=== PATIENT | female | born 1945 | race African-American/Black ===

== ENCOUNTER → 2017-08-12 | Day surgery (SDC) | payer OTHER | END | disposition home or self-care (01) | LOC: JRADIR 08:49 | PROVIDERS: ATTEND Internal Medicine Hematology & Oncology | PROC: 0JPT0XZ Removal of Tunneled Vascular Access Device from Trunk Subcutaneous Tissue and Fascia, Open Approach (ICD-10-PCS; principal; 2017-08-12) | DX: Z45.2 Encounter for adjustment and management of vascular access device (principal); C50.919 Malignant neoplasm of unspecified site of unspecified female breast | CPT/HCPCS: 36590; 77001-TC ==

== ENCOUNTER 2019-09-06 08:06 | Inpatient (IN) | payer OTHER ==
--- NOTE | 2019-09-06 08:14 | PDOC ---
History of Present Illness - General Chief Complaint: Shortness of Breath Stated Complaint: SOB Time Seen by Provider: 09/06/19 08:14 History Source: Patient Exam Limitations: No Limitations - History of Present Illness Initial Comments: 09/06/19 08:34 Fabi Castro is a 73yF w PMHx HTN, IDDM, CKD, COPD, non small cell lung CA (s/p chemo, resolved 5yrs ago) presenting w SOB. 3d ago, noted constant SOB worse w exertion, midsternal chest tightness w inspiration, non productive wet cough, BLE edema. noted mildly distended AB. Did not take morning meds. Only ate a sausage, gave self insulin. 2016 echo showed grade 1 diastolic dysfunction , normal EF. 11/19/[address] showed 2 pulmonary nodules in LLL, unchanged since prior exam. Denies fever, headache, n/v, AB pain, urinary/bowel movement changes. Past History - Past Medical History Allergies/Adverse Reactions: Allergies Allergy/AdvReac Type Severity Reaction Status Date / Time aspirin Allergy Mild ANEMIA Verified 09/06/19 08:15 Home Medications: Ambulatory Orders Insulin (Levemir) [Levemir Flexpen -] 40 units SQ DAILY 12/13/13 Insulin Aspart [Novolog] 10 unit SQ AC 12/13/13 Albuterol 0.083% Nebulizer Rosemarie [Ventolin 0.083% Nebulizer Soln -] 1 neb NEB Q6H #30 vial 01/09/16 Amlodipine Besylate 10 mg PO DAILY 09/06/19 Budesonide/Formeterol Fumarate [SYMBICORT 160/4.5mcg -] 2 puff PO DAILY Insulin (LOG) Aspart [NovoLOG -] 6 unit SQ HS 09/06/19 Metoprolol Succinate 25 mg PO DAILY 09/06/19 Anemia: Yes Asthma: No Cancer: Yes (LUNG CA, finished chemo /radiation 2012) Cardiac Disorders: No CVA: No COPD: No CHF: No Dementia: No Diabetes: Yes (Insulin Dependent) GI Disorders: Yes (h/o colonc polyps) Disorders: No HTN: Yes Hypercholesterolemia: No Liver Disease: No Seizures: No Thyroid Disease: No - Surgical History Abdominal Surgery: No Appendectomy: No Cardiac Surgery: No Cholecystectomy: No Lung Surgery: Yes (lung biopsy ) Neurologic Surgery: No Orthopedic Surgery: No - Psycho Social/Smoking Cessation Hx Smoking Status: Yes Smoking History: Never smoked Have you smoked in the past 12 months: No Number of Cigarettes Smoked Daily: 20 If you are a former smoker, when did you quit?: 2011 'Breaking Loose' booklet given: 08/16/12 Hx Alcohol Use: No Drug/Substance Use Hx: No Substance Use Type: None Hx Substance Use Treatment: No Review of Systems - Review of Systems Able to Perform ROS?: Yes Is the patient limited Armenian proficient: No Constitutional: No: Chills, Fever HEENTM: No: Eye Pain, Nose Pain, Throat Pain, Mouth Pain Respiratory: Yes: Cough, Shortness of Breath. No: Wheezing Cardiac (ROS): Yes: Edema (BLE), Chest Tightness. No: Irregular Heart Rate, Palpitations, Syncope ABD/GI: Yes: Abdominal Distended (mild). No: Constipated, Diarrhea, Nausea, Vomiting, Indigestion : No: Burning, Dysuria, Discharge, Frequency, Flank Pain, Hematuria Musculoskeletal: No: Back Pain, Joint Pain, Muscle Pain, Muscle Weakness Integumentary: No: Bruising, Dryness, Erythema Neurological: No: Headache, Numbness, Seizure, Tingling, Tremors Psychiatric: No: Anxiety, Depression, Stressors Endocrine: No: Excessive Sweating, Flushing, Intolerance to Cold, Intolerance to Heat Hematologic/Lymphatic: No: Anemia, Blood Clots *Physical Exam - Vital Signs Last Vital Signs Temp Pulse Resp BP Pulse Ox 98.1 F 99 H 28 H 205/66 H 91 L 09/06/19 08:10 09/06/19 08:10 09/06/19 08:10 09/06/19 08:10 09/06/19 08:10 - Physical Exam General Appearance: Yes: Nourished, Appropriately Dressed. No: Apparent Distress HEENT: positive: EOMI, JENNIE, Normal Voice, Hearing Grossly Normal. negative: Scleral Icterus (R), Scleral Icterus (L), Nasal Congestion, Rhinorrhea Respiratory/Chest: positive: Crackles (wisam), Wheezing (mild wisam). negative: Chest Tender, Normal Breath Sounds (coarse breath sounds), Respiratory Distress , Rhonchi, Stridor Cardiovascular: positive: Regular Rhythm, Regular Rate, S1, S2. negative: Murmur Gastrointestinal/Abdominal: positive: Normal Bowel Sounds, Soft, Distended (mild ). negative: Tender, Organomegaly, Guarding, Rebound, Mass Extremity: positive: Normal Capillary Refill Integumentary: positive: Normal Color, Swelling (+2 to knees BLE) Neurologic: positive: american sign language interpreter II-XII NML intact, Fully Oriented, Alert, Normal Response, Responsive. negative: Numbness, Sensory Deficit, Confused ED Treatment Course - LABORATORY CBC & Chemistry Diagram: 09/06/19 08:49 09/06/19 08:49 Medical Decision Making - Medical Decision Making 09/06/19 08:40 duonebs, solumedrol for wheezing CBC CMP trop BNP lactate flu UA blood/urine cx CXR shows cardiomegaly, RLL blunted angle, wisam interstitial haziness EKG shows new T wave inversions V5-6 compared to 2016, HR 96, QTc [address] showed cardiomegaly, mild wisam pleural effusions suggesting CHF exacerbation. Stable atelectasis/consolidation of medial part of RLL, stable LLL nodule, enlarged thyroid unchanged since 11/18/2017. bedside echo showed LVH, normal EF, anterior lung B-lines WBC 14.4, Hgb 7.8 microcytic anemia, ABG 7.34 metabolic acidosis, Cr 2.9, glucose 53, BNP 3400, trop neg, ALP 243 (baseline), UA 3+ protein --- Fabi Castro is a 73yF w PMHx HTN, IDDM, CKD, COPD, non small cell lung CA (s/p chemo, resolved 5yrs ago) presenting w SOB, cough, BLE edema. CHF exacerbation (BLE edema + wisam pleural effusions, cardiomegaly) vs COPD exacerbation (wheezing) - given duonebs and solumedrol w breathing improvement acute on chronic kidney injury (Cr 2.9, baseline 1.8) hypoglycemia BG 53 - d/t inadequate diet, given 2 orange juice, crackers acute hypoxic failure on 2L NC microcytic anemia Hgb 7.8 leukocytosis WBC 14 - maybe d/t stress. Afebrile Flu neg. Unlikely ACS (neg trop) or PNA (no CXR consolidation) or UTI. Holding fluids d/t CHF. Admitted to tele Dr Christianson for CHF exacerbation, COPD exacerbation, acute on chronic kidney injury, microcytic anemia. Discharge - Discharge Information Problems reviewed: Yes Clinical Impression/Diagnosis: COPD exacerbation, Microcytic anemia CHF exacerbation Qualifiers: Heart failure type: unspecified Qualified Code(s): I50.9 - Heart failure, unspecified Zqmbz-am-khhzxew kidney injury Qualifiers: Acute renal failure type: unspecified Chronic kidney disease stage: unspecified stage Qualified Code(s): N17.9 - Acute kidney failure, unspecified Condition: Good - Follow up/Referral - Patient Discharge Instructions - Post Discharge Activity
[2019-09-06] MEDS ORDERED: ALBUTEROL SO4 2.5/IPRATROPIUM 0.5 INH SOL 3 ML VIAL.NEB. NEB ONE ×2 (08:56→09:02)
[2019-09-06] MEDS ORDERED: methylPREDNISolone NA SUCC 125 MG/2 ML VIAL IVPUSH ONE (08:56)
[2019-09-06] MEDS ORDERED: methylPREDNISolone NA SUCC 125 MG/2 ML VIAL ONE (09:02)
[2019-09-06 09:14] LABS: VENOUS PC02 40.6 mmHg (38-52)
[2019-09-06 09:16] LABS: BASO % 0.5 % (0-2.0); EOS % 0.5 % (0-4.5); HEMATOCRIT 24.9 % (32.4-45.2); HEMOGLOBIN 7.8 GM/dL (10.7-15.3); LYMPH % 22.7 % (8-40); MCH 24.1 pg (25.7-33.7); MCHC 31.3 g/dl (32.0-36.0); MEAN CELL VOLUME 76.9 fl (80-96); MEAN PLT VOLUME 9.1 fl (7.5-11.1); MONO % 6.2 % (3.8-10.2); NEUT % 70.1 % (42.8-82.8); PLATELET COUNT 226 K/MM3 (134-434); RBC 3.24 M/mm3 (3.60-5.2); RDW 16.1 % (11.6-15.6); WHITE BLOOD COUNT 14.4 K/mm3 (4.0-10.0)
[2019-09-06 09:24] LABS: VENOUS PO2 < 49 mmHg (28-48)
[2019-09-06 09:50] LABS: BILIRUBIN,TOTAL 0.2 mg/dL (0.2-1); BLOOD UREA NITROGEN 56.8 mg/dL (7-18); CREATININE 2.9 mg/dL (0.55-1.3); POTASSIUM 5.3 mmol/L (3.5-5.1); TOT PROT 7.6 g/dl (6.4-8.2)
[2019-09-06 09:55] LABS: N-TERMINAL BNP 3410.9 pg/ml (5-125)
--- NOTE | 2019-09-06 10:18 | PDOC ---
Attending Attestation - Resident Resident Name: Oracio Díaz - ED Attending Attestation I have performed the following: I have examined & evaluated the patient, The case was reviewed & discussed with the resident, I agree w/resident's findings & plan - HPI HPI: 09/06/19 10:10 73-year-old female with history of hypertension, ? COPD (treated with nebs in past, former smoker, not followed by pulm, history of lung CA status post chemo and radiation completion presents now with progressive shortness of breath and wheezing over the last 2 to 3 days. Patient reports wheezing followed by dyspnea on exertion and cough occasionally productive of yellow sputum, today felt more short of breath with wheezing just walking around the house so presents for evaluation. No fevers or chills or night sweats, no chest pain. - Physicial Exam PE: 09/06/19 10:27 Tachypnea, tachycardia, blood pressure within normal limits, O2 sat 91% on room air, improved to 100% on supplemental oxygen Seated comfortably in stretcher, tachypneic but speaking full sentences No JVD Heart is regular with occasional premature beats, lungs with coarse breath sounds at both bases, inspiratory and expiratory wheezing bilaterally, right slightly worse than left abdomen benign 1+ pitting edema bilaterally - Critical Care Time Total Critical Care Time: 30 Critical Care Statement: The care of this patient involved high complexity decision making to prevent further life threatening deterioration of the patient 's condition and/or to evaluate & treat vital organ system(s) failure or risk of failure. - Medical Decision Making 09/06/19 10:30 73-year-old female with history of hypertension, lung CA, questionable COPD presents with acute hypoxic respiratory distress, seen immediately upon arrival and placed on supplemental oxygen with improvement, coarse breath sounds bilaterally concerning for COPD exacerbation versus infectious process/ pneumonia versus CHF exacerbation. labs ekg, cxr --> ct chest given neoplasm history (has not yet had screening CT this year) nebs, steroids pocus echo admit 09/06/19 12:14 ct with b/l R>L pleural effusions, otherwise no new findings in reference to infection or worsening neoplasm. Heart Score/ECG Review #1 ECG reviewed & interpreted by me at: 08:18 General ECG Interpretation: Sinus Rhythm, Normal Rate (96), Normal Intervals ( qtc 421), No acute ischemic changes (TWI I/AVL, V5V6) Compared to previous ECG there are: Changes noted (c/w 01/2016, TWI I/AVL old but V5V6 new)
[2019-09-06 10:33] LABS: ARTERIAL BLD GAS O2 SATURATION 95.2 % (95-98); ARTERIAL BLOOD GAS BASE EXCESS -6.2 meq/l (-2-2); ARTERIAL BLOOD GAS PCO2 35.5 mmHg (35-45); ARTERIAL BLOOD GAS PO2 83.1 mmHg (80-100); ARTERIAL BLOOD GAS pH 7.34 (7.35-7.45); CARBOXYHEMOGLOBIN 1.1 % (0-2)
[2019-09-06 11:49] LABS: EPI CELLS 3.4 /HPF (0-5/HPF); HYALINE CASTS 4 /lpf (0-8); URINE APPEARANCE CLOUDY; URINE BACTERIA 8241.2 /hpf (NEGATIVE); URINE BILIRUBIN NEGATIVE (NEGATIVE); URINE COLOR YELLOW; URINE GLUCOSE (UA) NEGATIVE (NEGATIVE); URINE KETONE NEGATIVE (NEGATIVE); URINE LEUK ESTERASE NEGATIVE (NEGATIVE); URINE NITRITE NEGATIVE (NEGATIVE); URINE PROTEIN 3+ (NEGATIVE); URINE RBC 1 /hpf (0-4); URINE UROBILINOGEN 0.2 mg/dL (0.2-1.0)
[2019-09-06 14:05] LABS: URINE WBC 16.8 /hpf (0-5)
[2019-09-06] MEDS ORDERED: ALBUTEROL SO4 2.5/IPRATROPIUM 0.5 INH SOL 3 ML VIAL.NEB. NEB PRN (15:13)
--- NOTE | 2019-09-06 15:13 | HP ---
Admitting History and Physical - Primary Care Physician PCP: Ladonna Christianson - Admission Chief Complaint: SOB History of Present Illness: ER HISTORY - History of Present Illness Initial Comments: 09/06/19 08:34 Fabi Castro is a 73yF w PMHx HTN, IDDM, CKD, COPD, non small cell lung CA (s/p chemo, resolved 5yrs ago) presenting w SOB. 3d ago, noted constant SOB worse w exertion, midsternal chest tightness w inspiration, non productive wet cough, BLE edema. noted mildly distended AB. Did not take morning meds. Only ate a sausage, gave self insulin. 2016 echo showed grade 1 diastolic dysfunction , normal EF. 11/19/[address] showed 2 pulmonary nodules in LLL, unchanged since prior exam. Denies fever, headache, n/v, AB pain, urinary/bowel movement changes. Pt examined by me in the ER She c/o worsening SOB for 3 days -- taking Symbicort did not help her Denies sick contacts denies fever or chills No Orthopnea or PND She c/o exertional dyspnea Had pressure like sensation in chest -- more tight feeling per pt received nebs and solumedrol here-- mild improvement per pt History Source: Patient, Family Member Limitations to Obtaining History: No Limitations - Past Medical History Cardiovascular: Yes: HTN, Hyperlipdemia Pulmonary: Yes: Cancer (Lung), COPD Endocrine: Yes: Diabetes Mellitus - Past Surgical History Past Surgical History: Yes: Hysterectomy - Smoking History Smoking history: Never smoked Have you smoked in the past 12 months: No Aproximately how many cigarettes per day: 20 If you are a former smoker, when did you quit?: 2011 - Alcohol/Substance Use Hx Alcohol Use: No Home Medications - Allergies Allergies/Adverse Reactions: Allergies Allergy/AdvReac Type Severity Reaction Status Date / Time aspirin Allergy Mild ANEMIA Verified 09/06/19 08:15 - Home Medications Home Medications: Ambulatory Orders Insulin (Levemir) [Levemir Flexpen -] 40 units SQ DAILY 12/13/13 Insulin Aspart [Novolog] 10 unit SQ AC 12/13/13 Albuterol 0.083% Nebulizer Rosemarie [Ventolin 0.083% Nebulizer Soln -] 1 neb NEB Q6H #30 vial 01/09/16 Amlodipine Besylate 10 mg PO DAILY 09/06/19 Budesonide/Formeterol Fumarate [SYMBICORT 160/4.5mcg -] 2 puff PO DAILY Insulin (LOG) Aspart [NovoLOG -] 6 unit SQ HS 09/06/19 Metoprolol Succinate 25 mg PO DAILY 09/06/19 Review of Systems - Review of Systems Constitutional: denies: Chills, Fever Cardiovascular: reports: Edema. denies: Chest Pain, Palpitations Respiratory: reports: Cough, SOB, SOB on Exertion, Wheezing. denies: Orthopnea Physical Examination Vital Signs: Vital Signs Temperature 98.1 F 09/06/19 14:59 Pulse Rate 90 09/06/19 14:57 Respiratory Rate 18 09/06/19 14:57 Blood Pressure 188/54 H 09/06/19 14:57 O2 Sat by Pulse Oximetry (%) 98 09/06/19 14:57 Constitutional: Yes: No Distress, Calm Cardiovascular: Yes: Regular Rate and Rhythm Respiratory: Yes: Rales (bases), Rhonchi Gastrointestinal: Yes: Normal Bowel Sounds, Soft, Abdomen, Obese. No: Tenderness Edema: Yes Edema: LLE: Trace, RLE: Trace Neurological: Yes: Alert, Oriented Psychiatric: Yes: Alert, Oriented Labs: CBC, BMP 09/06/19 08:49 09/06/19 08:49 Imaging - Results Chest X-ray: Image Reviewed (mild congestion) Cat Scan: Report Reviewed EKG: Image Reviewed (NSR) Problem List - Problems (1) Ebirm-lu-pqtzpbk kidney injury Code(s): N17.9 - ACUTE KIDNEY FAILURE, UNSPECIFIED; N18.9 - CHRONIC KIDNEY DISEASE, UNSPECIFIED Qualifiers: Acute renal failure type: unspecified Chronic kidney disease stage: unspecified stage Qualified Code(s): N17.9 - Acute kidney failure, unspecified ; N18.9 - Chronic kidney disease, unspecified (2) CHF exacerbation Code(s): I50.9 - HEART FAILURE, UNSPECIFIED Qualifiers: Heart failure type: unspecified Qualified Code(s): I50.9 - Heart failure, unspecified (3) COPD exacerbation Code(s): J44.1 - CHRONIC OBSTRUCTIVE PULMONARY DISEASE W (ACUTE) EXACERBATION (4) Microcytic anemia Code(s): D50.9 - IRON DEFICIENCY ANEMIA, UNSPECIFIED (5) COPD (chronic obstructive pulmonary disease) Code(s): J44.9 - CHRONIC OBSTRUCTIVE PULMONARY DISEASE, UNSPECIFIED (6) Diabetes Code(s): E11.9 - TYPE 2 DIABETES MELLITUS WITHOUT COMPLICATIONS (7) Lung cancer Code(s): C34.90 - MALIGNANT NEOPLASM OF UNSP PART OF UNSP BRONCHUS OR LUNG Assessment/Plan PLAN COPD EXACERBATION -- pulmonary eval -- IV solumedrol -- nebs -- iv ceftriaxone -- monitor sugars CHF decompensation -- iv lasix -- monitor renal function -- check Echo -- cardiology eval DM -- increase insulin if elevated -- insulin sliding scale Acute on chronic kidney disease -- pt follows with renal -- monitor renal funtion on lasix -- hold off ACEI or ARB
[2019-09-06 15:56] VITALS: BMI 30.1
[2019-09-06] MEDS ORDERED: DEXTROSE 5%-WATER - 50 ML IVPB ONE (16:00)
[2019-09-06] MEDS ORDERED: cefTRIAXone SODIUM 1 GM VIAL ONE (16:00)
[2019-09-06] MEDS: CEFTRIAXONE 1 GM in DEXTROSE 5%-WATER - 50 ML IVPB SCH (16:01)
[2019-09-06] MEDS: FUROSEMIDE 40 MG/4 ML INJECTABLE VIAL IVPUSH SCH (16:01)
[2019-09-06] MEDS: INSULIN SLIDING SCALE (NOVOLOG) 1 VIAL SQ SCH (17:27)
[2019-09-06] MEDS: methylPREDNISolone NA SUCC 40 MG/1 ML VIAL IVPUSH SCH (21:55)
[2019-09-07] MEDS ORDERED: ACETAMINOPHEN 325 MG TABLET (FP) PO STA (01:10)
[2019-09-07] MEDS: methylPREDNISolone NA SUCC 40 MG/1 ML VIAL IVPUSH SCH ×4 (03:40→17:58)
[2019-09-07] MEDS: INSULIN SLIDING SCALE (NOVOLOG) 1 VIAL SQ SCH ×3 (06:09→17:56)
[2019-09-07 06:34] LABS: BASO % 0.5 % (0-2.0); HEMATOCRIT 24.5 % (32.4-45.2); HEMOGLOBIN 7.7 GM/dL (10.7-15.3); LYMPH % 11.7 % (8-40); MCH 24.1 pg (25.7-33.7); MCHC 31.4 g/dl (32.0-36.0); MEAN CELL VOLUME 76.9 fl (80-96); MEAN PLT VOLUME 10.1 fl (7.5-11.1); MONO % 2.8 % (3.8-10.2); PLATELET COUNT 217 K/MM3 (134-434); RBC 3.19 M/mm3 (3.60-5.2); WHITE BLOOD COUNT 9.6 K/mm3 (4.0-10.0)
[2019-09-07 07:00] LABS: ALBUMIN 2.8 g/dl (3.4-5.0); BILIRUBIN,TOTAL 0.2 mg/dL (0.2-1); BLOOD UREA NITROGEN 67.7 mg/dL (7-18); CALCIUM 8.5 mg/dL (8.5-10.1); CREATININE 2.8 mg/dL (0.55-1.3); TOT PROT 7.1 g/dl (6.4-8.2)
[2019-09-07] MEDS ORDERED: INSULIN (LEVEMIR) 100 UNITS/ML UNITS SQ SCH (07:00)
[2019-09-07 07:07] LABS: POTASSIUM 6.2 mmol/L (3.5-5.1)
[2019-09-07] MEDS ORDERED: SODIUM POLYSTYRENE SULFONATE 15 GM/60 ML BOTTLE PO ONE (07:19)
[2019-09-07] MEDS ORDERED: DEXTROSE 5%-WATER - 50 ML IVPB ONE (08:10)
[2019-09-07] MEDS ORDERED: cefTRIAXone SODIUM 1 GM VIAL ONE (08:10)
[2019-09-07] MEDS ORDERED: metoPROLOL SUCCINATE 25 MG TAB.SR.24H (FP) PO SCH (10:00)
--- NOTE | 2019-09-07 10:40 | EKG ---
Test Reason : Blood Pressure : / mmHG Vent. Rate : 096 BPM Atrial Rate : 096 BPM P-R Int : 132 ms QRS Dur : 082 ms QT Int : 334 ms P-R-T Axes : 042 067 112 degrees QTc Int : 421 ms SINUS RHYTHM WITH PREMATURE SUPRAVENTRICULAR COMPLEXES POSSIBLE LEFT ATRIAL ENLARGEMENT NONSPECIFIC T WAVE ABNORMALITY ABNORMAL ECG WHEN COMPARED WITH ECG OF 04-JAN-2016 23:37, PREMATURE SUPRAVENTRICULAR COMPLEXES ARE NOW PRESENT NONSPECIFIC T WAVE ABNORMALITY, WORSE IN LATERAL LEADS Confirmed by REMY ALVES, VICTOR M ([id number]) on 09/07/2019 10:40:21 AM Referred By: Confirmed By:VICTOR M ALBERTO MD
[2019-09-07] MEDS: FUROSEMIDE 40 MG/4 ML INJECTABLE VIAL IVPUSH SCH (10:56)
[2019-09-07] MEDS: amLODIPine BESYLATE 10 MG TABLET (FP) PO SCH (10:56)
[2019-09-07] MEDS: PANTOPRAZOLE 40 MG TABLET (FP) PO SCH (10:56)
[2019-09-07] MEDS: CEFTRIAXONE 1 GM in DEXTROSE 5%-WATER - 50 ML IVPB SCH (10:57)
--- NOTE | 2019-09-07 12:07 | PN ---
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 (short form) - Note 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: feeling better no coughing Vital Signs - 24 hr 09/06/19 09/06/19 09/06/19 12:35 13:49 14:57 Temperature 97.9 F Pulse Rate Pulse Rate [ 89 89 90 Apical] Respiratory 18 20 18 Rate Blood Pressure Blood Pressure 172/78 H 177/48 H 188/54 H [Left Arm] O2 Sat by Pulse 97 97 98 Oximetry (%) 09/06/19 09/06/19 09/06/19 14:59 15:44 21:00 Temperature 98.1 F 98.2 F 98 F Pulse Rate 92 H 90 Pulse Rate [ Apical] Respiratory 20 18 Rate Blood Pressure 157/63 162/78 Blood Pressure [Left Arm] O2 Sat by Pulse 98 98 Oximetry (%) 09/07/19 09/07/19 01:43 06:00 Temperature 97.8 F 98 F Pulse Rate 82 85 Pulse Rate [ Apical] Respiratory 18 18 Rate Blood Pressure 162/66 136/56 L Blood Pressure [Left Arm] O2 Sat by Pulse Oximetry (%) Current Medications Generic Name Dose Route Start Last Admin Trade Name Freq PRN Reason Stop Dose Admin Albuterol/Ipratropium 1 amp 09/06/19 15:13 Duoneb - NEB Q4H PRN SHORTNESS OF BREATH Amlodipine Besylate 10 mg 09/07/19 10:00 09/07/19 10:56 Norvasc - PO 10 mg DAILY DANISH Administration Furosemide 40 mg 09/06/19 15:30 09/07/19 10:56 Lasix Injection - IVPUSH 40 mg DAILY DANISH Administration Ceftriaxone Sodium 1 gm/ 50 mls @ 100 mls/hr 09/06/19 15:30 09/07/19 10:57 Dextrose IVPB 100 mls/hr DAILY@0800 DANISH Administration Insulin Aspart 1 vial 09/06/19 16:30 09/07/19 06:09 Novolog Vial Sliding Scale - SQ 4 units TIDAC DANISH Administration Protocol Insulin Detemir 40 units 09/07/19 07:00 09/07/19 06:09 Levemir Vial SQ 40 units AM DANISH Administration Methylprednisolone Sodium Succinate 60 mg 09/06/19 21:00 09/07/19 10:56 Solu-Medrol - IVPUSH 60 mg Q6H-IV DANISH Administration Metoprolol Succinate 25 mg 09/07/19 10:00 12/04/19 10:56 Toprol Xl - PO 25 mg DAILY DANISH Administration Pantoprazole Sodium 40 mg 09/07/19 10:00 09/07/19 10:56 Protonix - PO 40 mg DAILY DANISH Administration Laboratory Results - last 24 hr 09/06/19 09/06/19 09/07/19 11:33 16:10 05:23 WBC 9.6 RBC 3.19 L Hgb 7.7 L Hct 24.5 L MCV 76.9 L MCH 24.1 L MCHC 31.4 L RDW 16.0 H Plt Count 217 MPV 10.1 D Absolute Neuts (auto) 8.2 H Neutrophils % 85.0 H D Lymphocytes % 11.7 D Monocytes % 2.8 L Eosinophils % 0.0 D Basophils % 0.5 Nucleated RBC % 0 Sodium Potassium Chloride Carbon Dioxide Anion Gap BUN Creatinine Est GFR (CKD-EPI)AfAm Est GFR (CKD-EPI)NonAf POC Glucometer 242 Random Glucose Calcium Total Bilirubin AST ALT Alkaline Phosphatase Total Protein Albumin Urine WBC (Auto) 16.8 09/07/19 09/07/19 05:23 06:01 WBC RBC Hgb Hct MCV MCH MCHC RDW Plt Count MPV Absolute Neuts (auto) Neutrophils % Lymphocytes % Monocytes % Eosinophils % Basophils % Nucleated RBC % Sodium 143 Potassium 6.2 H* Chloride 114 H Carbon Dioxide 18 L Anion Gap 11 BUN 67.7 H Creatinine 2.8 H Est GFR (CKD-EPI)AfAm 18.64 Est GFR (CKD-EPI)NonAf 16.08 POC Glucometer 231 Random Glucose 233 H Calcium 8.5 Total Bilirubin 0.2 AST 19 ALT 28 Alkaline Phosphatase 188 H Total Protein 7.1 Albumin 2.8 L Urine WBC (Auto) S1 S2 RRR Lungs decreased breath sounds Abd- soft,NT No edema PLAN increase insulin as sugras elevated Continue solumedrol Pulm eval Renal eval on lasix daily monitor renal function Heparin sc for DVT prophylaxis Problem List - Problems (1) Fljdi-yl-etxdppp kidney injury Code(s): N17.9 - ACUTE KIDNEY FAILURE, UNSPECIFIED; N18.9 - CHRONIC KIDNEY DISEASE, UNSPECIFIED Qualifiers: Acute renal failure type: unspecified Chronic kidney disease stage: unspecified stage Qualified Code(s): N17.9 - Acute kidney failure, unspecified ; N18.9 - Chronic kidney disease, unspecified (2) CHF exacerbation Code(s): I50.9 - HEART FAILURE, UNSPECIFIED Qualifiers: Heart failure type: unspecified Qualified Code(s): I50.9 - Heart failure, unspecified (3) COPD exacerbation Code(s): J44.1 - CHRONIC OBSTRUCTIVE PULMONARY DISEASE W (ACUTE) EXACERBATION (4) Microcytic anemia Code(s): D50.9 - IRON DEFICIENCY ANEMIA, UNSPECIFIED (5) COPD (chronic obstructive pulmonary disease) Code(s): J44.9 - CHRONIC OBSTRUCTIVE PULMONARY DISEASE, UNSPECIFIED (6) Diabetes Code(s): E11.9 - TYPE 2 DIABETES MELLITUS WITHOUT COMPLICATIONS (7) Lung cancer Code(s): C34.90 - MALIGNANT NEOPLASM OF UNSP PART OF UNSP BRONCHUS OR LUNG
--- NOTE | 2019-09-07 13:10 | CONSULT ---
Consult - text type - Consultation Consultation Note: Renal consult for CKD and hyperkalemia This is a 73 year old woman with history of lung cancer, hypertension, diabetes mellitus, chronic kidney disease who presented with shortness of breath from home and admitted for CHF and noted to have hyperkalemia with K of 6.2. Cr was 2.3 form May 2019. She was seen in our office for her intinal consult 2 weeks ago. Seen at the bedside. Feels better overall, sob is improving. Making a good amount of urine. Denies any chest pain, palpitations, N/V/D. Tolerating her oral intake. Denies any flank pain, dysuria, recent NSAID use or recent contrast exposure. Denies any skin rash. PMhx: as above Allergies: NKDA Family Hx: NC Social hx: no T/A/D ROS: as per HPI, all other pertinent ros negative Home Medications Medication Instructions Recorded Insulin (Levemir) [Levemir Flexpen 40 units SQ DAILY 12/13/13 -] Insulin Aspart [Novolog] 10 unit SQ AC 12/13/13 Albuterol 0.083% Nebulizer Rosemarie 1 neb NEB Q6H #30 vial 01/09/16 [Ventolin 0.083% Nebulizer Soln -] Amlodipine Besylate 10 mg PO DAILY 09/06/19 Budesonide/Formeterol Fumarate 2 puff PO DAILY 09/06/19 [SYMBICORT 160/4.5mcg -] Insulin (LOG) Aspart [NovoLOG -] 6 unit SQ HS 09/06/19 Metoprolol Succinate 25 mg PO DAILY 09/06/19 Vital Signs Temperature 98 F 09/07/19 06:00 Pulse Rate 85 09/07/19 06:00 Respiratory Rate 18 09/07/19 06:00 Blood Pressure 136/56 L 09/07/19 06:00 O2 Sat by Pulse Oximetry (%) 98 09/06/19 21:00 Intake & Output 09/04/19 09/05/19 09/06/19 09/07/19 23:59 23:59 23:59 23:59 Intake Total 710 150 Output Total 200 Balance 510 150 Weight 77.111 kg NAD awake and alert neck supple, no JVD RRR CTA, no rales or wheeze soft NT/ND no bladder distension no LE edema, swelling or cyanosis CBC, BMP 09/07/19 05:23 09/07/19 05:23 Laboratory Tests 09/06/19 09/07/19 08:49 05:23 BUN 56.8 H 67.7 H Creatinine 2.9 H 2.8 H Laboratory Tests 09/06/19 09/07/19 09/07/19 11:33 05:23 05:23 MCV 76.9 L Calcium 8.5 Albumin 2.8 L Urine Protein 3+ H Urine Blood 1+ H Urine Bacteria (Auto) 8241.2 Current Medications Albuterol/Ipratropium (Duoneb -) 1 amp NEB Q4H PRN PRN Reason: SHORTNESS OF BREATH Amlodipine Besylate (Norvasc -) 10 mg PO DAILY [facility] Last Admin: 09/07/19 10:56 Dose: 10 mg Furosemide (Lasix Injection -) 40 mg IVPUSH DAILY [facility] Last Admin: 09/07/19 10:56 Dose: 40 mg Heparin Sodium (Porcine) (Heparin -) 5,000 unit SQ BID [facility] Ceftriaxone Sodium 1 gm/ (Dextrose) 50 mls @ 100 mls/hr IVPB DAILY@0800 [facility] Last Admin: 09/07/19 10:57 Dose: 100 mls/hr Insulin Aspart (Novolog Vial Sliding Scale -) 1 vial SQ TIDAC [facility]; Protocol Last Admin: 09/07/19 13:03 Dose: 6 units Insulin Detemir (Levemir Vial) 44 units SQ AM [facility] Methylprednisolone Sodium Succinate (Solu-Medrol -) 60 mg IVPUSH Q6H-IV [facility] Last Admin: 09/07/19 10:56 Dose: 60 mg Metoprolol Succinate (Toprol Xl -) 25 mg PO DAILY [facility] Last Admin: 09/07/19 10:56 Dose: 25 mg Pantoprazole Sodium (Protonix -) 40 mg PO DAILY [facility] Last Admin: 09/07/19 10:56 Dose: 40 mg 73 year old woman with history of lung cancer, hypertension, diabetes mellitus, chronic kidney disease who presented with shortness of breath from home and admitted for CHF and noted to have hyperkalemia with K of 6.2. Cr was 2.3 form May 2019. 1. Hyperkalemia in setting of CKD and likley high potassium diet 2. CKD stage 4 (Cr higher then recent values likely due to CHF) 3. Suspected Acute CHF with acute decompensation 4. Pyuria 5. Microcytic anemia 6. Metabolic acidosis Check EKG today, will give IV Calcium glucoante 1g IV as EKG from yesterday showed non-specific T wave changes s/p Kayexlate 30g PO x 1, repeat K this evening Change diet to low potassium diet, pt educated on importance of avoidance of high potassium foods no AMBERLY/ARB at this time given hyperkalemia and decreased eGFR start oral sodium bicarbonate Continue Lasix 40mg IV daily and monitor clinical status Underlying CKD likely due to diabetic nephropathy Check Real US to access kidney size and structure Cardiology consulted F/u urine cultures, on Ceftriaxone check stool occult blood, iron studies if iron stores are adequate can give ANTONETTE Thank you Will follow Elvis Mayorga DO
[2019-09-07] MEDS ORDERED: CALCIUM GLUCONATE 10% - 1,000 MG/10 ML VIAL IVPB ONE (13:15)
--- NOTE | 2019-09-07 13:50 | ECHO ---
Name: MEI AGUIRRE Exam:Adult Echocardiogram Study Date: 09/07/2019 09:44 AM Age: 73 yrs Reason For Study: CHF Height: 63 in Weight: 190 lb BSA: 1.9 m2 MMode/2D Measurements & Calculations IVSd: 1.1 cm Ao root diam: 2.7 cm LVIDd: 3.2 cm LA dimension: 3.4 cm LVIDs: 2.3 cm ACS: 1.8 cm LVPWd: 1.3 cm EDV(Teich): 42.4 ml LVOT diam: 2.0 cm ESV(Teich): 17.3 ml RV S José Miguel: 16.4 cm/sec Doppler Measurements & Calculations MV E max josé miguel: 141.9 cm/sec Ao V2 max: 153.2 cm/sec MV A max josé miguel: 148.1 cm/sec Ao max P.4 mmHg MV E/A: 0.96 Ao V2 mean: 113.7 cm/sec MV dec time: 0.14 sec Ao mean P.6 mmHg Ao V2 VTI: 35.2 cm COLLIN(I,D): 2.2 cm2 COLLIN(V,D): 2.1 cm2 LV V1 max P.4 mmHg MR max josé miguel: 513.6 cm/sec LV V1 mean P.5 mmHg MR max P.6 mmHg LV V1 max: 104.9 cm/sec LV V1 mean: 74.6 cm/sec LV V1 VTI: 25.5 cm SV(LVOT): 76.5 ml TR max josé miguel: 251.4 cm/sec TR max P.3 mmHg PA V2 max: 93.9 cm/sec Med Peak E' José Miguel: 10.1 cm/sec PA max P.5 mmHg Med E/e': 14.0 Lat Peak E' José Miguel: 13.9 cm/sec Lat E/e': 10.2 Procedure A two-dimensional transthoracic echocardiogram with color flow and Doppler was performed. Left Ventricle The left ventricular size, thickness and function are normal. The left ventricular ejection fraction is normal. Left Ventricular Filling pattern is normal for age. The left ventricular wall motion is little l. Right Ventricle The right ventricle is normal in size and function. Atria Normal left and right atrial size and function. Mitral Valve There is trivial mitral valve thickening. There is no mitral valve stenosis. There is trace to mild m itral regurgitation. Tricuspid Valve There is mild tricuspid valve thickening. There is no tricuspid stenosis. There is mild tricuspid regurgitation. Right ventricular systolic pressure is elevated at >60mmHg. Aortic Valve The aortic valve is not well visualized. No hemodynamically significant valvular aortic stenosis. No aortic regurgitation is present. Pulmonic Valve The pulmonic valve is not well visualized. Great Vessels The aortic root is normal size. Pericardium/Pleura There is no pericardial effusion. Interpretation Summary The left ventricular size, thickness and function are normal The left ventricular ejection fraction is normal. Left Ventricular Filling pattern is normal for age. The left ventricular wall motion is normal. There is trace to mild mitral regurgitation. There is mild tricuspid regurgitation. Right ventricular systolic pressure is elevated at >60mmHg. MD Dk Dyson 09/07/2019 01:49 PM
--- NOTE | 2019-09-07 14:02 | CONSULT ---
Consultation: REQUESTING PROVIDER: CONSULT SERVICE: Pulmonology Resident HISTORY OF PRESENT ILLNESS: 73yo F with h/o COPD (unknown GOLD stage), Adenocaricnoma of RLL (s/p resection, chemo, and RT treatments; in remission for 5yrs) who presents to this facility with shortness of breath, CAMP, and nonradiating sternal chest tightness with inspiration noted to worsen over the past week. Pt also endorses nonproductive cough that has been of similar frequency throughout this worsening. Pt has noted increased leg edema bilaterally, however denies weighting herself regularly or knowing a previous stable weight. Pt denies any constitutional symptoms, fever/chills, palpitations, orthopnea, abdominal pain, dysuria, polyuria. Her last meal contained sausage with added salt. PMHx: As above HTN HLD Type 2 DM CKD PSHx: Prior hysterectomy SoHx: Tobacco: Denies Alcohol: Denies Illicit substances: Denies REVIEW OF SYSTEMS: As per HPI PHYSICAL EXAMINATION Vital Signs - 24 hr 09/06/19 09/06/19 09/06/19 14:57 14:59 15:44 Temperature 98.1 F 98.2 F Pulse Rate 92 H Pulse Rate [ 90 Apical] Respiratory 18 20 Rate Blood Pressure 157/63 Blood Pressure 188/54 H [Left Arm] O2 Sat by Pulse 98 98 Oximetry (%) 09/06/19 09/07/19 09/07/19 21:00 01:43 06:00 Temperature 98 F 97.8 F 98 F Pulse Rate 90 82 85 Pulse Rate [ Apical] Respiratory 18 18 18 Rate Blood Pressure 162/78 162/66 136/56 L Blood Pressure [Left Arm] O2 Sat by Pulse 98 Oximetry (%) GENERAL: Awake, alert, and fully oriented, in no acute distress. HEENT: NC/A, EOMI, SMOOTH, MMM NECK: Slight JVD appreciated LUNGS: Rales bilaterally with diminished breath sounds at the bases. No wheezes No accessory muscle use. HEART: RRR, normal S1 and S2 without murmur ABDOMEN: Soft, nontender, not distended, normoactive bowel sounds, no guarding EXTREMITIES: 2+ pulses, warm, well-perfused. No calf tenderness. 1+ bilateral leg edema PSYCHIATRIC: Cooperative. Good eye contact. Appropriate mood and affect. SKIN: Warm, dry, no rashes or lesions noted. Laboratory Results - last 24 hr 09/06/19 09/06/19 09/07/19 11:33 16:10 05:23 WBC 9.6 RBC 3.19 L Hgb 7.7 L Hct 24.5 L MCV 76.9 L MCH 24.1 L MCHC 31.4 L RDW 16.0 H Plt Count 217 MPV 10.1 D Absolute Neuts (auto) 8.2 H Neutrophils % 85.0 H D Lymphocytes % 11.7 D Monocytes % 2.8 L Eosinophils % 0.0 D Basophils % 0.5 Nucleated RBC % 0 Sodium Potassium Chloride Carbon Dioxide Anion Gap BUN Creatinine Est GFR (CKD-EPI)AfAm Est GFR (CKD-EPI)NonAf POC Glucometer 242 Random Glucose Calcium Total Bilirubin AST ALT Alkaline Phosphatase Total Protein Albumin Urine WBC (Auto) 16.8 09/07/19 09/07/19 09/07/19 05:23 06:01 13:01 WBC RBC Hgb Hct MCV MCH MCHC RDW Plt Count MPV Absolute Neuts (auto) Neutrophils % Lymphocytes % Monocytes % Eosinophils % Basophils % Nucleated RBC % Sodium 143 Potassium 6.2 H* Chloride 114 H Carbon Dioxide 18 L Anion Gap 11 BUN 67.7 H Creatinine 2.8 H Est GFR (CKD-EPI)AfAm 18.64 Est GFR (CKD-EPI)NonAf 16.08 POC Glucometer 231 294 Random Glucose 233 H Calcium 8.5 Total Bilirubin 0.2 AST 19 ALT 28 Alkaline Phosphatase 188 H Total Protein 7.1 Albumin 2.8 L Urine WBC (Auto) Active Medications Generic Name Dose Route Start Last Admin Trade Name Freq PRN Reason Stop Dose Admin Albuterol/Ipratropium 1 amp 09/06/19 15:13 Duoneb - NEB Q4H PRN SHORTNESS OF BREATH Amlodipine Besylate 10 mg 09/07/19 10:00 09/07/19 10:56 Norvasc - PO 10 mg DAILY DANISH Administration Furosemide 40 mg 09/06/19 15:30 09/07/19 10:56 Lasix Injection - IVPUSH 40 mg DAILY DANISH Administration Heparin Sodium (Porcine) 5,000 unit 09/07/19 22:00 Heparin - SQ BID DANISH Ceftriaxone Sodium 1 gm/ 50 mls @ 100 mls/hr 09/06/19 15:30 09/07/19 10:57 Dextrose IVPB 100 mls/hr DAILY@0800 DANISH Administration Insulin Aspart 1 vial 09/06/19 16:30 09/07/19 13:03 Novolog Vial Sliding Scale - SQ 6 units TIDAC DANISH Administration Protocol Insulin Detemir 44 units 09/07/19 12:34 Levemir Vial SQ AM DANISH Methylprednisolone Sodium Succinate 60 mg 09/06/19 21:00 09/07/19 10:56 Solu-Medrol - IVPUSH 60 mg Q6H-IV DANISH Administration Metoprolol Succinate 25 mg 09/07/19 10:00 09/07/19 10:56 Toprol Xl - PO 25 mg DAILY DANISH Administration Pantoprazole Sodium 40 mg 09/07/19 10:00 09/07/19 10:56 Protonix - PO 40 mg DAILY DANISH Administration Sodium Bicarbonate 650 mg 09/07/19 13:15 Sodium Bicarbonate - PO DAILY DANISH ASSESSMENT/PLAN: Acute on chronic diastolic heart failure Pulmonary Hypertension History of COPD Hyperkalemia CKD Microcytic anemia of chronic disease HTN Type 2 DM with uncontrolled glucose --Would continue diuresis per cardiology and primary team with follow-up imaging of effusions --If effusions persist can go for diagnostic thoracentesis --daily weights and accurate I&Os --Would decrease Medrol to 40mg qdaily and taper off quickly --Can continue bronchodilators PRN --Benefit from outpatient PFT and follow-up --Sleep study on outpatient basis --PAH workup once acute issue is resolved --Rest per primary team Case discussed with Dr. Jason Foster, DO - IM PGY-3 Thank you for this consultative opportunity. Visit type - Emergency Visit Emergency Visit: Yes ED Registration Date: 09/06/19 Care time: The patient presented to the Emergency Department on the above date and was hospitalized for further evaluation of their emergent condition. - New Patient This patient is new to me today: Yes Date on this admission: 09/07/19 - Critical Care Critical Care patient: No ATTENDING PHYSICIAN STATEMENT I saw and evaluated the patient. I reviewed the resident's note and discussed the case with the resident. I agree with the resident's findings and plan as documented. SUBJECTIVE: OBJECTIVE: ASSESSMENT AND PLAN:
--- NOTE | 2019-09-07 14:23 | CON.CARD ---
Consult Consult Specialty:: Cardiology Referred by:: Hospitalist Medicine Reason for Consultation:: Dyspnea - History of Present Illness Chief Complaint: Dyspnea History of Present Illness: Fabi Castro is a 73yF w PMHx HTN, IDDM, CKD, COPD, non small cell lung CA (s/p chemo, resolved 5yrs ago) presenting w SOB in context of elevated BP. 3d ago, noted constant SOB worse w exertion, midsternal chest tightness w inspiration, non productive wet cough, BLE edema and mildly distended AB. Did not take morning meds, only ate a sausage, gave self insulin, admits to adding salt to diet, denies NSAID use. She also denies near or true syncope, palpitations, orthopnea, PND or LE edema. Chest ct shows mild congestion and bilateral pleural effusions, sxs improving with diuresis and BP control. - History Source History Provided By: Patient Limitations to Obtaining History: No Limitations - Past Medical History Cardio/Vascular: Yes: HTN, Hyperlipdemia Pulmonary: Yes: Cancer (Lung), COPD Endocrine: Yes: Diabetes Mellitus - Past Surgical History Past Surgical History: Yes: Hysterectomy - Alcohol/Substance Use Hx Alcohol Use: No - Smoking History Smoking history: Never smoked Have you smoked in the past 12 months: No Aproximately how many cigarettes per day: 20 If you are a former smoker, when did you quit?: 2011 Home Medications - Allergies Allergies/Adverse Reactions: Allergies Allergy/AdvReac Type Severity Reaction Status Date / Time aspirin Allergy Mild ANEMIA Verified 09/06/19 08:15 - Home Medications Home Medications: Ambulatory Orders Insulin (Levemir) [Levemir Flexpen -] 40 units SQ DAILY 12/13/13 Insulin Aspart [Novolog] 10 unit SQ AC 12/13/13 Albuterol 0.083% Nebulizer Rosemarie [Ventolin 0.083% Nebulizer Soln -] 1 neb NEB Q6H #30 vial 01/09/16 Amlodipine Besylate 10 mg PO DAILY 09/06/19 Budesonide/Formeterol Fumarate [SYMBICORT 160/4.5mcg -] 2 puff PO DAILY Insulin (LOG) Aspart [NovoLOG -] 6 unit SQ HS 09/06/19 Metoprolol Succinate 25 mg PO DAILY 09/06/19 Review of Systems - Review of Systems Cardiovascular: reports: Shortness of Breath Respiratory: reports: SOB, SOB on Exertion Vital Signs: Vital Signs Temperature 98 F 09/07/19 06:00 Pulse Rate 85 09/07/19 06:00 Respiratory Rate 18 09/07/19 06:00 Blood Pressure 136/56 L 09/07/19 06:00 O2 Sat by Pulse Oximetry (%) 98 09/06/19 21:00 Constitutional: Yes: No Distress, Calm Neck: Yes: Supple Respiratory: Yes: Regular, Diminished Gastrointestinal: Yes: Normal Bowel Sounds, Soft Cardiovascular: Yes: Regular Rate and Rhythm JVD: No Carotid Bruit: No Heart Sounds: Yes: S1, S2 Murmur: Yes: Systolic Murmur, Grade 1 Edema: Yes Edema: LLE: 1+, RLE: 1+ - Other Data Labs, Other Data: CBC, BMP 09/07/19 05:23 09/07/19 05:23 Imaging - Results Chest X-ray: Report Reviewed (NAD) Cat Scan: Report Reviewed (Chest CT: Mild congestion and bilateral pleural effusions) Problem List - Problems (1) Hypertensive heart disease Code(s): I11.9 - HYPERTENSIVE HEART DISEASE WITHOUT HEART FAILURE Qualifiers: Heart failure presence: with heart failure Heart failure type: diastolic Heart failure chronicity: acute on chronic Qualified Code(s): I11.0 - Hypertensive heart disease with heart failure; I50.33 - Acute on chronic diastolic (congestive) heart failure (2) Tpagv-be-ycbljds kidney injury Code(s): N17.9 - ACUTE KIDNEY FAILURE, UNSPECIFIED; N18.9 - CHRONIC KIDNEY DISEASE, UNSPECIFIED Qualifiers: Acute renal failure type: unspecified Chronic kidney disease stage: unspecified stage Qualified Code(s): N17.9 - Acute kidney failure, unspecified ; N18.9 - Chronic kidney disease, unspecified (3) CHF exacerbation Code(s): I50.9 - HEART FAILURE, UNSPECIFIED Qualifiers: Heart failure type: diastolic Qualified Code(s): I50.33 - Acute on chronic diastolic (congestive) heart failure (4) COPD (chronic obstructive pulmonary disease) Code(s): J44.9 - CHRONIC OBSTRUCTIVE PULMONARY DISEASE, UNSPECIFIED (5) Diabetes Code(s): E11.9 - TYPE 2 DIABETES MELLITUS WITHOUT COMPLICATIONS Qualifiers: Diabetes mellitus type: type 2 Diabetes mellitus complication status: with kidney complications Chronic kidney disease stage: stage 3 (moderate) Assessment/Plan 09/07/2019 Echo: Normal LV and RV size and fxn, tr-mild MR, mild TR 09/06/[address]: Mild congestion with bilateral effusions 1. Acute on chronic diastolic heart failure 2. CKD with hyperkalemia 3. Microcytic anemia due to CKD 4. COPD not in exacerbation 5. Type 2 DM 6. HTN heart disease 7. UTI P:1. IV diuresis with monitor diuretic response, renal fxn and electrolytes 2. Increase Toprol XL 50 qd, Norvasc 10 qd, AMBERLY-I/ARB pending stabilization of hyperkalemia and CKD 3. BD, O2 as needed, empiric abx, d/c empiric steroids 4. Thank you for consultative opportunity
--- NOTE | 2019-09-07 14:33 | PN ---
Teaching Attending Note Name of Resident: Edy Foster ATTENDING PHYSICIAN STATEMENT I saw and evaluated the patient. I reviewed the resident's note and discussed the case with the resident. I agree with the resident's findings and plan as documented. PULMONARY IMP DYSPNEA CHF DIASTOLIC COPD H/O LUNG CA (ADENO) S/P CHEMO/RT PULMONARY HTN ACUTE ON CHRONIC KIDNEY DISEASE DM SUSPECTED PRAKASH PLAN LASIX O2 INHALED BRONCHODILATORS REDUCE STEROIDS F/U CHEST X-RAYS DAILY WTS GLYCEMIC CONTROL PFTS OUTPATIENT OUTPATIENT SLEEP STUDIES MONITOR LYTES,RENAL FUNCTION DR PARIKH Problem List - Problems (1) Bhnau-dt-chziaed kidney injury Code(s): N17.9 - ACUTE KIDNEY FAILURE, UNSPECIFIED; N18.9 - CHRONIC KIDNEY DISEASE, UNSPECIFIED Qualifiers: Acute renal failure type: unspecified Chronic kidney disease stage: unspecified stage Qualified Code(s): N17.9 - Acute kidney failure, unspecified ; N18.9 - Chronic kidney disease, unspecified (2) CHF exacerbation Code(s): I50.9 - HEART FAILURE, UNSPECIFIED Qualifiers: Heart failure type: diastolic Qualified Code(s): I50.33 - Acute on chronic diastolic (congestive) heart failure (3) COPD exacerbation Code(s): J44.1 - CHRONIC OBSTRUCTIVE PULMONARY DISEASE W (ACUTE) EXACERBATION (4) Hypertensive heart disease Code(s): I11.9 - HYPERTENSIVE HEART DISEASE WITHOUT HEART FAILURE Qualifiers: Heart failure presence: with heart failure Heart failure type: diastolic Heart failure chronicity: acute on chronic Qualified Code(s): I11.0 - Hypertensive heart disease with heart failure; I50.33 - Acute on chronic diastolic (congestive) heart failure (5) Microcytic anemia Code(s): D50.9 - IRON DEFICIENCY ANEMIA, UNSPECIFIED (6) COPD (chronic obstructive pulmonary disease) Code(s): J44.9 - CHRONIC OBSTRUCTIVE PULMONARY DISEASE, UNSPECIFIED (7) Diabetes Code(s): E11.9 - TYPE 2 DIABETES MELLITUS WITHOUT COMPLICATIONS Qualifiers: Diabetes mellitus type: type 2 Diabetes mellitus complication status: with kidney complications Chronic kidney disease stage: stage 3 (moderate) (8) Lung cancer Code(s): C34.90 - MALIGNANT NEOPLASM OF UNSP PART OF UNSP BRONCHUS OR LUNG (9) Pulmonary HTN Code(s): I27.20 - PULMONARY HYPERTENSION, UNSPECIFIED
[2019-09-07] MEDS ORDERED: metoPROLOL SUCCINATE 25 MG TAB.SR.24H (FP) PO ONE (14:43)
--- NOTE | 2019-09-07 15:37 | EKG ---
Test Reason : Blood Pressure : / mmHG Vent. Rate : 091 BPM Atrial Rate : 091 BPM P-R Int : 134 ms QRS Dur : 088 ms QT Int : 360 ms P-R-T Axes : 064 066 132 degrees QTc Int : 442 ms NORMAL SINUS RHYTHM ABNORMAL ECG WHEN COMPARED WITH ECG OF 06-SEP-2019 08:18, PREMATURE SUPRAVENTRICULAR COMPLEXES ARE NO LONGER PRESENT Confirmed by REMY ALVES, VICTOR M ([id number]) on 09/07/2019 3:37:03 PM Referred By: Bryon KIMBROUGH Confirmed By:VICTOR M ALBERTO MD
[2019-09-07] MEDS: SODIUM BICARBONATE 650 MG TABLET PO SCH (15:47)
[2019-09-07 19:54] LABS: POTASSIUM 5.4 mmol/L (3.5-5.1)
[2019-09-07] MEDS: HEPARIN NA (PORCINE) 5,000 UNITS/ML 1ML VIAL SQ SCH (21:26)
[2019-09-07] MEDS: guaiFENesin/D-METHORPHAN HB 10 ML UNIT-DOSE CUPS PO PRN (23:14)
[2019-09-08] MEDS: methylPREDNISolone NA SUCC 40 MG/1 ML VIAL IVPUSH SCH ×3 (02:07→19:04)
[2019-09-08] MEDS: INSULIN SLIDING SCALE (NOVOLOG) 1 VIAL SQ SCH ×3 (06:47→19:03)
[2019-09-08] MEDS: INSULIN (LEVEMIR) 100 UNITS/ML UNITS SQ SCH (06:48)
[2019-09-08 07:43] LABS: ALBUMIN 2.8 g/dl (3.4-5.0); BILIRUBIN,TOTAL 0.2 mg/dL (0.2-1); BLOOD UREA NITROGEN 69.2 mg/dL (7-18); CALCIUM 8.8 mg/dL (8.5-10.1); CREATININE 2.7 mg/dL (0.55-1.3); MAGNESIUM 2.1 mg/dL (1.8-2.4); POTASSIUM 5.1 mmol/L (3.5-5.1); TOT PROT 7.3 g/dl (6.4-8.2)
[2019-09-08] MEDS ORDERED: cefTRIAXone SODIUM 1 GM VIAL ONE (07:53)
[2019-09-08] MEDS ORDERED: DEXTROSE 5%-WATER - 50 ML IVPB ONE (07:53)
[2019-09-08] MEDS: CEFTRIAXONE 1 GM in DEXTROSE 5%-WATER - 50 ML IVPB SCH (08:30)
[2019-09-08] MEDS: PANTOPRAZOLE 40 MG TABLET (FP) PO SCH (09:48)
[2019-09-08] MEDS: HEPARIN NA (PORCINE) 5,000 UNITS/ML 1ML VIAL SQ SCH ×2 (09:48→21:44)
[2019-09-08] MEDS: guaiFENesin/D-METHORPHAN HB 10 ML UNIT-DOSE CUPS PO PRN ×2 (09:48→20:09)
[2019-09-08] MEDS: SODIUM BICARBONATE 650 MG TABLET PO SCH (09:48)
[2019-09-08] MEDS: amLODIPine BESYLATE 10 MG TABLET (FP) PO SCH (09:48)
[2019-09-08] MEDS: FUROSEMIDE 40 MG/4 ML INJECTABLE VIAL IVPUSH SCH (09:48)
--- NOTE | 2019-09-08 12:28 | PN ---
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 (short form) - Note 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: feeling better no sob on ambulation Vital Signs - 24 hr 09/07/19 09/07/19 09/07/19 14:22 17:00 21:00 Temperature 98.2 F 97.4 F L 98.5 F Pulse Rate 99 H 88 66 Respiratory 18 20 18 Rate Blood Pressure 196/89 H 193/88 H 163/75 O2 Sat by Pulse 95 Oximetry (%) 09/08/19 09/08/19 09/08/19 01:55 06:00 09:19 Temperature 97.8 F 97.8 F 97.6 F Pulse Rate 86 88 90 Respiratory 18 18 18 Rate Blood Pressure 153/55 L 158/88 192/76 H O2 Sat by Pulse Oximetry (%) Current Medications Generic Name Dose Route Start Last Admin Trade Name Freq PRN Reason Stop Dose Admin Albuterol/Ipratropium 1 amp 09/06/19 15:13 Duoneb - NEB Q4H PRN SHORTNESS OF BREATH Amlodipine Besylate 10 mg 09/07/19 10:00 09/08/19 09:48 Norvasc - PO 10 mg DAILY DANISH Administration Furosemide 40 mg 09/06/19 15:30 09/08/19 09:48 Lasix Injection - IVPUSH 40 mg DAILY DANISH Administration Guaifenesin 10 ml 09/07/19 23:07 09/08/19 09:48 Robitussin Dm - PO 10 ml Q8H PRN Administration COUGH Heparin Sodium (Porcine) 5,000 unit 09/07/19 22:00 09/08/19 09:48 Heparin - SQ 5,000 unit BID DANISH Administration Ceftriaxone Sodium 1 gm/ 50 mls @ 100 mls/hr 09/06/19 15:30 09/08/19 08:30 Dextrose IVPB 100 mls/hr DAILY@0800 DANISH Administration Insulin Aspart 1 vial 09/06/19 16:30 09/08/19 06:47 Novolog Vial Sliding Scale - SQ 2 units TIDAC DANISH Administration Protocol Insulin Detemir 44 units 09/07/19 12:34 09/08/19 06:48 Levemir Vial SQ 44 units AM DANISH Administration Methylprednisolone Sodium Succinate 40 mg 09/07/19 18:00 09/08/19 09:48 Solu-Medrol - IVPUSH 40 mg Q8H-IV DANISH Administration Metoprolol Succinate 50 mg 09/07/19 14:43 09/08/19 09:48 Toprol Xl - PO 50 mg DAILY DANISH Administration Pantoprazole Sodium 40 mg 09/07/19 10:00 09/08/19 09:48 Protonix - PO 40 mg DAILY DANISH Administration Sodium Bicarbonate 650 mg 09/07/19 13:15 09/08/19 09:48 Sodium Bicarbonate - PO 650 mg DAILY DANISH Administration Laboratory Results - last 24 hr 09/07/19 09/07/19 09/07/19 13:01 17:54 18:30 Sodium Potassium 5.4 H Chloride Carbon Dioxide Anion Gap BUN Creatinine Est GFR (CKD-EPI)AfAm Est GFR (CKD-EPI)NonAf POC Glucometer 294 281 Random Glucose Calcium Magnesium Iron 68 TIBC 238 L Iron Saturation 28 Unsaturated IBC 170 L Ferritin 329.9 Total Bilirubin AST ALT Alkaline Phosphatase Total Protein Albumin Ur Random Creatinine U Random Total Protein Ur Random Urea Nitrogn Urine Creatinine Protein/Creatinin Ratio 09/08/19 09/08/19 09/08/19 06:25 06:45 10:00 Sodium 144 Potassium 5.1 Chloride 113 H Carbon Dioxide 23 Anion Gap 9 BUN 69.2 H Creatinine 2.7 H Est GFR (CKD-EPI)AfAm 19.48 Est GFR (CKD-EPI)NonAf 16.81 POC Glucometer 175 Random Glucose 195 H Calcium 8.8 Magnesium 2.1 Iron TIBC Iron Saturation Unsaturated IBC Ferritin Total Bilirubin 0.2 AST 43 H ALT 36 Alkaline Phosphatase 185 H Total Protein 7.3 Albumin 2.8 L Ur Random Creatinine U Random Total Protein 635.5 H Ur Random Urea Nitrogn Urine Creatinine 75.0 Protein/Creatinin Ratio 8.5 09/08/19 09/08/19 10:00 10:00 Sodium Potassium Chloride Carbon Dioxide Anion Gap BUN Creatinine Est GFR (CKD-EPI)AfAm Est GFR (CKD-EPI)NonAf POC Glucometer Random Glucose Calcium Magnesium Iron TIBC Iron Saturation Unsaturated IBC Ferritin Total Bilirubin AST ALT Alkaline Phosphatase Total Protein Albumin Ur Random Creatinine 74.9 U Random Total Protein Ur Random Urea Nitrogn 787 Urine Creatinine Protein/Creatinin Ratio S1 S2 RRR Lungs decreased breath sounds Abd- soft,NT No edema PLAN Continue solumedrol renal function better recheck CBC on lasix daily clinically improving Heparin sc for DVT prophylaxis iv antibiotics-- has UTI Problem List - Problems (1) Tsrzb-hw-ntstrin kidney injury Code(s): N17.9 - ACUTE KIDNEY FAILURE, UNSPECIFIED; N18.9 - CHRONIC KIDNEY DISEASE, UNSPECIFIED Qualifiers: Acute renal failure type: unspecified Chronic kidney disease stage: unspecified stage Qualified Code(s): N17.9 - Acute kidney failure, unspecified ; N18.9 - Chronic kidney disease, unspecified (2) CHF exacerbation Code(s): I50.9 - HEART FAILURE, UNSPECIFIED Qualifiers: Heart failure type: diastolic Qualified Code(s): I50.33 - Acute on chronic diastolic (congestive) heart failure (3) COPD exacerbation Code(s): J44.1 - CHRONIC OBSTRUCTIVE PULMONARY DISEASE W (ACUTE) EXACERBATION (4) Microcytic anemia Code(s): D50.9 - IRON DEFICIENCY ANEMIA, UNSPECIFIED (5) COPD (chronic obstructive pulmonary disease) Code(s): J44.9 - CHRONIC OBSTRUCTIVE PULMONARY DISEASE, UNSPECIFIED (6) Diabetes Code(s): E11.9 - TYPE 2 DIABETES MELLITUS WITHOUT COMPLICATIONS Qualifiers: Diabetes mellitus type: type 2 Diabetes mellitus complication status: with kidney complications Chronic kidney disease stage: stage 3 (moderate) (7) Lung cancer Code(s): C34.90 - MALIGNANT NEOPLASM OF UNSP PART OF UNSP BRONCHUS OR LUNG
--- NOTE | 2019-09-08 12:33 | PN ---
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, Physician History of Present Illness: SOB worse w exertion, midsternal chest tightness, cough, BLE edema, and mildly distended AB improving with diuresis, BP still elevated. - Current Medication List Current Medications: Active Medications Albuterol/Ipratropium (Duoneb -) 1 amp NEB Q4H PRN PRN Reason: SHORTNESS OF BREATH Amlodipine Besylate (Norvasc -) 10 mg PO DAILY [facility] Last Admin: 09/08/19 09:48 Dose: 10 mg Furosemide (Lasix Injection -) 40 mg IVPUSH DAILY [facility] Last Admin: 09/08/19 09:48 Dose: 40 mg Guaifenesin (Robitussin Dm -) 10 ml PO Q8H PRN PRN Reason: COUGH Last Admin: 09/08/19 09:48 Dose: 10 ml Heparin Sodium (Porcine) (Heparin -) 5,000 unit SQ BID [facility] Last Admin: 09/08/19 09:48 Dose: 5,000 unit Ceftriaxone Sodium 1 gm/ (Dextrose) 50 mls @ 100 mls/hr IVPB DAILY@0800 [facility] Last Admin: 09/08/19 08:30 Dose: 100 mls/hr Insulin Aspart (Novolog Vial Sliding Scale -) 1 vial SQ TIDAC [facility]; Protocol Last Admin: 09/08/19 06:47 Dose: 2 units Insulin Detemir (Levemir Vial) 44 units SQ AM [facility] Last Admin: 09/08/19 06:48 Dose: 44 units Methylprednisolone Sodium Succinate (Solu-Medrol -) 40 mg IVPUSH Q8H-IV [facility] Last Admin: 09/08/19 09:48 Dose: 40 mg Metoprolol Succinate (Toprol Xl -) 50 mg PO DAILY [facility] Last Admin: 09/08/19 09:48 Dose: 50 mg Pantoprazole Sodium (Protonix -) 40 mg PO DAILY [facility] Last Admin: 09/08/19 09:48 Dose: 40 mg Sodium Bicarbonate (Sodium Bicarbonate -) 650 mg PO DAILY [facility] Last Admin: 09/08/19 09:48 Dose: 650 mg - Objective Vital Signs: Vital Signs Temperature 97.6 F 09/08/19 09:19 Pulse Rate 90 09/08/19 09:19 Respiratory Rate 18 09/08/19 09:19 Blood Pressure 192/76 H 09/08/19 09:19 O2 Sat by Pulse Oximetry (%) 95 09/07/19 21:00 Constitutional: Yes: No Distress, Calm Neck: Yes: Supple Cardiovascular: Yes: Regular Rate and Rhythm Respiratory: Yes: Regular, Diminished Gastrointestinal: Yes: Normal Bowel Sounds, Soft Edema: No Labs: CBC, BMP 09/07/19 05:23 09/08/19 06:25 Problem List - Problems (1) Hypertensive heart disease Code(s): I11.9 - HYPERTENSIVE HEART DISEASE WITHOUT HEART FAILURE Qualifiers: Heart failure presence: with heart failure Heart failure type: diastolic Heart failure chronicity: acute on chronic Qualified Code(s): I11.0 - Hypertensive heart disease with heart failure; I50.33 - Acute on chronic diastolic (congestive) heart failure (2) [id number] kidney injury Code(s): N17.9 - ACUTE KIDNEY FAILURE, UNSPECIFIED; N18.9 - CHRONIC KIDNEY DISEASE, UNSPECIFIED Qualifiers: Acute renal failure type: unspecified Chronic kidney disease stage: unspecified stage Qualified Code(s): N17.9 - Acute kidney failure, unspecified ; N18.9 - Chronic kidney disease, unspecified (3) CHF exacerbation Code(s): I50.9 - HEART FAILURE, UNSPECIFIED Qualifiers: Heart failure type: diastolic Qualified Code(s): I50.33 - Acute on chronic diastolic (congestive) heart failure (4) COPD (chronic obstructive pulmonary disease) Code(s): J44.9 - CHRONIC OBSTRUCTIVE PULMONARY DISEASE, UNSPECIFIED (5) Diabetes Code(s): E11.9 - TYPE 2 DIABETES MELLITUS WITHOUT COMPLICATIONS Qualifiers: Diabetes mellitus type: type 2 Diabetes mellitus complication status: with kidney complications Chronic kidney disease stage: stage 3 (moderate) Assessment/Plan 09/07/2019 Echo: Normal LV and RV size and fxn, tr-mild MR, mild TR 09/06/[address]: Mild congestion with bilateral effusions 1. Acute on chronic diastolic heart failure resolving 2. CKD with hyperkalemia 3. Microcytic anemia due to CKD 4. COPD not in exacerbation 5. Type 2 DM 6. HTN heart disease, BP not at goal 7. UTI P:1. IV diuresis with monitor diuretic response, renal fxn and electrolytes 2. Change Toprol XL 50 qd to carvedilol 6.25 bid with uptitration as tolerated, Norvasc 10 qd, AMBERLY-I/ARB held pending stabilization of hyperkalemia and CKD 3. BD, O2 as needed, steroid taper with GI protection, empiric abx for UTI
--- NOTE | 2019-09-08 12:49 | PN ---
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 (short form) - Note 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: PULMONARY States breathing is improving. No cough or wheezing. Vital Signs Period Temp Pulse Resp BP Sys/[place] Pulse Ox Last 24 Hr 97.4 F-98.5 F 66-99 18-20 153-196/55-89 95 Gen: NAD at rest Heart: RRR Lung: decreased breath sounds at the bases Abd: soft, nontender Ext: no edema CBC, BMP 09/07/19 05:23 09/08/19 06:25 Active Medications Albuterol/Ipratropium (Duoneb -) 1 amp NEB Q4H PRN PRN Reason: SHORTNESS OF BREATH Amlodipine Besylate (Norvasc -) 10 mg PO DAILY [facility] Last Admin: 09/08/19 09:48 Dose: 10 mg Carvedilol (Coreg -) 6.25 mg PO BID [facility] Furosemide (Lasix Injection -) 40 mg IVPUSH DAILY [facility] Last Admin: 09/08/19 09:48 Dose: 40 mg Guaifenesin (Robitussin Dm -) 10 ml PO Q8H PRN PRN Reason: COUGH Last Admin: 09/08/19 09:48 Dose: 10 ml Heparin Sodium (Porcine) (Heparin -) 5,000 unit SQ BID [facility] Last Admin: 09/08/19 09:48 Dose: 5,000 unit Ceftriaxone Sodium 1 gm/ (Dextrose) 50 mls @ 100 mls/hr IVPB DAILY@0800 [facility] Last Admin: 09/08/19 08:30 Dose: 100 mls/hr Insulin Aspart (Novolog Vial Sliding Scale -) 1 vial SQ TIDAC [facility]; Protocol Last Admin: 09/08/19 06:47 Dose: 2 units Insulin Detemir (Levemir Vial) 44 units SQ AM [facility] Last Admin: 09/08/19 06:48 Dose: 44 units Methylprednisolone Sodium Succinate (Solu-Medrol -) 40 mg IVPUSH Q8H-IV [facility] Last Admin: 09/08/19 09:48 Dose: 40 mg Pantoprazole Sodium (Protonix -) 40 mg PO DAILY [facility] Last Admin: 09/08/19 09:48 Dose: 40 mg Sodium Bicarbonate (Sodium Bicarbonate -) 650 mg PO DAILY [facility] Last Admin: 09/08/19 09:48 Dose: 650 mg A/P Acute on Chronic Diastolic Heart Failure COPD HTN CKD UTI DM Anemia - continue lasix - monitor urine output, creatinine - daily weights - can change steroids to PO prednisone - inhaled bronchodilators - O2 as needed - complete antibiotics - DVT prophylaxis
--- NOTE | 2019-09-08 14:25 | PN ---
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 (short form) - Note 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: Renal follow up for CKD and hyperkalemia Seen and examined at the bedside awake and alert no acute complaints sob is improved making urine no N/V/D Vital Signs Temperature 97.6 F 09/08/19 09:19 Pulse Rate 90 09/08/19 09:19 Respiratory Rate 18 09/08/19 09:19 Blood Pressure 192/76 H 09/08/19 09:19 O2 Sat by Pulse Oximetry (%) 95 09/07/19 21:00 Intake & Output 09/05/19 09/06/19 09/07/19 09/08/19 23:59 23:59 23:59 23:59 Intake Total 710 660 270 Output Total 200 Balance 510 660 270 Weight 77.111 kg NAD RRR CTA, no rales or wheeze soft NT/ND no bladder distension no LE edema, clubbing or cyanosis CBC, BMP 09/07/19 05:23 09/08/19 06:25 Current Medications Albuterol/Ipratropium (Duoneb -) 1 amp NEB Q4H PRN PRN Reason: SHORTNESS OF BREATH Amlodipine Besylate (Norvasc -) 10 mg PO DAILY [facility] Last Admin: 09/08/19 09:48 Dose: 10 mg Carvedilol (Coreg -) 6.25 mg PO BID [facility] Furosemide (Lasix Injection -) 40 mg IVPUSH DAILY [facility] Last Admin: 09/08/19 09:48 Dose: 40 mg Guaifenesin (Robitussin Dm -) 10 ml PO Q8H PRN PRN Reason: COUGH Last Admin: 09/08/19 09:48 Dose: 10 ml Heparin Sodium (Porcine) (Heparin -) 5,000 unit SQ BID [facility] Last Admin: 09/08/19 09:48 Dose: 5,000 unit Ceftriaxone Sodium 1 gm/ (Dextrose) 50 mls @ 100 mls/hr IVPB DAILY@0800 [facility] Last Admin: 09/08/19 08:30 Dose: 100 mls/hr Insulin Aspart (Novolog Vial Sliding Scale -) 1 vial SQ TIDAC [facility]; Protocol Last Admin: 09/08/19 13:57 Dose: 6 units Insulin Detemir (Levemir Vial) 44 units SQ AM [facility] Last Admin: 09/08/19 06:48 Dose: 44 units Methylprednisolone Sodium Succinate (Solu-Medrol -) 40 mg IVPUSH Q8H-IV [facility] Last Admin: 09/08/19 09:48 Dose: 40 mg Pantoprazole Sodium (Protonix -) 40 mg PO DAILY [facility] Last Admin: 09/08/19 09:48 Dose: 40 mg Sodium Bicarbonate (Sodium Bicarbonate -) 650 mg PO DAILY [facility] Last Admin: 09/08/19 09:48 Dose: 650 mg 73 year old woman with history of lung cancer, hypertension, diabetes mellitus, chronic kidney disease who presented with shortness of breath from home and admitted for CHF and noted to have hyperkalemia with K of 6.2. Cr was 2.3 form May 2019. 1. Hyperkalemia in setting of CKD and likley high potassium diet 2. CKD stage 4 (Cr higher then recent values likely due to CHF) 3. Suspected Acute CHF with acute decompensation 4. Pyuria 5. Microcytic anemia 6. Metabolic acidosis Potassium is improved s/p kayexalate and change to potassium restricted diet Will request nutrition consult for patient education regarding low K diet to be continued at home no AMBERLY/ARB at this time given hyperkalemia and decreased eGFR Continue oral sodium bicarbonate Continue Lasix 40mg IV daily and monitor clinical status Underlying CKD likely due to diabetic nephropathy Renal US is pending F/u urine cultures, on Ceftriaxone Iron saturation is 28%, will give aranesp SC for treatment of CKD related anemia Thank you Will follow Elvis Mayorga DO
[2019-09-08] MEDS ORDERED: EPOETIN ALFA 20,000 UNIT/1 ML VIAL SQ ONE (15:00)
[2019-09-08] MEDS: CARVEDILOL 6.25 MG TABLET (FP) PO SCH ×2 (16:58→21:44)
[2019-09-09] MEDS: methylPREDNISolone NA SUCC 40 MG/1 ML VIAL IVPUSH SCH ×3 (01:13→21:54)
[2019-09-09] MEDS: INSULIN SLIDING SCALE (NOVOLOG) 1 VIAL SQ SCH ×3 (06:19→17:50)
[2019-09-09] MEDS: INSULIN (LEVEMIR) 100 UNITS/ML UNITS SQ SCH (06:19)
[2019-09-09] MEDS: guaiFENesin/D-METHORPHAN HB 10 ML UNIT-DOSE CUPS PO PRN ×2 (06:23→22:08)
[2019-09-09 06:53] LABS: HEMATOCRIT 25.5 % (32.4-45.2); HEMOGLOBIN 7.9 GM/dL (10.7-15.3); MCH 23.4 pg (25.7-33.7); MEAN CELL VOLUME 75.6 fl (80-96); MEAN PLT VOLUME 9.6 fl (7.5-11.1); PLATELET COUNT 229 K/MM3 (134-434); RBC 3.38 M/mm3 (3.60-5.2); RDW 15.5 % (11.6-15.6); WHITE BLOOD COUNT 15.3 K/mm3 (4.0-10.0)
[2019-09-09 07:17] LABS: ALBUMIN 2.8 g/dl (3.4-5.0); BILIRUBIN,TOTAL 0.2 mg/dL (0.2-1); BLOOD UREA NITROGEN 76.4 mg/dL (7-18); CALCIUM 7.9 mg/dL (8.5-10.1); CREATININE 2.6 mg/dL (0.55-1.3); POTASSIUM 4.4 mmol/L (3.5-5.1); TOT PROT 7.1 g/dl (6.4-8.2)
[2019-09-09] MEDS: CEFTRIAXONE 1 GM in DEXTROSE 5%-WATER - 50 ML IVPB SCH (09:09)
[2019-09-09] MEDS ORDERED: cefTRIAXone SODIUM 1 GM VIAL ONE (10:02)
[2019-09-09] MEDS ORDERED: DEXTROSE 5%-WATER - 50 ML IVPB ONE (10:02)
[2019-09-09] MEDS: FUROSEMIDE 40 MG/4 ML INJECTABLE VIAL IVPUSH SCH (10:08)
[2019-09-09] MEDS: HEPARIN NA (PORCINE) 5,000 UNITS/ML 1ML VIAL SQ SCH ×2 (10:08→21:54)
[2019-09-09] MEDS: CARVEDILOL 6.25 MG TABLET (FP) PO SCH (10:08)
[2019-09-09] MEDS: SODIUM BICARBONATE 650 MG TABLET PO SCH (10:08)
[2019-09-09] MEDS: amLODIPine BESYLATE 10 MG TABLET (FP) PO SCH (10:09)
[2019-09-09] MEDS: PANTOPRAZOLE 40 MG TABLET (FP) PO SCH (10:09)
--- NOTE | 2019-09-09 10:28 | PN ---
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, Physician History of Present Illness: SOB worse w exertion, midsternal chest tightness, cough, BLE edema, and mildly distended AB resolving with diuresis, BP still elevated, BB changed. - Current Medication List Current Medications: Active Medications Acetaminophen (Tylenol -) 650 mg PO Q6H PRN PRN Reason: PAIN LEVEL 1-5 Albuterol/Ipratropium (Duoneb -) 1 amp NEB Q4H PRN PRN Reason: SHORTNESS OF BREATH Amlodipine Besylate (Norvasc -) 10 mg PO DAILY [facility] Last Admin: 09/09/19 10:09 Dose: 10 mg Carvedilol (Coreg -) 6.25 mg PO BID [facility] Last Admin: 09/09/19 10:08 Dose: 6.25 mg Furosemide (Lasix Injection -) 40 mg IVPUSH DAILY [facility] Last Admin: 09/09/19 10:08 Dose: 40 mg Guaifenesin (Robitussin Dm -) 10 ml PO Q8H PRN PRN Reason: COUGH Last Admin: 09/09/19 06:23 Dose: 10 ml Heparin Sodium (Porcine) (Heparin -) 5,000 unit SQ BID [facility] Last Admin: 09/09/19 10:08 Dose: 5,000 unit Ceftriaxone Sodium 1 gm/ (Dextrose) 50 mls @ 100 mls/hr IVPB DAILY@0800 [facility] Last Admin: 09/09/19 09:09 Dose: 100 mls/hr Insulin Aspart (Novolog Vial Sliding Scale -) 1 vial SQ TIDAC [facility]; Protocol Last Admin: 09/09/19 06:19 Dose: 2 units Insulin Detemir (Levemir Vial) 44 units SQ AM [facility] Last Admin: 09/09/19 06:19 Dose: 44 units Methylprednisolone Sodium Succinate (Solu-Medrol -) 40 mg IVPUSH Q8H-IV [facility] Last Admin: 09/09/19 10:09 Dose: 40 mg Pantoprazole Sodium (Protonix -) 40 mg PO DAILY [facility] Last Admin: 09/09/19 10:09 Dose: 40 mg Sodium Bicarbonate (Sodium Bicarbonate -) 650 mg PO DAILY [facility] Last Admin: 09/09/19 10:08 Dose: 650 mg - Objective Vital Signs: Vital Signs Temperature 97.9 F 09/09/19 06:00 Pulse Rate 79 09/09/19 06:00 Respiratory Rate 18 09/09/19 06:00 Blood Pressure 157/77 09/09/19 06:00 O2 Sat by Pulse Oximetry (%) 100 09/08/19 21:00 Constitutional: Yes: No Distress, Calm Neck: Yes: Supple Cardiovascular: Yes: Regular Rate and Rhythm Respiratory: Yes: Regular, Diminished Gastrointestinal: Yes: Normal Bowel Sounds, Soft Edema: No Labs: CBC, BMP 09/09/19 06:30 09/09/19 06:30 - ....Imaging EKG: Report Reviewed (Tele: NSR) Problem List - Problems (1) Hypertensive heart disease Code(s): I11.9 - HYPERTENSIVE HEART DISEASE WITHOUT HEART FAILURE Qualifiers: Heart failure presence: with heart failure Heart failure type: diastolic Heart failure chronicity: acute on chronic Qualified Code(s): I11.0 - Hypertensive heart disease with heart failure; I50.33 - Acute on chronic diastolic (congestive) heart failure (2) Syoum-tj-lngzpuq kidney injury Code(s): N17.9 - ACUTE KIDNEY FAILURE, UNSPECIFIED; N18.9 - CHRONIC KIDNEY DISEASE, UNSPECIFIED Qualifiers: Acute renal failure type: unspecified Chronic kidney disease stage: unspecified stage Qualified Code(s): N17.9 - Acute kidney failure, unspecified ; N18.9 - Chronic kidney disease, unspecified (3) CHF exacerbation Code(s): I50.9 - HEART FAILURE, UNSPECIFIED Qualifiers: Heart failure type: diastolic Qualified Code(s): I50.33 - Acute on chronic diastolic (congestive) heart failure (4) COPD (chronic obstructive pulmonary disease) Code(s): J44.9 - CHRONIC OBSTRUCTIVE PULMONARY DISEASE, UNSPECIFIED (5) Diabetes Code(s): E11.9 - TYPE 2 DIABETES MELLITUS WITHOUT COMPLICATIONS Qualifiers: Diabetes mellitus type: type 2 Diabetes mellitus complication status: with kidney complications Chronic kidney disease stage: stage 3 (moderate) Assessment/Plan 09/07/2019 Echo: Normal LV and RV size and fxn, tr-mild MR, mild TR 09/06/[address]: Mild congestion with bilateral effusions 1. Acute on chronic diastolic heart failure resolving 2. CKD 4 with hyperkalemia likely due to diabetic nephropathy 3. Microcytic anemia due to CKD 4. COPD not in exacerbation 5. Type 2 DM 6. HTN heart disease, BP not at goal 7. UTI P:1. IV diuresis with monitor diuretic response, renal fxn and electrolytes and correction of hyperkalemia 2. Increase carvedilol 12.5 bid with uptitration as tolerated, Norvasc 10 qd, AMBERLY-I/ARB held pending stabilization of hyperkalemia and CKD 3. BD, O2 as needed, oral steroid taper with GI protection, empiric abx for UTI 4. Iron saturation is 28%, will give aranesp SC for treatment of CKD related anemia
[2019-09-09] MEDS ORDERED: CARVEDILOL 6.25 MG TABLET (FP) PO ONE (10:35)
--- NOTE | 2019-09-09 11:25 | PN ---
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 (short form) - Note 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: Pt seen/ examined chart is reviewed awake/ comfortable feels better Vital Signs Temp 97.9 F 09/09/19 06:00 Pulse 79 09/09/19 06:00 Resp 18 09/09/19 06:00 BP 157/77 09/09/19 06:00 Pulse Ox 100 09/08/19 21:00 Intake & Output 09/08/19 09/08/19 09/09/19 11:59 23:59 11:59 Intake Total 270 790 250 Balance 270 790 250 Intake: IV 30 10 10 lac 30 10 10 Oral 240 780 240 Other: Voiding Method Toilet # Unmeasured Voids Void 2 1 1 Bowel Movement No No Active Medications Acetaminophen (Tylenol -) 650 mg PO Q6H PRN PRN Reason: PAIN LEVEL 1-5 Albuterol/Ipratropium (Duoneb -) 1 amp NEB Q4H PRN PRN Reason: SHORTNESS OF BREATH Amlodipine Besylate (Norvasc -) 10 mg PO DAILY [facility] Last Admin: 09/09/19 10:09 Dose: 10 mg Carvedilol (Coreg -) 12.5 mg PO BID [facility] Furosemide (Lasix Injection -) 40 mg IVPUSH DAILY [facility] Last Admin: 09/09/19 10:08 Dose: 40 mg Guaifenesin (Robitussin Dm -) 10 ml PO Q8H PRN PRN Reason: COUGH Last Admin: 09/09/19 06:23 Dose: 10 ml Heparin Sodium (Porcine) (Heparin -) 5,000 unit SQ BID [facility] Last Admin: 09/09/19 10:08 Dose: 5,000 unit Ceftriaxone Sodium 1 gm/ (Dextrose) 50 mls @ 100 mls/hr IVPB DAILY@0800 [facility] Last Admin: 09/09/19 09:09 Dose: 100 mls/hr Insulin Aspart (Novolog Vial Sliding Scale -) 1 vial SQ TIDAC [facility]; Protocol Last Admin: 09/09/19 06:19 Dose: 2 units Insulin Detemir (Levemir Vial) 44 units SQ AM [facility] Last Admin: 09/09/19 06:19 Dose: 44 units Methylprednisolone Sodium Succinate (Solu-Medrol -) 40 mg IVPUSH Q8H-IV [facility] Last Admin: 09/09/19 10:09 Dose: 40 mg Pantoprazole Sodium (Protonix -) 40 mg PO DAILY [facility] Last Admin: 09/09/19 10:09 Dose: 40 mg Sodium Bicarbonate (Sodium Bicarbonate -) 650 mg PO DAILY [facility] Last Admin: 09/09/19 10:08 Dose: 650 mg CBC, BMP 09/09/19 06:30 09/09/19 06:30 Microbiology 09/06/19 08:50 Blood Culture - Preliminary Blood - Peripheral Venous NO GROWTH OBTAINED AFTER 72 HOURS, INCUBATION TO CONTINUE FOR 2 DAYS. 09/06/19 08:50 Blood Culture - Preliminary Blood - Peripheral Venous NO GROWTH OBTAINED AFTER 72 HOURS, INCUBATION TO CONTINUE FOR 2 DAYS. 09/08/19 10:00 Urine Culture - Final Urine - Urine Clean Catch NO GROWTH OBTAINED 09/08/19 10:00 Legionella Antigen - Final Urine For Antigen Detection Streptococcus pneumoniae Antigen (M - Final 09/06/19 11:33 Urine Culture - Final Urine - Urine Clean Catch Klebsiella Pneumoniae Physical Exam Awake/ comfortable S1 S2 RRR Lungs decreased breath sounds-- no wheezes Abd- soft,NT No edema PLAN Continue solumedrol-- taper renal function better recheck CBC on lasix daily clinically improving Heparin sc for DVT prophylaxis iv antibiotics-- for uti Monitor BP Problem List - Problems (1) Cyqsh-ir-uubgpry kidney injury Code(s): N17.9 - ACUTE KIDNEY FAILURE, UNSPECIFIED; N18.9 - CHRONIC KIDNEY DISEASE, UNSPECIFIED Qualifiers: Acute renal failure type: unspecified Chronic kidney disease stage: unspecified stage Qualified Code(s): N17.9 - Acute kidney failure, unspecified ; N18.9 - Chronic kidney disease, unspecified (2) CHF exacerbation Code(s): I50.9 - HEART FAILURE, UNSPECIFIED Qualifiers: Heart failure type: diastolic Qualified Code(s): I50.33 - Acute on chronic diastolic (congestive) heart failure (3) COPD exacerbation Code(s): J44.1 - CHRONIC OBSTRUCTIVE PULMONARY DISEASE W (ACUTE) EXACERBATION (4) Microcytic anemia Code(s): D50.9 - IRON DEFICIENCY ANEMIA, UNSPECIFIED (5) COPD (chronic obstructive pulmonary disease) Code(s): J44.9 - CHRONIC OBSTRUCTIVE PULMONARY DISEASE, UNSPECIFIED (6) Diabetes Code(s): E11.9 - TYPE 2 DIABETES MELLITUS WITHOUT COMPLICATIONS Qualifiers: Diabetes mellitus type: type 2 Diabetes mellitus complication status: with kidney complications Chronic kidney disease stage: stage 3 (moderate) (7) Lung cancer Code(s): C34.90 - MALIGNANT NEOPLASM OF UNSP PART OF UNSP BRONCHUS OR LUNG
--- NOTE | 2019-09-09 12:40 | PN ---
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 (short form) - Note 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: States breathing is improving. No cough or wheezing. Intake & Output 09/06/19 09/07/19 09/08/19 09/09/19 23:59 23:59 23:59 23:59 Intake Total 577 331 2871 490 Output Total 200 Balance 809 734 1308 490 Weight 170 lb Last Vital Signs Temp Pulse Resp BP Pulse Ox 97.8 F 80 18 144/71 100 09/09/19 10:00 09/09/19 10:00 09/09/19 10:00 09/09/19 10:00 09/09/19 10:00 Active Medications Acetaminophen (Tylenol -) 650 mg PO Q6H PRN PRN Reason: PAIN LEVEL 1-5 Albuterol/Ipratropium (Duoneb -) 1 amp NEB Q4H PRN PRN Reason: SHORTNESS OF BREATH Amlodipine Besylate (Norvasc -) 10 mg PO DAILY [facility] Last Admin: 09/09/19 10:09 Dose: 10 mg Carvedilol (Coreg -) 12.5 mg PO BID [facility] Furosemide (Lasix Injection -) 40 mg IVPUSH DAILY [facility] Last Admin: 09/09/19 10:08 Dose: 40 mg Guaifenesin (Robitussin Dm -) 10 ml PO Q8H PRN PRN Reason: COUGH Last Admin: 09/09/19 06:23 Dose: 10 ml Heparin Sodium (Porcine) (Heparin -) 5,000 unit SQ BID [facility] Last Admin: 09/09/19 10:08 Dose: 5,000 unit Ceftriaxone Sodium 1 gm/ (Dextrose) 50 mls @ 100 mls/hr IVPB DAILY@0800 [facility] Last Admin: 09/09/19 09:09 Dose: 100 mls/hr Insulin Aspart (Novolog Vial Sliding Scale -) 1 vial SQ TIDAC [facility]; Protocol Last Admin: 09/09/19 06:19 Dose: 2 units Insulin Detemir (Levemir Vial) 44 units SQ AM [facility] Last Admin: 09/09/19 06:19 Dose: 44 units Methylprednisolone Sodium Succinate (Solu-Medrol -) 40 mg IVPUSH BID [facility] Pantoprazole Sodium (Protonix -) 40 mg PO DAILY [facility] Last Admin: 09/09/19 10:09 Dose: 40 mg Sodium Bicarbonate (Sodium Bicarbonate -) 650 mg PO DAILY [facility] Last Admin: 09/09/19 10:08 Dose: 650 mg Gen: NAD at rest Heart: RRR Lung: decreased breath sounds at the bases Abd: soft, nontender Ext: no edema Laboratory Results - last 24 hr 09/08/19 09/09/19 09/09/19 17:00 05:39 06:30 WBC 15.3 H RBC 3.38 L Hgb 7.9 L Hct 25.5 L MCV 75.6 L MCH 23.4 L MCHC 31.0 L RDW 15.5 Plt Count 229 MPV 9.6 Sodium Potassium Chloride Carbon Dioxide Anion Gap BUN Creatinine Est GFR (CKD-EPI)AfAm Est GFR (CKD-EPI)NonAf POC Glucometer 242 194 Random Glucose Calcium Phosphorus Magnesium Total Bilirubin AST ALT Alkaline Phosphatase Total Protein Albumin 09/09/19 09/09/19 06:30 12:10 WBC RBC Hgb Hct MCV MCH MCHC RDW Plt Count MPV Sodium 143 Potassium 4.4 Chloride 111 H Carbon Dioxide 24 Anion Gap 7 L BUN 76.4 H Creatinine 2.6 H Est GFR (CKD-EPI)AfAm 20.39 Est GFR (CKD-EPI)NonAf 17.59 POC Glucometer 242 Random Glucose 184 H Calcium 7.9 L Phosphorus 5.0 H Magnesium 2.0 Total Bilirubin 0.2 AST 37 ALT 35 Alkaline Phosphatase 180 H Total Protein 7.1 Albumin 2.8 L A/P Acute on Chronic Diastolic Heart Failure COPD HTN CKD UTI DM Anemia - continue lasix - monitor urine output, creatinine - daily weights - can change steroids to PO prednisone - inhaled bronchodilators - O2 as needed - complete antibiotics - DVT prophylaxis - DC planning Dr Rogers
--- NOTE | 2019-09-09 14:03 | PN ---
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 (short form) - Note 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: Renal follow up for CKD and hyperkalemia Seen and examined at the bedside awake and alert no acute complaints no sob, cp, fever, chills, N/V/D Vital Signs Temperature 97.8 F 09/09/19 10:00 Pulse Rate 80 09/09/19 10:00 Respiratory Rate 18 09/09/19 10:00 Blood Pressure 144/71 09/09/19 10:00 O2 Sat by Pulse Oximetry (%) 100 09/09/19 10:00 Intake & Output 09/06/19 09/07/19 09/08/19 09/09/19 23:59 23:59 23:59 23:59 Intake Total 740 684 8746 490 Output Total 200 Balance 342 961 2781 490 Weight 77.111 kg NAD RRR CTA, no rales or wheeze soft NT/ND no bladder distension no LE edema, clubbing or cyanosis CBC, BMP 09/09/19 06:30 09/09/19 06:30 Current Medications Acetaminophen (Tylenol -) 650 mg PO Q6H PRN PRN Reason: PAIN LEVEL 1-5 Albuterol/Ipratropium (Duoneb -) 1 amp NEB Q4H PRN PRN Reason: SHORTNESS OF BREATH Amlodipine Besylate (Norvasc -) 10 mg PO DAILY [facility] Last Admin: 09/09/19 10:09 Dose: 10 mg Carvedilol (Coreg -) 12.5 mg PO BID [facility] Furosemide (Lasix Injection -) 40 mg IVPUSH DAILY [facility] Last Admin: 09/09/19 10:08 Dose: 40 mg Guaifenesin (Robitussin Dm -) 10 ml PO Q8H PRN PRN Reason: COUGH Last Admin: 09/09/19 06:23 Dose: 10 ml Heparin Sodium (Porcine) (Heparin -) 5,000 unit SQ BID [facility] Last Admin: 09/09/19 10:08 Dose: 5,000 unit Ceftriaxone Sodium 1 gm/ (Dextrose) 50 mls @ 100 mls/hr IVPB DAILY@0800 [facility] Last Admin: 09/09/19 09:09 Dose: 100 mls/hr Insulin Aspart (Novolog Vial Sliding Scale -) 1 vial SQ TIDAC [facility]; Protocol Last Admin: 09/09/19 12:38 Dose: 4 units Insulin Detemir (Levemir Vial) 44 units SQ AM [facility] Last Admin: 09/09/19 06:19 Dose: 44 units Methylprednisolone Sodium Succinate (Solu-Medrol -) 40 mg IVPUSH BID [facility] Pantoprazole Sodium (Protonix -) 40 mg PO DAILY [facility] Last Admin: 09/09/19 10:09 Dose: 40 mg Sodium Bicarbonate (Sodium Bicarbonate -) 650 mg PO DAILY [facility] Last Admin: 09/09/19 10:08 Dose: 650 mg 73 year old woman with history of lung cancer, hypertension, diabetes mellitus, chronic kidney disease who presented with shortness of breath from home and admitted for CHF and noted to have hyperkalemia with K of 6.2. Cr was 2.3 form May 2019. 1. Hyperkalemia in setting of CKD and likley high potassium diet 2. CKD stage 4 (Cr higher then recent values likely due to CHF) 3. Suspected Acute CHF with acute decompensation 4. Pyuria 5. Microcytic anemia 6. Metabolic acidosis Renal function stable and serum potassium is improved no AMBERLY/ARB at this time given hyperkalemia and decreased eGFR Continue oral sodium bicarbonate can consider changing to oral diuretics Underlying CKD likely due to diabetic nephropathy, JOVITA is pending Iron saturation is 28%, s/p aranesp SC for treatment of CKD related anemia discharge planning as per primary team Elvis Mayorga DO
[2019-09-09] MEDS: CARVEDILOL 12.5 MG TABLET (FP) PO SCH (21:54)
[2019-09-09] MEDS: ACETAMINOPHEN 325 MG TABLET (FP) PO PRN (22:08)
[2019-09-10] MEDS: INSULIN SLIDING SCALE (NOVOLOG) 1 VIAL SQ SCH ×3 (06:20→17:15)
[2019-09-10] MEDS: INSULIN (LEVEMIR) 100 UNITS/ML UNITS SQ SCH (06:21)
[2019-09-10] MEDS ORDERED: DEXTROSE 5%-WATER - 50 ML IVPB ONE (09:28)
[2019-09-10] MEDS ORDERED: cefTRIAXone SODIUM 1 GM VIAL ONE (09:28)
[2019-09-10] MEDS: amLODIPine BESYLATE 10 MG TABLET (FP) PO SCH (09:53)
[2019-09-10] MEDS: CARVEDILOL 12.5 MG TABLET (FP) PO SCH (09:53)
[2019-09-10] MEDS: SODIUM BICARBONATE 650 MG TABLET PO SCH (09:53)
[2019-09-10] MEDS: HEPARIN NA (PORCINE) 5,000 UNITS/ML 1ML VIAL SQ SCH ×2 (09:53→22:45)
[2019-09-10] MEDS: FUROSEMIDE 40 MG/4 ML INJECTABLE VIAL IVPUSH SCH (09:53)
[2019-09-10] MEDS: PANTOPRAZOLE 40 MG TABLET (FP) PO SCH (09:53)
[2019-09-10] MEDS: methylPREDNISolone NA SUCC 40 MG/1 ML VIAL IVPUSH SCH (09:53)
[2019-09-10] MEDS: CEFTRIAXONE 1 GM in DEXTROSE 5%-WATER - 50 ML IVPB SCH (09:53)
--- NOTE | 2019-09-10 12:03 | PN ---
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 (short form) - Note 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: pt seen/examined chart reviewed. better BP running high- uncontrolled Vital Signs Temp 97.9 F 09/10/19 10:00 Pulse 79 09/10/19 10:00 Resp 18 09/10/19 10:00 BP 164/83 09/10/19 10:00 Pulse Ox 100 09/10/19 09:00 Intake & Output 09/09/19 09/10/19 09/10/19 23:59 11:59 23:59 Intake Total 70 240 Balance 70 240 Intake: IV 20 lac 20 IVPB 50 Oral 240 Other: Voiding Method Toilet Toilet # Unmeasured Voids Void 1 2 Active Medications Acetaminophen (Tylenol -) 650 mg PO Q6H PRN PRN Reason: PAIN LEVEL 1-5 Last Admin: 09/09/19 22:08 Dose: 650 mg Albuterol/Ipratropium (Duoneb -) 1 amp NEB Q4H PRN PRN Reason: SHORTNESS OF BREATH Amlodipine Besylate (Norvasc -) 10 mg PO DAILY [facility] Last Admin: 09/10/19 09:53 Dose: 10 mg Carvedilol (Coreg -) 25 mg PO BID [facility] Furosemide (Lasix Injection -) 40 mg IVPUSH DAILY [facility] Last Admin: 09/10/19 09:53 Dose: 40 mg Guaifenesin (Robitussin Dm -) 10 ml PO Q8H PRN PRN Reason: COUGH Last Admin: 09/09/19 22:08 Dose: 10 ml Heparin Sodium (Porcine) (Heparin -) 5,000 unit SQ BID [facility] Last Admin: 09/10/19 09:53 Dose: 5,000 unit Ceftriaxone Sodium 1 gm/ (Dextrose) 50 mls @ 100 mls/hr IVPB DAILY@0800 [facility] Last Admin: 09/10/19 09:53 Dose: 100 mls/hr Insulin Aspart (Novolog Vial Sliding Scale -) 1 vial SQ TIDAC [facility]; Protocol Last Admin: 09/10/19 06:20 Dose: 4 units Insulin Detemir (Levemir Vial) 44 units SQ AM [facility] Last Admin: 09/10/19 06:21 Dose: 44 units Methylprednisolone Sodium Succinate (Solu-Medrol -) 40 mg IVPUSH BID [facility] Last Admin: 09/10/19 09:53 Dose: 40 mg Pantoprazole Sodium (Protonix -) 40 mg PO DAILY [facility] Last Admin: 09/10/19 09:53 Dose: 40 mg Sodium Bicarbonate (Sodium Bicarbonate -) 650 mg PO DAILY [facility] Last Admin: 09/10/19 09:53 Dose: 650 mg CBC, BMP 09/09/19 06:30 09/09/19 06:30 Microbiology 09/06/19 08:50 Blood Culture - Preliminary Blood - Peripheral Venous NO GROWTH OBTAINED AFTER 96 HOURS, INCUBATION TO CONTINUE FOR 1 DAYS. 09/06/19 08:50 Blood Culture - Preliminary Blood - Peripheral Venous NO GROWTH OBTAINED AFTER 96 HOURS, INCUBATION TO CONTINUE FOR 1 DAYS. 09/08/19 10:00 Urine Culture - Final Urine - Urine Clean Catch NO GROWTH OBTAINED Physical Exam Awake/ comfortable S1 S2 RRR Lungs decreased breath sounds-- no wheezes Abd- soft,NT No edema PLAN Continue solumedrol-- taper renal function better recheck CBC on lasix daily clinically improving Heparin sc for DVT prophylaxis iv antibiotics-- for uti Monitor BP- increase coreg will follow Problem List - Problems (1) [id number] kidney injury Code(s): N17.9 - ACUTE KIDNEY FAILURE, UNSPECIFIED; N18.9 - CHRONIC KIDNEY DISEASE, UNSPECIFIED Qualifiers: Acute renal failure type: unspecified Chronic kidney disease stage: unspecified stage Qualified Code(s): N17.9 - Acute kidney failure, unspecified ; N18.9 - Chronic kidney disease, unspecified (2) CHF exacerbation Code(s): I50.9 - HEART FAILURE, UNSPECIFIED Qualifiers: Heart failure type: diastolic Qualified Code(s): I50.33 - Acute on chronic diastolic (congestive) heart failure (3) COPD exacerbation Code(s): J44.1 - CHRONIC OBSTRUCTIVE PULMONARY DISEASE W (ACUTE) EXACERBATION (4) Microcytic anemia Code(s): D50.9 - IRON DEFICIENCY ANEMIA, UNSPECIFIED (5) COPD (chronic obstructive pulmonary disease) Code(s): J44.9 - CHRONIC OBSTRUCTIVE PULMONARY DISEASE, UNSPECIFIED (6) Diabetes Code(s): E11.9 - TYPE 2 DIABETES MELLITUS WITHOUT COMPLICATIONS Qualifiers: Diabetes mellitus type: type 2 Diabetes mellitus complication status: with kidney complications Chronic kidney disease stage: stage 3 (moderate) (7) Lung cancer Code(s): C34.90 - MALIGNANT NEOPLASM OF UNSP PART OF UNSP BRONCHUS OR LUNG
--- NOTE | 2019-09-10 13:23 | PN ---
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 (short form) - Note 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: RENAL coverage for Dr Harris comfortable Last Vital Signs Temp Pulse Resp BP Pulse Ox 97.9 F 79 18 164/83 100 09/10/19 10:00 09/10/19 10:00 09/10/19 10:00 09/10/19 10:00 09/10/19 09:00 lungs clear cvs s1s2 rr abd soft, bled from injection in abd ext +edema neuro a+ox3 CBC, BMP 09/09/19 06:30 09/09/19 06:30 Current Medications Generic Name Dose Route Start Last Admin Trade Name Freq PRN Reason Stop Dose Admin Acetaminophen 650 mg 09/08/19 22:41 09/09/19 22:08 Tylenol - PO 650 mg Q6H PRN Administration PAIN LEVEL 1-5 Albuterol/Ipratropium 1 amp 09/06/19 15:13 Duoneb - NEB Q4H PRN SHORTNESS OF BREATH Amlodipine Besylate 10 mg 09/07/19 10:00 09/10/19 09:53 Norvasc - PO 10 mg DAILY [facility] Administration Carvedilol 25 mg 09/10/19 12:02 Coreg - PO BID [facility] Furosemide 40 mg 09/06/19 15:30 09/10/19 09:53 Lasix Injection - IVPUSH 40 mg DAILY [facility] Administration Guaifenesin 10 ml 09/07/19 23:07 09/09/19 22:08 Robitussin Dm - PO 10 ml Q8H PRN Administration COUGH Heparin Sodium (Porcine) 5,000 unit 09/07/19 22:00 09/10/19 09:53 Heparin - SQ 5,000 unit BID [facility] Administration Ceftriaxone Sodium 1 gm/ 50 mls @ 100 mls/hr 09/06/19 15:30 09/10/19 09:53 Dextrose IVPB 100 mls/hr DAILY@0800 [facility] Administration Insulin Aspart 1 vial 09/06/19 16:30 09/10/19 12:02 Novolog Vial Sliding Scale - SQ 2 units TIDAC [facility] Administration Protocol Insulin Detemir 44 units 09/07/19 12:34 09/10/19 06:21 Levemir Vial SQ 44 units AM [facility] Administration Methylprednisolone Sodium Succinate 40 mg 09/09/19 22:00 09/10/19 09:53 Solu-Medrol - IVPUSH 40 mg BID [facility] Administration Pantoprazole Sodium 40 mg 09/07/19 10:00 09/10/19 09:53 Protonix - PO 40 mg DAILY [facility] Administration Sodium Bicarbonate 650 mg 09/07/19 13:15 09/10/19 09:53 Sodium Bicarbonate - PO 650 mg DAILY [facility] Administration 73 year old woman with history of lung cancer, hypertension, diabetes mellitus, chronic kidney disease who presented with shortness of breath from home and admitted for CHF and noted to have hyperkalemia with K of 6.2. Cr was 2.3 form May 2019. 1. Hyperkalemia in setting of CKD and likley high potassium diet 2. CKD stage 4 (Cr higher then recent values likely due to CHF) 3. Suspected Acute CHF with acute decompensation 4. Pyuria 5. Microcytic anemia 6. Metabolic acidosis Has proteinuria. Can consider giving lokelma and reinier inhibitor needs fluid restriction since she has edema and hypertension continue sodium bicarb salt restriction If BP better and edema is reduced can redose aranesp would dc steroids- this alone may help with BP MV
--- NOTE | 2019-09-10 14:31 | PN ---
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 (short form) - Note 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: States breathing is improving. No cough or wheezing. Intake & Output 09/07/19 09/08/19 09/09/19 09/10/19 23:59 23:59 23:59 23:59 Intake Total 660 1060 560 240 Balance 660 1060 560 240 Last Vital Signs Temp Pulse Resp BP Pulse Ox 97.9 F 79 18 164/83 100 09/10/19 10:00 09/10/19 10:00 09/10/19 10:00 09/10/19 10:00 09/10/19 09:00 Active Medications Acetaminophen (Tylenol -) 650 mg PO Q6H PRN PRN Reason: PAIN LEVEL 1-5 Last Admin: 09/09/19 22:08 Dose: 650 mg Albuterol/Ipratropium (Duoneb -) 1 amp NEB Q4H PRN PRN Reason: SHORTNESS OF BREATH Amlodipine Besylate (Norvasc -) 10 mg PO DAILY [facility] Last Admin: 09/10/19 09:53 Dose: 10 mg Carvedilol (Coreg -) 25 mg PO BID [facility] Furosemide (Lasix Injection -) 40 mg IVPUSH DAILY [facility] Last Admin: 09/10/19 09:53 Dose: 40 mg Guaifenesin (Robitussin Dm -) 10 ml PO Q8H PRN PRN Reason: COUGH Last Admin: 09/09/19 22:08 Dose: 10 ml Heparin Sodium (Porcine) (Heparin -) 5,000 unit SQ BID [facility] Last Admin: 09/10/19 09:53 Dose: 5,000 unit Ceftriaxone Sodium 1 gm/ (Dextrose) 50 mls @ 100 mls/hr IVPB DAILY@0800 [facility] Last Admin: 09/10/19 09:53 Dose: 100 mls/hr Insulin Aspart (Novolog Vial Sliding Scale -) 1 vial SQ TIDAC [facility]; Protocol Last Admin: 09/10/19 12:02 Dose: 2 units Insulin Detemir (Levemir Vial) 44 units SQ AM [facility] Last Admin: 09/10/19 06:21 Dose: 44 units Methylprednisolone Sodium Succinate (Solu-Medrol -) 40 mg IVPUSH DAILY [facility] Pantoprazole Sodium (Protonix -) 40 mg PO DAILY [facility] Last Admin: 09/10/19 09:53 Dose: 40 mg Sodium Bicarbonate (Sodium Bicarbonate -) 650 mg PO DAILY [facility] Last Admin: 09/10/19 09:53 Dose: 650 mg Gen: NAD at rest Heart: RRR Lung: decreased breath sounds at the bases Abd: soft, nontender Ext: no edema Laboratory Results - last 24 hr 09/07/19 09/09/19 09/10/19 10:00 17:31 06:04 POC Glucometer 240 203 Urine Eosinophils None seen 09/10/19 11:47 POC Glucometer 188 Urine Eosinophils A/P Acute on Chronic Diastolic Heart Failure COPD HTN CKD UTI DM Anemia - continue lasix - monitor urine output, creatinine - daily weights - Prednisone - inhaled bronchodilators - O2 as needed - complete antibiotics - DVT prophylaxis - DC planning Dr Rogers
--- NOTE | 2019-09-10 14:55 | PN ---
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, Physician Chief Complaint: Events noted Feels better History of Present Illness: Patient was seen and examined. Awake and alert. Chart was reviewed Denies chest pain or palpitations Less SOB - Current Medication List Current Medications: Active Medications Acetaminophen (Tylenol -) 650 mg PO Q6H PRN PRN Reason: PAIN LEVEL 1-5 Last Admin: 09/09/19 22:08 Dose: 650 mg Albuterol/Ipratropium (Duoneb -) 1 amp NEB Q4H PRN PRN Reason: SHORTNESS OF BREATH Amlodipine Besylate (Norvasc -) 10 mg PO DAILY [facility] Last Admin: 09/10/19 09:53 Dose: 10 mg Carvedilol (Coreg -) 25 mg PO BID [facility] Furosemide (Lasix Injection -) 40 mg IVPUSH DAILY [facility] Last Admin: 09/10/19 09:53 Dose: 40 mg Guaifenesin (Robitussin Dm -) 10 ml PO Q8H PRN PRN Reason: COUGH Last Admin: 09/09/19 22:08 Dose: 10 ml Heparin Sodium (Porcine) (Heparin -) 5,000 unit SQ BID [facility] Last Admin: 09/10/19 09:53 Dose: 5,000 unit Ceftriaxone Sodium 1 gm/ (Dextrose) 50 mls @ 100 mls/hr IVPB DAILY@0800 [facility] Last Admin: 09/10/19 09:53 Dose: 100 mls/hr Insulin Aspart (Novolog Vial Sliding Scale -) 1 vial SQ TIDAC [facility]; Protocol Last Admin: 09/10/19 12:02 Dose: 2 units Insulin Detemir (Levemir Vial) 44 units SQ AM [facility] Last Admin: 09/10/19 06:21 Dose: 44 units Methylprednisolone Sodium Succinate (Solu-Medrol -) 40 mg IVPUSH DAILY [facility] Pantoprazole Sodium (Protonix -) 40 mg PO DAILY [facility] Last Admin: 09/10/19 09:53 Dose: 40 mg Sodium Bicarbonate (Sodium Bicarbonate -) 650 mg PO DAILY [facility] Last Admin: 09/10/19 09:53 Dose: 650 mg - Objective Vital Signs: Vital Signs Temperature 97.9 F 09/10/19 10:00 Pulse Rate 79 09/10/19 10:00 Respiratory Rate 18 09/10/19 10:00 Blood Pressure 164/83 09/10/19 10:00 O2 Sat by Pulse Oximetry (%) 100 09/10/19 09:00 Eyes: Yes: PERRL HENT: Yes: Atraumatic Neck: Yes: Supple Cardiovascular: Yes: Regular Rate and Rhythm, S1, S2 Respiratory: Yes: Diminished Gastrointestinal: Yes: Normal Bowel Sounds, Soft. No: Tenderness Edema: No Additional Findings/Remarks: - Review of Systems Constitutional: denies: Chills, Fever Cardiovascular: denies: Chest Pain, denies: Palpitations, Shortness of Breath Respiratory: denies: Cough, Hemoptysis, Orthopnea, PND, SOB, SOB on Exertion Gastrointestinal: denies Abdominal Pain, denies: Diarrhea. denies: Melena, Nausea, Rectal Bleeding, Vomiting Genitourinary: denies: Dysuria, Hematuria Musculoskeletal: denies: Back Pain, Joint Pain Neurological: denies: Dizziness, Headache, Seizure, Syncope Labs: CBC, BMP 09/09/19 06:30 09/09/19 06:30 Problem List - Problems (1) Hyperkalemia Code(s): E87.5 - HYPERKALEMIA (2) [id number] kidney injury Code(s): N17.9 - ACUTE KIDNEY FAILURE, UNSPECIFIED; N18.9 - CHRONIC KIDNEY DISEASE, UNSPECIFIED Qualifiers: Acute renal failure type: unspecified Chronic kidney disease stage: unspecified stage Qualified Code(s): N17.9 - Acute kidney failure, unspecified ; N18.9 - Chronic kidney disease, unspecified (3) CHF exacerbation Code(s): I50.9 - HEART FAILURE, UNSPECIFIED Qualifiers: Heart failure type: diastolic Qualified Code(s): I50.33 - Acute on chronic diastolic (congestive) heart failure (4) Hypertensive heart disease Code(s): I11.9 - HYPERTENSIVE HEART DISEASE WITHOUT HEART FAILURE Qualifiers: Heart failure presence: with heart failure Heart failure type: diastolic Heart failure chronicity: acute on chronic Qualified Code(s): I11.0 - Hypertensive heart disease with heart failure; I50.33 - Acute on chronic diastolic (congestive) heart failure (5) Microcytic anemia Code(s): D50.9 - IRON DEFICIENCY ANEMIA, UNSPECIFIED (6) Pulmonary HTN Code(s): I27.20 - PULMONARY HYPERTENSION, UNSPECIFIED (7) COPD (chronic obstructive pulmonary disease) Code(s): J44.9 - CHRONIC OBSTRUCTIVE PULMONARY DISEASE, UNSPECIFIED (8) Diabetes Code(s): E11.9 - TYPE 2 DIABETES MELLITUS WITHOUT COMPLICATIONS Qualifiers: Diabetes mellitus type: type 2 Diabetes mellitus complication status: with kidney complications Chronic kidney disease stage: stage 3 (moderate) Assessment/Plan 1. Acute on chronic diastolic heart failure 2. CKD with hyperkalemia likely due to diabetic nephropathy 3. Microcytic anemia due to CKD 4. COPD 5. T2DM 6. HTN 7. UTI PLAN: 1. IV diuresis with monitoring renal function and electrolytes 2. Continue Carvedilol 12.5 mg BID with uptitration as tolerated. Continue Norvasc 10 mg QD. AMBERLY-I/ARB held pending stabilization of hyperkalemia and CKD. Otherwise may consider Hydralazine 25 mg BID 3. Bronchodilator, O2 as needed, steroid taper with GI protection, empiric antibiotic for UTI Further plans are to follow Wyatt Jhaveri MD
[2019-09-10] MEDS: hydrALAZINE HCL 25 MG TABLET (FP) PO SCH (18:40)
[2019-09-10] MEDS: ACETAMINOPHEN 325 MG TABLET (FP) PO PRN (22:44)
[2019-09-10] MEDS: guaiFENesin/D-METHORPHAN HB 10 ML UNIT-DOSE CUPS PO PRN (22:44)
[2019-09-10] MEDS: CARVEDILOL 25 MG TABLET (FP) PO SCH (22:45)
[2019-09-11] MEDS: INSULIN (LEVEMIR) 100 UNITS/ML UNITS SQ SCH (06:20)
[2019-09-11] MEDS: INSULIN SLIDING SCALE (NOVOLOG) 1 VIAL SQ SCH ×3 (06:20→17:02)
[2019-09-11] MEDS ORDERED: cefTRIAXone SODIUM 1 GM VIAL ONE (08:06)
[2019-09-11] MEDS ORDERED: DEXTROSE 5%-WATER - 50 ML IVPB ONE (08:06)
--- NOTE | 2019-09-11 08:41 | PN ---
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, Physician Chief Complaint: Events noted Not in distress History of Present Illness: Patient was seen and examined. Awake and alert. Chart was reviewed Denies chest pain or palpitations Less SOB Still hypertensive - Current Medication List Current Medications: Active Medications Acetaminophen (Tylenol -) 650 mg PO Q6H PRN PRN Reason: PAIN LEVEL 1-5 Last Admin: 09/10/19 22:44 Dose: 650 mg Albuterol/Ipratropium (Duoneb -) 1 amp NEB Q4H PRN PRN Reason: SHORTNESS OF BREATH Amlodipine Besylate (Norvasc -) 10 mg PO DAILY [facility] Last Admin: 09/10/19 09:53 Dose: 10 mg Carvedilol (Coreg -) 25 mg PO BID [facility] Last Admin: 09/10/19 22:45 Dose: 25 mg Furosemide (Lasix Injection -) 40 mg IVPUSH DAILY [facility] Last Admin: 09/10/19 09:53 Dose: 40 mg Guaifenesin (Robitussin Dm -) 10 ml PO Q8H PRN PRN Reason: COUGH Last Admin: 09/10/19 22:44 Dose: 10 ml Heparin Sodium (Porcine) (Heparin -) 5,000 unit SQ BID [facility] Last Admin: 09/10/19 22:45 Dose: 5,000 unit Hydralazine HCl (Apresoline -) 25 mg PO BID [facility] Last Admin: 09/10/19 18:40 Dose: 25 mg Ceftriaxone Sodium 1 gm/ (Dextrose) 50 mls @ 100 mls/hr IVPB DAILY@0800 [facility] Last Admin: 09/10/19 09:53 Dose: 100 mls/hr Insulin Aspart (Novolog Vial Sliding Scale -) 1 vial SQ TIDAC [facility]; Protocol Last Admin: 09/11/19 06:20 Dose: Not Given Insulin Detemir (Levemir Vial) 44 units SQ AM [facility] Last Admin: 09/11/19 06:20 Dose: Not Given Methylprednisolone Sodium Succinate (Solu-Medrol -) 40 mg IVPUSH DAILY [facility] Pantoprazole Sodium (Protonix -) 40 mg PO DAILY [facility] Last Admin: 09/10/19 09:53 Dose: 40 mg Sodium Bicarbonate (Sodium Bicarbonate -) 650 mg PO DAILY [facility] Last Admin: 09/10/19 09:53 Dose: 650 mg - Objective Vital Signs: Vital Signs Temperature 97.8 F 09/11/19 08:15 Pulse Rate 75 09/11/19 08:15 Respiratory Rate 18 09/11/19 08:15 Blood Pressure 173/70 H 09/11/19 08:15 O2 Sat by Pulse Oximetry (%) 99 09/10/19 22:00 Eyes: Yes: PERRL HENT: Yes: Atraumatic Neck: Yes: Supple Cardiovascular: Yes: Regular Rate and Rhythm, S1, S2 Respiratory: Yes: CTA Bilaterally Gastrointestinal: Yes: Normal Bowel Sounds, Soft. No: Tenderness Edema: No Additional Findings/Remarks: - Review of Systems Constitutional: denies: Chills, Fever Cardiovascular: denies: Chest Pain, denies: Palpitations, Shortness of Breath Respiratory: denies: Cough, Hemoptysis, Orthopnea, PND, SOB, SOB on Exertion Gastrointestinal: denies Abdominal Pain, denies: Diarrhea. denies: Melena, Nausea, Rectal Bleeding, Vomiting Genitourinary: denies: Dysuria, Hematuria Musculoskeletal: denies: Back Pain, Joint Pain Neurological: denies: Dizziness, Headache, Seizure, Syncope Problem List - Problems (1) Hyperkalemia Code(s): E87.5 - HYPERKALEMIA (2) [id number] kidney injury Code(s): N17.9 - ACUTE KIDNEY FAILURE, UNSPECIFIED; N18.9 - CHRONIC KIDNEY DISEASE, UNSPECIFIED Qualifiers: Acute renal failure type: unspecified Chronic kidney disease stage: unspecified stage Qualified Code(s): N17.9 - Acute kidney failure, unspecified ; N18.9 - Chronic kidney disease, unspecified (3) CHF exacerbation Code(s): I50.9 - HEART FAILURE, UNSPECIFIED Qualifiers: Heart failure type: diastolic Qualified Code(s): I50.33 - Acute on chronic diastolic (congestive) heart failure (4) Hypertensive heart disease Code(s): I11.9 - HYPERTENSIVE HEART DISEASE WITHOUT HEART FAILURE Qualifiers: Heart failure presence: with heart failure Heart failure type: diastolic Heart failure chronicity: acute on chronic Qualified Code(s): I11.0 - Hypertensive heart disease with heart failure; I50.33 - Acute on chronic diastolic (congestive) heart failure (5) Microcytic anemia Code(s): D50.9 - IRON DEFICIENCY ANEMIA, UNSPECIFIED (6) Pulmonary HTN Code(s): I27.20 - PULMONARY HYPERTENSION, UNSPECIFIED (7) COPD (chronic obstructive pulmonary disease) Code(s): J44.9 - CHRONIC OBSTRUCTIVE PULMONARY DISEASE, UNSPECIFIED (8) Diabetes Code(s): E11.9 - TYPE 2 DIABETES MELLITUS WITHOUT COMPLICATIONS Qualifiers: Diabetes mellitus type: type 2 Diabetes mellitus complication status: with kidney complications Chronic kidney disease stage: stage 3 (moderate) Assessment/Plan 1. Acute on chronic diastolic heart failure 2. CKD with hyperkalemia likely due to diabetic nephropathy 3. Microcytic anemia due to CKD 4. COPD 5. T2DM 6. HTN - not at goal 7. UTI PLAN: 1. IV diuresis with monitoring renal function and electrolytes 2. Continue Carvedilol 12.5 mg BID with uptitration as tolerated. Continue Norvasc 10 mg QD. Instead of ACEI/ARB started Hydralazine which can be increased to 25 mg TID 3. Bronchodilator, O2 as needed, steroid taper with GI protection, empiric antibiotic for UTI Further plans are to follow Wyatt Jhaveri MD
[2019-09-11] MEDS: PANTOPRAZOLE 40 MG TABLET (FP) PO SCH (09:20)
[2019-09-11] MEDS: methylPREDNISolone NA SUCC 40 MG/1 ML VIAL IVPUSH SCH (09:20)
[2019-09-11] MEDS: SODIUM BICARBONATE 650 MG TABLET PO SCH (09:20)
[2019-09-11] MEDS: HEPARIN NA (PORCINE) 5,000 UNITS/ML 1ML VIAL SQ SCH ×2 (09:20→21:47)
[2019-09-11] MEDS: hydrALAZINE HCL 25 MG TABLET (FP) PO SCH ×2 (09:21→21:47)
[2019-09-11] MEDS: CARVEDILOL 25 MG TABLET (FP) PO SCH ×2 (09:21→21:47)
[2019-09-11] MEDS: FUROSEMIDE 40 MG/4 ML INJECTABLE VIAL IVPUSH SCH (09:21)
[2019-09-11] MEDS: amLODIPine BESYLATE 10 MG TABLET (FP) PO SCH (09:21)
[2019-09-11] MEDS: CEFTRIAXONE 1 GM in DEXTROSE 5%-WATER - 50 ML IVPB SCH (09:21)
--- NOTE | 2019-09-11 12:57 | PN ---
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 (short form) - Note 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: Comfortable no complains feels well BP still high started also on hydralazine yesterday Vital Signs Temp 97.8 F 09/11/19 08:15 Pulse 75 09/11/19 08:15 Resp 18 09/11/19 10:00 BP 173/70 H 09/11/19 08:15 Pulse Ox 99 09/11/19 09:00 Intake & Output 09/10/19 09/11/19 09/11/19 23:59 11:59 23:59 Intake Total 600 240 Balance 600 240 Intake: IV 10 lac 10 IVPB 50 Oral 540 240 Other: Voiding Method Toilet Toilet # Unmeasured Voids Void 1 2 Bowel Movement Yes Yes Active Medications Acetaminophen (Tylenol -) 650 mg PO Q6H PRN PRN Reason: PAIN LEVEL 1-5 Last Admin: 09/10/19 22:44 Dose: 650 mg Albuterol/Ipratropium (Duoneb -) 1 amp NEB Q4H PRN PRN Reason: SHORTNESS OF BREATH Amlodipine Besylate (Norvasc -) 10 mg PO DAILY [facility] Last Admin: 09/11/19 09:21 Dose: 10 mg Carvedilol (Coreg -) 25 mg PO BID [facility] Last Admin: 09/11/19 09:21 Dose: 25 mg Furosemide (Lasix Injection -) 40 mg IVPUSH DAILY [facility] Last Admin: 09/11/19 09:21 Dose: 40 mg Guaifenesin (Robitussin Dm -) 10 ml PO Q8H PRN PRN Reason: COUGH Last Admin: 09/10/19 22:44 Dose: 10 ml Heparin Sodium (Porcine) (Heparin -) 5,000 unit SQ BID [facility] Last Admin: 09/11/19 09:20 Dose: 5,000 unit Hydralazine HCl (Apresoline -) 25 mg PO BID [facility] Last Admin: 09/11/19 09:21 Dose: 25 mg Ceftriaxone Sodium 1 gm/ (Dextrose) 50 mls @ 100 mls/hr IVPB DAILY@0800 [facility] Last Admin: 09/11/19 09:21 Dose: 100 mls/hr Insulin Aspart (Novolog Vial Sliding Scale -) 1 vial SQ TIDAC [facility]; Protocol Last Admin: 09/11/19 12:11 Dose: Not Given Insulin Detemir (Levemir Vial) 44 units SQ AM [facility] Last Admin: 09/11/19 06:20 Dose: Not Given Methylprednisolone Sodium Succinate (Solu-Medrol -) 40 mg IVPUSH DAILY [facility] Last Admin: 09/11/19 09:20 Dose: 40 mg Pantoprazole Sodium (Protonix -) 40 mg PO DAILY [facility] Last Admin: 09/11/19 09:20 Dose: 40 mg Sodium Bicarbonate (Sodium Bicarbonate -) 650 mg PO DAILY [facility] Last Admin: 09/11/19 09:20 Dose: 650 mg CBC, BMP 09/09/19 06:30 09/09/19 06:30 Microbiology 09/06/19 08:50 Blood Culture - Final Blood - Peripheral Venous NO GROWTH AFTER 5 DAYS INCUBATION 09/06/19 08:50 Blood Culture - Final Blood - Peripheral Venous NO GROWTH AFTER 5 DAYS INCUBATION Physical Exam Awake/ comfortable S1 S2 RRR Lungs decreased breath sounds-- no wheezes Abd- soft,NT No edema Alert/ awake PLAN Continue solumedrol-- taper iv antibiotics-- for uti-- d/c after today dose Monitor BP- will follow Problem List - Problems (1) Yxobr-kr-hygvxrw kidney injury Code(s): N17.9 - ACUTE KIDNEY FAILURE, UNSPECIFIED; N18.9 - CHRONIC KIDNEY DISEASE, UNSPECIFIED Qualifiers: Acute renal failure type: unspecified Chronic kidney disease stage: unspecified stage Qualified Code(s): N17.9 - Acute kidney failure, unspecified ; N18.9 - Chronic kidney disease, unspecified (2) CHF exacerbation Code(s): I50.9 - HEART FAILURE, UNSPECIFIED Qualifiers: Heart failure type: diastolic Qualified Code(s): I50.33 - Acute on chronic diastolic (congestive) heart failure (3) COPD exacerbation Code(s): J44.1 - CHRONIC OBSTRUCTIVE PULMONARY DISEASE W (ACUTE) EXACERBATION (4) Microcytic anemia Code(s): D50.9 - IRON DEFICIENCY ANEMIA, UNSPECIFIED (5) COPD (chronic obstructive pulmonary disease) Code(s): J44.9 - CHRONIC OBSTRUCTIVE PULMONARY DISEASE, UNSPECIFIED (6) Diabetes Code(s): E11.9 - TYPE 2 DIABETES MELLITUS WITHOUT COMPLICATIONS Qualifiers: Diabetes mellitus type: type 2 Diabetes mellitus complication status: with kidney complications Chronic kidney disease stage: stage 3 (moderate) (7) Lung cancer Code(s): C34.90 - MALIGNANT NEOPLASM OF UNSP PART OF UNSP BRONCHUS OR LUNG
--- NOTE | 2019-09-11 14:06 | PN ---
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 (short form) - Note 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: Feels overall better. States breathing is improving. No cough or wheezing. Intake & Output 09/08/19 09/09/19 09/10/19 09/11/19 23:59 23:59 23:59 23:59 Intake Total 1060 560 840 240 Balance 1060 560 840 240 Last Vital Signs Temp Pulse Resp BP Pulse Ox 97.8 F 75 18 173/70 H 99 09/11/19 08:15 09/11/19 08:15 09/11/19 10:00 09/11/19 08:15 09/11/19 09:00 Active Medications Acetaminophen (Tylenol -) 650 mg PO Q6H PRN PRN Reason: PAIN LEVEL 1-5 Last Admin: 09/10/19 22:44 Dose: 650 mg Albuterol/Ipratropium (Duoneb -) 1 amp NEB Q4H PRN PRN Reason: SHORTNESS OF BREATH Amlodipine Besylate (Norvasc -) 10 mg PO DAILY [facility] Last Admin: 09/11/19 09:21 Dose: 10 mg Carvedilol (Coreg -) 25 mg PO BID [facility] Last Admin: 09/11/19 09:21 Dose: 25 mg Furosemide (Lasix Injection -) 40 mg IVPUSH DAILY [facility] Last Admin: 09/11/19 09:21 Dose: 40 mg Guaifenesin (Robitussin Dm -) 10 ml PO Q8H PRN PRN Reason: COUGH Last Admin: 09/10/19 22:44 Dose: 10 ml Heparin Sodium (Porcine) (Heparin -) 5,000 unit SQ BID [facility] Last Admin: 09/11/19 09:20 Dose: 5,000 unit Hydralazine HCl (Apresoline -) 25 mg PO BID [facility] Last Admin: 09/11/19 09:21 Dose: 25 mg Insulin Aspart (Novolog Vial Sliding Scale -) 1 vial SQ TIDAC [facility]; Protocol Last Admin: 09/11/19 12:11 Dose: Not Given Insulin Detemir (Levemir Vial) 44 units SQ AM [facility] Last Admin: 09/11/19 06:20 Dose: Not Given Methylprednisolone Sodium Succinate (Solu-Medrol -) 40 mg IVPUSH DAILY [facility] Last Admin: 09/11/19 09:20 Dose: 40 mg Pantoprazole Sodium (Protonix -) 40 mg PO DAILY [facility] Last Admin: 09/11/19 09:20 Dose: 40 mg Sodium Bicarbonate (Sodium Bicarbonate -) 650 mg PO DAILY [facility] Last Admin: 09/11/19 09:20 Dose: 650 mg Gen: NAD at rest Heart: RRR Lung: decreased breath sounds at the bases Abd: soft, nontender Ext: no edema Laboratory Results - last 24 hr 09/09/19 09/10/19 09/11/19 06:30 17:09 06:03 POC Glucometer 224 76 JOVITA Screen Negative 09/11/19 12:02 POC Glucometer 142 JOVITA Screen A/P Acute on Chronic Diastolic Heart Failure COPD HTN CKD UTI DM Anemia - continue lasix - daily weights - Noted daily Medrol: can change to Prednisone - inhaled bronchodilators - O2 as needed - complete antibiotics - DVT prophylaxis - DC planning Dr Rogers
[2019-09-11] MEDS: guaiFENesin/D-METHORPHAN HB 10 ML UNIT-DOSE CUPS PO PRN (21:47)
[2019-09-11] MEDS: ACETAMINOPHEN 325 MG TABLET (FP) PO PRN (21:47)
[2019-09-12] MEDS: INSULIN (LEVEMIR) 100 UNITS/ML UNITS SQ SCH (06:23)
[2019-09-12] MEDS: hydrALAZINE HCL 25 MG TABLET (FP) PO SCH (06:23)
[2019-09-12] MEDS: INSULIN SLIDING SCALE (NOVOLOG) 1 VIAL SQ SCH ×3 (06:23→17:46)
[2019-09-12] MEDS ORDERED: INSULIN (NOVOLOG) ASPART 100 UNITS/ML 10ML VIAL ONE (07:00)
[2019-09-12] MEDS: PANTOPRAZOLE 40 MG TABLET (FP) PO SCH (09:24)
[2019-09-12] MEDS: HEPARIN NA (PORCINE) 5,000 UNITS/ML 1ML VIAL SQ SCH (09:24)
[2019-09-12] MEDS: amLODIPine BESYLATE 10 MG TABLET (FP) PO SCH (09:24)
[2019-09-12] MEDS: FUROSEMIDE 40 MG/4 ML INJECTABLE VIAL IVPUSH SCH (09:24)
[2019-09-12] MEDS: SODIUM BICARBONATE 650 MG TABLET PO SCH (09:24)
[2019-09-12] MEDS: CARVEDILOL 25 MG TABLET (FP) PO SCH ×2 (09:24→21:17)
[2019-09-12] MEDS: methylPREDNISolone NA SUCC 40 MG/1 ML VIAL IVPUSH SCH (09:24)
--- NOTE | 2019-09-12 09:33 | PN ---
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, Physician History of Present Illness: CAMP, midsternal chest tightness, cough, BLE edema, and mildly distended AB resolved with diuresis, BP still elevated, meds uptitrated. - Current Medication List Current Medications: Active Medications Acetaminophen (Tylenol -) 650 mg PO Q6H PRN PRN Reason: PAIN LEVEL 1-5 Last Admin: 09/11/19 21:47 Dose: 650 mg Amlodipine Besylate (Norvasc -) 10 mg PO DAILY [facility] Last Admin: 09/11/19 09:21 Dose: 10 mg Carvedilol (Coreg -) 25 mg PO BID [facility] Last Admin: 09/11/19 21:47 Dose: 25 mg Furosemide (Lasix Injection -) 40 mg IVPUSH DAILY [facility] Last Admin: 09/11/19 09:21 Dose: 40 mg Guaifenesin (Robitussin Dm -) 10 ml PO Q8H PRN PRN Reason: COUGH Last Admin: 09/11/19 21:47 Dose: 10 ml Heparin Sodium (Porcine) (Heparin -) 5,000 unit SQ BID [facility] Last Admin: 09/11/19 21:47 Dose: 5,000 unit Hydralazine HCl (Apresoline -) 25 mg PO TID [facility] Last Admin: 09/12/19 06:23 Dose: 25 mg Insulin Aspart (Novolog Vial Sliding Scale -) 1 vial SQ TIDAC [facility]; Protocol Last Admin: 09/12/19 06:23 Dose: 6 units Insulin Detemir (Levemir Vial) 44 units SQ AM [facility] Last Admin: 09/12/19 06:23 Dose: 44 units Methylprednisolone Sodium Succinate (Solu-Medrol -) 40 mg IVPUSH DAILY [facility] Last Admin: 09/11/19 09:20 Dose: 40 mg Pantoprazole Sodium (Protonix -) 40 mg PO DAILY [facility] Last Admin: 09/11/19 09:20 Dose: 40 mg Sodium Bicarbonate (Sodium Bicarbonate -) 650 mg PO DAILY [facility] Last Admin: 09/11/19 09:20 Dose: 650 mg - Objective Vital Signs: Vital Signs Temperature 98.7 F 09/12/19 06:00 Pulse Rate 76 09/12/19 06:00 Respiratory Rate 20 09/12/19 06:00 Blood Pressure 168/56 L 09/12/19 06:00 O2 Sat by Pulse Oximetry (%) 99 09/11/19 21:00 Constitutional: Yes: No Distress, Calm, Thin Neck: Yes: Supple Cardiovascular: Yes: Regular Rate and Rhythm Respiratory: Yes: Regular, Diminished Gastrointestinal: Yes: Normal Bowel Sounds, Soft Edema: No Labs: CBC, BMP 09/09/19 06:30 09/09/19 06:30 Problem List - Problems (1) Hypertensive heart disease Code(s): I11.9 - HYPERTENSIVE HEART DISEASE WITHOUT HEART FAILURE Qualifiers: Heart failure presence: with heart failure Heart failure type: diastolic Heart failure chronicity: acute on chronic Qualified Code(s): I11.0 - Hypertensive heart disease with heart failure; I50.33 - Acute on chronic diastolic (congestive) heart failure (2) [id number] kidney injury Code(s): N17.9 - ACUTE KIDNEY FAILURE, UNSPECIFIED; N18.9 - CHRONIC KIDNEY DISEASE, UNSPECIFIED Qualifiers: Acute renal failure type: unspecified Chronic kidney disease stage: unspecified stage Qualified Code(s): N17.9 - Acute kidney failure, unspecified ; N18.9 - Chronic kidney disease, unspecified (3) CHF exacerbation Code(s): I50.9 - HEART FAILURE, UNSPECIFIED Qualifiers: Heart failure type: diastolic Qualified Code(s): I50.33 - Acute on chronic diastolic (congestive) heart failure (4) COPD (chronic obstructive pulmonary disease) Code(s): J44.9 - CHRONIC OBSTRUCTIVE PULMONARY DISEASE, UNSPECIFIED (5) Diabetes Code(s): E11.9 - TYPE 2 DIABETES MELLITUS WITHOUT COMPLICATIONS Qualifiers: Diabetes mellitus type: type 2 Diabetes mellitus complication status: with kidney complications Chronic kidney disease stage: stage 3 (moderate) Assessment/Plan 09/07/2019 Echo: Normal LV and RV size and fxn, tr-mild MR, mild TR 09/06/[address]: Mild congestion with bilateral effusions 1. Acute on chronic diastolic heart failure resolving 2. CKD 4 with hyperkalemia likely due to diabetic nephropathy 3. Microcytic anemia due to CKD 4. COPD 5. T2DM 6. HTN - not at goal 7. UTI PLAN: 1. Change to oral diuresis with monitoring renal function and electrolytes 2. Continue Carvedilol 25 mg BID, Norvasc 10 mg QD, increased Hydralazine 50 mg TID 3. Bronchodilator, O2 as needed, oral steroid taper with GI protection, empiric antibiotic for UTI
--- NOTE | 2019-09-12 09:47 | PN ---
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, Physician History of Present Illness: pulmonary alert,comfortable,-resp distress. - Current Medication List Current Medications: Active Medications Acetaminophen (Tylenol -) 650 mg PO Q6H PRN PRN Reason: PAIN LEVEL 1-5 Last Admin: 09/11/19 21:47 Dose: 650 mg Amlodipine Besylate (Norvasc -) 10 mg PO DAILY [facility] Last Admin: 09/12/19 09:24 Dose: 10 mg Carvedilol (Coreg -) 25 mg PO BID [facility] Last Admin: 09/12/19 09:24 Dose: 25 mg Furosemide (Lasix Injection -) 40 mg IVPUSH DAILY [facility] Last Admin: 09/12/19 09:24 Dose: 40 mg Guaifenesin (Robitussin Dm -) 10 ml PO Q8H PRN PRN Reason: COUGH Last Admin: 09/11/19 21:47 Dose: 10 ml Heparin Sodium (Porcine) (Heparin -) 5,000 unit SQ BID [facility] Last Admin: 09/12/19 09:24 Dose: 5,000 unit Hydralazine HCl (Apresoline -) 25 mg PO TID [facility] Last Admin: 09/12/19 06:23 Dose: 25 mg Insulin Aspart (Novolog Vial Sliding Scale -) 1 vial SQ TIDAC [facility]; Protocol Last Admin: 09/12/19 06:23 Dose: 6 units Insulin Detemir (Levemir Vial) 44 units SQ AM [facility] Last Admin: 09/12/19 06:23 Dose: 44 units Methylprednisolone Sodium Succinate (Solu-Medrol -) 40 mg IVPUSH DAILY [facility] Last Admin: 09/12/19 09:24 Dose: 40 mg Pantoprazole Sodium (Protonix -) 40 mg PO DAILY [facility] Last Admin: 09/12/19 09:24 Dose: 40 mg Sodium Bicarbonate (Sodium Bicarbonate -) 650 mg PO DAILY [facility] Last Admin: 09/12/19 09:24 Dose: 650 mg - Objective Vital Signs: Vital Signs Temperature 98.7 F 09/12/19 06:00 Pulse Rate 76 09/12/19 06:00 Respiratory Rate 20 09/12/19 06:00 Blood Pressure 168/56 L 09/12/19 06:00 O2 Sat by Pulse Oximetry (%) 99 09/11/19 21:00 Constitutional: Yes: Well Nourished, Calm Eyes: Yes: WNL HENT: Yes: WNL Neck: Yes: WNL Cardiovascular: Yes: Regular Rate and Rhythm, S1, S2 Respiratory: Yes: Diminished Gastrointestinal: Yes: Normal Bowel Sounds, Soft Extremities: Yes: WNL Edema: No Labs: CBC, BMP Problem List - Problems (1) Qgtpy-hb-gblvrso kidney injury Code(s): N17.9 - ACUTE KIDNEY FAILURE, UNSPECIFIED; N18.9 - CHRONIC KIDNEY DISEASE, UNSPECIFIED Qualifiers: Acute renal failure type: unspecified Chronic kidney disease stage: unspecified stage Qualified Code(s): N17.9 - Acute kidney failure, unspecified ; N18.9 - Chronic kidney disease, unspecified (2) CHF exacerbation Code(s): I50.9 - HEART FAILURE, UNSPECIFIED Qualifiers: Heart failure type: diastolic Qualified Code(s): I50.33 - Acute on chronic diastolic (congestive) heart failure (3) COPD exacerbation Code(s): J44.1 - CHRONIC OBSTRUCTIVE PULMONARY DISEASE W (ACUTE) EXACERBATION (4) Hypertensive heart disease Code(s): I11.9 - HYPERTENSIVE HEART DISEASE WITHOUT HEART FAILURE Qualifiers: Heart failure presence: with heart failure Heart failure type: diastolic Heart failure chronicity: acute on chronic Qualified Code(s): I11.0 - Hypertensive heart disease with heart failure; I50.33 - Acute on chronic diastolic (congestive) heart failure (5) Microcytic anemia Code(s): D50.9 - IRON DEFICIENCY ANEMIA, UNSPECIFIED (6) COPD (chronic obstructive pulmonary disease) Code(s): J44.9 - CHRONIC OBSTRUCTIVE PULMONARY DISEASE, UNSPECIFIED (7) Diabetes Code(s): E11.9 - TYPE 2 DIABETES MELLITUS WITHOUT COMPLICATIONS Qualifiers: Diabetes mellitus type: type 2 Diabetes mellitus complication status: with kidney complications Chronic kidney disease stage: stage 3 (moderate) (8) Lung cancer Code(s): C34.90 - MALIGNANT NEOPLASM OF UNSP PART OF UNSP BRONCHUS OR LUNG (9) Pulmonary HTN Code(s): I27.20 - PULMONARY HYPERTENSION, UNSPECIFIED Assessment/Plan A/P Acute on Chronic Diastolic Heart Failure COPD HTN CKD UTI DM Anemia - lasix - daily weights - inhaled bronchodilators - O2 as needed - DVT prophylaxis - DC Steroids - DC planning DR PARIKH
--- NOTE | 2019-09-12 13:24 | PN ---
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 (short form) - Note 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: Pt seen/ examined all f/u noted awake/ comfortable BP still elevated -- Meds being up titrated denies cp/ sob. Vital Signs Temp 98 F 09/12/19 10:00 Pulse 74 09/12/19 10:00 Resp 22 H 09/12/19 10:00 BP 191/72 H 09/12/19 10:00 Pulse Ox 97 09/12/19 09:00 Intake & Output 09/11/19 09/12/19 09/12/19 23:59 11:59 23:59 Intake Total 1040 240 Balance 1040 240 Intake: IV 10 lac 10 IVPB 50 Oral 980 240 Other: Voiding Method Toilet Toilet # Unmeasured Voids Void 1 1 Bowel Movement No Yes Active Medications Acetaminophen (Tylenol -) 650 mg PO Q6H PRN PRN Reason: PAIN LEVEL 1-5 Last Admin: 09/11/19 21:47 Dose: 650 mg Amlodipine Besylate (Norvasc -) 10 mg PO DAILY [facility] Last Admin: 09/12/19 09:24 Dose: 10 mg Apixaban (Eliquis -) 2.5 mg PO BID [facility] Carvedilol (Coreg -) 25 mg PO BID [facility] Last Admin: 09/12/19 09:24 Dose: 25 mg Guaifenesin (Robitussin Dm -) 10 ml PO Q8H PRN PRN Reason: COUGH Last Admin: 09/11/19 21:47 Dose: 10 ml Hydralazine HCl (Apresoline -) 50 mg PO TID [facility] Insulin Aspart (Novolog Vial Sliding Scale -) 1 vial SQ TIDAC [facility]; Protocol Last Admin: 09/12/19 13:05 Dose: Not Given Insulin Detemir (Levemir Vial) 44 units SQ AM [facility] Last Admin: 09/12/19 06:23 Dose: 44 units Pantoprazole Sodium (Protonix -) 40 mg PO DAILY [facility] Last Admin: 09/12/19 09:24 Dose: 40 mg Sodium Bicarbonate (Sodium Bicarbonate -) 650 mg PO DAILY [facility] Last Admin: 09/12/19 09:24 Dose: 650 mg Torsemide (Demadex -) 20 mg PO DAILY [facility] CBC, BMP 09/09/19 06:30 09/09/19 06:30 Physical Exam Awake/ comfortable S1 S2 RRR Lungs decreased breath sounds-- no wheezes Abd- soft,NT No edema Alert/ awake PLAN BP remains significantly elevated -- Meds being adjusted off steroids d/c abx Monitor BP- will follow Problem List - Problems (1) Wysyx-fc-wkwthkj kidney injury Code(s): N17.9 - ACUTE KIDNEY FAILURE, UNSPECIFIED; N18.9 - CHRONIC KIDNEY DISEASE, UNSPECIFIED Qualifiers: Acute renal failure type: unspecified Chronic kidney disease stage: unspecified stage Qualified Code(s): N17.9 - Acute kidney failure, unspecified ; N18.9 - Chronic kidney disease, unspecified (2) CHF exacerbation Code(s): I50.9 - HEART FAILURE, UNSPECIFIED Qualifiers: Heart failure type: diastolic Qualified Code(s): I50.33 - Acute on chronic diastolic (congestive) heart failure (3) COPD exacerbation Code(s): J44.1 - CHRONIC OBSTRUCTIVE PULMONARY DISEASE W (ACUTE) EXACERBATION (4) Microcytic anemia Code(s): D50.9 - IRON DEFICIENCY ANEMIA, UNSPECIFIED (5) COPD (chronic obstructive pulmonary disease) Code(s): J44.9 - CHRONIC OBSTRUCTIVE PULMONARY DISEASE, UNSPECIFIED (6) Diabetes Code(s): E11.9 - TYPE 2 DIABETES MELLITUS WITHOUT COMPLICATIONS Qualifiers: Diabetes mellitus type: type 2 Diabetes mellitus complication status: with kidney complications Chronic kidney disease stage: stage 3 (moderate) (7) Lung cancer Code(s): C34.90 - MALIGNANT NEOPLASM OF UNSP PART OF UNSP BRONCHUS OR LUNG
[2019-09-12] MEDS: hydrALAZINE HCL 50 MG TABLET (FP) PO SCH ×2 (14:19→21:17)
[2019-09-12] MEDS: APIXABAN 2.5 MG TABLET PO SCH (21:17)
[2019-09-13] MEDS: hydrALAZINE HCL 50 MG TABLET (FP) PO SCH ×3 (06:41→13:39)
[2019-09-13] MEDS: INSULIN SLIDING SCALE (NOVOLOG) 1 VIAL SQ SCH ×3 (06:41→16:32)
[2019-09-13] MEDS: INSULIN (LEVEMIR) 100 UNITS/ML UNITS SQ SCH (06:41)
[2019-09-13] MEDS: APIXABAN 2.5 MG TABLET PO SCH (09:17)
[2019-09-13] MEDS: amLODIPine BESYLATE 10 MG TABLET (FP) PO SCH (09:17)
[2019-09-13] MEDS: CARVEDILOL 25 MG TABLET (FP) PO SCH (09:17)
[2019-09-13] MEDS: PANTOPRAZOLE 40 MG TABLET (FP) PO SCH (09:17)
[2019-09-13] MEDS: SODIUM BICARBONATE 650 MG TABLET PO SCH (09:17)
[2019-09-13] MEDS ORDERED: TORSEMIDE 20 MG TABLET (FP) PO SCH (10:00)
[2019-09-13] MEDS ORDERED: FUROSEMIDE 40 MG TABLET (FP) PO SCH (10:00)
--- NOTE | 2019-09-13 10:39 | PN ---
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, Physician History of Present Illness: pulmonary alert,comfortable,-resp distress - Current Medication List Current Medications: Active Medications Acetaminophen (Tylenol -) 650 mg PO Q6H PRN PRN Reason: PAIN LEVEL 1-5 Last Admin: 09/11/19 21:47 Dose: 650 mg Amlodipine Besylate (Norvasc -) 10 mg PO DAILY [facility] Last Admin: 09/13/19 09:17 Dose: 10 mg Apixaban (Eliquis -) 2.5 mg PO BID [facility] Last Admin: 09/13/19 09:17 Dose: 2.5 mg Carvedilol (Coreg -) 25 mg PO BID [facility] Last Admin: 09/13/19 09:17 Dose: 25 mg Guaifenesin (Robitussin Dm -) 10 ml PO Q8H PRN PRN Reason: COUGH Last Admin: 09/11/19 21:47 Dose: 10 ml Hydralazine HCl (Apresoline -) 50 mg PO TID [facility] Last Admin: 09/13/19 06:41 Dose: 50 mg Insulin Aspart (Novolog Vial Sliding Scale -) 1 vial SQ TIDAC [facility]; Protocol Last Admin: 09/13/19 06:41 Dose: 2 units Insulin Detemir (Levemir Vial) 44 units SQ AM [facility] Last Admin: 09/13/19 06:41 Dose: 44 units Pantoprazole Sodium (Protonix -) 40 mg PO DAILY [facility] Last Admin: 09/13/19 09:17 Dose: 40 mg Sodium Bicarbonate (Sodium Bicarbonate -) 650 mg PO DAILY [facility] Last Admin: 09/13/19 09:17 Dose: 650 mg Torsemide (Demadex -) 20 mg PO DAILY [facility] Last Admin: 09/13/19 09:17 Dose: 20 mg - Objective Vital Signs: Vital Signs Temperature 98.2 F 09/13/19 10:00 Pulse Rate 71 09/13/19 10:00 Respiratory Rate 18 09/13/19 10:00 Blood Pressure 161/63 09/13/19 10:00 O2 Sat by Pulse Oximetry (%) 98 09/12/19 21:00 Constitutional: Yes: Well Nourished, Calm Eyes: Yes: WNL HENT: Yes: WNL Neck: Yes: WNL Cardiovascular: Yes: Regular Rate and Rhythm Respiratory: Yes: CTA Bilaterally Gastrointestinal: Yes: Normal Bowel Sounds, Soft Extremities: Yes: WNL Edema: No Labs: CBC, BMP 09/09/19 06:30 09/09/19 06:30 Problem List - Problems (1) Egsif-oz-smtxbgb kidney injury Code(s): N17.9 - ACUTE KIDNEY FAILURE, UNSPECIFIED; N18.9 - CHRONIC KIDNEY DISEASE, UNSPECIFIED Qualifiers: Acute renal failure type: unspecified Chronic kidney disease stage: unspecified stage Qualified Code(s): N17.9 - Acute kidney failure, unspecified ; N18.9 - Chronic kidney disease, unspecified (2) CHF exacerbation Code(s): I50.9 - HEART FAILURE, UNSPECIFIED Qualifiers: Heart failure type: diastolic Qualified Code(s): I50.33 - Acute on chronic diastolic (congestive) heart failure (3) COPD exacerbation Code(s): J44.1 - CHRONIC OBSTRUCTIVE PULMONARY DISEASE W (ACUTE) EXACERBATION (4) Hypertensive heart disease Code(s): I11.9 - HYPERTENSIVE HEART DISEASE WITHOUT HEART FAILURE Qualifiers: Heart failure presence: with heart failure Heart failure type: diastolic Heart failure chronicity: acute on chronic Qualified Code(s): I11.0 - Hypertensive heart disease with heart failure; I50.33 - Acute on chronic diastolic (congestive) heart failure (5) Microcytic anemia Code(s): D50.9 - IRON DEFICIENCY ANEMIA, UNSPECIFIED (6) COPD (chronic obstructive pulmonary disease) Code(s): J44.9 - CHRONIC OBSTRUCTIVE PULMONARY DISEASE, UNSPECIFIED (7) Diabetes Code(s): E11.9 - TYPE 2 DIABETES MELLITUS WITHOUT COMPLICATIONS Qualifiers: Diabetes mellitus type: type 2 Diabetes mellitus complication status: with kidney complications Chronic kidney disease stage: stage 3 (moderate) (8) Lung cancer Code(s): C34.90 - MALIGNANT NEOPLASM OF UNSP PART OF UNSP BRONCHUS OR LUNG (9) Pulmonary HTN Code(s): I27.20 - PULMONARY HYPERTENSION, UNSPECIFIED Assessment/Plan A/P Acute on Chronic Diastolic Heart Failure improved COPD HTN CKD UTI DM Anemia - diuretics - daily weights - inhaled bronchodilators - O2 as needed - DVT prophylaxis - DC planning - outpatient pfts DR PARIKH
[2019-09-13 11:02] LABS: HEMATOCRIT 27.7 % (32.4-45.2); HEMOGLOBIN 8.6 GM/dL (10.7-15.3); MCH 23.6 pg (25.7-33.7); MCHC 30.9 g/dl (32.0-36.0); MEAN CELL VOLUME 76.4 fl (80-96); MEAN PLT VOLUME 9.9 fl (7.5-11.1); PLATELET COUNT 234 K/MM3 (134-434); RBC 3.62 M/mm3 (3.60-5.2); RDW 15.6 % (11.6-15.6); WHITE BLOOD COUNT 16.3 K/mm3 (4.0-10.0)
[2019-09-13] MEDS ORDERED: INSULIN (NOVOLOG) ASPART 100 UNITS/ML 10ML VIAL ONE (11:10)
[2019-09-13 11:22] VITALS: PULSE 67
[2019-09-13] MEDS ORDERED: hydrALAZINE HCL 25 MG TABLET (FP) PO SCH (11:26)
--- NOTE | 2019-09-13 11:26 | DS ---
Physical Examination Vital Signs: Vital Signs Temperature 98.2 F 09/13/19 10:00 Pulse Rate 67 09/13/19 11:21 Respiratory Rate 18 09/13/19 11:21 Blood Pressure 172/66 H 09/13/19 11:21 O2 Sat by Pulse Oximetry (%) 95 09/13/19 09:00 Constitutional: Yes: No Distress, Calm Cardiovascular: Yes: Regular Rate and Rhythm Respiratory: Yes: Diminished Gastrointestinal: Yes: Normal Bowel Sounds, Soft. No: Tenderness Edema: No Labs: CBC, BMP 09/13/19 10:35 Discharge Summary Problems reviewed: Yes Reason For Visit: ACUTE CHF,MICROCYTIC ANEMIA,COPD,ACUTE RENAL FAILU Current Active Problems Bnitx-ir-cfzhrws kidney injury (Acute) CHF exacerbation (Acute) COPD exacerbation (Acute) Hyperkalemia (Acute) Hypertensive heart disease (Acute) Microcytic anemia (Acute) Pulmonary HTN (Acute) Hospital Course: Admitted for CHF decompensation , copd exacerbation , acute renal failure Seen by Pulmonary , Renal and cardiology Iv lasix started along with solumedrol Renal function at baseline Steroids dc Pt better symptomatically stable on PO Torsemide stable for dc home She had holter monitor -- for paroxysmal Afib -- on eliquis , rate controlled with coreg BP better after increasing Hydralazine Condition: Good - Instructions Referrals: Wyatt Jhaveri MD [Staff Physician] - Ladonna Christianson MD [Primary Care Provider] - Disposition: HOME - Home Medications Comprehensive Discharge Medication List: Ambulatory Orders Insulin (Levemir) [Levemir Flexpen -] 40 units SQ DAILY 12/13/13 Insulin Aspart [Novolog] 10 unit SQ AC 12/13/13 Albuterol 0.083% Nebulizer Rosemarie [Ventolin 0.083% Nebulizer Soln -] 1 neb NEB Q6H #30 vial 01/09/16 Amlodipine Besylate 10 mg PO DAILY 09/06/19 Budesonide/Formeterol Fumarate [SYMBICORT 160/4.5mcg -] 2 puff PO DAILY Insulin (LOG) Aspart [NovoLOG -] 6 unit SQ HS 09/06/19 Metoprolol Succinate 25 mg PO DAILY 09/06/19
[2019-09-13] MEDS ORDERED: hydrALAZINE HCL 25 MG TABLET (FP) PO ONE (11:27)
[2019-09-13 11:49] LABS: CALCIUM 8.3 mg/dL (8.5-10.1); CREATININE 2.6 mg/dL (0.55-1.3); POTASSIUM 4.3 mmol/L (3.5-5.1)
--- NOTE | 2019-09-13 11:51 | PN ---
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, Physician Chief Complaint: Events noted Not in distress History of Present Illness: Patient was seen and examined. Awake and alert. Chart was reviewed Denies chest pain, SOB or palpitations - Current Medication List Current Medications: Active Medications Acetaminophen (Tylenol -) 650 mg PO Q6H PRN PRN Reason: PAIN LEVEL 1-5 Last Admin: 09/11/19 21:47 Dose: 650 mg Amlodipine Besylate (Norvasc -) 10 mg PO DAILY [facility] Last Admin: 09/13/19 09:17 Dose: 10 mg Apixaban (Eliquis -) 2.5 mg PO BID [facility] Last Admin: 09/13/19 09:17 Dose: 2.5 mg Carvedilol (Coreg -) 25 mg PO BID [facility] Last Admin: 09/13/19 09:17 Dose: 25 mg Guaifenesin (Robitussin Dm -) 10 ml PO Q8H PRN PRN Reason: COUGH Last Admin: 09/11/19 21:47 Dose: 10 ml Hydralazine HCl (Apresoline -) 75 mg PO TID [facility] Hydralazine HCl (Apresoline -) 25 mg PO ONCE ONE Stop: 09/13/19 11:28 Insulin Aspart (Novolog Vial Sliding Scale -) 1 vial SQ TIDAC [facility]; Protocol Last Admin: 09/13/19 11:13 Dose: 2 units Insulin Detemir (Levemir Vial) 44 units SQ AM [facility] Last Admin: 09/13/19 06:41 Dose: 44 units Pantoprazole Sodium (Protonix -) 40 mg PO DAILY [facility] Last Admin: 09/13/19 09:17 Dose: 40 mg Sodium Bicarbonate (Sodium Bicarbonate -) 650 mg PO DAILY [facility] Last Admin: 09/13/19 09:17 Dose: 650 mg Torsemide (Demadex -) 20 mg PO DAILY [facility] Last Admin: 09/13/19 09:17 Dose: 20 mg - Objective Vital Signs: Vital Signs Temperature 98.2 F 09/13/19 10:00 Pulse Rate 67 09/13/19 11:21 Respiratory Rate 18 09/13/19 11:21 Blood Pressure 172/66 H 09/13/19 11:21 O2 Sat by Pulse Oximetry (%) 95 09/13/19 09:00 Eyes: Yes: PERRL HENT: Yes: Atraumatic Neck: Yes: Supple Cardiovascular: Yes: Regular Rate and Rhythm, S1, S2 Respiratory: Yes: CTA Bilaterally Gastrointestinal: Yes: Normal Bowel Sounds, Soft. No: Tenderness Edema: No Additional Findings/Remarks: - Review of Systems Constitutional: denies: Chills, Fever Cardiovascular: denies: Chest Pain, denies: Palpitations, Shortness of Breath Respiratory: denies: Cough, Hemoptysis, Orthopnea, PND, SOB, SOB on Exertion Gastrointestinal: denies Abdominal Pain, denies: Diarrhea. denies: Melena, Nausea, Rectal Bleeding, Vomiting Genitourinary: denies: Dysuria, Hematuria Musculoskeletal: denies: Back Pain, Joint Pain Neurological: denies: Dizziness, Headache, Seizure, Syncope Labs: CBC, BMP 09/13/19 10:35 Problem List - Problems (1) Hyperkalemia Code(s): E87.5 - HYPERKALEMIA (2) [id number] kidney injury Code(s): N17.9 - ACUTE KIDNEY FAILURE, UNSPECIFIED; N18.9 - CHRONIC KIDNEY DISEASE, UNSPECIFIED Qualifiers: Acute renal failure type: unspecified Chronic kidney disease stage: unspecified stage Qualified Code(s): N17.9 - Acute kidney failure, unspecified ; N18.9 - Chronic kidney disease, unspecified (3) CHF exacerbation Code(s): I50.9 - HEART FAILURE, UNSPECIFIED Qualifiers: Heart failure type: diastolic Qualified Code(s): I50.33 - Acute on chronic diastolic (congestive) heart failure (4) Hypertensive heart disease Code(s): I11.9 - HYPERTENSIVE HEART DISEASE WITHOUT HEART FAILURE Qualifiers: Heart failure presence: with heart failure Heart failure type: diastolic Heart failure chronicity: acute on chronic Qualified Code(s): I11.0 - Hypertensive heart disease with heart failure; I50.33 - Acute on chronic diastolic (congestive) heart failure (5) Microcytic anemia Code(s): D50.9 - IRON DEFICIENCY ANEMIA, UNSPECIFIED (6) Pulmonary HTN Code(s): I27.20 - PULMONARY HYPERTENSION, UNSPECIFIED (7) COPD (chronic obstructive pulmonary disease) Code(s): J44.9 - CHRONIC OBSTRUCTIVE PULMONARY DISEASE, UNSPECIFIED (8) Diabetes Code(s): E11.9 - TYPE 2 DIABETES MELLITUS WITHOUT COMPLICATIONS Qualifiers: Diabetes mellitus type: type 2 Diabetes mellitus complication status: with kidney complications Chronic kidney disease stage: stage 3 (moderate) Assessment/Plan 1. Acute on chronic diastolic heart failure 2. CKD with hyperkalemia likely due to diabetic nephropathy 3. Microcytic anemia due to CKD 4. COPD 5. T2DM 6. HTN - not at goal 7. UTI PLAN: 1. PO diuresis with monitoring renal function and electrolytes (currently on Torsemide) 2. Continue Carvedilol 25 mg BID as tolerated. Continue Norvasc 10 mg QD. Increase Hydralazine to 100 mg TID 3. Bronchodilator as needed, O2 as needed, off steroids and antibiotic finished Further plans are to follow Wyatt Jhaveri MD
[2019-09-13 14:25] VITALS: BP 140/64; TEMP 97.9
--- NOTE | 2019-09-13 15:13 | HOL ---
Hook-up date: 2019-09-12 11:10:00 Duration: 24:00:00 Test Indications: R/O PAF WITH RVR Medications: 423040 QRS complexes 1 Ventricular ectopics which represent <1 % of total QRS comp. 3930 Supraventricular ectopics which represent 3 % of total QRS comp. * Paced QRS complexs which represent % of total QRS comp. * % of Time Classified as Noise VENTRICULAR ECTOPY 1 Isolated 0 Bigeminal Cycles 0 Couplets 0 Runs 0 Beats in Runs * Beats LONGEST at * BPM at :: -- * Beats FASTEST at * BPM at :: -- SUPRAVENTRICULAR ECTOPY 2511 Isolated 138 Couplets 159 Runs 1143 Beats in Runs 47 Beats LONGEST at 126 BPM at 15:12:03 2019-09-12 3 Beats FASTEST at 141 BPM at 21:25:50 2019-09-12 HEART RATES 60 MIN at 11:19:08 2019-09-12 72 AVG 77 MAX at 02:31:09 2019-09-13 LONGEST RR 1.496 secs at 13:21:29 2019-09-12 Sinus rhythm with HR range of 60-141 Average HR 72bpm Frequent PAC's (3990) with atrial runs longest of which was 47beats No significant pauses noted.with longest R-R interval1.49seconds Confirmed by MD Drea, Lazarus ([id number]) on 09/13/2019 3:12:22 PM Referred By: Bryon MILAN Overread By: Lazarus Shepard MD
--- NOTE | 2019-09-13 15:38 | PN ---
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 (short form) - Note 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: Renal follow up for CKD and hyperkalemia Seen and examined at the bedside awake and alert no acute complaints no sob, cp, fever, chills, N/V/D Vital Signs Temperature 97.9 F 09/13/19 14:00 Pulse Rate 67 09/13/19 14:00 Respiratory Rate 18 09/13/19 14:00 Blood Pressure 140/64 09/13/19 14:00 O2 Sat by Pulse Oximetry (%) 95 09/13/19 09:00 Intake & Output 09/10/19 09/11/19 09/12/19 09/13/19 23:59 23:59 23:59 23:59 Intake Total 840 7387 928 0238 Balance 840 5414 578 1136 NAD RRR CTA, no rales or wheeze soft NT/ND no bladder distension no LE edema, clubbing or cyanosis CBC, BMP 09/13/19 10:35 09/13/19 10:35 Current Medications Acetaminophen (Tylenol -) 650 mg PO Q6H PRN PRN Reason: PAIN LEVEL 1-5 Last Admin: 09/11/19 21:47 Dose: 650 mg Amlodipine Besylate (Norvasc -) 10 mg PO DAILY [facility] Last Admin: 09/13/19 09:17 Dose: 10 mg Apixaban (Eliquis -) 2.5 mg PO BID [facility] Last Admin: 09/13/19 09:17 Dose: 2.5 mg Carvedilol (Coreg -) 25 mg PO BID [facility] Last Admin: 09/13/19 09:17 Dose: 25 mg Guaifenesin (Robitussin Dm -) 10 ml PO Q8H PRN PRN Reason: COUGH Last Admin: 09/11/19 21:47 Dose: 10 ml Hydralazine HCl (Apresoline -) 100 mg PO TID [facility] Last Admin: 09/13/19 13:39 Dose: 100 mg Insulin Aspart (Novolog Vial Sliding Scale -) 1 vial SQ TIDAC [facility]; Protocol Last Admin: 09/13/19 11:13 Dose: 2 units Insulin Detemir (Levemir Vial) 44 units SQ AM [facility] Last Admin: 09/13/19 06:41 Dose: 44 units Pantoprazole Sodium (Protonix -) 40 mg PO DAILY [facility] Last Admin: 09/13/19 09:17 Dose: 40 mg Sodium Bicarbonate (Sodium Bicarbonate -) 650 mg PO DAILY [facility] Last Admin: 09/13/19 09:17 Dose: 650 mg Torsemide (Demadex -) 20 mg PO DAILY [facility] Last Admin: 09/13/19 09:17 Dose: 20 mg 73 year old woman with history of lung cancer, hypertension, diabetes mellitus, chronic kidney disease who presented with shortness of breath from home and admitted for CHF and noted to have hyperkalemia with K of 6.2. Cr was 2.3 form May 2019. 1. Hyperkalemia in setting of CKD and likley high potassium diet 2. CKD stage 4 (Cr higher then recent values likely due to CHF) 3. Suspected Acute CHF with acute decompensation 4. Pyuria 5. Microcytic anemia 6. Metabolic acidosis Renal function stable and serum potassium is improved Continue oral sodium bicarbonate maintain on Torsemide 20mg Daily Underlying CKD likely due to diabetic nephropathy, JOVITA is negative Iron saturation is 28%, s/p aranesp SC for treatment of CKD related anemia discharge planning as per primary team to follow up in our office for CKD monitoring Elvis Mayorga DO
== END 2019-09-13 18:02 | disposition home or self-care (01) | DRG 291 ==
LOC: JER 08:06 → JERBED 10:58 → J4W 15:25
PROVIDERS: ADMIT Internal Medicine; ATTEND Internal Medicine
DX: I13.0 Hypertensive heart and chronic kidney disease with heart failure and stage 1 through stage 4 chronic kidney disease, or unspecified chronic kidney disease (principal); I50.33 Acute on chronic diastolic (congestive) heart failure; N17.9 Acute kidney failure, unspecified; J44.1 Chronic obstructive pulmonary disease with (acute) exacerbation; E87.2 Acidosis; N39.0 Urinary tract infection, site not specified; I47.1 Supraventricular tachycardia; J98.11 Atelectasis; N18.4 Chronic kidney disease, stage 4 (severe); E78.5 Hyperlipidemia, unspecified; E66.9 Obesity, unspecified; Z68.30 Body mass index [BMI] 30.0-30.9, adult; D50.9 Iron deficiency anemia, unspecified; E87.5 Hyperkalemia; E11.65 Type 2 diabetes mellitus with hyperglycemia; B96.1 Klebsiella pneumoniae [K. pneumoniae] as the cause of diseases classified elsewhere; I27.20 Pulmonary hypertension, unspecified; G47.33 Obstructive sleep apnea (adult) (pediatric); E11.22 Type 2 diabetes mellitus with diabetic chronic kidney disease; D63.8 Anemia in other chronic diseases classified elsewhere; Z85.118 Personal history of other malignant neoplasm of bronchus and lung
CPT/HCPCS: 36415; 36600; 71045-TC-FY; 71250-TC; 76775-TC; 76856-TC; 80048; 80053; 81003; 82375; 82550; 82565; 82570; 82728; 82803; 82962; 83050; 83540; 83550; 83605; 83735; 83880; 84100; 84132; 84156; 84484; 84540; 85025; 85027; 86038; 87040; 87086; 87186; 87205; 87804; 87899; 93005; 93010; 93225; 93226; 93306-TC; 99285-25; J0885; J1644

== ENCOUNTER 2019-11-28 14:12 | Inpatient (IN) | payer OTHER ==
[2019-11-28 14:59] LABS: BASO % 1.1 % (0-2.0); HEMATOCRIT 28.2 % (32.4-45.2); HEMOGLOBIN 8.7 GM/dL (10.7-15.3); LYMPH % 15.9 % (8-40); MCH 23.7 pg (25.7-33.7); MCHC 30.9 g/dl (32.0-36.0); MEAN CELL VOLUME 76.6 fl (80-96); MONO % 5.1 % (3.8-10.2); NEUT % 77.9 % (42.8-82.8); PLATELET COUNT 317 K/MM3 (134-434); RBC 3.68 M/mm3 (3.60-5.2); RDW 16.9 % (11.6-15.6); VENOUS PC02 60.8 mmHg (38-52); VENOUS PH 7.24 (7.31-7.41); WHITE BLOOD COUNT 8.5 K/mm3 (4.0-10.0)
[2019-11-28 15:00] LABS: VENOUS PO2 < 49 mmHg (28-48)
--- NOTE | 2019-11-28 15:12 | PDOC ---
Attending Attestation - Resident Resident Name: Kassy Ferro - ED Attending Attestation I have performed the following: I have examined & evaluated the patient, The case was reviewed & discussed with the resident, I agree w/resident's findings & plan, Exceptions are as noted - HPI HPI: 11/28/19 15:11 74y F hx of IDDM, htn, lung ca, anemia, presents with hypglycemia - per , he went home from work and found the patient unresponsive. He called EMS and the EMS found the patient to be hypoglycemic to the 50s the patient was given oral glucose with improvement of her glucose in the 150s and improvement of her mental status. The states that the patient has been more short of breath recently as well as with dry cough. Notes that this is similar to how she was prior to her recent admission where she was received diagnosed with COPD. The patient denies any recent fevers, chills, chest pain, abdominal pain , nausea, vomiting, increased leg swelling, hemoptysis, diarrhea, dysuria. Patient does not recall exactly how much insulin she usually gives herself states that it is possible she may have given herself more than she should but she is unsure. Patient also states that she checks her blood sugar daily but is unable to tell me what her blood sugar runs. exam: GENERAL: The patient is awake, alert, and fully oriented, . HEAD: Normocephalic, atraumatic. EYES: extraocular movements intact, sclera anicteric, conjunctiva clear. ENT: Normal voice, Moist mucous membranes. NECK: Normal range of motion, supple LUNGS: Scattered wheezing bilaterally, mild respiratory distress HEART: Regular rate and rhythm, normal S1 and S2 without murmur, rub or gallop. ABDOMEN: Soft, nontender, No guarding, no rebound. No CVA tenderness EXTREMITIES: Normal range of motion, trace edema. NEUROLOGICAL: No facial assymetry, Normal speech, moving all fours extremities spontaneously and symmetrically PSYCH: Normal mood, normal affect. SKIN: Warm, Dry, normal turgor, Patient noted to be persistently hypoglycemic may be secondary to dosing itself with too much insulin However patient also noted to be increasing short of breath and orthopneic per -consider possible worsening of her COPD versus a pneumonia. The patient's chest x-ray does reveal a consolidation on the left lower lobe obscuring the right heart border. The patient's blood work reveals anemia this appears at the patient's baseline hemoglobin level. Her creatinine is also elevated however this also appears at baseline The patient's VBG is consistent with respiratory acidosis we will give the patient some duo nebs as well as Solu-Medrol. pts initial BP was elevatd but it was inaccurate, imediate repeat after arrival to room, it was normal. - Physicial Exam PE: 11/28/19 19:36 see above - Critical Care Time Total Critical Care Time: 45 Critical Care Statement: The care of this patient involved high complexity decision making to prevent further life threatening deterioration of the patient 's condition and/or to evaluate & treat vital organ system(s) failure or risk of failure. - Medical Decision Making 11/28/19 18:33 Patient has had several episodes of altered mental status, she was noted to be hypoglycemic on 1 and she was given dextrose. However she had several other episodes where she seemed more confused than usual, and her blood sugar was normal. During these episodes it seems like the patient was put in a Trendelenburg position, and she was also short of breath, was noted hypoxic to the 80s. It may be possible that the patient's altered mental status is secondary to hypoxemia when I sit her upright the patient does endorse feeling better. The patient's pulmonary status is noted for scattered wheezing, she is exhibiting pursed lip breathing. May be secondary to COPD. We will give the patient another DuoNeb. 11/28/19 19:33 case signed out o evening team to fu with results and disposition the patient Heart Score/ECG Review - ECG Impressions Comment:: 11/28/19 17:40 Twelve-lead EKG was performed and reviewed by me. There is normal sinus rhythm with a normal rate. Rate of 69 The axis is normal. The intervals are normal. There is normal R wave progression There are no ST or T wave abnormalities. Impression: Normal twelve-lead EKG
[2019-11-28] MEDS ORDERED: DEXTROSE 50%-WATER - 25 GM/50 ML VIAL IVPUSH ONE (15:28)
[2019-11-28] MEDS ORDERED: DEXTROSE 50%-WATER - 25 GM/50 ML VIAL ONE (15:29)
--- NOTE | 2019-11-28 15:30 | PDOC ---
History of Present Illness - General Chief Complaint: Blood Sugar Problem Stated Complaint: BLOOD SUGAR PROBLEM Time Seen by Provider: 11/28/19 14:56 Past History - Past Medical History Allergies/Adverse Reactions: Allergies Allergy/AdvReac Type Severity Reaction Status Date / Time aspirin Allergy Mild ANEMIA Verified 09/06/19 08:15 Home Medications: Ambulatory Orders Insulin (Levemir) [Levemir Flexpen -] 40 units SQ DAILY 12/13/13 Insulin Aspart [Novolog] 10 unit SQ AC 12/13/13 Albuterol 0.083% Nebulizer Rosemarie [Ventolin 0.083% Nebulizer Soln -] 1 neb NEB Q6H #30 vial 01/09/16 Amlodipine Besylate 10 mg PO DAILY 09/06/19 Budesonide/Formeterol Fumarate [SYMBICORT 160/4.5mcg -] 2 puff PO DAILY Insulin (LOG) Aspart [NovoLOG -] 6 unit SQ HS 09/06/19 Apixaban [Eliquis -] 2.5 mg PO BID #60 tablet 09/13/19 Carvedilol [Coreg -] 25 mg PO BID #60 tablet 09/13/19 Sodium Bicarbonate - 650 mg PO DAILY #30 tablet 09/13/19 Torsemide [Demadex -] 20 mg PO DAILY #30 tablet 09/13/19 hydrALAZINE HCL [Apresoline -] 100 mg PO TID #90 tablet 09/13/19 Metoprolol Succinate 25 mg PO DAILY 11/28/19 Rosuvastatin [Crestor -] 5 mg PO DAILY 11/28/19 Valsartan/Hydrochlorothiazide [Valsartan-Hctz 80-12.5 mg Tab] 1 tab PO DAILY Anemia: Yes Asthma: No Cancer: Yes (LUNG CA, finished chemo /radiation 2012) Cardiac Disorders: No CVA: No COPD: No CHF: No Dementia: No Diabetes: Yes (Insulin Dependent) GI Disorders: Yes (h/o colonc polyps) Disorders: No HTN: Yes Hypercholesterolemia: No Liver Disease: No Seizures: No Thyroid Disease: No - Surgical History Abdominal Surgery: No Appendectomy: No Cardiac Surgery: No Cholecystectomy: No Lung Surgery: Yes (lung biopsy ) Neurologic Surgery: No Orthopedic Surgery: No - Psycho Social/Smoking Cessation Hx Smoking Status: Yes Smoking History: Never smoked Have you smoked in the past 12 months: No Number of Cigarettes Smoked Daily: 20 If you are a former smoker, when did you quit?: 2011 Information on smoking cessation initiated: No 'Breaking Loose' booklet given: 08/16/12 Hx Alcohol Use: No Drug/Substance Use Hx: No Substance Use Type: None Hx Substance Use Treatment: No *Physical Exam - Vital Signs Last Vital Signs Temp Pulse Resp BP Pulse Ox 97.8 F 69 16 229/170 H 99 11/28/19 14:12 11/28/19 14:12 11/28/19 14:12 11/28/19 14:12 11/28/19 14:12 ED Treatment Course - LABORATORY CBC & Chemistry Diagram: 11/28/19 14:24 11/28/19 14:24 - ADDITIONAL ORDERS Additional order review: Laboratory Results 11/28/19 11/28/19 15:27 14:24 VBG pH 7.24 L POC VBG pCO2 60.8 H POC VBG pO2 < 49 H VBG HCO3 25.3 VBG O2 Sat (Monica) 25.8 L VBG Base Excess -2.0 POC Glucometer 48 11/28/19 11/28/19 15:27 14:24 RBC 3.68 MCV 76.6 L MCHC 30.9 L RDW 16.9 H MPV 10.0 Neutrophils % 77.9 Lymphocytes % 15.9 D Monocytes % 5.1 D Eosinophils % 0.0 Basophils % 1.1 POC Glucometer 48 Medical Decision Making - Medical Decision Making 11/28/19 15:52 HPI: 74yo F hx CHF, paroxysmal Afib (on Eliquis), HTN, IDDM, CKD, COPD, and non small cell lung CA (s/p chemo, resolved 5yrs ago) BIBA from home for hypoglycemia 36 and episodes of AMS since 0640 this AM. Per EMS, pt found cool and clammy, lethargic but responsive with glucose of 36. Pt given D5 raising glucose to 146 and pt mental status normalized. Per nurse Correa, initial BGM in ED 48 and pt altered so D50 just given per attending Cira. Per pt, she says she felt normal last night and this AM, ate half a sandwich then took her normal doses of her daily medications at 0640 this AM - Levemir 42U and Levonar 6U - then doesn't remember anything after. Pt states she feels fine now and has no complaints. Pt does endorse dry cough and difficulty breathing for past few weeks. Pt states she checks her glucose 1x/day at random times but did not check today and cannot remember what it was the past couple days. Pt does not check BP at home. Per , he found pt this AM and called EMS. Pt and family states that nothing like this has ever happened before. ROS: Constitutional: Negative for chills, fever, fatigue, diaphoresis. HENT: Negative for sore throat, rhinorrhea, congestion. Eyes: Negative for visual disturbance. Respiratory: Positive for shortness of breath and cough. Negative for wheezing. Cardiovascular: Negative for chest pain, palpitations, and leg swelling. Gastrointestinal: Negative for abdominal pain, blood in stool, constipation, diarrhea, nausea, and vomiting. Genitourinary: Negative for dysuria, flank pain, and hematuria. Musculoskeletal: Negative for myalgias, back pain, and neck pain. Skin: Negative for rash. Neurological: Positive for altered mental status. Negative for light-headedness , dizziness, vertigo, syncope, weakness, numbness and headaches. Psychiatric/Behavioral: Positive for confusion. Negative for behavioral problems. PE: Gen: Alert, NAD, comfortable-appearing. HEENT: PERRL, EOMI, MMM, NCAT. No conjunctival pallor. Sclera are non-icteric. Oropharynx is clear. CV: Regular rate and rhythm. No murmurs, rubs, or gallops. PULM: Slight resp distress with abdominal breathing. Good air movement. b/l diffuse inspiratory/expiratory wheezing. No rales, or rhonchi. ABD: soft, NT/ND, protuberant with midline hernia, no rebound tenderness or guarding, no CVA tenderness. BACK: No TTP of c/t/l-spine. No step-offs or deformities. MSK: No bony deformities. 2+ pulses in all extremities. NEURO: AAOx3, not oriented to situation. PERRL. CN 2-12 intact (crooked smile with L side down and R side up but baseline per family). 5/5 strength in all extremities. Sensation to light touch intact in all extremities. No pronator drift. No dysmetria. No dysdiadochokinesia. No abnormal nystagmus. Normal speech. Gait not assessed. Pt tracks me but gets easily distracted and will not follow finger in all directions. EXTREMITIES: No cyanosis. No clubbing. +trace b/l edema. No calf tenderness. PSYCH: Anxious mood, normal thought pattern, and bizarre affect (eg just smiles and laughs when asked to follow finger with eyes). SKIN: Warm and dry. Normal capillary refill. No rashes. No jaundice. MDM: 74yo F hx CHF, paroxysmal Afib (on Eliquis), HTN, IDDM, CKD, COPD, and non small cell lung CA (s/p chemo, resolved 5yrs ago) BIBA from home for hypoglycemia 36 and episodes of AMS since 0640 this AM. Hemodynamically stable, afebrile, slight respiratory distress, b/l diffuse inspiratory/expiratory wheezing, easily distractable, bizarre affect, not oriented to situation. Ddx: hypoglycemia, insulin overdose, intox, infection (UTI, PNA), CHF exacerbation, COPD exacerbation, hypoxemia, hypercapnia, metabolic derangement, anemia, ACS/RI, psychiatric disorder -EKG -CXR -Labs including VBG, BNP, cardiac profile, Lact -Dispo: pending w/u 11/28/19 17:00 Pt returned to baseline, no AMS or bizarre behaviour, with normalization of BGM. 11/28/19 18:01 EKG reviewed: NSR, 69bpm, normal axis, normal intervals, no e/o acute ischemia CXR reviewed: "large heart, sclerotic knob, fullness of R hilum with some atelectasis or fluid in horizontal fissure. Slight prominence of central markings with some minimal pleural reaction and atelectasis at R base. Since 09/06/19, changes by R hilum and involving R lung have increased. See CT report from 09/06/19." -Azithromycin for possible pneumonia Labs reviewed: CBC,CMP WBC 8.5 K/mm3 (4.0-10.0) 11/28/19 14:24 RBC 3.68 M/mm3 (3.60-5.2) 11/28/19 14:24 Hgb 8.7 GM/dL (10.7-15.3) L 11/28/19 14:24 Hct 28.2 % (32.4-45.2) L 11/28/19 14:24 MCV 76.6 fl (80-96) L 11/28/19 14:24 MCH 23.7 pg (25.7-33.7) L 11/28/19 14:24 MCHC 30.9 g/dl (32.0-36.0) L 11/28/19 14:24 RDW 16.9 % (11.6-15.6) H 11/28/19 14:24 Plt Count 317 K/MM3 (134-434) 11/28/19 14:24 MPV 10.0 fl (7.5-11.1) 11/28/19 14:24 Absolute Neuts (auto) 6.6 K/mm3 (1.5-8.0) 11/28/19 14:24 Neutrophils % 77.9 % (42.8-82.8) 11/28/19 14:24 Lymphocytes % 15.9 % (8-40) D 11/28/19 14:24 Monocytes % 5.1 % (3.8-10.2) D 11/28/19 14:24 Eosinophils % 0.0 % (0-4.5) 11/28/19 14:24 Basophils % 1.1 % (0-2.0) 11/28/19 14:24 Nucleated RBC % 0 % (0-0) 11/28/19 14:24 Sodium 140 mmol/L (136-145) 11/28/19 14:24 Potassium 5.9 mmol/L (3.5-5.1) H 11/28/19 14:24 Chloride 108 mmol/L (98-107) H 11/28/19 14:24 Carbon Dioxide 25 mmol/L (21-32) 11/28/19 14:24 Anion Gap 7 MMOL/L (8-16) L 11/28/19 14:24 BUN 61.2 mg/dL (7-18) H 11/28/19 14:24 Creatinine 2.5 mg/dL (0.55-1.3) H 11/28/19 14:24 Est GFR (CKD-EPI)AfAm 21.23 11/28/19 14:24 Est GFR (CKD-EPI)NonAf 18.32 11/28/19 14:24 POC Glucometer 126 UNITS (80-120) 11/28/19 17:40 Random Glucose 56 mg/dL (74-106) L 11/28/19 14:24 Lactic Acid 1.3 mmol/L (0.4-2.0) 11/28/19 14:24 Calcium 8.7 mg/dL (8.5-10.1) 11/28/19 14:24 Total Bilirubin 0.3 mg/dL (0.2-1) 11/28/19 14:24 AST 83 U/L (15-37) H 11/28/19 14:24 ALT 52 U/L (13-61) 11/28/19 14:24 Alkaline Phosphatase 167 U/L (45-117) H 11/28/19 14:24 Creatine Kinase 208 U/L (26-192) H 11/28/19 14:24 Creatine Kinase Index 1.3 % (0.0-5.0) 11/28/19 14:24 CK-MB (CK-2) 2.8 ng/mL (0.5-3.6) 11/28/19 14:24 Troponin I 0.04 ng/ml (0.00-0.05) 11/28/19 14:24 B-Natriuretic Peptide 4244.5 pg/ml (5-125) H 11/28/19 14:24 Total Protein 7.3 g/dl (6.4-8.2) 11/28/19 14:24 Albumin 2.8 g/dl (3.4-5.0) L 11/28/19 14:24 -Anemia and elevated Cr baseline -Treat hyperkalemia Respiratory acidosis noted on VBG. -Duonebs and solumedrol Pt becomes altered again despite normal BGM, now shaking entire body, no incontinence, no tongue biting, no focal convulsions, pt remains alert and speaking to me, states she feels fine. -CTH -TSH,Mg,Phos,ABG,UA/UC -Admit AMS 11/28/19 19:42 Pt still perseverating, speaking to God, and shaking entire body while alert and speaking to me, temporarily stops shaking with sternal rub. CTH reviewed: no acute pathology Pt signed out to admitting team. Discharge - Discharge Information Problems reviewed: Yes Clinical Impression/Diagnosis: Altered mental status, Hypoglycemia Condition: Fair - Admission Yes - Follow up/Referral - Patient Discharge Instructions - Post Discharge Activity
[2019-11-28 15:59] LABS: ALBUMIN 2.8 g/dl (3.4-5.0); BILIRUBIN,TOTAL 0.3 mg/dL (0.2-1); BLOOD UREA NITROGEN 61.2 mg/dL (7-18); CALCIUM 8.7 mg/dL (8.5-10.1); CREATININE 2.5 mg/dL (0.55-1.3); POTASSIUM 5.9 mmol/L (3.5-5.1); TOT PROT 7.3 g/dl (6.4-8.2)
[2019-11-28] MEDS ORDERED: ALBUTEROL SO4 2.5/IPRATROPIUM 0.5 INH SOL 3 ML VIAL.NEB. NEB ONE ×5 (16:38→18:34)
[2019-11-28] MEDS ORDERED: methylPREDNISolone NA SUCC 125 MG/2 ML VIAL IVPB ONE (16:45)
[2019-11-28] MEDS ORDERED: methylPREDNISolone NA SUCC 125 MG/2 ML VIAL ONE (16:51)
[2019-11-28] MEDS ORDERED: SODIUM BICARBONATE 8.4% 50 MEQ/50 ML DISP.SYRIN IVPUSH ONE (17:04)
[2019-11-28] MEDS ORDERED: CALCIUM GLUCONATE 10% - 1,000 MG/10 ML VIAL IVPB ONE (17:04)
[2019-11-28] MEDS ORDERED: AZITHROMYCIN IVPB 500 MG in DEXTROSE 5%-WATER - 250 ML IVPB ONE (17:06)
[2019-11-28 17:08] LABS: N-TERMINAL BNP 4244.5 pg/ml (5-125)
[2019-11-28] MEDS ORDERED: CALCIUM GLUCONATE 10% - 1,000 MG/10 ML VIAL ONE (17:36)
[2019-11-28] MEDS ORDERED: SODIUM BICARBONATE 8.4% 50 MEQ/50 ML VIAL ONE (17:37)
[2019-11-28] MEDS ORDERED: AZITHROMYCIN IVPB 500 MG/250 ML BAG IVPB ONE ×2 (17:38)
[2019-11-28 19:57] LABS: EPI CELLS 4.6 /HPF (0-5/HPF); HYALINE CASTS 1 /lpf (0-8); PH,URINE 5.5 (5.0-8.0); URINE APPEARANCE CLOUDY; URINE BACTERIA 1091.3 /hpf (NEGATIVE); URINE BILIRUBIN NEGATIVE (NEGATIVE); URINE COLOR YELLOW; URINE GLUCOSE (UA) NEGATIVE (NEGATIVE); URINE KETONE NEGATIVE (NEGATIVE); URINE LEUK ESTERASE NEGATIVE (NEGATIVE); URINE NITRITE NEGATIVE (NEGATIVE); URINE PROTEIN 4+ (NEGATIVE); URINE RBC 2 /hpf (0-4); URINE UROBILINOGEN 0.2 mg/dL (0.2-1.0)
--- NOTE | 2019-11-28 20:40 | PN ---
Teaching Attending Note Name of Resident: Ely Camarillo ATTENDING PHYSICIAN STATEMENT I saw and evaluated the patient. I reviewed the resident's note and discussed the case with the resident. I agree with the resident's findings and plan as documented. SUBJECTIVE: 74-year-old woman with a history of insulin-dependent diabetes, COPD, hypertension, CHF, non-small cell lung cancer status post chemo 5 years ago being found on ground unresponsive by on 11/28/2019 in the morning. EMS was called and found her to be hypoglycemic with POC glucose in the 50s status post D50. Patient continued to be hypoglycemic in the ER requiring D50 push. Subsequent BGM's were within normal limits. Patient reported bilateral lower extremity weakness and was currently unable to lift her legs. She also had developed myoclonic jerks shortly after her hypoglycemic episode which persisted when she was in the emergency department. At baseline patient is able to ambulate without any issues. OBJECTIVE: Last Vital Signs Temp Pulse Resp BP Pulse Ox 97.1 F L 87 19 127/90 98 11/28/19 18:04 11/28/19 18:04 11/28/19 18:04 11/28/19 18:04 11/28/19 18:04 On physical exam patient was an elderly, obese woman with very noticeable jerks involving her head, upper and lower extremities. Jerks were uncontrollable. Head was negative for trauma, normocephalic, dry mucous membranes. No sinus tenderness appreciated. Neck was supple with no JVD. Cardiovascular exam was S1, S2 with no murmurs appreciated. Lungs are clear to auscultation bilaterally. Abdomen was soft, obese, nontender. Lower extremities with bilateral weakness unable to raise. Abnormal Lab Results 11/28/19 11/28/19 11/28/19 14:24 14:24 14:24 Hgb 8.7 L Hct 28.2 L MCV 76.6 L MCH 23.7 L MCHC 30.9 L RDW 16.9 H VBG pH 7.24 L POC VBG pCO2 60.8 H POC VBG pO2 < 49 H VBG O2 Sat (Monica) 25.8 L Potassium 5.9 H Chloride 108 H Anion Gap 7 L BUN 61.2 H Creatinine 2.5 H Random Glucose 56 L AST 83 H Alkaline Phosphatase 167 H Creatine Kinase 208 H B-Natriuretic Peptide 4244.5 H Albumin 2.8 L Urine Protein 11/28/19 17:52 Hgb Hct MCV MCH MCHC RDW VBG pH POC VBG pCO2 POC VBG pO2 VBG O2 Sat (Monica) Potassium Chloride Anion Gap BUN Creatinine Random Glucose AST Alkaline Phosphatase Creatine Kinase B-Natriuretic Peptide Albumin Urine Protein 4+ H Imaging studies reviewedno head CT evidence of acute intracranial pathology. Chest x-ray reviewedrevealed a large heart, sclerotic knob, fullness of the right hilum with some atelectasis or fluid in the horizontal fissure. Slight prominence of the central markings with some minimal pleural reaction and atelectasis at the right base. Brain MRI and cervical spine MRI were performed and readings pending. ASSESSMENT AND PLAN: 74-year-old woman with multiple medical problems with sudden onset of hypoglycemia at home in the emergency room now normalized. Suspect possible insulin overdose. Sudden onset of jerks is concerning. No clear etiology noted. As per neurology recommendations would obtain brain MRI to rule out any intracranial lesions which would also explain for her lower extremity weakness. CVA should be ruled out. Cervical spine MRI was also obtainedRule out any cervical stenosis or other lesions which would explain symptoms.Chronic microcytic anemia. CKDsuspect likely secondary to diabetic nephropathy as evidenced by gross proteinuria on UA. Uncontrolled diabetes mellitus with episodes of hypoglycemia.Hypoalbuminemiasuspect poor nutrition versus secondary to nephrotic syndrome. Admit to telemetry Neurology consult Follow-up brain and cervical spine MRIs Transthoracic echo Carotid Doppler TSH N.p.o. Speech and swallow consult Physical therapy evaluation Trial of baclofen for uncontrollable jerks Neurochecks every 4 hours Check electrolytes and replete PRN Monitor BGM's closely Avoid nephrotoxins Control blood pressure Anemia work-upferritin, iron studies, normal vitamin B12, TSH, FOBT Heparin subcutaneously for DVT prophylaxis
[2019-11-28] MEDS ORDERED: ASPIRIN 325 MG ENTERIC COATED TABLET (FP) PO ONE (20:45)
[2019-11-28 20:46] LABS: MAGNESIUM 2.2 mg/dL (1.8-2.4); PHOSPHOROUS 5.5 mg/dL (2.5-4.9)
--- NOTE | 2019-11-28 20:58 | HP ---
CHIEF COMPLAINT: Altered Mental Status PCP: Dr.Tina lBand HISTORY OF PRESENT ILLNESS: 74 F PMH HTN, IDDM, CKD, COPD, CHF, non small lung CA (s/p chemo resolved 5 years ago), who presents today after being found down and unresponsive by at home in the morning. Unknown time down. At that time EMS was called and once they arrived they found her POC glucose to be in the 50s, and administered D50. Patient was not to be altered although alert and awake after receiving glucose. She has no recall of the events in the morning, and she can vaguely remember the events of the night before admission. She is currently aware of where she is able to recall her medical history. She endorses shortness of breath, but denies chest pain, abdominal pain, nausea, vomiting, diarrhea, dysuria, hematuria, fevers and chills. Her son who is bedside notes that her tremors only began after she was in the ED, he had seen her in the morning initially after she arrived but at that time she was not shaking. He saw her last normal yesterday,but did endorse that patient was coughing more often than usual over the previous few days. ER course was notable for: (1) Patient was given Duoneb x3, Solumedrol 125, D50 1 vial, calcium gluconate and sodium bicarbonate. (2) Head CT was completed which showed no acute pathology, and mild periventricular and subcortical hypodensity which is probably representing chronic microvascular ischemic changes. (3) Chest X-Ray was completed which showed possible atelectasis or fluid in the right fissure, and pleural reaction and atelectasis at the right base. Recent Travel: None PAST MEDICAL HISTORY: HTN, IDDM, CKD, COPD, CHF, non small lung CA (s/p chemo resolved 5 years ago) PAST SURGICAL HISTORY: None Social History: Smokin pack year history, quit 5 years ago Alcohol: Occasional Drugs: None Lives at home with . Is able to complete all ADLs by herself. Allergies aspirin Allergy (Mild, Verified 09/06/19 08:15) ANEMIA ANEMIA HOME MEDICATIONS: Home Medications Medication Instructions Recorded Insulin (Levemir) [Levemir Flexpen 40 units SQ DAILY 12/13/13 -] Insulin Aspart [Novolog] 10 unit SQ AC 12/13/13 Albuterol 0.083% Nebulizer Rosemarie 1 neb NEB Q6H #30 vial 01/09/16 [Ventolin 0.083% Nebulizer Soln -] Amlodipine Besylate 10 mg PO DAILY 09/06/19 Budesonide/Formeterol Fumarate 2 puff PO DAILY 09/06/19 [SYMBICORT 160/4.5mcg -] Insulin (LOG) Aspart [NovoLOG -] 6 unit SQ HS 09/06/19 Apixaban [Eliquis -] 2.5 mg PO BID #60 tablet 09/13/19 Carvedilol [Coreg -] 25 mg PO BID #60 tablet 09/13/19 Sodium Bicarbonate - 650 mg PO DAILY #30 tablet 09/13/19 Torsemide [Demadex -] 20 mg PO DAILY #30 tablet 09/13/19 hydrALAZINE HCL [Apresoline -] 100 mg PO TID #90 tablet 09/13/19 Metoprolol Succinate 25 mg PO DAILY 11/28/19 Rosuvastatin [Crestor -] 5 mg PO DAILY 11/28/19 Valsartan/Hydrochlorothiazide 1 tab PO DAILY 11/28/19 [Valsartan-Hctz 80-12.5 mg Tab] REVIEW OF SYSTEMS CONSTITUTIONAL: Absent: fever, chills, diaphoresis, generalized weakness, malaise, loss of appetite, weight change HEENT: Absent: rhinorrhea, nasal congestion, throat pain, throat swelling, difficulty swallowing, mouth swelling, ear pain, eye pain, visual changes CARDIOVASCULAR: Absent: chest pain, syncope, palpitations, irregular heart rate, lightheadedness , peripheral edema RESPIRATORY: Present: Shortness of breath, non productive cough Absent: dyspnea with exertion, orthopnea, wheezing, stridor, hemoptysis GASTROINTESTINAL: Absent: abdominal pain, abdominal distension, nausea, vomiting, diarrhea, constipation, melena, hematochezia GENITOURINARY: Absent: dysuria, frequency, urgency, hesitancy, hematuria, flank pain, genital pain MUSCULOSKELETAL: Absent: myalgia, arthralgia, joint swelling, back pain, neck pain SKIN: Absent: rash, itching, pallor HEMATOLOGIC/IMMUNOLOGIC: Absent: easy bleeding, easy bruising, lymphadenopathy, frequent infections ENDOCRINE: Absent: unexplained weight gain, unexplained weight loss, heat intolerance, cold intolerance NEUROLOGIC: Absent: headache, focal weakness or paresthesias, dizziness, unsteady gait, seizure, mental status changes, bladder or bowel incontinence PSYCHIATRIC: Absent: anxiety, depression, suicidal or homicidal ideation, hallucinations. PHYSICAL EXAMINATION Vital Signs - 24 hr 11/28/19 11/28/19 14:12 18:04 Temperature 97.8 F 97.1 F L Pulse Rate 69 Pulse Rate [ 87 Apical] Respiratory 16 19 Rate Blood Pressure 229/170 H Blood Pressure 127/90 [Right Arm] O2 Sat by Pulse 99 98 Oximetry (%) GENERAL: Awake, alert, and fully oriented. Patient has b/l upper extremity tremors HEAD: Normal with no signs of trauma. EYES: Pupils equal, round and reactive to light. EARS, NOSE, THROAT: Ears normal, nares patent, oropharynx clear without exudates. Moist mucous membranes. NECK: Normal range of motion, supple without lymphadenopathy, JVD, or masses. LUNGS: Diffuse wheezes b/l HEART: Regular rate and rhythm, normal S1 and S2 without murmur, rub or gallop. ABDOMEN: Soft, nontender, slightly distended, normoactive bowel sounds, no guarding, no rebound, no masses. MUSCULOSKELETAL: Normal range of motion at all joints. No bony deformities or tenderness. UPPER EXTREMITIES: 2+ pulses, warm, well-perfused. No cyanosis. No clubbing. No peripheral edema. LOWER EXTREMITIES: 2+ pulses, warm, well-perfused. No calf tenderness. No peripheral edema. Chronic venous stasis changes b/l NEUROLOGICAL: Partial gaze palsy. 0/5 strength in lower extremities. Denies any sensation in RLE. 3/5 strength in b/l upper extremities. PSYCHIATRIC: Cooperative. Good eye contact. Appropriate mood and affect. SKIN: Chronic venous stasis changes b/l lower extremities. Laboratory Results - last 24 hr 11/28/19 11/28/19 11/28/19 14:24 14:24 14:24 WBC 8.5 RBC 3.68 Hgb 8.7 L Hct 28.2 L MCV 76.6 L MCH 23.7 L MCHC 30.9 L RDW 16.9 H Plt Count 317 MPV 10.0 Absolute Neuts (auto) 6.6 Neutrophils % 77.9 Lymphocytes % 15.9 D Monocytes % 5.1 D Eosinophils % 0.0 Basophils % 1.1 Nucleated RBC % 0 VBG pH POC VBG pCO2 POC VBG pO2 VBG HCO3 VBG O2 Sat (Monica) VBG Base Excess Sodium 140 Potassium 5.9 H Chloride 108 H Carbon Dioxide 25 Anion Gap 7 L BUN 61.2 H Creatinine 2.5 H Est GFR (CKD-EPI)AfAm 21.23 Est GFR (CKD-EPI)NonAf 18.32 POC Glucometer Random Glucose 56 L Lactic Acid 1.3 Calcium 8.7 Phosphorus 5.5 H Magnesium 2.2 Total Bilirubin 0.3 AST 83 H ALT 52 Alkaline Phosphatase 167 H Creatine Kinase 208 H Creatine Kinase Index 1.3 CK-MB (CK-2) 2.8 Troponin I 0.04 B-Natriuretic Peptide 4244.5 H Total Protein 7.3 Albumin 2.8 L TSH 0.49 Urine Color Urine Appearance Urine pH Ur Specific [place] Urine Protein Urine Glucose (UA) Urine Ketones Urine Blood Urine Nitrite Urine Bilirubin Urine Urobilinogen Ur Leukocyte Esterase Urine RBC (Auto) Urine Casts (Auto) U Epithel Cells (Auto) Urine Bacteria (Auto) 11/28/19 11/28/19 11/28/19 14:24 15:27 16:49 WBC RBC Hgb Hct MCV MCH MCHC RDW Plt Count MPV Absolute Neuts (auto) Neutrophils % Lymphocytes % Monocytes % Eosinophils % Basophils % Nucleated RBC % VBG pH 7.24 L POC VBG pCO2 60.8 H POC VBG pO2 < 49 H VBG HCO3 25.3 VBG O2 Sat (Monica) 25.8 L VBG Base Excess -2.0 Sodium Potassium Chloride Carbon Dioxide Anion Gap BUN Creatinine Est GFR (CKD-EPI)AfAm Est GFR (CKD-EPI)NonAf POC Glucometer 48 112 Random Glucose Lactic Acid Calcium Phosphorus Magnesium Total Bilirubin AST ALT Alkaline Phosphatase Creatine Kinase Creatine Kinase Index CK-MB (CK-2) Troponin I B-Natriuretic Peptide Total Protein Albumin TSH Urine Color Urine Appearance Urine pH Ur Specific [place] Urine Protein Urine Glucose (UA) Urine Ketones Urine Blood Urine Nitrite Urine Bilirubin Urine Urobilinogen Ur Leukocyte Esterase Urine RBC (Auto) Urine Casts (Auto) U Epithel Cells (Auto) Urine Bacteria (Auto) 11/28/19 11/28/19 11/28/19 17:24 17:40 17:52 WBC RBC Hgb Hct MCV MCH MCHC RDW Plt Count MPV Absolute Neuts (auto) Neutrophils % Lymphocytes % Monocytes % Eosinophils % Basophils % Nucleated RBC % VBG pH POC VBG pCO2 POC VBG pO2 VBG HCO3 VBG O2 Sat (Monica) VBG Base Excess Sodium Potassium Chloride Carbon Dioxide Anion Gap BUN Creatinine Est GFR (CKD-EPI)AfAm Est GFR (CKD-EPI)NonAf POC Glucometer 128 126 Random Glucose Lactic Acid Calcium Phosphorus Magnesium Total Bilirubin AST ALT Alkaline Phosphatase Creatine Kinase Creatine Kinase Index CK-MB (CK-2) Troponin I B-Natriuretic Peptide Total Protein Albumin TSH Urine Color Yellow Urine Appearance Cloudy Urine pH 5.5 Ur Specific [place] 1.014 Urine Protein 4+ H Urine Glucose (UA) Negative Urine Ketones Negative Urine Blood Negative Urine Nitrite Negative Urine Bilirubin Negative Urine Urobilinogen 0.2 Ur Leukocyte Esterase Negative Urine RBC (Auto) 2 Urine Casts (Auto) 1 U Epithel Cells (Auto) 4.6 Urine Bacteria (Auto) 1091.3 ASSESSMENT/PLAN: 74 F PMH HTN, IDDM, CKD, COPD, CHF, non small lung CA (s/p chemo resolved 5 years ago), Paroxysmal Atrial Fibrillation, who presents today with AMS and inability to move lower extremities. 1) AMS and diffuse neurological deficits, R/O CVA vs cord compression -Patient was found down for an uncertain period of time. -Continues to have altered mental status despite correction of glucose -Rectal tone preserved. -Brain MRI, Spine MRI due to nonlocalized symptoms -Cardiac monitoring -Carotid Duplex -Echo -Aspirin 325 given, 81 daily -Atorvastatin 80 mg daily -Neurology consulted, Dr. Ritter aware. 2)COPD Exacerbation -Hx of COPD, complains of COPD. Questionable use of home oxygen. -URI symptoms the preceding days. -Ceftriaxone and Azithromycin given. -Urine antigen for legionella and PNA -ABG shows 7.38/42/76.2/24.1/93.7% on 4LPM O2 -Continue supplemental O2 -Duonebs PRN -Symbicort BID 3) Hypoglycemia in setting of IDDM - Holding home Insulin dose - Insulin sliding scale - BGM Q2H - Hgb A1C 4) CKD -BUN/Cr of 61.2/2.5 today -Hyperkalemia of 5.9 -[facility] stat -Repeat BMP Q6H 5) Hx of Afib -Patient was evaluated by cardiology, on last admission and was told to stop Eliquis. Patient endorses that she continued -Holding Eliquis, as per last recommendation of cardiology. 6) Hx of HTN - Holding home antihypertensives due to possible ischemic event DVT: Heparin SQ TID F: No fluids E: Monitor K N: NPO until swallow evaluation Dispo: Admit to stroke unit. Visit type - Emergency Visit Emergency Visit: Yes ED Registration Date: 11/28/19 Care time: The patient presented to the Emergency Department on the above date and was hospitalized for further evaluation of their emergent condition. - New Patient This patient is new to me today: Yes Date on this admission: 11/28/19 - Critical Care Critical Care patient: No ATTENDING PHYSICIAN STATEMENT I saw and evaluated the patient. I reviewed the resident's note and discussed the case with the resident. I agree with the resident's findings and plan as documented. SUBJECTIVE: OBJECTIVE: ASSESSMENT AND PLAN:
[2019-11-28] MEDS ORDERED: SODIUM ZIRCONIUM CYCLOSILICATE (LOKELMA) 5 GM PACKET PO SCH (21:00)
[2019-11-28] MEDS ORDERED: ALBUTEROL SO4 2.5/IPRATROPIUM 0.5 INH SOL 3 ML VIAL.NEB. NEB PRN (21:32)
[2019-11-28] MEDS ORDERED: MELATONIN 5 MG TABLETS PO PRN (21:38)
[2019-11-28 21:42] LABS: ARTERIAL BLD GAS O2 SATURATION 93.7 % (95-98); ARTERIAL BLOOD GAS BASE EXCESS -0.4 meq/l (-2-2); ARTERIAL BLOOD GAS PO2 76.2 mmHg (80-100); ARTERIAL BLOOD GAS pH 7.38 (7.35-7.45)
[2019-11-28 21:43] LABS: ALLENS TEST POSITIVE
[2019-11-28] MEDS ORDERED: ASPIRIN 325 MG ENTERIC COATED TABLET (FP) ONE (23:11)
[2019-11-28] MEDS ORDERED: ATORVASTATIN CA 80 MG TABLET (FP) ONE (23:12)
[2019-11-28] MEDS ORDERED: MELATONIN 5 MG TABLETS ONE (23:18)
[2019-11-28] MEDS ORDERED: ONDANSETRON 4 MG/2 ML VIAL IVPUSH ONE (23:30)
[2019-11-28] MEDS: INSULIN SLIDING SCALE (NOVOLOG) 1 VIAL SQ SCH (23:36)
[2019-11-28] MEDS: BUDESONIDE/FORMETEROL FUMARATE 160/4.5 mcg INHALER IH SCH (23:36)
[2019-11-28] MEDS: SODIUM ZIRCONIUM CYCLOSILICATE (LOKELMA) 5 GM PACKET PO SCH (23:36)
[2019-11-28] MEDS: ATORVASTATIN CA 80 MG TABLET (FP) PO SCH (23:36)
[2019-11-28] MEDS: MELATONIN 5 MG TABLETS PO SCH (23:37)
[2019-11-28] MEDS ORDERED: BACLOFEN 10 MG TABLET (FP) PO SCH (23:45)
[2019-11-29] MEDS ORDERED: BACLOFEN 10 MG TABLET (FP) ONE ×2 (00:07→05:10)
[2019-11-29] MEDS ORDERED: ONDANSETRON 4 MG/2 ML VIAL ONE ×2 (00:08→11:00)
[2019-11-29] MEDS ORDERED: ALBUTEROL SO4 2.5/IPRATROPIUM 0.5 INH SOL 3 ML VIAL.NEB. NEB ONE (01:28)
[2019-11-29 03:59] LABS: BLOOD UREA NITROGEN 63.1 mg/dL (7-18); CALCIUM 8.8 mg/dL (8.5-10.1); CREATININE 2.7 mg/dL (0.55-1.3); PHOSPHOROUS 6.1 mg/dL (2.5-4.9); POTASSIUM 5.6 mmol/L (3.5-5.1)
[2019-11-29 04:00] LABS: MAGNESIUM 2.1 mg/dL (1.8-2.4)
[2019-11-29] MEDS ORDERED: BACLOFEN 10 MG TABLET (FP) PO ONE (04:29)
[2019-11-29] MEDS ORDERED: BACLOFEN 10 MG TABLET (FP) PO SCH (06:00)
[2019-11-29] MEDS ORDERED: ACETAMINOPHEN 500 MG TABLET (FP) PO ONE (06:04)
[2019-11-29] MEDS ORDERED: DEXAMETHASONE SOD PHOSPHATE 10 MG/1 ML VIAL IVPUSH ONE (06:11)
[2019-11-29] MEDS ORDERED: LORazepam 2 MG/ML SDV VIAL ONE ×2 (06:19→10:49)
--- NOTE | 2019-11-29 06:23 | PDOC ---
*Physical Exam - Vital Signs Last Vital Signs Temp Pulse Resp BP Pulse Ox 98.4 F 90 32 H 179/96 H 100 11/28/19 21:02 11/29/19 02:05 11/29/19 02:05 11/29/19 02:05 11/29/19 02:05 ED Treatment Course - LABORATORY CBC & Chemistry Diagram: 11/30/19 06:05 11/30/19 06:05 - ADDITIONAL ORDERS Additional order review: Laboratory Results 11/28/19 11/28/19 17:52 14:24 Sodium 140 Potassium 5.9 H Chloride 108 H Carbon Dioxide 25 Anion Gap 7 L BUN 61.2 H Creatinine 2.5 H Est GFR (CKD-EPI)AfAm 21.23 Est GFR (CKD-EPI)NonAf 18.32 Random Glucose 56 L Calcium 8.7 Phosphorus 5.5 H Magnesium 2.2 Total Bilirubin 0.3 AST 83 H ALT 52 Alkaline Phosphatase 167 H Creatine Kinase 208 H Creatine Kinase Index 1.3 CK-MB (CK-2) 2.8 Troponin I 0.04 B-Natriuretic Peptide 4244.5 H Total Protein 7.3 Albumin 2.8 L TSH 0.49 Urine Color Yellow Urine Appearance Cloudy Urine pH 5.5 Ur Specific [place] 1.014 Urine Protein 4+ H Urine Glucose (UA) Negative Urine Ketones Negative Urine Blood Negative Urine Nitrite Negative Urine Bilirubin Negative Urine Urobilinogen 0.2 Ur Leukocyte Esterase Negative Urine RBC (Auto) 2 Urine Casts (Auto) 1 U Epithel Cells (Auto) 4.6 Urine Bacteria (Auto) 1091.3 11/28/19 11/28/19 11/28/19 17:40 17:24 16:49 RBC MCV MCHC RDW MPV Neutrophils % Lymphocytes % Monocytes % Eosinophils % Basophils % POC Glucometer 126 128 112 11/28/19 11/28/19 15:27 14:24 RBC 3.68 MCV 76.6 L MCHC 30.9 L RDW 16.9 H MPV 10.0 Neutrophils % 77.9 Lymphocytes % 15.9 D Monocytes % 5.1 D Eosinophils % 0.0 Basophils % 1.1 POC Glucometer 48 - Medications Given in the ED: ED Medications Discontinued Medications Generic Name Dose Route Start Last Admin Trade Name Freq PRN Reason Stop Dose Admin Albuterol/Ipratropium 1 amp 11/28/19 16:38 11/28/19 17:01 Duoneb - NEB 11/28/19 16:39 1 amp ONCE ONE Administration Albuterol/Ipratropium 1 amp 11/28/19 18:32 11/28/19 18:41 Duoneb - NEB 11/28/19 18:33 1 amp ONCE ONE Administration Albuterol/Ipratropium 1 amp 11/28/19 18:34 11/28/19 18:41 Duoneb - NEB 11/28/19 18:35 1 amp ONCE ONE Administration Aspirin 325 mg 11/28/19 20:45 11/28/19 23:36 Ecotrin - PO 11/28/19 20:46 325 mg ONCE ONE Administration Baclofen 5 mg 11/28/19 23:45 11/29/19 00:21 Lioresal - PO 5 mg TID DANISH Administration Baclofen 5 mg 11/29/19 04:29 11/29/19 05:15 Lioresal - PO 11/29/19 04:30 5 mg ONCE ONE Administration Calcium Gluconate 1,000 mg 11/28/19 17:04 11/28/19 18:05 Calcium Gluconate 10% - IVPB 11/28/19 17:05 1,000 mg ONCE ONE Administration Dextrose 25 gm 11/28/19 15:28 11/28/19 15:42 D50w (Vial) - IVPUSH 11/28/19 15:29 25 gm NOW ONE Administration Azithromycin 500 mg/ Dextrose 250 mls @ 250 mls/hr 11/28/19 17:06 11/28/19 18 :02 IVPB 11/28/19 18:05 250 mls/hr ONCE ONE Administration Methylprednisolone Sodium Succinate 125 mg 11/28/19 16:45 11/28/19 17:02 Solu-Medrol - IVPB 11/28/19 16:46 125 mg ONCE ONE Administration Ondansetron HCl 4 mg 11/28/19 23:30 11/29/19 00:21 Zofran Injection IVPUSH 11/28/19 23:31 4 mg ONCE ONE Administration Sodium Bicarbonate 50 meq 11/28/19 17:04 11/28/19 18:02 Sodium Bicarbonate 8.4% - IVPUSH 11/28/19 17:05 50 meq ONCE ONE Administration Sodium Zirconium Cyclosilicate 10 gm 11/28/19 21:00 11/29/19 01:56 Lokelma PO Not Given DAILY DANISH Medical Decision Making - Medical Decision Making 11/29/19 06:23 74 yo F h/o copd chf ckd here with c/o found down in house with hypoglycemia. pt pending admission . called to bedside at pt having myclonic jerks vs. partial seizure. will given trial of ativan. pt is alert and talking, however having persistant left jerking. 11/29/19 06:23 Discharge - Discharge Information Problems reviewed: Yes Clinical Impression/Diagnosis: Altered mental status, Hypoglycemia Condition: Fair - Follow up/Referral - Patient Discharge Instructions - Post Discharge Activity
[2019-11-29] MEDS ORDERED: HEPARIN NA (PORCINE) 5,000 UNITS/ML 1ML VIAL ONE (06:42)
[2019-11-29] MEDS ORDERED: DEXAMETHASONE SOD PHOSPHATE 10 MG/1 ML VIAL ONE (06:42)
[2019-11-29] MEDS ORDERED: ACETAMINOPHEN 500 MG TABLET (FP) ONE (06:44)
[2019-11-29 06:53] LABS: BASO % 0.3 % (0-2.0); HEMATOCRIT 24.8 % (32.4-45.2); HEMOGLOBIN 7.9 GM/dL (10.7-15.3); LYMPH % 13.8 % (8-40); MCHC 31.9 g/dl (32.0-36.0); MEAN CELL VOLUME 75.3 fl (80-96); MEAN PLT VOLUME 10.1 fl (7.5-11.1); MONO % 4.2 % (3.8-10.2); NEUT % 81.7 % (42.8-82.8); PLATELET COUNT 310 K/MM3 (134-434); RDW 16.4 % (11.6-15.6); RETICULOCYTES 1.78 % (0.5-1.5); WHITE BLOOD COUNT 9.8 K/mm3 (4.0-10.0)
[2019-11-29] MEDS: HEPARIN NA (PORCINE) 5,000 UNITS/ML 1ML VIAL SQ SCH ×3 (06:54→22:30)
[2019-11-29 07:32] LABS: ALBUMIN 2.7 g/dl (3.4-5.0); BILIRUBIN,TOTAL 0.3 mg/dL (0.2-1); BLOOD UREA NITROGEN 65.3 mg/dL (7-18); CALCIUM 8.7 mg/dL (8.5-10.1); POTASSIUM 5.1 mmol/L (3.5-5.1); TOT PROT 6.6 g/dl (6.4-8.2)
[2019-11-29] MEDS: INSULIN SLIDING SCALE (NOVOLOG) 1 VIAL SQ SCH ×4 (07:43→22:31)
--- NOTE | 2019-11-29 09:41 | EKG ---
Test Reason : Blood Pressure : / mmHG Vent. Rate : 069 BPM Atrial Rate : 069 BPM P-R Int : 114 ms QRS Dur : 076 ms QT Int : 442 ms P-R-T Axes : 059 063 070 degrees QTc Int : 473 ms NORMAL SINUS RHYTHM JUNCTIONAL ST DEPRESSION, PROBABLY NORMAL BORDERLINE ECG WHEN COMPARED WITH ECG OF 07-SEP-2019 13:40, ST NO LONGER DEPRESSED IN LATERAL LEADS T WAVE INVERSION NO LONGER EVIDENT IN LATERAL LEADS Confirmed by Brayden Candelaria MD ([id number]) on 11/29/2019 9:40:54 AM Referred By: Confirmed By:Brayden Candelaria MD
[2019-11-29] MEDS ORDERED: CEFTRIAXONE 1 GM in DEXTROSE 5%-WATER - 50 ML IVPB SCH (10:00)
[2019-11-29] MEDS ORDERED: AZITHROMYCIN IVPB 500 MG/250 ML BAG IVPB SCH (10:00)
[2019-11-29] MEDS ORDERED: metoPROLOL SUCCINATE 25 MG TAB.SR.24H (FP) PO SCH (10:00)
[2019-11-29] MEDS ORDERED: TORSEMIDE 20 MG TABLET (FP) PO SCH (10:00)
[2019-11-29] MEDS ORDERED: ONDANSETRON 4 MG/2 ML VIAL IVPUSH PRN (11:21)
[2019-11-29] MEDS ORDERED: LORazepam 2 MG/ML SDV VIAL IVPUSH PRN (11:22)
[2019-11-29] MEDS: DEXTROSE 5%-0.45% SALINE 1,000 ML IV SCH ×2 (11:26→21:20)
[2019-11-29] MEDS ORDERED: METOPROLOL TARTRATE 5 MG/5 ML VIAL IVPUSH PRN (11:26)
--- NOTE | 2019-11-29 11:30 | PN ---
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 (short form) - Note 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: Events note spoke with son at bedside pt is lethargic but responds to simple questions Can not move her arms or legs jerky movements in ER Found to be unresponsive at home BGM as per son was 30's son stated that she has not been feeling well for a few days-- poor appetite Vital Signs - 24 hr 11/28/19 11/28/19 11/28/19 14:12 18:04 20:50 Temperature 97.8 F 97.1 F L Pulse Rate 69 Pulse Rate [ 87 89 Apical] Respiratory 16 19 24 H Rate Blood Pressure 229/170 H Blood Pressure 127/90 139/56 L [Right Arm] O2 Sat by Pulse 99 98 95 Oximetry (%) 11/28/19 11/28/19 11/29/19 21:00 21:02 02:05 Temperature 98.4 F Pulse Rate Pulse Rate [ 86 90 Apical] Respiratory 18 32 H Rate Blood Pressure Blood Pressure 191/104 H 179/96 H [Right Arm] O2 Sat by Pulse 100 98 100 Oximetry (%) 11/29/19 06:37 Temperature Pulse Rate Pulse Rate [ 97 H Apical] Respiratory 32 H Rate Blood Pressure Blood Pressure 111/87 [Right Arm] O2 Sat by Pulse 97 Oximetry (%) Current Medications Generic Name Dose Route Start Last Admin Trade Name Freq PRN Reason Stop Dose Admin Albuterol/Ipratropium 1 amp 11/28/19 21:32 11/29/19 01:55 Duoneb - NEB 1 amp Q4H PRN Administration SHORT OF BREATH/WHEEZING Amlodipine Besylate 10 mg 11/29/19 10:00 Norvasc - PO DAILY [facility] Aspirin 81 mg 11/29/19 10:00 Ecotrin - PO DAILY [facility] Atorvastatin Calcium 80 mg 11/28/19 22:00 11/28/19 23:36 Lipitor - PO 80 mg HS DANISH Administration Budesonide/Formoterol Fumarate 2 puff 11/28/19 22:00 11/28/19 23:36 Symbicort 160/4.5mcg - IH 2 puff BID DANISH Administration Carvedilol 25 mg 11/29/19 10:00 Coreg - PO BID DANISH Heparin Sodium (Porcine) 5,000 unit 11/29/19 06:00 11/29/19 06:54 Heparin - SQ 5,000 unit TID DANISH Administration Dextrose/Sodium Chloride 1,000 mls @ 70 mls/hr 11/29/19 11:30 11/29/19 11:26 D5-1/2ns - IV 70 mls/hr ASDIR DANISH Administration Ceftriaxone Sodium 1,000 mg/ 50 mls @ 100 mls/hr 11/29/19 11:30 Dextrose IVPB DAILY DANISH Insulin Aspart 1 vial 11/28/19 22:00 11/29/19 07:43 Novolog Vial Sliding Scale - SQ Not Given ACHS [facility] Protocol Levetiracetam 500 mg 11/29/19 11:30 Keppra Injection - IVPB BID DANISH Lorazepam 1 mg 11/29/19 11:22 Ativan Injection - IVPUSH Q3H PRN MUSCLE SPASMS Melatonin 5 mg 11/28/19 23:00 11/28/19 23:37 Melatonin PO 5 mg HS DANISH Administration Metoprolol Tartrate 5 mg 11/29/19 11:26 Lopressor Injection - IVPUSH Q4H PRN HYPERTENSION Ondansetron HCl 4 mg 11/29/19 11:21 11/29/19 11:00 Zofran Injection IVPUSH 4 mg Q6H PRN Administration NAUSEA AND/OR VOMITING Sodium Zirconium Cyclosilicate 10 gm 11/28/19 21:30 11/28/19 23:36 Lokelma PO 10 gm DAILY DANISH Administration Laboratory Results - last 24 hr 11/28/19 11/28/19 11/28/19 14:24 14:24 14:24 WBC 8.5 RBC 3.68 Hgb 8.7 L Hct 28.2 L MCV 76.6 L MCH 23.7 L MCHC 30.9 L RDW 16.9 H Plt Count 317 MPV 10.0 Absolute Neuts (auto) 6.6 Neutrophils % 77.9 Lymphocytes % 15.9 D Monocytes % 5.1 D Eosinophils % 0.0 Basophils % 1.1 Nucleated RBC % 0 Retic Count Anticoagulation Therapy Puncture Site ABG pH ABG pCO2 at Pt Temp ABG pO2 at Pt Temp ABG HCO3 ABG O2 Sat (Measured) ABG O2 Content ABG Base Excess Channing Test VBG pH POC VBG pCO2 POC VBG pO2 VBG HCO3 VBG O2 Sat (Monica) VBG Base Excess O2 Delivery Device Oxygen Flow Rate Vent Mode Vent Rate Mechanical Rate Pressure Support Vent Sodium 140 Potassium 5.9 H Chloride 108 H Carbon Dioxide 25 Anion Gap 7 L BUN 61.2 H Creatinine 2.5 H Est GFR (CKD-EPI)AfAm 21.23 Est GFR (CKD-EPI)NonAf 18.32 POC Glucometer Random Glucose 56 L Hemoglobin A1c % Lactic Acid 1.3 Calcium 8.7 Phosphorus 5.5 H Magnesium 2.2 Iron TIBC Iron Saturation Unsaturated IBC Ferritin Total Bilirubin 0.3 AST 83 H ALT 52 Alkaline Phosphatase 167 H Creatine Kinase 208 H Creatine Kinase Index 1.3 CK-MB (CK-2) 2.8 Troponin I 0.04 B-Natriuretic Peptide 4244.5 H Total Protein 7.3 Albumin 2.8 L Triglycerides Cholesterol Total LDL Cholesterol HDL Cholesterol Vitamin B12 TSH 0.49 Urine Color Urine Appearance Urine pH Ur Specific Mitchell Urine Protein Urine Glucose (UA) Urine Ketones Urine Blood Urine Nitrite Urine Bilirubin Urine Urobilinogen Ur Leukocyte Esterase Urine RBC (Auto) Urine Casts (Auto) U Epithel Cells (Auto) Urine Bacteria (Auto) 11/28/19 11/28/19 11/28/19 14:24 15:27 16:49 WBC RBC Hgb Hct MCV MCH MCHC RDW Plt Count MPV Absolute Neuts (auto) Neutrophils % Lymphocytes % Monocytes % Eosinophils % Basophils % Nucleated RBC % Retic Count Anticoagulation Therapy Puncture Site ABG pH ABG pCO2 at Pt Temp ABG pO2 at Pt Temp ABG HCO3 ABG O2 Sat (Measured) ABG O2 Content ABG Base Excess Channing Test VBG pH 7.24 L POC VBG pCO2 60.8 H POC VBG pO2 < 49 H VBG HCO3 25.3 VBG O2 Sat (Monica) 25.8 L VBG Base Excess -2.0 O2 Delivery Device Oxygen Flow Rate Vent Mode Vent Rate Mechanical Rate Pressure Support Vent Sodium Potassium Chloride Carbon Dioxide Anion Gap BUN Creatinine Est GFR (CKD-EPI)AfAm Est GFR (CKD-EPI)NonAf POC Glucometer 48 112 Random Glucose Hemoglobin A1c % Lactic Acid Calcium Phosphorus Magnesium Iron TIBC Iron Saturation Unsaturated IBC Ferritin Total Bilirubin AST ALT Alkaline Phosphatase Creatine Kinase Creatine Kinase Index CK-MB (CK-2) Troponin I B-Natriuretic Peptide Total Protein Albumin Triglycerides Cholesterol Total LDL Cholesterol HDL Cholesterol Vitamin B12 TSH Urine Color Urine Appearance Urine pH Ur Specific Mitchell Urine Protein Urine Glucose (UA) Urine Ketones Urine Blood Urine Nitrite Urine Bilirubin Urine Urobilinogen Ur Leukocyte Esterase Urine RBC (Auto) Urine Casts (Auto) U Epithel Cells (Auto) Urine Bacteria (Auto) 11/28/19 11/28/19 11/28/19 17:24 17:40 17:52 WBC RBC Hgb Hct MCV MCH MCHC RDW Plt Count MPV Absolute Neuts (auto) Neutrophils % Lymphocytes % Monocytes % Eosinophils % Basophils % Nucleated RBC % Retic Count Anticoagulation Therapy Puncture Site ABG pH ABG pCO2 at Pt Temp ABG pO2 at Pt Temp ABG HCO3 ABG O2 Sat (Measured) ABG O2 Content ABG Base Excess Channing Test VBG pH POC VBG pCO2 POC VBG pO2 VBG HCO3 VBG O2 Sat (Monica) VBG Base Excess O2 Delivery Device Oxygen Flow Rate Vent Mode Vent Rate Mechanical Rate Pressure Support Vent Sodium Potassium Chloride Carbon Dioxide Anion Gap BUN Creatinine Est GFR (CKD-EPI)AfAm Est GFR (CKD-EPI)NonAf POC Glucometer 128 126 Random Glucose Hemoglobin A1c % Lactic Acid Calcium Phosphorus Magnesium Iron TIBC Iron Saturation Unsaturated IBC Ferritin Total Bilirubin AST ALT Alkaline Phosphatase Creatine Kinase Creatine Kinase Index CK-MB (CK-2) Troponin I B-Natriuretic Peptide Total Protein Albumin Triglycerides Cholesterol Total LDL Cholesterol HDL Cholesterol Vitamin B12 TSH Urine Color Yellow Urine Appearance Cloudy Urine pH 5.5 Ur Specific Mitchell 1.014 Urine Protein 4+ H Urine Glucose (UA) Negative Urine Ketones Negative Urine Blood Negative Urine Nitrite Negative Urine Bilirubin Negative Urine Urobilinogen 0.2 Ur Leukocyte Esterase Negative Urine RBC (Auto) 2 Urine Casts (Auto) 1 U Epithel Cells (Auto) 4.6 Urine Bacteria (Auto) 1091.3 11/28/19 11/28/19 11/28/19 21:07 21:30 23:34 WBC RBC Hgb Hct MCV MCH MCHC RDW Plt Count MPV Absolute Neuts (auto) Neutrophils % Lymphocytes % Monocytes % Eosinophils % Basophils % Nucleated RBC % Retic Count Anticoagulation Therapy No Result Required. Puncture Site Left radial ABG pH 7.38 ABG pCO2 at Pt Temp 42.0 ABG pO2 at Pt Temp 76.2 L ABG HCO3 24.1 ABG O2 Sat (Measured) 93.7 L ABG O2 Content 11.3 ABG Base Excess -0.4 Channing Test Positive VBG pH POC VBG pCO2 POC VBG pO2 VBG HCO3 VBG O2 Sat (Monica) VBG Base Excess O2 Delivery Device N/c Oxygen Flow Rate 4 lpm Vent Mode No Result Required. Vent Rate No Result Required. Mechanical Rate No Result Required. Pressure Support Vent No Result Required. Sodium Potassium Chloride Carbon Dioxide Anion Gap BUN Creatinine Est GFR (CKD-EPI)AfAm Est GFR (CKD-EPI)NonAf POC Glucometer 126 126 Random Glucose Hemoglobin A1c % Lactic Acid Calcium Phosphorus Magnesium Iron TIBC Iron Saturation Unsaturated IBC Ferritin Total Bilirubin AST ALT Alkaline Phosphatase Creatine Kinase Creatine Kinase Index CK-MB (CK-2) Troponin I B-Natriuretic Peptide Total Protein Albumin Triglycerides Cholesterol Total LDL Cholesterol HDL Cholesterol Vitamin B12 TSH Urine Color Urine Appearance Urine pH Ur Specific Mitchell Urine Protein Urine Glucose (UA) Urine Ketones Urine Blood Urine Nitrite Urine Bilirubin Urine Urobilinogen Ur Leukocyte Esterase Urine RBC (Auto) Urine Casts (Auto) U Epithel Cells (Auto) Urine Bacteria (Auto) 11/29/19 11/29/19 11/29/19 02:44 03:32 06:29 WBC 9.8 RBC 3.30 L Hgb 7.9 L Hct 24.8 L MCV 75.3 L MCH 24.0 L MCHC 31.9 L RDW 16.4 H Plt Count 310 MPV 10.1 Absolute Neuts (auto) 8.0 Neutrophils % 81.7 Lymphocytes % 13.8 Monocytes % 4.2 Eosinophils % 0.0 Basophils % 0.3 Nucleated RBC % 0 Retic Count 1.78 H Anticoagulation Therapy Puncture Site ABG pH ABG pCO2 at Pt Temp ABG pO2 at Pt Temp ABG HCO3 ABG O2 Sat (Measured) ABG O2 Content ABG Base Excess Channing Test VBG pH POC VBG pCO2 POC VBG pO2 VBG HCO3 VBG O2 Sat (Monica) VBG Base Excess O2 Delivery Device Oxygen Flow Rate Vent Mode Vent Rate Mechanical Rate Pressure Support Vent Sodium 142 Potassium 5.6 H Chloride 109 H Carbon Dioxide 23 Anion Gap 11 BUN 63.1 H Creatinine 2.7 H Est GFR (CKD-EPI)AfAm 19.34 Est GFR (CKD-EPI)NonAf 16.69 POC Glucometer 141 Random Glucose 154 H Hemoglobin A1c % Lactic Acid Calcium 8.8 Phosphorus 6.1 H Magnesium 2.1 Iron TIBC Iron Saturation Unsaturated IBC Ferritin Total Bilirubin AST ALT Alkaline Phosphatase Creatine Kinase Creatine Kinase Index CK-MB (CK-2) Troponin I B-Natriuretic Peptide Total Protein Albumin Triglycerides Cholesterol Total LDL Cholesterol HDL Cholesterol Vitamin B12 TSH Urine Color Urine Appearance Urine pH Ur Specific Mitchell Urine Protein Urine Glucose (UA) Urine Ketones Urine Blood Urine Nitrite Urine Bilirubin Urine Urobilinogen Ur Leukocyte Esterase Urine RBC (Auto) Urine Casts (Auto) U Epithel Cells (Auto) Urine Bacteria (Auto) 11/29/19 11/29/19 11/29/19 06:29 06:29 06:29 WBC RBC Hgb Hct MCV MCH MCHC RDW Plt Count MPV Absolute Neuts (auto) Neutrophils % Lymphocytes % Monocytes % Eosinophils % Basophils % Nucleated RBC % Retic Count Anticoagulation Therapy Puncture Site ABG pH ABG pCO2 at Pt Temp ABG pO2 at Pt Temp ABG HCO3 ABG O2 Sat (Measured) ABG O2 Content ABG Base Excess Channing Test VBG pH POC VBG pCO2 POC VBG pO2 VBG HCO3 VBG O2 Sat (Monica) VBG Base Excess O2 Delivery Device Oxygen Flow Rate Vent Mode Vent Rate Mechanical Rate Pressure Support Vent Sodium 142 Potassium 5.1 Chloride 110 H Carbon Dioxide 23 Anion Gap 9 BUN 65.3 H Creatinine 3.0 H Est GFR (CKD-EPI)AfAm 17.03 Est GFR (CKD-EPI)NonAf 14.69 POC Glucometer Random Glucose 159 H Hemoglobin A1c % 5.6 Lactic Acid Calcium 8.7 Phosphorus Magnesium Iron 18 L TIBC 210 L Iron Saturation 8 L Unsaturated IBC 192 L Ferritin 373.1 Total Bilirubin 0.3 AST 33 ALT 38 Alkaline Phosphatase 150 H Creatine Kinase Creatine Kinase Index CK-MB (CK-2) Troponin I B-Natriuretic Peptide Total Protein 6.6 Albumin 2.7 L Triglycerides 137 Cholesterol 204 H Total LDL Cholesterol 113 H HDL Cholesterol 55 Vitamin B12 1262 H TSH 0.22 L Urine Color Urine Appearance Urine pH Ur Specific Mitchell Urine Protein Urine Glucose (UA) Urine Ketones Urine Blood Urine Nitrite Urine Bilirubin Urine Urobilinogen Ur Leukocyte Esterase Urine RBC (Auto) Urine Casts (Auto) U Epithel Cells (Auto) Urine Bacteria (Auto) S1 S2 RRR Lungs ronchi B/L Abd- soft, NT no edema can not move or feel b/l upper and lower extremities A/P AMS HYpoglycemia toxic metabolic encephalopathy Seizures COPD exacerbations acute on chronic renal failure P Afib -- iv fluids -- holding Torsemide for now\ -- Solumedrol , Nebs, O2, IV ceftriaxone -- Carotid doppler noted-- will need vascular eval -- MRI brain and c spine noted-- no sign of acute CVA -- monitor blood sugars -- check EEG --monitor HCT -- check influenza screen --cxr noted-->possible aspiration ? Problem List - Problems (1) Altered mental status Code(s): R41.82 - ALTERED MENTAL STATUS, UNSPECIFIED (2) Hypoglycemia Code(s): E16.2 - HYPOGLYCEMIA, UNSPECIFIED (3) COPD (chronic obstructive pulmonary disease) Code(s): J44.9 - CHRONIC OBSTRUCTIVE PULMONARY DISEASE, UNSPECIFIED (4) COPD exacerbation Code(s): J44.1 - CHRONIC OBSTRUCTIVE PULMONARY DISEASE W (ACUTE) EXACERBATION (5) Diabetes Code(s): E11.9 - TYPE 2 DIABETES MELLITUS WITHOUT COMPLICATIONS Qualifiers: Diabetes mellitus type: type 2 Diabetes mellitus complication status: with kidney complications Chronic kidney disease stage: stage 3 (moderate) (6) Hyperkalemia Code(s): E87.5 - HYPERKALEMIA (7) Lung cancer Code(s): C34.90 - MALIGNANT NEOPLASM OF UNSP PART OF UNSP BRONCHUS OR LUNG
[2019-11-29] MEDS ORDERED: levETIRAcetam 500 MG/5 ML INJECTION VIAL IVPB ONE (11:37)
[2019-11-29] MEDS: amLODIPine BESYLATE 10 MG TABLET (FP) PO SCH (12:00)
[2019-11-29] MEDS: levETIRAcetam 500 MG/5 ML INJECTION VIAL IVPB SCH ×2 (12:00→22:30)
[2019-11-29] MEDS: CARVEDILOL 25 MG TABLET (FP) PO SCH ×2 (12:00→22:20)
[2019-11-29] MEDS: ASPIRIN COATED 81 MG TABLET.EC PO SCH (12:00)
[2019-11-29] MEDS: CEFTRIAXONE 1 GM in DEXTROSE 5%-WATER - 50 ML IVPB SCH (12:30)
--- NOTE | 2019-11-29 12:32 | CON.PULM ---
Consult Consult Specialty:: PULMONARY Referred by:: Dr Christianson Reason for Consultation:: COPD - History of Present Illness Chief Complaint: altered mental status History of Present Illness: 74yo female with h/o HTN, DM, COPD, h/o NSCLC s/p chemo/RT 5 years ago, LV diastolic dysfunction, pulmonary HTN who was found by her unresponsive at home. Found to be hypoglycemic by EMS to 50s, given D50. Seizure activity vs shaking of left arm in the ER, given ativan, antiepileptics. CT, MRI brain limited by motion artifacts but no obvious infarcts. History obtained from as she remains lethargic. States that she was complaining of chills last few days. No known sick contacts or recent travel. - History Source History Provided By: Family Member, Medical Record Limitations to Obtaining History: Clinical Condition - Past Medical History Cardio/Vascular: Yes: HTN, Hyperlipdemia Pulmonary: Yes: Cancer (Lung), COPD Endocrine: Yes: Diabetes Mellitus - Past Surgical History Past Surgical History: Yes: Hysterectomy - Alcohol/Substance Use Hx Alcohol Use: No - Smoking History Smoking history: Never smoked Have you smoked in the past 12 months: No Aproximately how many cigarettes per day: 20 If you are a former smoker, when did you quit?: 2011 Home Medications - Allergies Allergies/Adverse Reactions: Allergies Allergy/AdvReac Type Severity Reaction Status Date / Time aspirin Allergy Mild ANEMIA Verified 09/06/19 08:15 - Home Medications Home Medications: Ambulatory Orders Insulin (Levemir) [Levemir Flexpen -] 40 units SQ DAILY 12/13/13 Insulin Aspart [Novolog] 10 unit SQ AC 12/13/13 Albuterol 0.083% Nebulizer Rosemarie [Ventolin 0.083% Nebulizer Soln -] 1 neb NEB Q6H #30 vial 01/09/16 Amlodipine Besylate 10 mg PO DAILY 09/06/19 Budesonide/Formeterol Fumarate [SYMBICORT 160/4.5mcg -] 2 puff PO DAILY Insulin (LOG) Aspart [NovoLOG -] 6 unit SQ HS 09/06/19 Apixaban [Eliquis -] 2.5 mg PO BID #60 tablet 09/13/19 Carvedilol [Coreg -] 25 mg PO BID #60 tablet 09/13/19 Sodium Bicarbonate - 650 mg PO DAILY #30 tablet 09/13/19 Torsemide [Demadex -] 20 mg PO DAILY #30 tablet 09/13/19 hydrALAZINE HCL [Apresoline -] 100 mg PO TID #90 tablet 09/13/19 Metoprolol Succinate 25 mg PO DAILY 11/28/19 Rosuvastatin [Crestor -] 5 mg PO DAILY 11/28/19 Valsartan/Hydrochlorothiazide [Valsartan-Hctz 80-12.5 mg Tab] 1 tab PO DAILY Review of Systems Unable to obtain ROS, reason: pt lethargic - Review of Systems Constitutional: reports: Chills Physical Exam Vital Sings: Vital Signs Temperature 98.4 F 11/28/19 21:02 Pulse Rate 97 H 11/29/19 06:37 Respiratory Rate 32 H 11/29/19 06:37 Blood Pressure 111/87 11/29/19 06:37 O2 Sat by Pulse Oximetry (%) 97 11/29/19 06:37 Constitutional: Yes: Other (lethargic) Eyes: Yes: Conjunctiva Clear, EOM Intact HENT: Yes: Atraumatic, Normocephalic Neck: Yes: Supple, Trachea Midline Cardiovascular: Yes: Regular Rate and Rhythm Respiratory: Yes: Rhonchi (scattered) ...Clubbing: No Gastrointestinal: Yes: Normal Bowel Sounds, Soft. No: Tenderness Edema: No Neurological: Yes: Lethargy Labs: CBC, BMP 11/29/19 06:29 11/29/19 06:29 ABG Results ABG pH 7.38 (7.35-7.45) 11/28/19 21:30 ABG pCO2 at Pt Temp 42.0 mmHg (35-45) 11/28/19 21:30 ABG pO2 at Pt Temp 76.2 mmHg (80-100) L 11/28/19 21:30 ABG HCO3 24.1 mmol/L (22-27) 11/28/19 21:30 ABG O2 Sat (Measured) 93.7 % (95-98) L 11/28/19 21:30 ABG O2 Content 11.3 % vol 11/28/19 21:30 ABG Base Excess -0.4 meq/l (-2-2) 11/28/19 21:30 Imaging - Results Chest X-ray: Report Reviewed, Image Reviewed (right hilar fullness) Problem List - Problems (1) Altered mental status Code(s): R41.82 - ALTERED MENTAL STATUS, UNSPECIFIED Assessment/Plan Altered Mental Status r/o Sepsis r/o Pneumonia Acute on Chronic Renal Failure LV Diastolic Dysfunction Pulmonary HTN COPD h/o Lung Cancer s/p chemo/RT Hypoglycemia r/o Seizures HTN DM - agree with empiric antibiotics - f/u cultures - send flu swab - IVF - monitor urine output, creatinine - neuro eval - inhaled bronchodilators - can defer systemic steroids at this time - O2 to keep Spo2 >90% - aspiration precautions - DVT prophylaxis - telemetry monitoring Thank you for this consult Sandro Be MD
[2019-11-29] MEDS: BUDESONIDE/FORMETEROL FUMARATE 160/4.5 mcg INHALER IH SCH ×2 (12:46→22:21)
[2019-11-29] MEDS ORDERED: METOPROLOL TARTRATE 5 MG/5 ML VIAL ONE (12:53)
[2019-11-29] MEDS: METOPROLOL TARTRATE 5 MG/5 ML VIAL IVPUSH PRN (12:57)
[2019-11-29] MEDS: AZITHROMYCIN IVPB 500 MG/250 ML BAG IVPB SCH (14:00)
[2019-11-29] MEDS ORDERED: AZITHROMYCIN IVPB 500 MG/250 ML BAG IVPB ONE (15:23)
--- NOTE | 2019-11-29 15:45 | CONSULT ---
Consult - text type - Consultation Consultation Note: Renal consult for CKD stage 4 This is a 74 year old woman with history of CKD stage 4, CHF with diastolic dysfunction, pulmonary hypertension, Lung Ca s/p Chemo and radiation therapy, hypertension, DM who presented from home with AMS. She was found unresponsive by her and was noted to be hypoglycemic by EMS. She was noted to have shaking movement of her upper extremity in the ER and given IV Ativan and Keppra by the ER. She is very lethargic and not able to provide history. PMhx: as above Allergies: ASA Family Hx: NC Social hx: Unable to obtain ROS: unable to obtain due to clinical status Vital Signs Temperature 98.4 F 11/28/19 21:02 Pulse Rate 85 11/29/19 12:57 Respiratory Rate 32 H 11/29/19 06:37 Blood Pressure 199/64 H 11/29/19 12:57 O2 Sat by Pulse Oximetry (%) 97 11/29/19 06:37 Intake & Output 11/26/19 11/27/19 11/28/19 11/29/19 23:59 23:59 23:59 23:59 Weight 77.111 kg NAD lethargic/sedated neck supple, no JVD RRR, no M/R Soft NT/ND no LE edema, clubbing or cyanosis CBC, BMP 11/29/19 06:29 11/29/19 06:29 Current Medications Albuterol/Ipratropium (Duoneb -) 1 amp NEB Q4H PRN PRN Reason: SHORT OF BREATH/WHEEZING Last Admin: 11/29/19 01:55 Dose: 1 amp Amlodipine Besylate (Norvasc -) 10 mg PO DAILY [facility] Last Admin: 11/29/19 12:00 Dose: 10 mg Aspirin (Ecotrin -) 81 mg PO DAILY [facility] Last Admin: 11/29/19 12:00 Dose: 81 mg Atorvastatin Calcium (Lipitor -) 80 mg PO HS [facility] Last Admin: 11/28/19 23:36 Dose: 80 mg Budesonide/Formoterol Fumarate (Symbicort 160/4.5mcg -) 2 puff IH BID [facility] Last Admin: 11/29/19 12:46 Dose: 2 puff Carvedilol (Coreg -) 25 mg PO BID [facility] Last Admin: 11/29/19 12:00 Dose: 25 mg Heparin Sodium (Porcine) (Heparin -) 5,000 unit SQ TID [facility] Last Admin: 11/29/19 06:54 Dose: 5,000 unit Dextrose/Sodium Chloride (D5-1/2ns -) 1,000 mls @ 70 mls/hr IV ASDIR [facility] Last Admin: 11/29/19 11:26 Dose: 70 mls/hr Ceftriaxone Sodium 1 gm/ (Dextrose) 50 mls @ 100 mls/hr IVPB DAILY [facility] Last Admin: 11/29/19 12:30 Dose: 100 mls/hr Azithromycin (Zithromax 500mg Ivpb (Pre-Docked)) 500 mg in 250 mls @ 250 mls/ hr IVPB DAILY [facility] Insulin Aspart (Novolog Vial Sliding Scale -) 1 vial SQ ACHS [facility]; Protocol Last Admin: 11/29/19 12:46 Dose: Not Given Levetiracetam (Keppra Injection -) 500 mg IVPB BID [facility] Last Admin: 11/29/19 12:00 Dose: 500 mg Lorazepam (Ativan Injection -) 1 mg IVPUSH Q3H PRN PRN Reason: MUSCLE SPASMS Melatonin (Melatonin) 5 mg PO HS [facility] Last Admin: 11/28/19 23:37 Dose: 5 mg Metoprolol Tartrate (Lopressor Injection -) 5 mg IVPUSH Q4H PRN PRN Reason: HYPERTENSION Last Admin: 11/29/19 12:57 Dose: 5 mg Ondansetron HCl (Zofran Injection) 4 mg IVPUSH Q6H PRN PRN Reason: NAUSEA AND/OR VOMITING Last Admin: 11/29/19 11:00 Dose: 4 mg Sodium Zirconium Cyclosilicate (Lokelma) 10 gm PO DAILY [facility] Last Admin: 11/28/19 23:36 Dose: 10 gm 74 year old woman with history of CKD stage 4, CHF with diastolic dysfunction, pulmonary hypertension, Lung Ca s/p Chemo and radiation therapy, hypertension, DM who presented from home with AMS 1. AMS r/o seziures 2. CKD 3. CHF 4. Hypertension 5. DM Renal function slightly worse then baseline but no overt electrolyte or acid/ base disturbance holding diuretics for now agree with gentle hydration with hypotonic saline and dextrose Neurology consult pending Imaging studies noted on empiric antibiotics for possible infection Elvis Mayorga DO
[2019-11-29] MEDS: SODIUM ZIRCONIUM CYCLOSILICATE (LOKELMA) 5 GM PACKET PO SCH (16:36)
[2019-11-29] MEDS ORDERED: INSULIN (NOVOLOG) ASPART 100 UNITS/ML 10ML VIAL ONE (17:11)
--- NOTE | 2019-11-29 17:28 | CON.NEURO ---
Consult - Past Medical History Cardio/Vascular: Yes: HTN, Hyperlipdemia Pulmonary: Yes: Cancer (Lung), COPD Endocrine: Yes: Diabetes Mellitus - Past Surgical History Past Surgical History: Yes: Hysterectomy - Alcohol/Substance Use Hx Alcohol Use: No - Smoking History Smoking history: Never smoked Have you smoked in the past 12 months: No Aproximately how many cigarettes per day: 20 If you are a former smoker, when did you quit?: 2011 Home Medications - Allergies Allergies/Adverse Reactions: Allergies Allergy/AdvReac Type Severity Reaction Status Date / Time aspirin Allergy Mild ANEMIA Verified 09/06/19 08:15 - Home Medications Home Medications: Ambulatory Orders Insulin (Levemir) [Levemir Flexpen -] 40 units SQ DAILY 12/13/13 Insulin Aspart [Novolog] 10 unit SQ AC 12/13/13 Albuterol 0.083% Nebulizer Rosemarie [Ventolin 0.083% Nebulizer Soln -] 1 neb NEB Q6H #30 vial 01/09/16 Amlodipine Besylate 10 mg PO DAILY 09/06/19 Budesonide/Formeterol Fumarate [SYMBICORT 160/4.5mcg -] 2 puff PO DAILY Insulin (LOG) Aspart [NovoLOG -] 6 unit SQ HS 09/06/19 Apixaban [Eliquis -] 2.5 mg PO BID #60 tablet 09/13/19 Carvedilol [Coreg -] 25 mg PO BID #60 tablet 09/13/19 Sodium Bicarbonate - 650 mg PO DAILY #30 tablet 09/13/19 Torsemide [Demadex -] 20 mg PO DAILY #30 tablet 09/13/19 hydrALAZINE HCL [Apresoline -] 100 mg PO TID #90 tablet 09/13/19 Metoprolol Succinate 25 mg PO DAILY 11/28/19 Rosuvastatin [Crestor -] 5 mg PO DAILY 11/28/19 Valsartan/Hydrochlorothiazide [Valsartan-Hctz 80-12.5 mg Tab] 1 tab PO DAILY Physical Exam-Neuro Vital Signs: Vital Signs Temperature 98.4 F 11/28/19 21:02 Pulse Rate 85 11/29/19 12:57 Respiratory Rate 32 H 11/29/19 06:37 Blood Pressure 199/64 H 11/29/19 12:57 O2 Sat by Pulse Oximetry (%) 97 11/29/19 06:37 Labs: CBC, BMP 11/29/19 06:29 11/29/19 06:29 Assessment/Plan CC Alert mental status and myoclonic jerking HPI 74 year old female history of HTN,IDDM,CKD,COPD,CHF, 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 patient was brought to hospital for hypoglycemia and unreponsive. Patient is having intermittent jerking motion ( myoclonic jerking). Patient was seen with son at bedside. She did get iv ativan and sedated. Patient did get mri of brain and mri of c spine( no good study due to motion). Both studies were inconclusive, and pateint remains confused and keep having intermittent jerking motion. PAST MEDICAL HISTORY: HTN, IDDM, CKD, COPD, CHF, non small lung CA (s/p chemo resolved 5 years ago) PAST SURGICAL HISTORY: None Social History: Smokin pack year history, quit 5 years ago Alcohol: Occasional Drugs: None Lives at home with . Is able to complete all ADLs by herself. Allergies aspirin Allergy (Mild, Verified 09/06/19 08:15) ANEMIA ANEMIA HOME MEDICATIONS: Home Medications Medication Instructions Recorded Insulin (Levemir) [Levemir Flexpen 40 units SQ DAILY 12/13/13 -] Insulin Aspart [Novolog] 10 unit SQ AC 12/13/13 Albuterol 0.083% Nebulizer Rosemarie 1 neb NEB Q6H #30 vial 01/09/16 [Ventolin 0.083% Nebulizer Soln -] Amlodipine Besylate 10 mg PO DAILY 09/06/19 Budesonide/Formeterol Fumarate 2 puff PO DAILY 09/06/19 [SYMBICORT 160/4.5mcg -] Insulin (LOG) Aspart [NovoLOG -] 6 unit SQ HS 09/06/19 Apixaban [Eliquis -] 2.5 mg PO BID #60 tablet 09/13/19 Carvedilol [Coreg -] 25 mg PO BID #60 tablet 09/13/19 Sodium Bicarbonate - 650 mg PO DAILY #30 tablet 09/13/19 Torsemide [Demadex -] 20 mg PO DAILY #30 tablet 09/13/19 hydrALAZINE HCL [Apresoline -] 100 mg PO TID #90 tablet 09/13/19 Metoprolol Succinate 25 mg PO DAILY 11/28/19 Rosuvastatin [Crestor -] 5 mg PO DAILY 11/28/19 Valsartan/Hydrochlorothiazide 1 tab PO DAILY 11/28/19 [Valsartan-Hctz 80-12.5 mg Tab] ROS,FH reviewed in chart NEUROLOGICAL EXAMINATION Patient is sedated, neck is supple, vss, afebrile pupils is small and reactive, no face asymmetry moving all extrmeity to painful stimuli reflex are generalized diminished ct head wnl mri of brain and c spine limited exam due to motion Assessment/Plan 1. Hypoglycemic encephalopathy continue supportive care and current level of care 2. myoclonic jerks due to hypoglycmic injury PLan: prognosis is guarded - would do eeg continue keppra - supporitve care including iv dextrose will continue to follow Thanking you so much Vernon Ritter MD
[2019-11-29] MEDS: MELATONIN 5 MG TABLETS PO SCH (22:21)
[2019-11-29] MEDS: ATORVASTATIN CA 80 MG TABLET (FP) PO SCH (22:21)
[2019-11-30] MEDS: HEPARIN NA (PORCINE) 5,000 UNITS/ML 1ML VIAL SQ SCH ×3 (05:42→21:44)
[2019-11-30] MEDS: INSULIN SLIDING SCALE (NOVOLOG) 1 VIAL SQ SCH ×4 (06:34→21:52)
[2019-11-30 06:42] LABS: BASO % 0.1 % (0-2.0); HEMATOCRIT 23.7 % (32.4-45.2); HEMOGLOBIN 7.7 GM/dL (10.7-15.3); LYMPH % 16.7 % (8-40); MCH 24.5 pg (25.7-33.7); MCHC 32.3 g/dl (32.0-36.0); MEAN CELL VOLUME 75.7 fl (80-96); MEAN PLT VOLUME 9.7 fl (7.5-11.1); MONO % 7.8 % (3.8-10.2); NEUT % 75.4 % (42.8-82.8); PLATELET COUNT 246 K/MM3 (134-434); RBC 3.13 M/mm3 (3.60-5.2); RDW 16.3 % (11.6-15.6)
[2019-11-30 07:15] LABS: ALBUMIN 2.3 g/dl (3.4-5.0); BILIRUBIN,TOTAL 0.1 mg/dL (0.2-1); BLOOD UREA NITROGEN 72.7 mg/dL (7-18); CREATININE 3.5 mg/dL (0.55-1.3); POTASSIUM 4.7 mmol/L (3.5-5.1)
--- NOTE | 2019-11-30 08:39 | PN ---
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 (short form) - Note 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: CC Alert mental status and myoclonic jerking HPI 74 year old female history of HTN,IDDM,CKD,COPD,CHF, 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 patient was brought to hospital for hypoglycemia and unreponsive. Patient is having intermittent jerking motion ( myoclonic jerking). Patient was seen with son at bedside. She did get iv ativan and sedated. Patient did get mri of brain and mri of c spine( no good study due to motion). Both studies were inconclusive, and pateint remains confused and keep having intermittent jerking motion. There is no new symptoms overnight, spoke to nursing and family at bedside. There has not been any tremors or mycolonic jerking. Patient is on abx and waking up but still not back to her baseline. NEUROLOGICAL EXAMINATION Patient alert oriented x 2, opens her eye and than goes to sleep. she is able to follow simple command pupils is small and reactive, no face asymmetry moving all extrmeity equally reflex are generalized diminished ct head wnl mri of brain and c spine limited exam due to motion Assessment/Plan 1. Hypoglycemic encephalopathy continue supportive care and current level of care 2. Initially there were ? myoclonic jerks, were not seen today PLan: prognosis is guarded - [facility] is [facility] supporitve care speech therapy consult and pt will continue to follow Thanking you so much Vernon Ritter MD
[2019-11-30] MEDS ORDERED: DEXTROSE 5%-WATER - 50 ML IVPB ONE (09:28)
[2019-11-30] MEDS ORDERED: cefTRIAXone SODIUM 1 GM VIAL ONE (09:28)
[2019-11-30] MEDS: CEFTRIAXONE 1 GM in DEXTROSE 5%-WATER - 50 ML IVPB SCH (09:33)
[2019-11-30] MEDS: AZITHROMYCIN IVPB 500 MG/250 ML BAG IVPB SCH (10:26)
[2019-11-30] MEDS: levETIRAcetam 500 MG/5 ML INJECTION VIAL IVPB SCH ×2 (10:26→21:45)
--- NOTE | 2019-11-30 10:26 | PN ---
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 (short form) - Note 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: Events note family at bedside Pt more awake and responsive moving upper extremities Vital Signs - 24 hr 11/29/19 11/29/19 11/29/19 12:57 18:00 20:07 Temperature 98 F Pulse Rate 85 70 Pulse Rate [ 67 Apical] Respiratory 22 H 18 Rate Blood Pressure 199/64 H 159/61 Blood Pressure 132/55 L [Right Arm] O2 Sat by Pulse 100 Oximetry (%) 11/29/19 11/29/19 11/30/19 20:12 22:38 02:04 Temperature 98.0 F 97.7 F Pulse Rate 68 75 Pulse Rate [ Apical] Respiratory 16 16 Rate Blood Pressure 147/58 L 161/77 Blood Pressure [Right Arm] O2 Sat by Pulse 98 100 Oximetry (%) 11/30/19 11/30/19 06:00 08:48 Temperature 98.0 F 98.3 F Pulse Rate 73 76 Pulse Rate [ Apical] Respiratory 16 16 Rate Blood Pressure 181/79 H 193/68 H Blood Pressure [Right Arm] O2 Sat by Pulse Oximetry (%) Current Medications Generic Name Dose Route Start Last Admin Trade Name Freq PRN Reason Stop Dose Admin Albuterol/Ipratropium 1 amp 11/28/19 21:32 11/29/19 01:55 Duoneb - NEB 1 amp Q4H PRN Administration SHORT OF BREATH/WHEEZING Amlodipine Besylate 10 mg 11/29/19 10:00 11/29/19 12:00 Norvasc - PO 10 mg DAILY DANISH Administration Aspirin 81 mg 11/29/19 10:00 11/29/19 12:00 Ecotrin - PO 81 mg DAILY DANISH Administration Atorvastatin Calcium 80 mg 11/28/19 22:00 11/29/19 22:21 Lipitor - PO Not Given HS DANISH Budesonide/Formoterol Fumarate 2 puff 11/28/19 22:00 11/29/19 22:21 Symbicort 160/4.5mcg - IH Not Given BID DANISH Carvedilol 25 mg 11/29/19 10:00 11/29/19 22:20 Coreg - PO Not Given BID DANISH Heparin Sodium (Porcine) 5,000 unit 11/29/19 06:00 11/30/19 05:42 Heparin - SQ 5,000 unit TID DANISH Administration Dextrose/Sodium Chloride 1,000 mls @ 70 mls/hr 11/29/19 11:30 11/29/19 21:20 D5-1/2ns - IV 70 mls/hr ASDIR DANISH Administration Ceftriaxone Sodium 1 gm/ 50 mls @ 100 mls/hr 11/29/19 11:30 11/30/19 09:33 Dextrose IVPB 100 mls/hr DAILY DANISH Administration Azithromycin 500 mg in 250 mls @ 250 mls/hr 11/29/19 12:45 11/29/19 14:00 Zithromax 500mg Ivpb (Pre-Docked) IVPB 250 mls/hr DAILY DANISH Administration Insulin Aspart 1 vial 11/28/19 22:00 11/30/19 06:34 Novolog Vial Sliding Scale - SQ 2 units ACHS DANISH Administration Protocol Levetiracetam 500 mg 11/29/19 11:30 11/29/19 22:30 Keppra Injection - IVPB 500 mg BID DANISH Administration Lorazepam 1 mg 11/29/19 11:22 Ativan Injection - IVPUSH Q3H PRN MUSCLE SPASMS Melatonin 5 mg 11/28/19 23:00 11/29/19 22:21 Melatonin PO Not Given HS DANISH Metoprolol Tartrate 5 mg 11/29/19 11:36 11/29/19 12:57 Lopressor Injection - IVPUSH 5 mg Q4H PRN Administration HYPERTENSION Ondansetron HCl 4 mg 11/29/19 11:21 11/29/19 11:00 Zofran Injection IVPUSH 4 mg Q6H PRN Administration NAUSEA AND/OR VOMITING Sodium Zirconium Cyclosilicate 10 gm 11/28/19 21:30 11/29/19 16:36 Lokelma PO Not Given DAILY DANISH Laboratory Results - last 24 hr 11/29/19 11/29/19 11/29/19 12:24 16:48 20:05 WBC RBC Hgb Hct MCV MCH MCHC RDW Plt Count MPV Absolute Neuts (auto) Neutrophils % Lymphocytes % Monocytes % Eosinophils % Basophils % Nucleated RBC % Sodium Potassium Chloride Carbon Dioxide Anion Gap BUN Creatinine Est GFR (CKD-EPI)AfAm Est GFR (CKD-EPI)NonAf POC Glucometer 197 366 257 Random Glucose Calcium Total Bilirubin AST ALT Alkaline Phosphatase Total Protein Albumin Influenza A (Rapid) Influenza B (Rapid) 11/29/19 11/30/19 11/30/19 22:29 00:56 01:41 WBC RBC Hgb Hct MCV MCH MCHC RDW Plt Count MPV Absolute Neuts (auto) Neutrophils % Lymphocytes % Monocytes % Eosinophils % Basophils % Nucleated RBC % Sodium Potassium Chloride Carbon Dioxide Anion Gap BUN Creatinine Est GFR (CKD-EPI)AfAm Est GFR (CKD-EPI)NonAf POC Glucometer 249 208 Random Glucose Calcium Total Bilirubin AST ALT Alkaline Phosphatase Total Protein Albumin Influenza A (Rapid) Negative Influenza B (Rapid) Negative 11/30/19 11/30/19 11/30/19 03:21 05:40 06:05 WBC 9.0 RBC 3.13 L Hgb 7.7 L Hct 23.7 L MCV 75.7 L MCH 24.5 L MCHC 32.3 RDW 16.3 H Plt Count 246 D MPV 9.7 Absolute Neuts (auto) 6.8 Neutrophils % 75.4 Lymphocytes % 16.7 D Monocytes % 7.8 D Eosinophils % 0.0 Basophils % 0.1 Nucleated RBC % 0 Sodium Potassium Chloride Carbon Dioxide Anion Gap BUN Creatinine Est GFR (CKD-EPI)AfAm Est GFR (CKD-EPI)NonAf POC Glucometer 225 210 Random Glucose Calcium Total Bilirubin AST ALT Alkaline Phosphatase Total Protein Albumin Influenza A (Rapid) Influenza B (Rapid) 11/30/19 06:05 WBC RBC Hgb Hct MCV MCH MCHC RDW Plt Count MPV Absolute Neuts (auto) Neutrophils % Lymphocytes % Monocytes % Eosinophils % Basophils % Nucleated RBC % Sodium 143 Potassium 4.7 Chloride 110 H Carbon Dioxide 24 Anion Gap 9 BUN 72.7 H Creatinine 3.5 H Est GFR (CKD-EPI)AfAm 14.13 Est GFR (CKD-EPI)NonAf 12.19 POC Glucometer Random Glucose 240 H Calcium 8.0 L Total Bilirubin 0.1 L AST 143 H ALT 35 Alkaline Phosphatase 126 H Total Protein 6.0 L Albumin 2.3 L Influenza A (Rapid) Influenza B (Rapid) Lungs ronchi B/L Abd- soft, NT no edema can not move or feel b/l lower extremities A/P AMS HYpoglycemia toxic metabolic encephalopathy Seizures COPD exacerbations acute on chronic renal failure P Afib -- iv fluids -- holding Torsemide for now\ -- Nebs, O2, IV ceftriaxone- empiric -- Carotid doppler noted-- will need vascular eval -- MRI brain and c spine noted-- no sign of acute CVA --motion artifacts-- may need to repeat -- elevated LFT-- check sono abd -- monitor blood sugars -- check EEG --monitor HCT -- influenza screen --negative urine cultures and blood cultures pending --cxr noted-->possible aspiration ? Problem List - Problems (1) Altered mental status Code(s): R41.82 - ALTERED MENTAL STATUS, UNSPECIFIED (2) Hypoglycemia Code(s): E16.2 - HYPOGLYCEMIA, UNSPECIFIED (3) COPD (chronic obstructive pulmonary disease) Code(s): J44.9 - CHRONIC OBSTRUCTIVE PULMONARY DISEASE, UNSPECIFIED (4) COPD exacerbation Code(s): J44.1 - CHRONIC OBSTRUCTIVE PULMONARY DISEASE W (ACUTE) EXACERBATION (5) Diabetes Code(s): E11.9 - TYPE 2 DIABETES MELLITUS WITHOUT COMPLICATIONS Qualifiers: Diabetes mellitus type: type 2 Diabetes mellitus complication status: with kidney complications Chronic kidney disease stage: stage 3 (moderate) (6) Hyperkalemia Code(s): E87.5 - HYPERKALEMIA (7) Lung cancer Code(s): C34.90 - MALIGNANT NEOPLASM OF UNSP PART OF UNSP BRONCHUS OR LUNG
--- NOTE | 2019-11-30 11:16 | CONSULT ---
Admitting History and Physical - Primary Care Physician PCP: Ladonna Christianson - Admission History of Present Illness: Per EMR- 74 year old female history of HTN,IDDM,CKD,COPD,CHF, Non small cell Lung ca( s/ p chemo). Patient was brought to hospital for hypoglycemia and unreponsive, with intermittent jerking motion ( myoclonic jerking). Patient was seen with son at bedside. She did get iv ativan and sedated. Patient did get mri of brain and mri of c spine( no good study due to motion). Both studies were inconclusive , and pateint remains confused and keep having intermittent jerking motion. There is no new symptoms overnight, spoke to nursing and family at bedside. There has not been any tremors or mycolonic jerking. Patient is on abx and waking up but still not back to her baseline. Selected Entries 11/28/19 11/28/19 11/28/19 14:12 18:04 20:50 Temperature 97.8 F 97.1 F L Blood Pressure 229/170 H Blood Pressure 127/90 139/56 L [Right Arm] 11/28/19 11/29/19 11/29/19 21:02 02:05 06:37 Temperature 98.4 F Blood Pressure Blood Pressure 191/104 H 179/96 H 111/87 [Right Arm] 11/29/19 11/29/19 11/29/19 10:00 12:57 18:00 Temperature 98.4 F 98 F Blood Pressure 198/110 H 199/64 H 159/61 Blood Pressure [Right Arm] 11/29/19 11/29/19 11/30/19 20:07 22:38 02:04 Temperature 98.0 F 97.7 F Blood Pressure 147/58 L 161/77 Blood Pressure 132/55 L [Right Arm] 11/30/19 11/30/19 06:00 08:48 Temperature 98.0 F 98.3 F Blood Pressure 181/79 H 193/68 H Blood Pressure [Right Arm] Laboratory Tests 11/30/19 06:05 Sodium 143 History Source: Medical Record Limitations to Obtaining History: Clinical Condition - Past Medical History Cardiovascular: Yes: HTN, Hyperlipdemia Pulmonary: Yes: Cancer (Lung), COPD ...: No Endocrine: Yes: Diabetes Mellitus - Past Surgical History Past Surgical History: Yes: Hysterectomy - Smoking History Smoking history: Former smoker Have you smoked in the past 12 months: No Aproximately how many cigarettes per day: 20 If you are a former smoker, when did you quit?: 2011 - Alcohol/Substance Use Hx Alcohol Use: No History - Admission Reason For Visit: HYPOGLYCEMIA, AMS - Diagnostics X-ray: Report Reviewed CT Scan: Report Reviewed MRI: Report Reviewed - General Mental Status: Alert and Oriented (grossly), Awake and Alert, Able to Follow Commands, Vague, Flat Affect Attention: Distractible, Mild Impairment, Moderate Impairment Ability to Follow Directions: Fair - Hearing Hearing: Normal Speech Evaluation - Communication Primary Language: DANISH Communication: Yes: Simple Responses - Speech Production Intelligibility: Yes: WNL - Speech Characteristics Voice Loudness: Normal Voice Pitch: Yes: Normal, Excessive Variation (sing-song pattern) Voice Phonatory-based Quality: Yes: Normal Speech Clarity: < 75% Articulation: Yes: Imprecise Rate of Speech: Too Slow Voice, Other Observations: Yes: Disordered Intonation - Language/Auditory Comprehension Follows: Yes: 1 Stage Simple Commands Observation: Able to respond to yes/no queries: Yes, Yes/No Confusion: Yes ( inconsistent and unreliable), Comprehends Conversational Speech: Yes (simple), Benefits from Slow Speech: Yes (use simple ,short sentences/questions), Benefits from Repetiton: Yes, Benefits from Increased Volume of Speech: No - Language/Verbal Expression Able to Respond to Simple Queries: Yes: Mildly Impaired (able to name objects, provide function, repeats. Slow to respond. Excessive pitch variation, sing- song pattern, memory deficits, delayed simple responses, perseverative, grossly oriented), Moderately Impaired Able to Communicate Wants and Needs: Yes: Mildly Impaired, Moderately Impaired Functional Communication Status: Yes: Mildly Impaired, Moderately Impaired - Swallow Evaluation/Bedside Assessment Current Nutritional Intake: NPO Oral Secretions: Yes: WFL Dentition: Yes: Adequate Facial Symmetry at Rest: Symmetrical Facial Symmetry on Retraction: Symmetrical Facial Movement: Controlled Jaw Position: Closed at Rest Against Resistance Opening: Normal Against Resistance Closing: Normal Pucker Lips: Normal Smile: Normal Lingual Movement: Symmetric Lingual Speed of Movement: Reduced Lingual Movement Strgth Against Opposition: Reduced Lingual Movement Characteristics: Normal Velopharyngeal Movement: Normal Laryngeal Elevation: WFL Laryngeal Movement: Able to Palpate Rate of Intake: WFL Labial Seal: WFL Oral Prep Time: WFL A-P Transit: WFL Pocketing: None Timing of Swallow: WFL Coughing/Throat Clear: No Change in Voice: No Recommendations - Speech Evaluation, Impression/Plan Impression: Pt able to name objects, provide function, repeats. Slow to respond. Excessive pitch variation, sing-song pattern, memory deficits, delayed simple responses, perseverative, grossly oriented. Difficulty responding to questions intermittently and participating in converstion -seems encephalopathic - w/u/. EEG in progress. - Dysphagia Impressions/Plan Dysphagia Impressions: Mild Impairment, Risk of Aspiration *Silent aspiration: cannot be R/O at bedside Dysphagia Treatment Plan: Small Bites, Chin Tuck/Down, Safe Rate, 1/2 tsp. at a time, Elevate HOB during feed, Other (feed when alert, remind pt to swallow) - Recommendations Diet Consistency: Dysphagia Pureed Medication Administration: Crushed with applesauce Liquids: [place] Thick
--- NOTE | 2019-11-30 11:21 | PN ---
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, Physician History of Present Illness: pulmonary more awake,responsive,comfortable,-sob - Current Medication List Current Medications: Active Medications Albuterol/Ipratropium (Duoneb -) 1 amp NEB Q4H PRN PRN Reason: SHORT OF BREATH/WHEEZING Last Admin: 11/29/19 01:55 Dose: 1 amp Amlodipine Besylate (Norvasc -) 10 mg PO DAILY REPLACED BY [facility] Last Admin: 11/29/19 12:00 Dose: 10 mg Aspirin (Ecotrin -) 81 mg PO DAILY REPLACED BY [facility] Last Admin: 11/29/19 12:00 Dose: 81 mg Atorvastatin Calcium (Lipitor -) 80 mg PO HS REPLACED BY [facility] Last Admin: 11/29/19 22:21 Dose: Not Given Budesonide/Formoterol Fumarate (Symbicort 160/4.5mcg -) 2 puff IH BID REPLACED BY [facility] Last Admin: 11/29/19 22:21 Dose: Not Given Carvedilol (Coreg -) 25 mg PO BID REPLACED BY [facility] Last Admin: 11/29/19 22:20 Dose: Not Given Heparin Sodium (Porcine) (Heparin -) 5,000 unit SQ TID REPLACED BY [facility] Last Admin: 11/30/19 05:42 Dose: 5,000 unit Dextrose/Sodium Chloride (D5-1/2ns -) 1,000 mls @ 70 mls/hr IV ASDIR REPLACED BY [facility] Last Admin: 11/29/19 21:20 Dose: 70 mls/hr Ceftriaxone Sodium 1 gm/ (Dextrose) 50 mls @ 100 mls/hr IVPB DAILY REPLACED BY [facility] Last Admin: 11/30/19 09:33 Dose: 100 mls/hr Azithromycin (Zithromax 500mg Ivpb (Pre-Docked)) 500 mg in 250 mls @ 250 mls/ hr IVPB DAILY REPLACED BY [facility] Last Admin: 11/30/19 10:26 Dose: 250 mls/hr Insulin Aspart (Novolog Vial Sliding Scale -) 1 vial SQ ACHS REPLACED BY [facility]; Protocol Last Admin: 11/30/19 06:34 Dose: 2 units Levetiracetam (Keppra Injection -) 500 mg IVPB BID REPLACED BY [facility] Last Admin: 11/30/19 10:26 Dose: 500 mg Lorazepam (Ativan Injection -) 1 mg IVPUSH Q3H PRN PRN Reason: MUSCLE SPASMS Melatonin (Melatonin) 5 mg PO HS REPLACED BY [facility] Last Admin: 11/29/19 22:21 Dose: Not Given Metoprolol Tartrate (Lopressor Injection -) 5 mg IVPUSH Q4H PRN PRN Reason: HYPERTENSION Last Admin: 11/29/19 12:57 Dose: 5 mg Ondansetron HCl (Zofran Injection) 4 mg IVPUSH Q6H PRN PRN Reason: NAUSEA AND/OR VOMITING Last Admin: 11/29/19 11:00 Dose: 4 mg Sodium Zirconium Cyclosilicate (Lokelma) 10 gm PO DAILY DANISH Last Admin: 11/29/19 16:36 Dose: Not Given - Objective Vital Signs: Vital Signs Temperature 98.3 F 11/30/19 08:48 Pulse Rate 79 11/30/19 08:48 Respiratory Rate 16 11/30/19 08:48 Blood Pressure 193/68 H 11/30/19 08:48 O2 Sat by Pulse Oximetry (%) 100 11/29/19 22:38 Constitutional: Yes: Well Nourished, Calm Eyes: Yes: WNL HENT: Yes: WNL Neck: Yes: WNL Cardiovascular: Yes: Regular Rate and Rhythm, S1, S2 Respiratory: Yes: CTA Bilaterally Gastrointestinal: Yes: Normal Bowel Sounds, Soft Extremities: Yes: WNL Edema: No Labs: CBC, BMP 11/30/19 06:05 11/30/19 06:05 Problem List - Problems (1) Altered mental status Code(s): R41.82 - ALTERED MENTAL STATUS, UNSPECIFIED (2) Hypoglycemia Code(s): E16.2 - HYPOGLYCEMIA, UNSPECIFIED (3) [id number] kidney injury Code(s): N17.9 - ACUTE KIDNEY FAILURE, UNSPECIFIED; N18.9 - CHRONIC KIDNEY DISEASE, UNSPECIFIED Qualifiers: Acute renal failure type: unspecified Chronic kidney disease stage: unspecified stage Qualified Code(s): N17.9 - Acute kidney failure, unspecified ; N18.9 - Chronic kidney disease, unspecified (4) COPD (chronic obstructive pulmonary disease) Code(s): J44.9 - CHRONIC OBSTRUCTIVE PULMONARY DISEASE, UNSPECIFIED (5) Hypertensive heart disease Code(s): I11.9 - HYPERTENSIVE HEART DISEASE WITHOUT HEART FAILURE Qualifiers: Heart failure presence: with heart failure Heart failure type: diastolic Heart failure chronicity: acute on chronic Qualified Code(s): I11.0 - Hypertensive heart disease with heart failure; I50.33 - Acute on chronic diastolic (congestive) heart failure (6) Lung cancer Code(s): C34.90 - MALIGNANT NEOPLASM OF UNSP PART OF UNSP BRONCHUS OR LUNG (7) Microcytic anemia Code(s): D50.9 - IRON DEFICIENCY ANEMIA, UNSPECIFIED Assessment/Plan Problem List - Problems (1) Altered mental status Code(s): R41.82 - ALTERED MENTAL STATUS, UNSPECIFIED Assessment/Plan Altered Mental Status r/o Sepsis r/o Pneumonia Acute on Chronic Renal Failure worsening LV Diastolic Dysfunction Pulmonary HTN COPD h/o Lung Cancer s/p chemo/RT Hypoglycemia r/o Seizures HTN DM UTI - antibiotics - IVF - monitor urine output, creatinine - inhaled bronchodilators - can defer systemic steroids at this time - O2 to keep Spo2 >90% - aspiration precautions - DVT prophylaxis DR PARIKH
[2019-11-30] MEDS: SODIUM ZIRCONIUM CYCLOSILICATE (LOKELMA) 5 GM PACKET PO SCH (11:27)
[2019-11-30] MEDS: amLODIPine BESYLATE 10 MG TABLET (FP) PO SCH (11:30)
[2019-11-30] MEDS: ASPIRIN COATED 81 MG TABLET.EC PO SCH (11:30)
[2019-11-30] MEDS: CARVEDILOL 25 MG TABLET (FP) PO SCH ×2 (11:30→21:43)
[2019-11-30] MEDS: DEXTROSE 5%-0.45% SALINE 1,000 ML IV SCH (11:33)
[2019-11-30] MEDS: BUDESONIDE/FORMETEROL FUMARATE 160/4.5 mcg INHALER IH SCH ×2 (11:38→21:49)
--- NOTE | 2019-11-30 15:36 | PN ---
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 (short form) - Note 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: Renal follow up for RADHA on CKD Seen and examined at the bedside awake and alert but sluggish to answer questions moving her extremities on IVF no chest pain, abdominal pain, fever or chills making urine Vital Signs Temperature 98.7 F 11/30/19 13:29 Pulse Rate 67 11/30/19 13:29 Respiratory Rate 16 11/30/19 13:29 Blood Pressure 136/53 L 11/30/19 13:29 O2 Sat by Pulse Oximetry (%) 99 11/30/19 10:00 NAD more awake and alert neck supple, no JVD RRR, no M/R Soft NT/ND no LE edema, clubbing or cyanosis CBC, BMP 11/30/19 06:05 11/30/19 06:05 Current Medications Albuterol/Ipratropium (Duoneb -) 1 amp NEB Q4H PRN PRN Reason: SHORT OF BREATH/WHEEZING Last Admin: 11/29/19 01:55 Dose: 1 amp Amlodipine Besylate (Norvasc -) 10 mg PO DAILY [facility] Last Admin: 11/30/19 11:30 Dose: 10 mg Aspirin (Ecotrin -) 81 mg PO DAILY [facility] Last Admin: 11/30/19 11:30 Dose: 81 mg Atorvastatin Calcium (Lipitor -) 80 mg PO HS [facility] Last Admin: 11/29/19 22:21 Dose: Not Given Budesonide/Formoterol Fumarate (Symbicort 160/4.5mcg -) 2 puff IH BID [facility] Last Admin: 11/30/19 11:38 Dose: Not Given Carvedilol (Coreg -) 25 mg PO BID [facility] Last Admin: 11/30/19 11:30 Dose: 25 mg Heparin Sodium (Porcine) (Heparin -) 5,000 unit SQ TID [facility] Last Admin: 11/30/19 13:26 Dose: 5,000 unit Dextrose/Sodium Chloride (D5-1/2ns -) 1,000 mls @ 70 mls/hr IV ASDIR [facility] Last Admin: 11/30/19 11:33 Dose: 70 mls/hr Ceftriaxone Sodium 1 gm/ (Dextrose) 50 mls @ 100 mls/hr IVPB DAILY [facility] Last Admin: 11/30/19 09:33 Dose: 100 mls/hr Azithromycin (Zithromax 500mg Ivpb (Pre-Docked)) 500 mg in 250 mls @ 250 mls/ hr IVPB DAILY [facility] Last Admin: 11/30/19 10:26 Dose: 250 mls/hr Insulin Aspart (Novolog Vial Sliding Scale -) 1 vial SQ ACHS [facility]; Protocol Last Admin: 11/30/19 11:00 Dose: Not Given Levetiracetam (Keppra Injection -) 500 mg IVPB BID [facility] Last Admin: 11/30/19 10:26 Dose: 500 mg Lorazepam (Ativan Injection -) 1 mg IVPUSH Q3H PRN PRN Reason: MUSCLE SPASMS Melatonin (Melatonin) 5 mg PO HS [facility] Last Admin: 11/29/19 22:21 Dose: Not Given Metoprolol Tartrate (Lopressor Injection -) 5 mg IVPUSH Q4H PRN PRN Reason: HYPERTENSION Last Admin: 11/29/19 12:57 Dose: 5 mg Ondansetron HCl (Zofran Injection) 4 mg IVPUSH Q6H PRN PRN Reason: NAUSEA AND/OR VOMITING Last Admin: 11/29/19 11:00 Dose: 4 mg Sodium Zirconium Cyclosilicate (Lokelma) 10 gm PO DAILY [facility] Last Admin: 11/30/19 11:27 Dose: Not Given 74 year old woman with history of CKD stage 4, CHF with diastolic dysfunction, pulmonary hypertension, Lung Ca s/p Chemo and radiation therapy, hypertension, DM who presented from home with AMS 1. AMS r/o seizures vs. hypoglycemia encephalopathy 2. CKD stage 4 3. CHF 4. Hypertension 5. DM Renal function continues to gradually worsen. no acute indication for renal replacement therapy Pt has been on hypotonic fluids but does not appear intramuscularly depleted. can continue gentle hydration for now as she is not taking in much orally. UA showed 4+ protein and was indicate of a UTI. Urine Culture grew Gram negative bacilli. On Abx. Check Renal US to r/o any obstruction BP elevated overnight but is better this afternoon with AM medications. Continue Neurology work up. Check ammonia level in the AM Elvis Mayorga DO
[2019-11-30] MEDS ORDERED: IRON SUCROSE INJECTION 100 MG in SODIUM CHLORIDE 95 ML IVPB ONE (15:40)
--- NOTE | 2019-11-30 16:10 | ECHO ---
Name: MEI AGUIRRE Exam:Adult Echocardiogram Study Date: 11/30/2019 02:09 PM Age: 74 yrs Reason For Study: JUN, r/o cardiac etiology Height: 63 in Weight: 170 lb BSA: 1.8 m2 MMode/2D Measurements & Calculations IVSd: 1.4 cm Ao root diam: 2.6 cm LVIDd: 3.7 cm LA dimension: 3.4 cm LVIDs: 2.6 cm ACS: 1.8 cm LVPWd: 1.3 cm EDV(Teich): 59.6 ml LVOT diam: 2.0 cm ESV(Teich): 24.5 ml LAV (MOD-bp): 95.0 ml TAPSE: 2.0 cm RV S José Miguel: 15.8 cm/sec Doppler Measurements & Calculations MV E max josé miguel: 119.3 cm/sec Ao V2 max: 100.4 cm/sec MV A max josé miguel: 105.6 cm/sec Ao max P.0 mmHg MV E/A: 1.1 Ao V2 mean: 66.0 cm/sec MV dec time: 0.23 sec Ao mean P.0 mmHg Ao V2 VTI: 22.8 cm COLLIN(I,D): 3.0 cm2 COLLIN(V,D): 2.7 cm2 LV V1 max P.0 mmHg SV(LVOT): 68.3 ml LV V1 mean P.4 mmHg LV V1 max: 86.4 cm/sec LV V1 mean: 54.4 cm/sec LV V1 VTI: 21.7 cm TR max josé miguel: 261.6 cm/sec PA V2 max: 85.5 cm/sec TR max P.1 mmHg PA max P.9 mmHg Med Peak E' José Miguel: 4.5 cm/sec Med E/e': 26.6 Lat Peak E' José Miguel: 7.1 cm/sec Lat E/e': 16.8 Tech Comments TDS. Morbidly obese. Scanned supine. Procedure A two-dimensional transthoracic echocardiogram with color flow and Doppler was performed. The study w as technically difficult with many images being suboptimal in quality. The patient was in normal sinus r hythm during the exam. Left Ventricle There is mild concentric left ventricular hypertrophy. Left ventricular systolic function is normal. Ejection Fraction = 60%. The transmitral spectral Doppler flow pattern is normal for age. Right Ventricle The right ventricle is not well visualized. The right ventricular systolic function is grossly normal . Atria Normal left and right atrial size and function. The interatrial septum is not well visualized. Unable to evaluate for the presence of a patent foramen ovale. Mitral Valve There is mild mitral valve thickening. There is mild mitral annular calcification. There is mild mitr al regurgitation. Tricuspid Valve The tricuspid valve is not well visualized. The tricuspid valve is not well visualized, but is grossl y normal. There is mild tricuspid regurgitation. There was insufficient TR detected to calculate RV systolic pr essure. Aortic Valve The aortic valve is not well visualized. The aortic valve opens well. No aortic regurgitation is pres ent. Pulmonic Valve The pulmonic valve is not well visualized. There is no pulmonic valvular regurgitation. Great Vessels The aortic root is normal size. Pericardium/Pleura There is no pericardial effusion. Interpretation Summary There is mild concentric left ventricular hypertrophy. Left ventricular systolic function is normal. The right ventricular systolic function is grossly normal. The interatrial septum is not well visualized. Unable to evaluate for the presence of a patent forame n ovale. There is mild mitral valve thickening. There is mild mitral annular calcification. There is mild mitral regurgitation. There is mild tricuspid regurgitation. There is no pericardial effusion. MD Clay Larose 11/30/2019 04:10 PM
[2019-11-30] MEDS: ATORVASTATIN CA 80 MG TABLET (FP) PO SCH (21:43)
[2019-11-30] MEDS: MELATONIN 5 MG TABLETS PO SCH (21:48)
[2019-12-01] MEDS: HEPARIN NA (PORCINE) 5,000 UNITS/ML 1ML VIAL SQ SCH (05:56)
[2019-12-01] MEDS: INSULIN SLIDING SCALE (NOVOLOG) 1 VIAL SQ SCH ×4 (05:59→21:04)
[2019-12-01 07:02] LABS: HEMATOCRIT 21.3 % (32.4-45.2); MCH 24.1 pg (25.7-33.7); MEAN CELL VOLUME 75.4 fl (80-96); MEAN PLT VOLUME 9.8 fl (7.5-11.1); PLATELET COUNT 219 K/MM3 (134-434); RBC 2.82 M/mm3 (3.60-5.2); RDW 16.4 % (11.6-15.6); WHITE BLOOD COUNT 9.7 K/mm3 (4.0-10.0)
[2019-12-01 07:36] LABS: HEMOGLOBIN 6.8 GM/dL (10.7-15.3)
[2019-12-01 08:03] LABS: ALBUMIN 2.1 g/dl (3.4-5.0); BILIRUBIN,TOTAL 0.2 mg/dL (0.2-1); BLOOD UREA NITROGEN 70.6 mg/dL (7-18); CALCIUM 7.9 mg/dL (8.5-10.1); CREATININE 3.3 mg/dL (0.55-1.3); MAGNESIUM 2.2 mg/dL (1.8-2.4); PHOSPHOROUS 4.3 mg/dL (2.5-4.9); POTASSIUM 4.7 mmol/L (3.5-5.1); TOT PROT 5.4 g/dl (6.4-8.2)
[2019-12-01] MEDS ORDERED: ACETAMINOPHEN 1000 MG/100 ML VIAL (NON FORMULARY) IVPB ONE (08:45)
[2019-12-01] MEDS: METOPROLOL TARTRATE 5 MG/5 ML VIAL IVPUSH PRN (09:07)
[2019-12-01] MEDS ORDERED: DEXTROSE 5%-WATER - 50 ML IVPB ONE (09:07)
[2019-12-01] MEDS ORDERED: cefTRIAXone SODIUM 1 GM VIAL ONE (09:07)
[2019-12-01] MEDS: ASPIRIN COATED 81 MG TABLET.EC PO SCH (10:02)
[2019-12-01] MEDS: SODIUM ZIRCONIUM CYCLOSILICATE (LOKELMA) 5 GM PACKET PO SCH (10:02)
[2019-12-01] MEDS: BUDESONIDE/FORMETEROL FUMARATE 160/4.5 mcg INHALER IH SCH ×2 (10:02→21:13)
[2019-12-01] MEDS: CARVEDILOL 25 MG TABLET (FP) PO SCH (10:55)
[2019-12-01] MEDS: levETIRAcetam 500 MG/5 ML INJECTION VIAL IVPB SCH ×2 (10:55→21:03)
[2019-12-01] MEDS: amLODIPine BESYLATE 10 MG TABLET (FP) PO SCH (10:55)
--- NOTE | 2019-12-01 11:01 | PN ---
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 (short form) - Note 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: Events note family at bedside Pt more awake and responsive moving upper extremities she ate without difficulty not moving the lower extremities Vital Signs - 24 hr 11/30/19 11/30/19 11/30/19 13:29 18:00 21:00 Temperature 98.7 F 97.0 F L 98.3 F Pulse Rate 67 70 68 Respiratory 16 17 20 Rate Blood Pressure 136/53 L 133/64 148/53 L O2 Sat by Pulse 100 Oximetry (%) 12/01/19 12/01/19 12/01/19 02:00 06:30 09:07 Temperature 98.3 F 97.7 F Pulse Rate 71 78 74 Respiratory 18 16 Rate Blood Pressure 163/61 180/88 H 193/67 H O2 Sat by Pulse Oximetry (%) 12/01/19 09:13 Temperature 98.4 F Pulse Rate 74 Respiratory 16 Rate Blood Pressure 193/67 H O2 Sat by Pulse Oximetry (%) Current Medications Generic Name Dose Route Start Last Admin Trade Name Freq PRN Reason Stop Dose Admin Albuterol/Ipratropium 1 amp 11/28/19 21:32 11/29/19 01:55 Duoneb - NEB 1 amp Q4H PRN Administration SHORT OF BREATH/WHEEZING Amlodipine Besylate 10 mg 11/29/19 10:00 12/01/19 10:55 Norvasc - PO 10 mg DAILY [facility] Administration Aspirin 81 mg 11/29/19 10:00 12/01/19 10:02 Ecotrin - PO Not Given DAILY [facility] Atorvastatin Calcium 80 mg 11/28/19 22:00 11/30/19 21:43 Lipitor - PO 80 mg HS [facility] Administration Budesonide/Formoterol Fumarate 2 puff 11/28/19 22:00 12/01/19 10:02 Symbicort 160/4.5mcg - IH Not Given BID [facility] Carvedilol 25 mg 11/29/19 10:00 12/01/19 10:55 Coreg - PO 25 mg BID [facility] Administration Hydralazine HCl 25 mg 12/01/19 11:00 Apresoline - PO TID [facility] Ceftriaxone Sodium 1 gm/ 50 mls @ 100 mls/hr 11/29/19 11:30 11/30/19 09:33 Dextrose IVPB 100 mls/hr DAILY [facility] Administration Azithromycin 500 mg in 250 mls @ 250 mls/hr 11/29/19 12:45 11/30/19 10:26 Zithromax 500mg Ivpb (Pre-Docked) IVPB 250 mls/hr DAILY [facility] Administration Insulin Aspart 1 vial 11/28/19 22:00 12/01/19 05:59 Novolog Vial Sliding Scale - SQ 1 units ACHS [facility] Administration Protocol Levetiracetam 500 mg 11/29/19 11:30 12/01/19 10:55 Keppra Injection - IVPB 500 mg BID [facility] Administration Lorazepam 1 mg 11/29/19 11:22 Ativan Injection - IVPUSH Q3H PRN MUSCLE SPASMS Metoprolol Tartrate 5 mg 11/29/19 11:36 12/01/19 09:07 Lopressor Injection - IVPUSH 5 mg Q4H PRN Administration HYPERTENSION Ondansetron HCl 4 mg 11/29/19 11:21 11/29/19 11:00 Zofran Injection IVPUSH 4 mg Q6H PRN Administration NAUSEA AND/OR VOMITING Sodium Zirconium Cyclosilicate 10 gm 11/28/19 21:30 12/01/19 10:02 Lokelma PO Not Given DAILY [facility] Laboratory Results - last 24 hr 11/30/19 11/30/19 11/30/19 11:35 16:47 21:51 WBC RBC Hgb Hct MCV MCH MCHC RDW Plt Count MPV Sodium Potassium Chloride Carbon Dioxide Anion Gap BUN Creatinine Est GFR (CKD-EPI)AfAm Est GFR (CKD-EPI)NonAf POC Glucometer 209 220 168 Random Glucose Calcium Phosphorus Magnesium Total Bilirubin AST ALT Alkaline Phosphatase Total Protein Albumin Crossmatch 12/01/19 12/01/19 12/01/19 05:27 06:00 06:00 WBC 9.7 RBC 2.82 L Hgb 6.8 L* Hct 21.3 L MCV 75.4 L MCH 24.1 L MCHC 32.0 RDW 16.4 H Plt Count 219 MPV 9.8 Sodium 143 Potassium 4.7 Chloride 112 H Carbon Dioxide 23 Anion Gap 9 BUN 70.6 H Creatinine 3.3 H Est GFR (CKD-EPI)AfAm 15.18 Est GFR (CKD-EPI)NonAf 13.09 POC Glucometer 185 Random Glucose 199 H Calcium 7.9 L Phosphorus 4.3 Magnesium 2.2 Total Bilirubin 0.2 AST 87 H ALT 31 Alkaline Phosphatase 111 Total Protein 5.4 L Albumin 2.1 L Crossmatch 12/01/19 10:08 WBC RBC Hgb Hct MCV MCH MCHC RDW Plt Count MPV Sodium Potassium Chloride Carbon Dioxide Anion Gap BUN Creatinine Est GFR (CKD-EPI)AfAm Est GFR (CKD-EPI)NonAf POC Glucometer Random Glucose Calcium Phosphorus Magnesium Total Bilirubin AST ALT Alkaline Phosphatase Total Protein Albumin Crossmatch See Detail S1s2 RRR Lungs ronchi B/L Abd- soft, NT no edema can not move or feel b/l lower extremities Microbiology 11/28/19 17:52 Urine - Urine Clean Catch Urine Culture - Final Klebsiella Pneumoniae 11/29/19 12:43 Blood - Peripheral Venous Blood Culture - Preliminary NO GROWTH OBTAINED AFTER 24 HOURS, INCUBATION TO CONTINUE FOR 4 DAYS. 11/29/19 12:43 Blood - Peripheral Venous Blood Culture - Preliminary NO GROWTH OBTAINED AFTER 24 HOURS, INCUBATION TO CONTINUE FOR 4 DAYS. A/P AMS HYpoglycemia toxic metabolic encephalopathy Seizures COPD exacerbations acute on chronic renal failure P Afib anemia -- iv fluids -- holding Torsemide for now\ -- Nebs, O2, IV ceftriaxone- Klebsiella UTI -- Carotid doppler noted-- will need vascular eval -- MRI brain and c spine noted-- no sign of acute CVA -- elevated LFT--trending down -- monitor blood sugars -- EEG pending --transfuse 2 units PRBC today, check stool guaic- received venofer, check ct abd/pelvis without contrast -- LS spine MRI pending -- pt not moving lower extremities -- renal function slight improvement --monitor HCT -- influenza screen --negative Problem List - Problems (1) Altered mental status Code(s): R41.82 - ALTERED MENTAL STATUS, UNSPECIFIED (2) Hypoglycemia Code(s): E16.2 - HYPOGLYCEMIA, UNSPECIFIED (3) COPD (chronic obstructive pulmonary disease) Code(s): J44.9 - CHRONIC OBSTRUCTIVE PULMONARY DISEASE, UNSPECIFIED (4) COPD exacerbation Code(s): J44.1 - CHRONIC OBSTRUCTIVE PULMONARY DISEASE W (ACUTE) EXACERBATION (5) Diabetes Code(s): E11.9 - TYPE 2 DIABETES MELLITUS WITHOUT COMPLICATIONS Qualifiers: Diabetes mellitus type: type 2 Diabetes mellitus complication status: with kidney complications Chronic kidney disease stage: stage 3 (moderate) (6) Hyperkalemia Code(s): E87.5 - HYPERKALEMIA (7) Lung cancer Code(s): C34.90 - MALIGNANT NEOPLASM OF UNSP PART OF UNSP BRONCHUS OR LUNG
[2019-12-01 11:06] LABS: COCAINE, UR NEGATIVE ng/ml (CUTOFF=300); METHADONE, UR NEGATIVE ng/ml (CUTOFF=300); OPIATES, URI NEGATIVE ng/ml (CUTOFF=300); PHENCYCLIDINE,URINE NEGATIVE ng/ml (CUTOFF=25); URINE AMPHETAMINES NEGATIVE ng/ml (CUTOFF=500); URINE BARBITURATES NEGATIVE ng/ml (CUTOFF=200); URINE BENZODIAZEPINES NEGATIVE ng/ml (CUTOFF=200)
[2019-12-01] MEDS: CEFTRIAXONE 1 GM in DEXTROSE 5%-WATER - 50 ML IVPB SCH (11:37)
--- NOTE | 2019-12-01 13:21 | PN ---
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: Selected Entries 11/30/19 11/30/19 11/30/19 02:04 06:00 08:48 Breakfast Diet Tolerated Supper Temperature 97.7 F 98.0 F 98.3 F 11/30/19 11/30/19 11/30/19 13:29 18:00 21:00 Breakfast Diet Tolerated Supper Temperature 98.7 F 97.0 F L 98.3 F 11/30/19 12/01/19 12/01/19 22:35 02:00 06:30 Breakfast Diet Tolerated Well Supper 25% Temperature 98.3 F 97.7 F 12/01/19 12/01/19 09:13 09:52 Breakfast 25% Diet Tolerated Fair Supper Temperature 98.4 F Laboratory Tests 11/28/19 11/29/19 11/30/19 14:24 06:29 06:05 WBC 9.0 Hgb 8.7 L 7.9 L 7.7 L Random Glucose 11/30/19 12/01/19 12/01/19 06:05 06:00 06:00 WBC 9.7 Hgb 6.8 L* Random Glucose 240 H 199 H Speech is now precise, less pitch variability. Still with perseveration, confusion, language deficits with cognitive deficits. Language seemed to improve a little with practice. Tolerating puree/nectar. Swallowing reassessed with couh response with thin liquid, c/w aspiration. EEG pending. Right arm seems to drop to gravity.Bilateral weakness, reduced coordination. Pt's son was present and provided hx. Pt is oriented, verbal, independent at baseline.No memory deficits or psych hx. 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 Educated son on ways to maximize cognition and communication Rec: diet upgrade to Dys ground, add egg salad, chicken salad. Continue nectar thick liquid.
--- NOTE | 2019-12-01 13:25 | PN ---
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 (short form) - Note 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: Renal follow up for RADHA on CKD Seen and examined at the bedside more awake and alert today oriented x 3 moving all 4 extremities on IVF no chest pain, abdominal pain, fever or chills making urine Vital Signs Temperature 98.4 F 12/01/19 09:13 Pulse Rate 74 12/01/19 09:13 Respiratory Rate 16 12/01/19 09:13 Blood Pressure 193/67 H 12/01/19 09:13 O2 Sat by Pulse Oximetry (%) 100 11/30/19 21:00 Intake & Output 11/28/19 11/29/19 11/30/19 12/01/19 23:59 23:59 23:59 23:59 Intake Total 350 1770 425 Output Total 200 50 Balance 350 1570 375 Weight 77.111 kg 77.111 kg NAD awake and alert neck supple, no JVD RRR, no M/R Dec BS at lung bases but no rales Soft NT/ND no LE edema, clubbing or cyanosis CBC, BMP 12/01/19 06:00 12/01/19 06:00 Current Medications Albuterol/Ipratropium (Duoneb -) 1 amp NEB Q4H PRN PRN Reason: SHORT OF BREATH/WHEEZING Last Admin: 11/29/19 01:55 Dose: 1 amp Amlodipine Besylate (Norvasc -) 10 mg PO DAILY [facility] Last Admin: 12/01/19 10:55 Dose: 10 mg Aspirin (Ecotrin -) 81 mg PO DAILY [facility] Last Admin: 12/01/19 10:02 Dose: Not Given Atorvastatin Calcium (Lipitor -) 80 mg PO HS [facility] Last Admin: 11/30/19 21:43 Dose: 80 mg Budesonide/Formoterol Fumarate (Symbicort 160/4.5mcg -) 2 puff IH BID [facility] Last Admin: 12/01/19 10:02 Dose: Not Given Hydralazine HCl (Apresoline -) 25 mg PO TID [facility] Ceftriaxone Sodium 1 gm/ (Dextrose) 50 mls @ 100 mls/hr IVPB DAILY [facility] Last Admin: 12/01/19 11:37 Dose: 100 mls/hr Azithromycin (Zithromax 500mg Ivpb (Pre-Docked)) 500 mg in 250 mls @ 250 mls/ hr IVPB DAILY [facility] Last Admin: 11/30/19 10:26 Dose: 250 mls/hr Insulin Aspart (Novolog Vial Sliding Scale -) 1 vial SQ ACHS [facility]; Protocol Last Admin: 12/01/19 11:42 Dose: 1 unit Labetalol HCl (Normodyne -) 200 mg PO TID [facility] Levetiracetam (Keppra Injection -) 500 mg IVPB BID [facility] Last Admin: 12/01/19 10:55 Dose: 500 mg Lorazepam (Ativan Injection -) 1 mg IVPUSH Q3H PRN PRN Reason: MUSCLE SPASMS Ondansetron HCl (Zofran Injection) 4 mg IVPUSH Q6H PRN PRN Reason: NAUSEA AND/OR VOMITING Last Admin: 11/29/19 11:00 Dose: 4 mg Sodium Zirconium Cyclosilicate (Lokelma) 10 gm PO DAILY [facility] Last Admin: 12/01/19 10:02 Dose: Not Given 74 year old woman with history of CKD stage 4, CHF with diastolic dysfunction, pulmonary hypertension, Lung Ca s/p Chemo and radiation therapy, hypertension, DM who presented from home with AMS 1. AMS r/o seizures vs. hypoglycemia encephalopathy 2. CKD stage 4 3. CHF 4. Hypertension 5. DM Renal function improving over the past 24 hours. No hyperkalemia, acidosis or clinical uremia noted. no acute indication for renal replacement therapy will d/c IVF as BP is very high. Hgb noted to be less then 7 today, to get 2 prbc. anemia is likely multifactorial and CKD related anemia is a likeky contributor. s/p IV iron yesterday. will defer ANTONETTE until blood pressure is improved. CT of the Abd/Pelvis ordered, results pending. UA showed 4+ protein and was indicate of a UTI. Urine Culture grew Gram negative bacilli. On Abx. Check Renal US to r/o any obstruction BP remains elevated, will change Coreg to Labetalol 200mg TID and add hydralzine 25mg TID. Continue Amlodipine 10mg Daily. Continue Neurology work up. Elvis Mayorga DO
[2019-12-01] MEDS: AZITHROMYCIN IVPB 500 MG/250 ML BAG IVPB SCH (13:53)
[2019-12-01] MEDS: hydrALAZINE HCL 25 MG TABLET (FP) PO SCH ×3 (13:53→21:03)
[2019-12-01] MEDS: LABETALOL HCL 200 MG TABLET (FP) PO SCH ×2 (13:54→21:03)
--- NOTE | 2019-12-01 14:31 | PN ---
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 (short form) - Note 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: PULMONARY More alert, awake but still confused per family at bedside. No fevers. Vital Signs Period Temp Pulse Resp BP Sys/Blanton Pulse Ox Last 24 Hr 97.0 F-98.4 F 66-78 16-20 133-193/53-88 99-100 Gen: more alert, awake Heart: RRR Lung: scattered rhonchi Abd: soft, nontender Ext: no edema CBC, BMP 12/01/19 06:00 12/01/19 06:00 Active Medications Albuterol/Ipratropium (Duoneb -) 1 amp NEB Q4H PRN PRN Reason: SHORT OF BREATH/WHEEZING Last Admin: 11/29/19 01:55 Dose: 1 amp Amlodipine Besylate (Norvasc -) 10 mg PO DAILY [facility] Last Admin: 12/01/19 10:55 Dose: 10 mg Aspirin (Ecotrin -) 81 mg PO DAILY [facility] Last Admin: 12/01/19 10:02 Dose: Not Given Atorvastatin Calcium (Lipitor -) 80 mg PO HS [facility] Last Admin: 11/30/19 21:43 Dose: 80 mg Budesonide/Formoterol Fumarate (Symbicort 160/4.5mcg -) 2 puff IH BID [facility] Last Admin: 12/01/19 10:02 Dose: Not Given Hydralazine HCl (Apresoline -) 25 mg PO TID [facility] Last Admin: 12/01/19 13:54 Dose: Not Given Ceftriaxone Sodium 1 gm/ (Dextrose) 50 mls @ 100 mls/hr IVPB DAILY [facility] Last Admin: 12/01/19 11:37 Dose: 100 mls/hr Azithromycin (Zithromax 500mg Ivpb (Pre-Docked)) 500 mg in 250 mls @ 250 mls/ hr IVPB DAILY [facility] Last Admin: 12/01/19 13:53 Dose: 250 mls/hr Insulin Aspart (Novolog Vial Sliding Scale -) 1 vial SQ ACHS [facility]; Protocol Last Admin: 12/01/19 11:42 Dose: 1 unit Labetalol HCl (Normodyne -) 200 mg PO TID [facility] Last Admin: 12/01/19 13:54 Dose: 200 mg Levetiracetam (Keppra Injection -) 500 mg IVPB BID [facility] Last Admin: 02/27/20 10:55 Dose: 500 mg Lorazepam (Ativan Injection -) 1 mg IVPUSH Q3H PRN PRN Reason: MUSCLE SPASMS Ondansetron HCl (Zofran Injection) 4 mg IVPUSH Q6H PRN PRN Reason: NAUSEA AND/OR VOMITING Last Admin: 11/29/19 11:00 Dose: 4 mg Sodium Zirconium Cyclosilicate (Lokelma) 10 gm PO DAILY [facility] Last Admin: 12/01/19 10:02 Dose: Not Given A/P Altered Mental Status r/o Sepsis r/o Pneumonia r/o UTI Acute on Chronic Renal Failure LV Diastolic Dysfunction Pulmonary HTN COPD h/o Lung Cancer s/p chemo/RT Hypoglycemia r/o Seizures HTN DM UTI - continue antibiotics - monitor urine output, creatinine - inhaled bronchodilators - can defer systemic steroids at this time - O2 to keep Spo2 >90% - aspiration precautions - DVT prophylaxis Problem List - Problems (1) Altered mental status Code(s): R41.82 - ALTERED MENTAL STATUS, UNSPECIFIED
--- NOTE | 2019-12-01 14:52 | PN ---
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 patient was brought to hospital for hypoglycemia and unreponsive. Patient is having intermittent jerking motion ( myoclonic jerking). Patient was seen with son at bedside. She did get iv ativan and sedated. Patient did get mri of brain and mri of c spine( no good study due to motion). Both studies were inconclusive, and pateint remains confused and keep having intermittent jerking motion. There is no new symptoms overnight, spoke to nursing and family at bedside. There has not been any tremors or mycolonic jerking. Patient has one episode of left isde jerking on nov 30. Her mental status more alert and moving lower extremity less. NEUROLOGICAL EXAMINATION Patient alert oriented x 2, she is more awake and able to communicate. pupils is reactive no face asymmetry moving upper extermity more lower extermity strengh is grade 4+ and able to lift against gravity. sensation is normal reflex are generalized diminished ct head wnl mri of brain and c spine limited exam due to motion Assessment/Plan 1. Hypoglycemic encephalopathy continue supportive care and current level of care 2. Initially there were ? myoclonic jerks, were not seen today 3. Moivng lower extremity less than upper extremity, could be due to intercurrent illness, agree with primary team to do mri of T and L spine due to history of breast cancer PLan: prognosis is guarded - EEG is pending continue keppra empirically - supporitve care speech therapy consult appreciated. will continue to follow Thanking you so much Vernon Ritter MD
--- NOTE | 2019-12-01 17:10 | PN ---
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 (short form) - Note 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: VAscular Surgery Carotid doppler images reviewed. All peak systolic velocites are with in normal limits. The US study is nornal with some calcium. No need for any surgery Medical management Donnell Herrera DO
[2019-12-01] MEDS ORDERED: ACETAMINOPHEN 325 MG TABLET (FP) PO PRN (17:29)
[2019-12-01] MEDS: ATORVASTATIN CA 80 MG TABLET (FP) PO SCH (21:03)
[2019-12-02] MEDS: LABETALOL HCL 200 MG TABLET (FP) PO SCH ×3 (06:02→21:41)
[2019-12-02] MEDS: INSULIN SLIDING SCALE (NOVOLOG) 1 VIAL SQ SCH ×4 (06:03→21:42)
[2019-12-02] MEDS: hydrALAZINE HCL 25 MG TABLET (FP) PO SCH (06:03)
[2019-12-02 06:54] LABS: BASO % 0.3 % (0-2.0); EOS % 0.3 % (0-4.5); HEMOGLOBIN 9.1 GM/dL (10.7-15.3); LYMPH % 23.7 % (8-40); MCHC 32.6 g/dl (32.0-36.0); MEAN CELL VOLUME 76.7 fl (80-96); MEAN PLT VOLUME 10.3 fl (7.5-11.1); MONO % 9.1 % (3.8-10.2); NEUT % 66.6 % (42.8-82.8); PLATELET COUNT 229 K/MM3 (134-434); RBC 3.65 M/mm3 (3.60-5.2); RDW 15.9 % (11.6-15.6); WHITE BLOOD COUNT 9.4 K/mm3 (4.0-10.0)
[2019-12-02 07:21] LABS: ALBUMIN 2.4 g/dl (3.4-5.0); BILIRUBIN,TOTAL 0.2 mg/dL (0.2-1); BLOOD UREA NITROGEN 71.4 mg/dL (7-18); CALCIUM 8.3 mg/dL (8.5-10.1); CREATININE 3.1 mg/dL (0.55-1.3); PHOSPHOROUS 4.5 mg/dL (2.5-4.9); POTASSIUM 4.9 mmol/L (3.5-5.1); TOT PROT 5.8 g/dl (6.4-8.2)
[2019-12-02] MEDS: ALBUTEROL SO4 2.5/IPRATROPIUM 0.5 INH SOL 3 ML VIAL.NEB. NEB SCH ×4 (08:04→20:19)
[2019-12-02] MEDS ORDERED: cefTRIAXone SODIUM 1 GM VIAL ONE (09:03)
[2019-12-02] MEDS ORDERED: PT OWN MED DRAWER 7, Y5N ONE (09:03)
[2019-12-02] MEDS ORDERED: DEXTROSE 5%-WATER - 50 ML IVPB ONE (09:03)
[2019-12-02] MEDS: ASPIRIN COATED 81 MG TABLET.EC PO SCH (09:09)
[2019-12-02] MEDS: amLODIPine BESYLATE 10 MG TABLET (FP) PO SCH (09:09)
[2019-12-02] MEDS: SODIUM ZIRCONIUM CYCLOSILICATE (LOKELMA) 5 GM PACKET PO SCH (09:10)
[2019-12-02] MEDS: BUDESONIDE/FORMETEROL FUMARATE 160/4.5 mcg INHALER IH SCH ×2 (09:17→21:42)
[2019-12-02] MEDS: CEFTRIAXONE 1 GM in DEXTROSE 5%-WATER - 50 ML IVPB SCH (09:21)
--- NOTE | 2019-12-02 09:44 | PN ---
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 (short form) - Note 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: pt seen/ examined chart is reviewed Vital Signs Temp 98.1 F 12/02/19 09:08 Pulse 64 12/02/19 09:08 Resp 19 12/02/19 09:08 BP 177/61 H 12/02/19 09:08 Pulse Ox 100 12/01/19 21:00 Intake & Output 12/01/19 12/01/19 12/02/19 11:59 23:59 11:59 Intake Total 425 1360 370 Output Total 50 300 Balance 375 1060 370 Intake: IV 350 80 20 D5-1/2Ns - 1,000 ml @ 70 350 70 mls/hr IV ASDIR [facility] Rx#: [id number] lhand #22 11/30 09 20 IVPB 500 Oral 75 430 Packed Cells 350 350 Output: Urine 50 300 Void 50 300 Other: Voiding Method External Catheter External Catheter Bowel Movement No Yes # Bowel Movements 1 Active Medications Acetaminophen (Tylenol -) 650 mg PO Q6H PRN PRN Reason: PAIN LEVEL 1-5 Albuterol/Ipratropium (Duoneb -) 1 amp NEB RQID [facility] Last Admin: 12/02/19 08:04 Dose: 1 amp Amlodipine Besylate (Norvasc -) 10 mg PO DAILY [facility] Last Admin: 12/02/19 09:09 Dose: 10 mg Aspirin (Ecotrin -) 81 mg PO DAILY [facility] Last Admin: 12/02/19 09:09 Dose: Not Given Atorvastatin Calcium (Lipitor -) 80 mg PO HS [facility] Last Admin: 12/01/19 21:03 Dose: 80 mg Budesonide/Formoterol Fumarate (Symbicort 160/4.5mcg -) 2 puff IH BID [facility] Last Admin: 12/02/19 09:17 Dose: 2 puff Hydralazine HCl (Apresoline -) 50 mg PO BID [facility] Ceftriaxone Sodium 1 gm/ (Dextrose) 50 mls @ 100 mls/hr IVPB DAILY [facility] Last Admin: 12/02/19 09:21 Dose: 100 mls/hr Azithromycin (Zithromax 500mg Ivpb (Pre-Docked)) 500 mg in 250 mls @ 250 mls/ hr IVPB DAILY [facility] Last Admin: 12/01/19 13:53 Dose: 250 mls/hr Insulin Aspart (Novolog Vial Sliding Scale -) 1 vial SQ ACHS [facility]; Protocol Last Admin: 12/02/19 06:03 Dose: 1 unit Labetalol HCl (Normodyne -) 200 mg PO TID [facility] Last Admin: 12/02/19 06:02 Dose: 200 mg Levetiracetam (Keppra Injection -) 500 mg IVPB BID [facility] Last Admin: 12/01/19 21:03 Dose: 500 mg Lorazepam (Ativan Injection -) 1 mg IVPUSH Q3H PRN PRN Reason: MUSCLE SPASMS Ondansetron HCl (Zofran Injection) 4 mg IVPUSH Q6H PRN PRN Reason: NAUSEA AND/OR VOMITING Last Admin: 11/29/19 11:00 Dose: 4 mg Sodium Zirconium Cyclosilicate (Lokelma) 10 gm PO DAILY [facility] Last Admin: 12/02/19 09:10 Dose: Not Given CBC, BMP 12/02/19 05:55 12/02/19 05:55 Microbiology 11/29/19 12:43 Blood Culture - Preliminary Blood - Peripheral Venous NO GROWTH OBTAINED AFTER 48 HOURS, INCUBATION TO CONTINUE FOR 3 DAYS. 11/29/19 12:43 Blood Culture - Preliminary Blood - Peripheral Venous NO GROWTH OBTAINED AFTER 48 HOURS, INCUBATION TO CONTINUE FOR 3 DAYS. 11/30/19 23:12 Legionella Antigen - Final Urine For Antigen Detection Streptococcus pneumoniae Antigen (M - Final 11/28/19 17:52 Urine Culture - Final Urine - Urine Clean Catch Klebsiella Pneumoniae physical Exam S1S2 RRR Lungs - Clear Abd- soft, NT no edema aox3 today - Moves all extremities Microbiology 11/28/19 17:52 Urine - Urine Clean Catch Urine Culture - Final Klebsiella Pneumoniae 11/29/19 12:43 Blood - Peripheral Venous Blood Culture - Preliminary NO GROWTH OBTAINED AFTER 24 HOURS, INCUBATION TO CONTINUE FOR 4 DAYS. 11/29/19 12:43 Blood - Peripheral Venous Blood Culture - Preliminary NO GROWTH OBTAINED AFTER 24 HOURS, INCUBATION TO CONTINUE FOR 4 DAYS. A/P AMS HYpoglycemia toxic metabolic encephalopathy Seizures COPD exacerbations acute on chronic renal failure P Afib anemia uti Better Continue present care monitor bm PT EEG Increase Hydralazine-- BP high Monitor Abx will follow d/w pts son also who is atbedside Problem List - Problems (1) Altered mental status Code(s): R41.82 - ALTERED MENTAL STATUS, UNSPECIFIED (2) Hypoglycemia Code(s): E16.2 - HYPOGLYCEMIA, UNSPECIFIED (3) COPD (chronic obstructive pulmonary disease) Code(s): J44.9 - CHRONIC OBSTRUCTIVE PULMONARY DISEASE, UNSPECIFIED (4) COPD exacerbation Code(s): J44.1 - CHRONIC OBSTRUCTIVE PULMONARY DISEASE W (ACUTE) EXACERBATION (5) Diabetes Code(s): E11.9 - TYPE 2 DIABETES MELLITUS WITHOUT COMPLICATIONS Qualifiers: Diabetes mellitus type: type 2 Diabetes mellitus complication status: with kidney complications Chronic kidney disease stage: stage 3 (moderate) (6) Hyperkalemia Code(s): E87.5 - HYPERKALEMIA (7) Lung cancer Code(s): C34.90 - MALIGNANT NEOPLASM OF UNSP PART OF UNSP BRONCHUS OR LUNG
--- NOTE | 2019-12-02 09:58 | PN ---
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 patient was brought to hospital for hypoglycemia and unreponsive. Patient is having intermittent jerking motion ( myoclonic jerking). Patient was seen with son at bedside. She did get iv ativan and sedated. Patient did get mri of brain and mri of c spine( no good study due to motion). Both studies were inconclusive, and pateint remains confused and keep having intermittent jerking motion. No new symptoms, no jerky motions. EEG showed epileptiform discharges. She is afebrile and feeling better, back to normal upto 70-80 percent. NEUROLOGICAL EXAMINATION Patient alert oriented x 3, she is more awake and able to communicate. pupils is reactive no face asymmetry moving all extermity sensation is normal reflex are generalized diminished ct head wnl mri of brain and c spine limited exam due to motion eeg showed generalized encephalopathic and intermittent generalized spikes activity Assessment/Plan 1. Hypoglycemic encephalopathy continue supportive care and current level of care, improving clinically 2. myoclonic jerks after hypoglycemia event, eeg showed generalized epileptiform discharges, continue keppra for now 3. Moving all extermity , good strengh in all four extremity PLan: prognosis is guarde continue keppra 500 mg po bid - supporitve care Thanking you so much Vernon Ritter MD
[2019-12-02] MEDS ORDERED: hydrALAZINE HCL 50 MG TABLET (FP) PO SCH (10:00)
[2019-12-02] MEDS: levETIRAcetam 500 MG/5 ML INJECTION VIAL IVPB SCH ×2 (10:23→21:41)
[2019-12-02] MEDS: AZITHROMYCIN IVPB 500 MG/250 ML BAG IVPB SCH (11:19)
--- NOTE | 2019-12-02 11:35 | PN ---
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 Speech precise. Swallowing well on modified diet. Suggest MBS to upgrade diet, r/o silent aspiration.
--- NOTE | 2019-12-02 12:41 | PN ---
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 (short form) - Note 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: Renal follow up for RADHA on CKD Seen and examined at the bedside awake and alert offers no acute complaints oriented x 3 moving all 4 extremities no chest pain, abdominal pain, fever or chills making urine Vital Signs Temperature 98.1 F 12/02/19 09:08 Pulse Rate 64 12/02/19 09:08 Respiratory Rate 19 12/02/19 09:08 Blood Pressure 177/61 H 12/02/19 09:08 O2 Sat by Pulse Oximetry (%) 100 12/01/19 21:00 Intake & Output 11/29/19 11/30/19 12/01/19 12/02/19 23:59 23:59 23:59 23:59 Intake Total 350 1770 1785 370 Output Total 200 350 Balance 350 1570 1435 370 Weight 77.111 kg NAD awake and alert neck supple, no JVD RRR, no M/R Dec BS at lung bases but no rales Soft NT/ND no LE edema, clubbing or cyanosis CBC, BMP 12/02/19 05:55 12/02/19 05:55 Current Medications Acetaminophen (Tylenol -) 650 mg PO Q6H PRN PRN Reason: PAIN LEVEL 1-5 Albuterol/Ipratropium (Duoneb -) 1 amp NEB RQID [facility] Last Admin: 12/02/19 11:44 Dose: 1 amp Amlodipine Besylate (Norvasc -) 10 mg PO DAILY [facility] Last Admin: 12/02/19 09:09 Dose: 10 mg Aspirin (Ecotrin -) 81 mg PO DAILY [facility] Last Admin: 12/02/19 09:09 Dose: Not Given Atorvastatin Calcium (Lipitor -) 80 mg PO HS [facility] Last Admin: 12/01/19 21:03 Dose: 80 mg Budesonide/Formoterol Fumarate (Symbicort 160/4.5mcg -) 2 puff IH BID [facility] Last Admin: 12/02/19 09:17 Dose: 2 puff Hydralazine HCl (Apresoline -) 50 mg PO TID [facility] Ceftriaxone Sodium 1 gm/ (Dextrose) 50 mls @ 100 mls/hr IVPB DAILY [facility] Last Admin: 12/02/19 09:21 Dose: 100 mls/hr Azithromycin (Zithromax 500mg Ivpb (Pre-Docked)) 500 mg in 250 mls @ 250 mls/ hr IVPB DAILY [facility] Last Admin: 12/02/19 11:19 Dose: 250 mls/hr Insulin Aspart (Novolog Vial Sliding Scale -) 1 vial SQ ACHS [facility]; Protocol Last Admin: 12/02/19 11:45 Dose: 1 unit Labetalol HCl (Normodyne -) 200 mg PO TID [facility] Last Admin: 12/02/19 06:02 Dose: 200 mg Levetiracetam (Keppra Injection -) 500 mg IVPB BID [facility] Last Admin: 12/02/19 10:23 Dose: 500 mg Lorazepam (Ativan Injection -) 1 mg IVPUSH Q3H PRN PRN Reason: MUSCLE SPASMS Ondansetron HCl (Zofran Injection) 4 mg IVPUSH Q6H PRN PRN Reason: NAUSEA AND/OR VOMITING Last Admin: 11/29/19 11:00 Dose: 4 mg Sodium Zirconium Cyclosilicate (Lokelma) 10 gm PO DAILY [facility] Last Admin: 12/02/19 09:10 Dose: Not Given 74 year old woman with history of CKD stage 4, CHF with diastolic dysfunction, pulmonary hypertension, Lung Ca s/p Chemo and radiation therapy, hypertension, DM who presented from home with AMS 1. AMS r/o seizures vs. hypoglycemia encephalopathy 2. CKD stage 4 3. CHF 4. Hypertension 5. DM Renal function improving toward baseline. No hyperkalemia, acidosis or clinical uremia noted. no acute indication for renal replacement therapy off IV fluids. Oral diet as tolerated s/p PRBC transfusion with good response. anemia is likely multifactorial and CKD related anemia is a likeky contributor. BP still above goal, will hydralazine to 50mg TID. CT of the Abd/Pelvis showed bilateral effusions. Off diuretics for now. Clinically not congested. Roque defer starting diuretics again until oral intake established. No renal obstruction seen on CT UA showed 4+ protein and was indicate of a UTI. Urine Culture grew Gram negative bacilli. On Abx. Continue Labetalol 200mg TID and add hydralzine 50mg TID. Continue Amlodipine 10mg Daily. Continue Neurology work up Swallow eval today. Elvis Mayorga DO
--- NOTE | 2019-12-02 12:54 | PN ---
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, Physician - Current Medication List Current Medications: Active Medications Acetaminophen (Tylenol -) 650 mg PO Q6H PRN PRN Reason: PAIN LEVEL 1-5 Albuterol/Ipratropium (Duoneb -) 1 amp NEB RQID [facility] Last Admin: 12/02/19 11:44 Dose: 1 amp Amlodipine Besylate (Norvasc -) 10 mg PO DAILY [facility] Last Admin: 12/02/19 09:09 Dose: 10 mg Aspirin (Ecotrin -) 81 mg PO DAILY [facility] Last Admin: 12/02/19 09:09 Dose: Not Given Atorvastatin Calcium (Lipitor -) 80 mg PO HS [facility] Last Admin: 12/01/19 21:03 Dose: 80 mg Budesonide/Formoterol Fumarate (Symbicort 160/4.5mcg -) 2 puff IH BID [facility] Last Admin: 12/02/19 09:17 Dose: 2 puff Hydralazine HCl (Apresoline -) 50 mg PO TID [facility] Ceftriaxone Sodium 1 gm/ (Dextrose) 50 mls @ 100 mls/hr IVPB DAILY [facility] Last Admin: 12/02/19 09:21 Dose: 100 mls/hr Azithromycin (Zithromax 500mg Ivpb (Pre-Docked)) 500 mg in 250 mls @ 250 mls/ hr IVPB DAILY [facility] Last Admin: 12/02/19 11:19 Dose: 250 mls/hr Insulin Aspart (Novolog Vial Sliding Scale -) 1 vial SQ ACHS [facility]; Protocol Last Admin: 12/02/19 11:45 Dose: 1 unit Labetalol HCl (Normodyne -) 200 mg PO TID [facility] Last Admin: 12/02/19 06:02 Dose: 200 mg Levetiracetam (Keppra Injection -) 500 mg IVPB BID [facility] Last Admin: 12/02/19 10:23 Dose: 500 mg Lorazepam (Ativan Injection -) 1 mg IVPUSH Q3H PRN PRN Reason: MUSCLE SPASMS Ondansetron HCl (Zofran Injection) 4 mg IVPUSH Q6H PRN PRN Reason: NAUSEA AND/OR VOMITING Last Admin: 11/29/19 11:00 Dose: 4 mg Sodium Zirconium Cyclosilicate (Lokelma) 10 gm PO DAILY [facility] Last Admin: 12/02/19 09:10 Dose: Not Given - Objective Vital Signs: Vital Signs Temperature 98.1 F 12/02/19 09:08 Pulse Rate 64 12/02/19 09:08 Respiratory Rate 19 12/02/19 09:08 Blood Pressure 177/61 H 12/02/19 09:08 O2 Sat by Pulse Oximetry (%) 100 12/02/19 09:00 Labs: CBC, BMP 12/02/19 05:55 12/02/19 05:55 Problem List - Problems (1) Altered mental status Code(s): R41.82 - ALTERED MENTAL STATUS, UNSPECIFIED (2) Hypoglycemia Code(s): E16.2 - HYPOGLYCEMIA, UNSPECIFIED (3) [id number] kidney injury Code(s): N17.9 - ACUTE KIDNEY FAILURE, UNSPECIFIED; N18.9 - CHRONIC KIDNEY DISEASE, UNSPECIFIED Qualifiers: Acute renal failure type: unspecified Chronic kidney disease stage: unspecified stage Qualified Code(s): N17.9 - Acute kidney failure, unspecified ; N18.9 - Chronic kidney disease, unspecified (4) COPD (chronic obstructive pulmonary disease) Code(s): J44.9 - CHRONIC OBSTRUCTIVE PULMONARY DISEASE, UNSPECIFIED (5) Hypertensive heart disease Code(s): I11.9 - HYPERTENSIVE HEART DISEASE WITHOUT HEART FAILURE Qualifiers: Heart failure presence: with heart failure Heart failure type: diastolic Heart failure chronicity: acute on chronic Qualified Code(s): I11.0 - Hypertensive heart disease with heart failure; I50.33 - Acute on chronic diastolic (congestive) heart failure (6) Lung cancer Code(s): C34.90 - MALIGNANT NEOPLASM OF UNSP PART OF UNSP BRONCHUS OR LUNG (7) Microcytic anemia Code(s): D50.9 - IRON DEFICIENCY ANEMIA, UNSPECIFIED Assessment/Plan Problem List - Problems (1) Altered mental status Code(s): R41.82 - ALTERED MENTAL STATUS, UNSPECIFIED Assessment/Plan Altered Mental Status r/o Sepsis r/o Pneumonia Acute on Chronic Renal Failure worsening LV Diastolic Dysfunction Pulmonary HTN COPD h/o Lung Cancer s/p chemo/RT Hypoglycemia r/o Seizures HTN DM UTI - antibiotics - IVF - monitor urine output, creatinine - inhaled bronchodilators - can defer systemic steroids at this time - O2 to keep Spo2 >90% - aspiration precautions - DVT prophylaxis DR PARIKH
[2019-12-02] MEDS: hydrALAZINE HCL 50 MG TABLET (FP) PO SCH ×2 (14:16→21:41)
[2019-12-02] MEDS: ATORVASTATIN CA 80 MG TABLET (FP) PO SCH (21:41)
[2019-12-03] MEDS: hydrALAZINE HCL 50 MG TABLET (FP) PO SCH ×3 (06:33→21:32)
[2019-12-03] MEDS: INSULIN SLIDING SCALE (NOVOLOG) 1 VIAL SQ SCH ×4 (06:33→21:32)
[2019-12-03] MEDS: LABETALOL HCL 200 MG TABLET (FP) PO SCH ×3 (06:33→21:31)
[2019-12-03 06:38] LABS: BASO % 0.2 % (0-2.0); EOS % 0.7 % (0-4.5); HEMATOCRIT 28.4 % (32.4-45.2); HEMOGLOBIN 9.2 GM/dL (10.7-15.3); MCH 25.1 pg (25.7-33.7); MCHC 32.4 g/dl (32.0-36.0); MEAN CELL VOLUME 77.5 fl (80-96); MEAN PLT VOLUME 9.8 fl (7.5-11.1); MONO % 8.4 % (3.8-10.2); NEUT % 71.7 % (42.8-82.8); PLATELET COUNT 202 K/MM3 (134-434); RBC 3.66 M/mm3 (3.60-5.2); WHITE BLOOD COUNT 9.7 K/mm3 (4.0-10.0)
[2019-12-03 07:02] LABS: ALBUMIN 2.2 g/dl (3.4-5.0); BILIRUBIN,TOTAL 0.4 mg/dL (0.2-1); CALCIUM 8.1 mg/dL (8.5-10.1); CREATININE 2.8 mg/dL (0.55-1.3); MAGNESIUM 2.2 mg/dL (1.8-2.4); PHOSPHOROUS 4.5 mg/dL (2.5-4.9); POTASSIUM 5.2 mmol/L (3.5-5.1); TOT PROT 5.6 g/dl (6.4-8.2)
[2019-12-03] MEDS: ALBUTEROL SO4 2.5/IPRATROPIUM 0.5 INH SOL 3 ML VIAL.NEB. NEB SCH ×4 (08:05→20:35)
[2019-12-03] MEDS ORDERED: DEXTROSE 5%-WATER - 50 ML IVPB ONE (09:55)
[2019-12-03] MEDS ORDERED: cefTRIAXone SODIUM 1 GM VIAL ONE (09:55)
[2019-12-03] MEDS: CEFTRIAXONE 1 GM in DEXTROSE 5%-WATER - 50 ML IVPB SCH (10:05)
[2019-12-03] MEDS: levETIRAcetam 500 MG/5 ML INJECTION VIAL IVPB SCH ×2 (10:06→21:31)
[2019-12-03] MEDS: amLODIPine BESYLATE 10 MG TABLET (FP) PO SCH (10:06)
[2019-12-03] MEDS: ASPIRIN COATED 81 MG TABLET.EC PO SCH ×2 (10:06→15:09)
[2019-12-03] MEDS: SODIUM ZIRCONIUM CYCLOSILICATE (LOKELMA) 5 GM PACKET PO SCH (10:15)
[2019-12-03] MEDS: BUDESONIDE/FORMETEROL FUMARATE 160/4.5 mcg INHALER IH SCH ×2 (10:21→21:30)
[2019-12-03] MEDS: AZITHROMYCIN IVPB 500 MG/250 ML BAG IVPB SCH (11:00)
--- NOTE | 2019-12-03 12:59 | PN ---
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 patient was brought to hospital for hypoglycemia and unreponsive. Patient is having intermittent jerking motion ( myoclonic jerking). Patient was seen with son at bedside. She did get iv ativan and sedated. Patient did get mri of brain and mri of c spine( no good study due to motion). Both studies were inconclusive, and pateint remains confused and keep having intermittent jerking motion. No new symptoms, no jerky motions. EEG showed epileptiform discharges. She is afebrile and feeling better, back to normal upto 70-80 percent. NEUROLOGICAL EXAMINATION Patient alert oriented x 3, feeling better neck is supple pupils is reactive no face asymmetry moving all extermity sensation is normal reflex are generalized diminished ct head wnl mri of brain and c spine limited exam due to motion eeg showed generalized encephalopathic and intermittent generalized spikes activity Assessment/Plan 1. Hypoglycemic encephalopathy continue supportive care and current level of care, improving clinically 2. myoclonic jerks after hypoglycemia event, eeg showed generalized epileptiform discharges, continue keppra for now 3. Moving all extermity , good strengh in all four extremity .there is no evidence of cord copmression. PLan: prognosis is guarded continue keppra 500 mg po bid - supporitve care Thanking you so much Vernon Ritter MD
--- NOTE | 2019-12-03 14:00 | PN ---
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 (short form) - Note 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: Awake and responsive but confused. No acute events overnight. Intake & Output 11/30/19 12/01/19 12/02/19 12/03/19 23:59 23:59 23:59 23:59 Intake Total 1770 1785 1790 Output Total 200 350 800 300 Balance 1570 1435 990 -300 Last Vital Signs Temp Pulse Resp BP Pulse Ox 97.7 F 69 20 157/73 100 12/03/19 10:00 12/03/19 10:00 12/03/19 10:00 12/03/19 10:00 12/03/19 09:00 Active Medications Acetaminophen (Tylenol -) 650 mg PO Q6H PRN PRN Reason: PAIN LEVEL 1-5 Albuterol/Ipratropium (Duoneb -) 1 amp NEB RQID [facility] Last Admin: 12/03/19 11:27 Dose: 1 amp Amlodipine Besylate (Norvasc -) 10 mg PO DAILY [facility] Last Admin: 12/03/19 10:06 Dose: 10 mg Aspirin (Ecotrin -) 81 mg PO DAILY [facility] Last Admin: 12/03/19 10:06 Dose: Not Given Atorvastatin Calcium (Lipitor -) 80 mg PO HS [facility] Last Admin: 12/02/19 21:41 Dose: 80 mg Budesonide/Formoterol Fumarate (Symbicort 160/4.5mcg -) 2 puff IH BID [facility] Last Admin: 12/03/19 10:21 Dose: 2 puff Hydralazine HCl (Apresoline -) 50 mg PO TID [facility] Last Admin: 12/03/19 13:31 Dose: 50 mg Ceftriaxone Sodium 1 gm/ (Dextrose) 50 mls @ 100 mls/hr IVPB DAILY [facility] Last Admin: 12/03/19 10:05 Dose: 100 mls/hr Azithromycin (Zithromax 500mg Ivpb (Pre-Docked)) 500 mg in 250 mls @ 250 mls/ hr IVPB DAILY [facility] Last Admin: 12/03/19 11:00 Dose: 250 mls/hr Insulin Aspart (Novolog Vial Sliding Scale -) 1 vial SQ ACHS [facility]; Protocol Last Admin: 12/03/19 11:58 Dose: 2 unit Labetalol HCl (Normodyne -) 200 mg PO TID [facility] Last Admin: 12/03/19 13:31 Dose: 200 mg Levetiracetam (Keppra Injection -) 500 mg IVPB BID [facility] Last Admin: 12/03/19 10:06 Dose: 500 mg Ondansetron HCl (Zofran Injection) 4 mg IVPUSH Q6H PRN PRN Reason: NAUSEA AND/OR VOMITING Last Admin: 11/29/19 11:00 Dose: 4 mg Sodium Zirconium Cyclosilicate (Lokelma) 10 gm PO DAILY [facility] Last Admin: 12/03/19 10:15 Dose: 10 gm Gen: awake, NAD Heart: RRR Lung: few scattered rhonchi Abd: soft, nontender Ext: no edema Laboratory Results - last 24 hr 12/02/19 12/02/19 12/03/19 17:17 20:36 05:42 WBC RBC Hgb Hct MCV MCH MCHC RDW Plt Count MPV Absolute Neuts (auto) Neutrophils % Lymphocytes % Monocytes % Eosinophils % Basophils % Nucleated RBC % Sodium Potassium Chloride Carbon Dioxide Anion Gap BUN Creatinine Est GFR (CKD-EPI)AfAm Est GFR (CKD-EPI)NonAf POC Glucometer 215 194 153 Random Glucose Calcium Phosphorus Magnesium Total Bilirubin AST ALT Alkaline Phosphatase Total Protein Albumin 12/03/19 12/03/19 12/03/19 06:00 06:00 11:57 WBC 9.7 RBC 3.66 Hgb 9.2 L Hct 28.4 L MCV 77.5 L MCH 25.1 L MCHC 32.4 RDW 16.0 H Plt Count 202 MPV 9.8 Absolute Neuts (auto) 6.9 Neutrophils % 71.7 Lymphocytes % 19.0 Monocytes % 8.4 Eosinophils % 0.7 D Basophils % 0.2 Nucleated RBC % 0 Sodium 146 H Potassium 5.2 H Chloride 116 H Carbon Dioxide 27 Anion Gap 3 L BUN 63.0 H Creatinine 2.8 H Est GFR (CKD-EPI)AfAm 18.51 Est GFR (CKD-EPI)NonAf 15.97 POC Glucometer 202 Random Glucose 164 H Calcium 8.1 L Phosphorus 4.5 Magnesium 2.2 Total Bilirubin 0.4 AST 55 H ALT 42 Alkaline Phosphatase 125 H Total Protein 5.6 L Albumin 2.2 L Problem List - Problems (1) Altered mental status Code(s): R41.82 - ALTERED MENTAL STATUS, UNSPECIFIED A/P Altered Mental Status Pneumonia Acute on Chronic Renal Failure LV Diastolic Dysfunction Pulmonary HTN COPD h/o Lung Cancer s/p chemo/RT Hypoglycemia r/o Seizures HTN DM UTI - ABX - inhaled bronchodilators - Defer systemic steroids at this time - O2 to keep Spo2 >90% - aspiration precautions - DVT prophylaxis Dr Rogers
[2019-12-03] MEDS ORDERED: LOPERAMIDE HCL 2 MG CAPSULE PO ONE (14:41)
--- NOTE | 2019-12-03 14:46 | PN ---
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 (short form) - Note 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: Comfortable no distress afebrile + diarrhea denies abd pain Vital Signs Temp 97.7 F 12/03/19 10:00 Pulse 69 12/03/19 10:00 Resp 20 12/03/19 10:00 BP 157/73 12/03/19 10:00 Pulse Ox 100 12/03/19 09:00 Intake & Output 12/02/19 12/03/19 12/03/19 23:59 11:59 23:59 Intake Total 1420 Output Total 800 300 Balance 620 -300 Intake: IV 20 lhand #22 11/30 19 IVPB 500 Oral 900 Output: Urine 800 300 External Catheter 800 300 Other: Voiding Method External Catheter External Catheter Bowel Movement Yes Yes: large loose mucoid # Bowel Movements 1 1 Active Medications Acetaminophen (Tylenol -) 650 mg PO Q6H PRN PRN Reason: PAIN LEVEL 1-5 Albuterol/Ipratropium (Duoneb -) 1 amp NEB RQID [facility] Last Admin: 12/03/19 11:27 Dose: 1 amp Amlodipine Besylate (Norvasc -) 10 mg PO DAILY [facility] Last Admin: 12/03/19 10:06 Dose: 10 mg Aspirin (Ecotrin -) 81 mg PO DAILY [facility] Last Admin: 12/03/19 10:06 Dose: Not Given Atorvastatin Calcium (Lipitor -) 80 mg PO HS [facility] Last Admin: 12/02/19 21:41 Dose: 80 mg Budesonide/Formoterol Fumarate (Symbicort 160/4.5mcg -) 2 puff IH BID [facility] Last Admin: 12/03/19 10:21 Dose: 2 puff Hydralazine HCl (Apresoline -) 50 mg PO TID [facility] Last Admin: 12/03/19 13:31 Dose: 50 mg Ceftriaxone Sodium 1 gm/ (Dextrose) 50 mls @ 100 mls/hr IVPB DAILY [facility] Last Admin: 12/03/19 10:05 Dose: 100 mls/hr Azithromycin (Zithromax 500mg Ivpb (Pre-Docked)) 500 mg in 250 mls @ 250 mls/ hr IVPB DAILY [facility] Last Admin: 12/03/19 11:00 Dose: 250 mls/hr Insulin Aspart (Novolog Vial Sliding Scale -) 1 vial SQ ACHS [facility]; Protocol Last Admin: 12/03/19 11:58 Dose: 2 unit Labetalol HCl (Normodyne -) 200 mg PO TID [facility] Last Admin: 12/03/19 13:31 Dose: 200 mg Levetiracetam (Keppra Injection -) 500 mg IVPB BID [facility] Last Admin: 12/03/19 10:06 Dose: 500 mg Ondansetron HCl (Zofran Injection) 4 mg IVPUSH Q6H PRN PRN Reason: NAUSEA AND/OR VOMITING Last Admin: 11/29/19 11:00 Dose: 4 mg Sodium Zirconium Cyclosilicate (Lokelma) 10 gm PO DAILY [facility] Last Admin: 12/03/19 10:15 Dose: 10 gm CBC, BMP 12/03/19 06:00 12/03/19 06:00 physical Exam S1S2 RRR Lungs - Clear Abd- soft, NT no edema aox3 today - Moves all extremities Microbiology 11/28/19 17:52 Urine - Urine Clean Catch Urine Culture - Final Klebsiella Pneumoniae 11/29/19 12:43 Blood - Peripheral Venous Blood Culture - Preliminary NO GROWTH OBTAINED AFTER 24 HOURS, INCUBATION TO CONTINUE FOR 4 DAYS. 11/29/19 12:43 Blood - Peripheral Venous Blood Culture - Preliminary NO GROWTH OBTAINED AFTER 24 HOURS, INCUBATION TO CONTINUE FOR 4 DAYS. A/P AMS HYpoglycemia toxic metabolic encephalopathy Seizures COPD exacerbations acute on chronic renal failure P Afib anemia uti Better Continue present care monitor bm PT EEG Monitor Abx check for c diff- doubt it though Immodoum x 1 do9se today will follow d/w Rn also Problem List - Problems (1) Altered mental status Code(s): R41.82 - ALTERED MENTAL STATUS, UNSPECIFIED (2) Hypoglycemia Code(s): E16.2 - HYPOGLYCEMIA, UNSPECIFIED (3) COPD (chronic obstructive pulmonary disease) Code(s): J44.9 - CHRONIC OBSTRUCTIVE PULMONARY DISEASE, UNSPECIFIED (4) COPD exacerbation Code(s): J44.1 - CHRONIC OBSTRUCTIVE PULMONARY DISEASE W (ACUTE) EXACERBATION (5) Diabetes Code(s): E11.9 - TYPE 2 DIABETES MELLITUS WITHOUT COMPLICATIONS Qualifiers: Diabetes mellitus type: type 2 Diabetes mellitus complication status: with kidney complications Chronic kidney disease stage: stage 3 (moderate) (6) Hyperkalemia Code(s): E87.5 - HYPERKALEMIA (7) Lung cancer Code(s): C34.90 - MALIGNANT NEOPLASM OF UNSP PART OF UNSP BRONCHUS OR LUNG
--- NOTE | 2019-12-03 15:14 | PN ---
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 (short form) - Note 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: Renal follow up for RADHA on CKD Seen and examined at the bedside awake and alert offers no acute complaints moving all 4 extremities no chest pain, abdominal pain, fever or chills making urine Vital Signs Temperature 97.7 F 12/03/19 10:00 Pulse Rate 69 12/03/19 10:00 Respiratory Rate 20 12/03/19 10:00 Blood Pressure 157/73 12/03/19 10:00 O2 Sat by Pulse Oximetry (%) 100 12/03/19 09:00 Intake & Output 11/30/19 12/01/19 12/02/19 12/03/19 23:59 23:59 23:59 23:59 Intake Total 1770 1785 1790 Output Total 200 350 800 300 Balance 1570 1435 990 -300 NAD awake and alert neck supple, no JVD RRR, no M/R Dec BS at lung bases but no rales Soft NT/ND no LE edema, clubbing or cyanosis CBC, BMP 12/03/19 06:00 12/03/19 06:00 Current Medications Acetaminophen (Tylenol -) 650 mg PO Q6H PRN PRN Reason: PAIN LEVEL 1-5 Albuterol/Ipratropium (Duoneb -) 1 amp NEB RQID [facility] Last Admin: 12/03/19 11:27 Dose: 1 amp Amlodipine Besylate (Norvasc -) 10 mg PO DAILY [facility] Last Admin: 12/03/19 10:06 Dose: 10 mg Aspirin (Ecotrin -) 81 mg PO DAILY [facility] Last Admin: 12/03/19 15:09 Dose: 81 mg Atorvastatin Calcium (Lipitor -) 80 mg PO HS [facility] Last Admin: 12/02/19 21:41 Dose: 80 mg Budesonide/Formoterol Fumarate (Symbicort 160/4.5mcg -) 2 puff IH BID [facility] Last Admin: 12/03/19 10:21 Dose: 2 puff Hydralazine HCl (Apresoline -) 50 mg PO TID [facility] Last Admin: 12/03/19 13:31 Dose: 50 mg Ceftriaxone Sodium 1 gm/ (Dextrose) 50 mls @ 100 mls/hr IVPB DAILY [facility] Last Admin: 12/03/19 10:05 Dose: 100 mls/hr Azithromycin (Zithromax 500mg Ivpb (Pre-Docked)) 500 mg in 250 mls @ 250 mls/ hr IVPB DAILY [facility] Last Admin: 12/03/19 11:00 Dose: 250 mls/hr Insulin Aspart (Novolog Vial Sliding Scale -) 1 vial SQ ACHS [facility]; Protocol Last Admin: 12/03/19 11:58 Dose: 2 unit Labetalol HCl (Normodyne -) 300 mg PO TID [facility] Levetiracetam (Keppra Injection -) 500 mg IVPB BID [facility] Last Admin: 12/03/19 10:06 Dose: 500 mg Ondansetron HCl (Zofran Injection) 4 mg IVPUSH Q6H PRN PRN Reason: NAUSEA AND/OR VOMITING Last Admin: 11/29/19 11:00 Dose: 4 mg Sodium Zirconium Cyclosilicate (Lokelma) 10 gm PO DAILY [facility] Last Admin: 12/03/19 10:15 Dose: 10 gm 74 year old woman with history of CKD stage 4, CHF with diastolic dysfunction, pulmonary hypertension, Lung Ca s/p Chemo and radiation therapy, hypertension, DM who presented from home with AMS 1. AMS r/o seizures vs. hypoglycemia encephalopathy 2. CKD stage 4 3. CHF 4. Hypertension 5. DM Renal function at baseline no acute indication for renal replacement therapy continue oral diet as tolerated off diuretics, no volume overload at this time. s/p PRBC transfusion with good response. anemia is likely multifactorial and CKD related anemia is a likeky contributor. CT of the Abd/Pelvis showed bilateral effusions. Off diuretics for now. Clinically not congested. Roque defer starting diuretics again until oral intake established. No renal obstruction seen on CT UA showed 4+ protein and was indicate of a UTI. Urine Culture grew Gram negative bacilli. On Abx. increase Labetalol 200mg TID and continue hydralzine 50mg TID. Continue Amlodipine 10mg Daily. Continue Neurology work up Elvis Mayorga DO
[2019-12-03] MEDS: ATORVASTATIN CA 80 MG TABLET (FP) PO SCH (21:32)
[2019-12-04] MEDS: INSULIN SLIDING SCALE (NOVOLOG) 1 VIAL SQ SCH ×4 (06:23→21:05)
[2019-12-04] MEDS: hydrALAZINE HCL 50 MG TABLET (FP) PO SCH ×3 (06:26→21:58)
[2019-12-04] MEDS: LABETALOL HCL 200 MG TABLET (FP) PO SCH ×3 (06:27→21:58)
[2019-12-04 07:44] LABS: BLOOD UREA NITROGEN 61.7 mg/dL (7-18); CALCIUM 8.1 mg/dL (8.5-10.1); CREATININE 2.8 mg/dL (0.55-1.3); MAGNESIUM 2.1 mg/dL (1.8-2.4)
[2019-12-04] MEDS: ALBUTEROL SO4 2.5/IPRATROPIUM 0.5 INH SOL 3 ML VIAL.NEB. NEB SCH ×4 (07:54→21:00)
[2019-12-04] MEDS: CEFTRIAXONE 1 GM in DEXTROSE 5%-WATER - 50 ML IVPB SCH (09:05)
[2019-12-04] MEDS ORDERED: DEXTROSE 5%-WATER - 50 ML IVPB ONE (09:43)
[2019-12-04] MEDS ORDERED: cefTRIAXone SODIUM 1 GM VIAL ONE (09:43)
[2019-12-04] MEDS: SODIUM ZIRCONIUM CYCLOSILICATE (LOKELMA) 5 GM PACKET PO SCH (09:52)
[2019-12-04] MEDS: amLODIPine BESYLATE 10 MG TABLET (FP) PO SCH (09:52)
[2019-12-04] MEDS: levETIRAcetam 500 MG/5 ML INJECTION VIAL IVPB SCH ×2 (09:52→21:58)
[2019-12-04] MEDS: ASPIRIN COATED 81 MG TABLET.EC PO SCH (09:53)
[2019-12-04] MEDS: BUDESONIDE/FORMETEROL FUMARATE 160/4.5 mcg INHALER IH SCH ×2 (09:55→22:00)
--- NOTE | 2019-12-04 10:37 | PN ---
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 patient was brought to hospital for hypoglycemia and unreponsive. Patient is having intermittent jerking motion ( myoclonic jerking). Patient was seen with son at bedside. She did get iv ativan and sedated. Patient did get mri of brain and mri of c spine( no good study due to motion). Both studies were inconclusive, and pateint remains confused and keep having intermittent jerking motion. Patient is feeling better, no new syptoms. NEUROLOGICAL EXAMINATION Patient alert oriented x 3, feeling better neck is supple pupils is reactive no face asymmetry moving all extermity sensation is normal reflex are generalized diminished ct head wnl mri of brain and c spine limited exam due to motion eeg showed generalized encephalopathic and intermittent generalized spikes activity Assessment/Plan 1. Hypoglycemic encephalopathy continue supportive care and current level of care, improving clinically 2. myoclonic jerks after hypoglycemia event, eeg showed generalized epileptiform discharges, continue keppra for now 3. Moving all extermity , good strengh in all four extremity .there is no evidence of cord copmression. PLan: Patient is feeling better. continue current level medication Thanking you so much Vernon Ritter MD
[2019-12-04] MEDS: AZITHROMYCIN IVPB 500 MG/250 ML BAG IVPB SCH (10:51)
--- NOTE | 2019-12-04 13:36 | PN ---
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 (short form) - Note 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: Renal follow up for RADHA on CKD Seen and examined at the bedside awake and alert offers no acute complaints no chest pain, abdominal pain, fever or chills making urine Vital Signs Temperature 98 F 12/04/19 10:00 Pulse Rate 66 12/04/19 10:00 Respiratory Rate 18 12/04/19 10:00 Blood Pressure 143/52 L 12/04/19 10:00 O2 Sat by Pulse Oximetry (%) 98 12/04/19 09:00 Intake & Output 12/01/19 12/02/19 12/03/19 12/04/19 23:59 23:59 23:59 23:59 Intake Total 1785 1790 950 Output Total 350 800 300 Balance 1435 990 650 NAD awake and alert neck supple, no JVD RRR, no M/R Dec BS at lung bases but no rales Soft NT/ND no LE edema, clubbing or cyanosis CBC, BMP 12/03/19 06:00 12/04/19 06:20 Current Medications Acetaminophen (Tylenol -) 650 mg PO Q6H PRN PRN Reason: PAIN LEVEL 1-5 Albuterol/Ipratropium (Duoneb -) 1 amp NEB RQID [facility] Last Admin: 12/04/19 11:21 Dose: 1 amp Amlodipine Besylate (Norvasc -) 10 mg PO DAILY [facility] Last Admin: 12/04/19 09:52 Dose: 10 mg Aspirin (Ecotrin -) 81 mg PO DAILY [facility] Last Admin: 12/04/19 09:53 Dose: 81 mg Atorvastatin Calcium (Lipitor -) 80 mg PO HS [facility] Last Admin: 12/03/19 21:32 Dose: 80 mg Budesonide/Formoterol Fumarate (Symbicort 160/4.5mcg -) 2 puff IH BID [facility] Last Admin: 12/04/19 09:55 Dose: 2 puff Hydralazine HCl (Apresoline -) 50 mg PO TID [facility] Last Admin: 12/04/19 06:26 Dose: 50 mg Ceftriaxone Sodium 1 gm/ (Dextrose) 50 mls @ 100 mls/hr IVPB DAILY [facility] Last Admin: 12/04/19 09:05 Dose: 100 mls/hr Azithromycin (Zithromax 500mg Ivpb (Pre-Docked)) 500 mg in 250 mls @ 250 mls/ hr IVPB DAILY [facility] Last Admin: 12/04/19 10:51 Dose: 250 mls/hr Insulin Aspart (Novolog Vial Sliding Scale -) 1 vial SQ ACHS [facility]; Protocol Last Admin: 12/04/19 12:12 Dose: 1 unit Labetalol HCl (Normodyne -) 300 mg PO TID [facility] Last Admin: 12/04/19 06:27 Dose: 300 mg Levetiracetam (Keppra Injection -) 500 mg IVPB BID [facility] Last Admin: 12/04/19 09:52 Dose: 500 mg Ondansetron HCl (Zofran Injection) 4 mg IVPUSH Q6H PRN PRN Reason: NAUSEA AND/OR VOMITING Last Admin: 11/29/19 11:00 Dose: 4 mg Sodium Zirconium Cyclosilicate (Lokelma) 10 gm PO DAILY [facility] Last Admin: 12/04/19 09:52 Dose: 10 gm 74 year old woman with history of CKD stage 4, CHF with diastolic dysfunction, pulmonary hypertension, Lung Ca s/p Chemo and radiation therapy, hypertension, DM who presented from home with AMS 1. AMS r/o seizures vs. hypoglycemia encephalopathy 2. CKD stage 4 3. CHF 4. Hypertension 5. DM Renal function improved and stable no acute indication for renal replacement therapy continue oral diet as tolerated off diuretics, no volume overload at this time. s/p PRBC transfusion with good response. anemia is likely multifactorial and CKD related anemia is a likeky contributor. CT of the Abd/Pelvis showed bilateral effusions. Off diuretics for now. Clinically not congested. No renal obstruction seen on CT UA showed 4+ protein and was indicate of a UTI. Urine Culture grew Gram negative bacilli. On Abx. continue Labetalol 200mg TID, hydralzine 50mg TID, Amlodipine 10mg Daily. Continue Neurology work up discharge planning as per primary team Elvis Mayorga DO
--- NOTE | 2019-12-04 14:14 | PN ---
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 (short form) - Note 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: Awake and responsive. No CP or SOB. No acute events overnight. Intake & Output 12/01/19 12/02/19 12/03/19 12/04/19 23:59 23:59 23:59 23:59 Intake Total 1785 1790 950 Output Total 350 800 300 Balance 1435 990 650 Last Vital Signs Temp Pulse Resp BP Pulse Ox 98 F 66 18 143/52 L 98 12/04/19 10:00 12/04/19 10:00 12/04/19 10:00 12/04/19 10:00 12/04/19 09:00 Active Medications Acetaminophen (Tylenol -) 650 mg PO Q6H PRN PRN Reason: PAIN LEVEL 1-5 Albuterol/Ipratropium (Duoneb -) 1 amp NEB RQID [facility] Last Admin: 12/04/19 11:21 Dose: 1 amp Amlodipine Besylate (Norvasc -) 10 mg PO DAILY [facility] Last Admin: 12/04/19 09:52 Dose: 10 mg Aspirin (Ecotrin -) 81 mg PO DAILY [facility] Last Admin: 12/04/19 09:53 Dose: 81 mg Atorvastatin Calcium (Lipitor -) 80 mg PO HS [facility] Last Admin: 12/03/19 21:32 Dose: 80 mg Budesonide/Formoterol Fumarate (Symbicort 160/4.5mcg -) 2 puff IH BID [facility] Last Admin: 12/04/19 09:55 Dose: 2 puff Hydralazine HCl (Apresoline -) 50 mg PO TID [facility] Last Admin: 12/04/19 06:26 Dose: 50 mg Ceftriaxone Sodium 1 gm/ (Dextrose) 50 mls @ 100 mls/hr IVPB DAILY [facility] Last Admin: 12/04/19 09:05 Dose: 100 mls/hr Azithromycin (Zithromax 500mg Ivpb (Pre-Docked)) 500 mg in 250 mls @ 250 mls/ hr IVPB DAILY [facility] Last Admin: 12/04/19 10:51 Dose: 250 mls/hr Insulin Aspart (Novolog Vial Sliding Scale -) 1 vial SQ ACHS [facility]; Protocol Last Admin: 12/04/19 12:12 Dose: 1 unit Labetalol HCl (Normodyne -) 300 mg PO TID [facility] Last Admin: 03/01/20 06:27 Dose: 300 mg Levetiracetam (Keppra Injection -) 500 mg IVPB BID [facility] Last Admin: 12/04/19 09:52 Dose: 500 mg Ondansetron HCl (Zofran Injection) 4 mg IVPUSH Q6H PRN PRN Reason: NAUSEA AND/OR VOMITING Last Admin: 11/29/19 11:00 Dose: 4 mg Sodium Zirconium Cyclosilicate (Lokelma) 10 gm PO DAILY [facility] Last Admin: 12/04/19 09:52 Dose: 10 gm Gen: awake, NAD Heart: RRR Lung: few scattered rhonchi Abd: soft, nontender Ext: no edema Laboratory Results - last 24 hr 12/03/19 12/03/19 12/04/19 17:09 21:00 05:27 Sodium Potassium Chloride Carbon Dioxide Anion Gap BUN Creatinine Est GFR (CKD-EPI)AfAm Est GFR (CKD-EPI)NonAf POC Glucometer 170 160 124 Random Glucose Calcium Phosphorus Magnesium 12/04/19 12/04/19 06:20 12:10 Sodium 148 H Potassium 5.0 Chloride 116 H Carbon Dioxide 28 Anion Gap 4 L BUN 61.7 H Creatinine 2.8 H Est GFR (CKD-EPI)AfAm 18.51 Est GFR (CKD-EPI)NonAf 15.97 POC Glucometer 173 Random Glucose 130 H Calcium 8.1 L Phosphorus 4.0 Magnesium 2.1 Problem List - Problems (1) Altered mental status Code(s): R41.82 - ALTERED MENTAL STATUS, UNSPECIFIED A/P Altered Mental Status Pneumonia Acute on Chronic Renal Failure LV Diastolic Dysfunction Pulmonary HTN COPD h/o Lung Cancer s/p chemo/RT Hypoglycemia r/o Seizures HTN DM UTI - ABX - inhaled bronchodilators - Defer systemic steroids at this time - O2 to keep Spo2 >90% - aspiration precautions - DVT prophylaxis Dr Rogers
[2019-12-04] MEDS: ATORVASTATIN CA 80 MG TABLET (FP) PO SCH (21:58)
[2019-12-05] MEDS: INSULIN SLIDING SCALE (NOVOLOG) 1 VIAL SQ SCH ×4 (06:01→21:48)
[2019-12-05] MEDS: LABETALOL HCL 200 MG TABLET (FP) PO SCH ×3 (06:11→21:48)
[2019-12-05] MEDS: hydrALAZINE HCL 50 MG TABLET (FP) PO SCH ×3 (06:11→21:52)
[2019-12-05] MEDS: ALBUTEROL SO4 2.5/IPRATROPIUM 0.5 INH SOL 3 ML VIAL.NEB. NEB SCH ×4 (08:48→20:58)
[2019-12-05] MEDS: levETIRAcetam 500 MG/5 ML INJECTION VIAL IVPB SCH ×2 (09:25→21:48)
--- NOTE | 2019-12-05 10:01 | PN ---
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 patient was brought to hospital for hypoglycemia and unreponsive. Patient is having intermittent jerking motion ( myoclonic jerking). Patient was seen with son at bedside. She did get iv ativan and sedated. Patient did get mri of brain and mri of c spine( no good study due to motion). Both studies were inconclusive, and pateint remains confused and keep having intermittent jerking motion. Patinet is getting pt and feeling better NEUROLOGICAL EXAMINATION Patient alert oriented x 3, feeling better neck is supple pupils is reactive no face asymmetry moving all extermity sensation is normal reflex are generalized diminished ct head wnl mri of brain and c spine limited exam due to motion eeg showed generalized encephalopathic and intermittent generalized spikes activity Assessment/Plan 1. Hypoglycemic encephalopathy continue supportive care and current level of care, improving clinically 2. myoclonic jerks after hypoglycemia event, eeg showed generalized epileptiform discharges, continue keppra for now 3. Moving all extermity , good strengh in all four extremity .there is no evidence of cord copmression. PLan: Patient is feeling better and doing more activity with PT continue current level medication Thanking you so much Vernon Ritter MD
[2019-12-05] MEDS ORDERED: DEXTROSE 5%-WATER - 50 ML IVPB ONE (10:42)
[2019-12-05] MEDS ORDERED: cefTRIAXone SODIUM 1 GM VIAL ONE (10:42)
[2019-12-05] MEDS: CEFTRIAXONE 1 GM in DEXTROSE 5%-WATER - 50 ML IVPB SCH (10:52)
[2019-12-05] MEDS: ASPIRIN COATED 81 MG TABLET.EC PO SCH (10:53)
[2019-12-05] MEDS: amLODIPine BESYLATE 10 MG TABLET (FP) PO SCH (10:53)
[2019-12-05] MEDS: SODIUM ZIRCONIUM CYCLOSILICATE (LOKELMA) 5 GM PACKET PO SCH (10:53)
[2019-12-05] MEDS: AZITHROMYCIN IVPB 500 MG/250 ML BAG IVPB SCH (11:00)
--- NOTE | 2019-12-05 11:05 | PN ---
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 Looking much better, OOB in chair. Swallowing reassessed with (-) 3 oz water test. Suggest Reg chopped diet, thin liquids, allow ice cream Monitor tolerance STR planned Suspect good prognosis for rehabilitation Repeat MBS as needed,mto upgrade diet
[2019-12-05] MEDS: BUDESONIDE/FORMETEROL FUMARATE 160/4.5 mcg INHALER IH SCH ×2 (11:07→21:52)
--- NOTE | 2019-12-05 11:07 | PN ---
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 (short form) - Note 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: pt seen/ examined sitting in chair feels well says much better Vital Signs Temp 98.5 F 12/05/19 05:42 Pulse 64 12/05/19 05:42 Resp 20 12/05/19 05:42 BP 138/62 12/05/19 05:42 Pulse Ox 98 12/04/19 20:24 Intake & Output 12/04/19 12/04/19 12/05/19 11:59 23:59 11:59 Intake Total 590 Balance 590 Intake: IVPB 350 Oral 240 Other: Voiding Method Incontinent Incontinent Incontinent Bowel Movement Yes No # Bowel Movements 2 Active Medications Acetaminophen (Tylenol -) 650 mg PO Q6H PRN PRN Reason: PAIN LEVEL 1-5 Albuterol/Ipratropium (Duoneb -) 1 amp NEB RQID [facility] Last Admin: 12/05/19 08:48 Dose: 1 amp Amlodipine Besylate (Norvasc -) 10 mg PO DAILY [facility] Last Admin: 12/05/19 10:53 Dose: 10 mg Aspirin (Ecotrin -) 81 mg PO DAILY [facility] Last Admin: 12/05/19 10:53 Dose: 81 mg Atorvastatin Calcium (Lipitor -) 80 mg PO HS [facility] Last Admin: 12/04/19 21:58 Dose: 80 mg Budesonide/Formoterol Fumarate (Symbicort 160/4.5mcg -) 2 puff IH BID [facility] Last Admin: 12/04/19 22:00 Dose: 2 puff Hydralazine HCl (Apresoline -) 50 mg PO TID [facility] Last Admin: 12/05/19 06:11 Dose: 50 mg Ceftriaxone Sodium 1 gm/ (Dextrose) 50 mls @ 100 mls/hr IVPB DAILY [facility] Last Admin: 12/05/19 10:52 Dose: 100 mls/hr Azithromycin (Zithromax 500mg Ivpb (Pre-Docked)) 500 mg in 250 mls @ 250 mls/ hr IVPB DAILY [facility] Last Admin: 12/04/19 10:51 Dose: 250 mls/hr Insulin Aspart (Novolog Vial Sliding Scale -) 1 vial SQ ACHS [facility]; Protocol Last Admin: 12/05/19 06:01 Dose: Not Given Labetalol HCl (Normodyne -) 300 mg PO TID [facility] Last Admin: 12/05/19 06:11 Dose: 300 mg Levetiracetam (Keppra Injection -) 500 mg IVPB BID [facility] Last Admin: 12/05/19 09:25 Dose: 500 mg Ondansetron HCl (Zofran Injection) 4 mg IVPUSH Q6H PRN PRN Reason: NAUSEA AND/OR VOMITING Last Admin: 11/29/19 11:00 Dose: 4 mg Sodium Zirconium Cyclosilicate (Lokelma) 10 gm PO DAILY [facility] Last Admin: 12/05/19 10:53 Dose: 10 gm CBC, BMP 12/03/19 06:00 12/04/19 06:20 Microbiology 11/29/19 12:43 Blood Culture - Final Blood - Peripheral Venous NO GROWTH AFTER 5 DAYS INCUBATION 11/29/19 12:43 Blood Culture - Final Blood - Peripheral Venous NO GROWTH AFTER 5 DAYS INCUBATION 12/03/19 07:00 Clostridioides difficile Antigen - Final Stool Clostridioides difficile Toxin Assay - Final Physical Exam S1S2 RRR Lungs - Clear Abd- soft, NT no edema aox3 Moves all extremities A/P AMS HYpoglycemia toxic metabolic encephalopathy Seizures COPD exacerbation acute on chronic renal failure P Afib anemia uti Better Continue present care monitor bm PT EEG Monitor Abx f/u labs / cxr overall better If stable - consider d/c tomorrow (Pt feels not ready to go home yet) May need str will follow Problem List - Problems (1) Altered mental status Code(s): R41.82 - ALTERED MENTAL STATUS, UNSPECIFIED (2) Hypoglycemia Code(s): E16.2 - HYPOGLYCEMIA, UNSPECIFIED (3) COPD (chronic obstructive pulmonary disease) Code(s): J44.9 - CHRONIC OBSTRUCTIVE PULMONARY DISEASE, UNSPECIFIED (4) COPD exacerbation Code(s): J44.1 - CHRONIC OBSTRUCTIVE PULMONARY DISEASE W (ACUTE) EXACERBATION (5) Diabetes Code(s): E11.9 - TYPE 2 DIABETES MELLITUS WITHOUT COMPLICATIONS Qualifiers: Diabetes mellitus type: type 2 Diabetes mellitus complication status: with kidney complications Chronic kidney disease stage: stage 3 (moderate) (6) Hyperkalemia Code(s): E87.5 - HYPERKALEMIA (7) Lung cancer Code(s): C34.90 - MALIGNANT NEOPLASM OF UNSP PART OF UNSP BRONCHUS OR LUNG
--- NOTE | 2019-12-05 13:15 | PN ---
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 (short form) - Note 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: Awake and responsive. No CP or SOB. No acute events overnight. Intake & Output 12/02/19 12/03/19 12/04/19 12/05/19 23:59 23:59 23:59 23:59 Intake Total 1790 950 590 Output Total 800 300 Balance 990 650 590 Last Vital Signs Temp Pulse Resp BP Pulse Ox 98 F 63 20 147/51 L 98 12/05/19 10:00 12/05/19 10:00 12/05/19 05:42 12/05/19 10:00 12/05/19 09:00 Active Medications Acetaminophen (Tylenol -) 650 mg PO Q6H PRN PRN Reason: PAIN LEVEL 1-5 Albuterol/Ipratropium (Duoneb -) 1 amp NEB RQID [facility] Last Admin: 12/05/19 08:48 Dose: 1 amp Amlodipine Besylate (Norvasc -) 10 mg PO DAILY [facility] Last Admin: 12/05/19 10:53 Dose: 10 mg Aspirin (Ecotrin -) 81 mg PO DAILY [facility] Last Admin: 12/05/19 10:53 Dose: 81 mg Atorvastatin Calcium (Lipitor -) 80 mg PO HS [facility] Last Admin: 12/04/19 21:58 Dose: 80 mg Budesonide/Formoterol Fumarate (Symbicort 160/4.5mcg -) 2 puff IH BID [facility] Last Admin: 12/05/19 11:07 Dose: 2 puff Hydralazine HCl (Apresoline -) 50 mg PO TID [facility] Last Admin: 12/05/19 06:11 Dose: 50 mg Ceftriaxone Sodium 1 gm/ (Dextrose) 50 mls @ 100 mls/hr IVPB DAILY [facility] Last Admin: 12/05/19 10:52 Dose: 100 mls/hr Azithromycin (Zithromax 500mg Ivpb (Pre-Docked)) 500 mg in 250 mls @ 250 mls/ hr IVPB DAILY [facility] Last Admin: 12/05/19 11:00 Dose: 250 mls/hr Insulin Aspart (Novolog Vial Sliding Scale -) 1 vial SQ ACHS [facility]; Protocol Last Admin: 12/05/19 12:01 Dose: 1 unit Labetalol HCl (Normodyne -) 300 mg PO TID [facility] Last Admin: 12/05/19 06:11 Dose: 300 mg Levetiracetam (Keppra Injection -) 500 mg IVPB BID [facility] Last Admin: 12/05/19 09:25 Dose: 500 mg Ondansetron HCl (Zofran Injection) 4 mg IVPUSH Q6H PRN PRN Reason: NAUSEA AND/OR VOMITING Last Admin: 11/29/19 11:00 Dose: 4 mg Sodium Zirconium Cyclosilicate (Lokelma) 10 gm PO DAILY [facility] Last Admin: 12/05/19 10:53 Dose: 10 gm Gen: awake, NAD Heart: RRR Lung: few scattered rhonchi Abd: soft, nontender Ext: no edema Laboratory Results - last 24 hr 12/01/19 12/04/19 12/04/19 10:08 12:10 16:52 POC Glucometer 173 181 Blood Type O POSITIVE Antibody Screen Negative Crossmatch See Detail 12/04/19 12/05/19 12/05/19 20:57 05:49 12:00 POC Glucometer 147 128 189 Blood Type Antibody Screen Crossmatch Problem List - Problems (1) Altered mental status Code(s): R41.82 - ALTERED MENTAL STATUS, UNSPECIFIED A/P Altered Mental Status Pneumonia Acute on Chronic Renal Failure LV Diastolic Dysfunction Pulmonary HTN COPD h/o Lung Cancer s/p chemo/RT Hypoglycemia r/o Seizures HTN DM UTI - ABX - inhaled bronchodilators - Defer systemic steroids at this time - O2 to keep Spo2 >90% - Aspiration precautions - DVT prophylaxis Dr Rogers
[2019-12-05] MEDS: ATORVASTATIN CA 80 MG TABLET (FP) PO SCH (21:48)
[2019-12-06] MEDS: LABETALOL HCL 200 MG TABLET (FP) PO SCH ×3 (05:58→21:10)
[2019-12-06] MEDS: hydrALAZINE HCL 50 MG TABLET (FP) PO SCH ×3 (05:58→21:10)
[2019-12-06] MEDS: INSULIN SLIDING SCALE (NOVOLOG) 1 VIAL SQ SCH ×4 (05:59→21:16)
[2019-12-06 06:42] LABS: BASO % 0.3 % (0-2.0); HEMOGLOBIN 7.9 GM/dL (10.7-15.3); LYMPH % 22.2 % (8-40); MCH 24.7 pg (25.7-33.7); MCHC 31.5 g/dl (32.0-36.0); MEAN CELL VOLUME 78.4 fl (80-96); MEAN PLT VOLUME 10.2 fl (7.5-11.1); MONO % 7.7 % (3.8-10.2); NEUT % 67.8 % (42.8-82.8); PLATELET COUNT 172 K/MM3 (134-434); RBC 3.19 M/mm3 (3.60-5.2); RDW 16.4 % (11.6-15.6); WHITE BLOOD COUNT 8.2 K/mm3 (4.0-10.0)
[2019-12-06 06:59] LABS: ALBUMIN 2.3 g/dl (3.4-5.0); BILIRUBIN,TOTAL 0.4 mg/dL (0.2-1); BLOOD UREA NITROGEN 60.8 mg/dL (7-18); CALCIUM 8.5 mg/dL (8.5-10.1); POTASSIUM 4.7 mmol/L (3.5-5.1); TOT PROT 5.5 g/dl (6.4-8.2)
[2019-12-06] MEDS: ALBUTEROL SO4 2.5/IPRATROPIUM 0.5 INH SOL 3 ML VIAL.NEB. NEB SCH ×4 (07:48→21:15)
[2019-12-06] MEDS ORDERED: PT OWN MED DRAWER 7, Y5N ONE (09:04)
[2019-12-06] MEDS ORDERED: cefTRIAXone SODIUM 1 GM VIAL ONE (09:04)
[2019-12-06] MEDS ORDERED: DEXTROSE 5%-WATER - 50 ML IVPB ONE (09:05)
[2019-12-06] MEDS: amLODIPine BESYLATE 10 MG TABLET (FP) PO SCH (09:07)
[2019-12-06] MEDS: ASPIRIN COATED 81 MG TABLET.EC PO SCH (09:07)
[2019-12-06] MEDS: SODIUM ZIRCONIUM CYCLOSILICATE (LOKELMA) 5 GM PACKET PO SCH (09:11)
[2019-12-06] MEDS: CEFTRIAXONE 1 GM in DEXTROSE 5%-WATER - 50 ML IVPB SCH (09:14)
[2019-12-06] MEDS: BUDESONIDE/FORMETEROL FUMARATE 160/4.5 mcg INHALER IH SCH ×2 (09:17→21:10)
[2019-12-06] MEDS: AZITHROMYCIN IVPB 500 MG/250 ML BAG IVPB SCH (10:07)
[2019-12-06] MEDS: levETIRAcetam 500 MG/5 ML INJECTION VIAL IVPB SCH (11:20)
--- NOTE | 2019-12-06 11:38 | PN ---
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 Looking much better, OOB in chair. Swallowing reassessed with (-) 3 oz water test. Suggest Reg chopped diet, thin liquids, allow ice cream Monitor tolerance Discussed with PT/PMD d/c plan STR planned-good prognosis for rehabilitation if pt/family interested Repeat MBS as needed,to upgrade diet
--- NOTE | 2019-12-06 11:40 | DS ---
Physical Examination Vital Signs: Vital Signs Temperature 97.8 F 12/06/19 10:00 Pulse Rate 75 12/06/19 10:00 Respiratory Rate 20 12/06/19 10:00 Blood Pressure 135/50 L 12/06/19 10:00 O2 Sat by Pulse Oximetry (%) 100 12/06/19 09:00 Labs: CBC, BMP 12/06/19 05:50 12/06/19 05:50 Discharge Summary Problems reviewed: Yes Reason For Visit: HYPOGLYCEMIA, AMS Current Active Problems Altered mental status (Acute) Hypoglycemia (Acute) Condition: Fair - Instructions - Home Medications Comprehensive Discharge Medication List: Ambulatory Orders Insulin (Levemir) [Levemir Flexpen -] 40 units SQ DAILY 12/13/13 Insulin Aspart [Novolog] 10 unit SQ AC 12/13/13 Albuterol 0.083% Nebulizer Rosemarie [Ventolin 0.083% Nebulizer Soln -] 1 neb NEB Q6H #30 vial 01/09/16 Amlodipine Besylate 10 mg PO DAILY 09/06/19 Budesonide/Formeterol Fumarate [SYMBICORT 160/4.5mcg -] 2 puff PO DAILY Ins[facility] ([facility]) Aspart [NovoLOG -] 6 unit SQ HS 09/06/19 Apixaban [Eliquis -] 2.5 mg PO BID #60 tablet 09/13/19 Carvedilol [Coreg -] 25 mg PO BID #60 tablet 09/13/19 Sodium Bicarbonate - 650 mg PO DAILY #30 tablet 09/13/19 Torsemide [Demadex -] 20 mg PO DAILY #30 tablet 09/13/19 hydrALAZINE HCL [Apresoline -] 100 mg PO TID #90 tablet 09/13/19 Metoprolol Succinate 25 mg PO DAILY 11/28/19 Rosuvastatin [Crestor -] 5 mg PO DAILY 11/28/19 Valsartan/Hydrochlorothiazide [Valsartan-Hctz 80-12.5 mg Tab] 1 tab PO DAILY
[2019-12-06] MEDS ORDERED: IRON SUCROSE INJECTION 200 MG in SODIUM CHLORIDE 90 ML IVPB ONE (11:42)
--- NOTE | 2019-12-06 11:45 | PN ---
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 (short form) - Note 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: Events note family at bedside Pt more awake and responsive moving upper extremities now sitting in a chair Vital Signs - 24 hr 12/05/19 12/05/19 12/05/19 14:00 18:00 21:00 Temperature 98.0 F 98.2 F Pulse Rate 62 60 Respiratory 18 18 18 Rate Blood Pressure 138/49 L 133/50 L O2 Sat by Pulse 98 Oximetry (%) 12/05/19 12/06/19 12/06/19 22:00 02:00 06:00 Temperature 98.5 F 98.4 F 98.5 F Pulse Rate 65 66 68 Respiratory 20 20 20 Rate Blood Pressure 142/57 L 134/57 L 159/59 L O2 Sat by Pulse Oximetry (%) 12/06/19 12/06/19 09:00 10:00 Temperature 97.8 F Pulse Rate 75 Respiratory 20 Rate Blood Pressure 135/50 L O2 Sat by Pulse 100 Oximetry (%) Current Medications Generic Name Dose Route Start Last Admin Trade Name Freq PRN Reason Stop Dose Admin Acetaminophen 650 mg 12/01/19 17:29 Tylenol - PO Q6H PRN PAIN LEVEL 1-5 Albuterol/Ipratropium 1 amp 12/01/19 16:00 12/05/19 20:58 Duoneb - NEB 1 amp RQID DANISH Administration Amlodipine Besylate 10 mg 11/29/19 10:00 12/06/19 09:07 Norvasc - PO 10 mg DAILY D[facility] Administration Amoxicillin/Clavulanate Potassium 1 tab 12/07/19 08:00 Augmentin - 500mg Tablet PO BID@0800,1730 [facility] Aspirin 81 mg 11/29/19 10:00 12/06/19 09:07 Ecotrin - PO 81 mg DAILY [facility] Administration Atorvastatin Calcium 80 mg 11/28/19 22:00 12/05/19 21:48 Lipitor - PO 80 mg HS [facility] Administration Budesonide/Formoterol Fumarate 2 puff 11/28/19 22:00 12/06/19 09:17 Symbicort 160/4.5mcg - IH 2 puff BID [facility] Administration Hydralazine HCl 50 mg 12/02/19 14:00 12/06/19 05:58 Apresoline - PO 50 mg TID D[facility] Administration Iron Sucrose 200 mg/ Sodium 100 mls @ 100 mls/hr 12/06/19 11:42 Chloride IVPB 12/06/19 12:41 ONCE ONE Insulin Aspart 1 vial 11/28/19 22:00 12/06/19 10:58 Novolog Vial Sliding Scale - SQ 2 unit ACHS DAN[facility] Administration Protocol Labetalol HCl 300 mg 12/03/19 22:00 12/06/19 05:58 Normodyne - PO 300 mg TID [facility] Administration Levetiracetam 500 mg 12/06/19 22:00 Keppra - PO BID [facility] Ondansetron HCl 4 mg 11/29/19 11:21 11/29/19 11:00 Zofran Injection IVPUSH 4 mg Q6H PRN Administration NAUSEA AND/OR VOMITING Sodium Zirconium Cyclosilicate 10 gm 11/28/19 21:30 12/06/19 09:11 Lokelma PO 10 gm DAILY [facility] Administration Laboratory Results - last 24 hr 12/05/19 12/05/19 12/05/19 12:00 17:13 21:30 WBC RBC Hgb Hct MCV MCH MCHC RDW Plt Count MPV Absolute Neuts (auto) Neutrophils % Lymphocytes % Monocytes % Eosinophils % Basophils % Nucleated RBC % Sodium Potassium Chloride Carbon Dioxide Anion Gap BUN Creatinine Est GFR (CKD-EPI)AfAm Est GFR (CKD-EPI)NonAf POC Glucometer 189 186 155 Random Glucose Calcium Total Bilirubin AST ALT Alkaline Phosphatase Total Protein Albumin 12/06/19 12/06/19 12/06/19 05:34 05:50 05:50 WBC 8.2 RBC 3.19 L Hgb 7.9 L Hct 25.0 L MCV 78.4 L MCH 24.7 L MCHC 31.5 L RDW 16.4 H Plt Count 172 MPV 10.2 Absolute Neuts (auto) 5.5 Neutrophils % 67.8 Lymphocytes % 22.2 Monocytes % 7.7 Eosinophils % 2.0 D Basophils % 0.3 Nucleated RBC % 0 Sodium 143 Potassium 4.7 Chloride 112 H Carbon Dioxide 27 Anion Gap 5 L BUN 60.8 H Creatinine 3.0 H Est GFR (CKD-EPI)AfAm 17.03 Est GFR (CKD-EPI)NonAf 14.69 POC Glucometer 123 Random Glucose 123 H Calcium 8.5 Total Bilirubin 0.4 AST 47 H ALT 57 Alkaline Phosphatase 136 H Total Protein 5.5 L Albumin 2.3 L 12/06/19 10:55 WBC RBC Hgb Hct MCV MCH MCHC RDW Plt Count MPV Absolute Neuts (auto) Neutrophils % Lymphocytes % Monocytes % Eosinophils % Basophils % Nucleated RBC % Sodium Potassium Chloride Carbon Dioxide Anion Gap BUN Creatinine Est GFR (CKD-EPI)AfAm Est GFR (CKD-EPI)NonAf POC Glucometer 247 Random Glucose Calcium Total Bilirubin AST ALT Alkaline Phosphatase Total Protein Albumin S1 S2 RRR Lungs decreased breath sounds+ Abd- soft, NT no edema Microbiology 11/28/19 17:52 Urine - Urine Clean Catch Urine Culture - Final Klebsiella Pneumoniae 11/29/19 12:43 Blood - Peripheral Venous Blood Culture - Preliminary NO GROWTH OBTAINED AFTER 24 HOURS, INCUBATION TO CONTINUE FOR 4 DAYS. 11/29/19 12:43 Blood - Peripheral Venous Blood Culture - Preliminary NO GROWTH OBTAINED AFTER 24 HOURS, INCUBATION TO CONTINUE FOR 4 DAYS. A/P AMS HYpoglycemia toxic metabolic encephalopathy Seizures COPD exacerbations acute on chronic renal failure P Afib anemia -- holding Torsemide for now\ -- Nebs, O2,change iv antibiotics to po -- MRI brain and c spine noted-- no sign of acute CVA -- elevated LFT--trending down -- monitor blood sugars -- EEG-->encephalopathy, seizure --venofer to be given today - noted low Hb -- dc planning-- spoke with -- agreeing for STR , acute rehab --monitor HCT -- influenza screen --negative Problem List - Problems (1) Altered mental status Code(s): R41.82 - ALTERED MENTAL STATUS, UNSPECIFIED (2) Hypoglycemia Code(s): E16.2 - HYPOGLYCEMIA, UNSPECIFIED (3) COPD (chronic obstructive pulmonary disease) Code(s): J44.9 - CHRONIC OBSTRUCTIVE PULMONARY DISEASE, UNSPECIFIED (4) COPD exacerbation Code(s): J44.1 - CHRONIC OBSTRUCTIVE PULMONARY DISEASE W (ACUTE) EXACERBATION (5) Diabetes Code(s): E11.9 - TYPE 2 DIABETES MELLITUS WITHOUT COMPLICATIONS Qualifiers: Diabetes mellitus type: type 2 Diabetes mellitus complication status: with kidney complications Chronic kidney disease stage: stage 3 (moderate) (6) Hyperkalemia Code(s): E87.5 - HYPERKALEMIA (7) Lung cancer Code(s): C34.90 - MALIGNANT NEOPLASM OF UNSP PART OF UNSP BRONCHUS OR LUNG
--- NOTE | 2019-12-06 12:26 | PN ---
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, Physician History of Present Illness: pulmonary awake,alert,no distress,oob-chair,comfortable - Current Medication List Current Medications: Active Medications Acetaminophen (Tylenol -) 650 mg PO Q6H PRN PRN Reason: PAIN LEVEL 1-5 Albuterol/Ipratropium (Duoneb -) 1 amp NEB RQID [facility] Last Admin: 12/06/19 11:49 Dose: 1 amp Amlodipine Besylate (Norvasc -) 10 mg PO DAILY [facility] Last Admin: 12/06/19 09:07 Dose: 10 mg Amoxicillin/Clavulanate Potassium (Augmentin - 500mg Tablet) 1 tab PO BID@0800, 1730 [facility] Aspirin (Ecotrin -) 81 mg PO DAILY [facility] Last Admin: 12/06/19 09:07 Dose: 81 mg Atorvastatin Calcium (Lipitor -) 80 mg PO HS [facility] Last Admin: 12/05/19 21:48 Dose: 80 mg Budesonide/Formoterol Fumarate (Symbicort 160/4.5mcg -) 2 puff IH BID [facility] Last Admin: 12/06/19 09:17 Dose: 2 puff Hydralazine HCl (Apresoline -) 50 mg PO TID [facility] Last Admin: 12/06/19 05:58 Dose: 50 mg Iron Sucrose 200 mg/ Sodium (Chloride) 100 mls @ 100 mls/hr IVPB ONCE ONE Stop: 12/06/19 12:41 Insulin Aspart (Novolog Vial Sliding Scale -) 1 vial SQ ACHS [facility]; Protocol Last Admin: 12/06/19 10:58 Dose: 2 unit Labetalol HCl (Normodyne -) 300 mg PO TID [facility] Last Admin: 12/06/19 05:58 Dose: 300 mg Levetiracetam (Keppra -) 500 mg PO BID [facility] Ondansetron HCl (Zofran Injection) 4 mg IVPUSH Q6H PRN PRN Reason: NAUSEA AND/OR VOMITING Last Admin: 11/29/19 11:00 Dose: 4 mg Sodium Zirconium Cyclosilicate (Lokelma) 10 gm PO DAILY [facility] Last Admin: 12/06/19 09:11 Dose: 10 gm - Objective Vital Signs: Vital Signs Temperature 97.8 F 12/06/19 10:00 Pulse Rate 75 12/06/19 10:00 Respiratory Rate 20 12/06/19 10:00 Blood Pressure 135/50 L 12/06/19 10:00 O2 Sat by Pulse Oximetry (%) 100 12/06/19 09:00 Constitutional: Yes: Well Nourished, Calm Eyes: Yes: WNL HENT: Yes: WNL Neck: Yes: WNL Cardiovascular: Yes: Regular Rate and Rhythm, S1, S2 Respiratory: Yes: Rhonchi (few rhonchi) Gastrointestinal: Yes: Normal Bowel Sounds, Soft Extremities: Yes: WNL Edema: No Labs: CBC, BMP 12/06/19 05:50 12/06/19 05:50 Problem List - Problems (1) Altered mental status Code(s): R41.82 - ALTERED MENTAL STATUS, UNSPECIFIED (2) Hypoglycemia Code(s): E16.2 - HYPOGLYCEMIA, UNSPECIFIED (3) Jtmme-ce-pcoskat kidney injury Code(s): N17.9 - ACUTE KIDNEY FAILURE, UNSPECIFIED; N18.9 - CHRONIC KIDNEY DISEASE, UNSPECIFIED Qualifiers: Acute renal failure type: unspecified Chronic kidney disease stage: unspecified stage Qualified Code(s): N17.9 - Acute kidney failure, unspecified ; N18.9 - Chronic kidney disease, unspecified (4) COPD (chronic obstructive pulmonary disease) Code(s): J44.9 - CHRONIC OBSTRUCTIVE PULMONARY DISEASE, UNSPECIFIED (5) Hypertensive heart disease Code(s): I11.9 - HYPERTENSIVE HEART DISEASE WITHOUT HEART FAILURE Qualifiers: Heart failure presence: with heart failure Heart failure type: diastolic Heart failure chronicity: acute on chronic Qualified Code(s): I11.0 - Hypertensive heart disease with heart failure; I50.33 - Acute on chronic diastolic (congestive) heart failure (6) Lung cancer Code(s): C34.90 - MALIGNANT NEOPLASM OF UNSP PART OF UNSP BRONCHUS OR LUNG (7) Microcytic anemia Code(s): D50.9 - IRON DEFICIENCY ANEMIA, UNSPECIFIED (8) Pulmonary HTN Code(s): I27.20 - PULMONARY HYPERTENSION, UNSPECIFIED Assessment/Plan A/P Altered Mental Status Pneumonia UTI Acute on Chronic Renal Failure LV Diastolic Dysfunction Pulmonary HTN COPD h/o Lung Cancer s/p chemo/RT Hypoglycemia r/o Seizures HTN DM UTI - continue antibiotics - monitor urine output, creatinine - inhaled bronchodilators - can defer systemic steroids at this time - O2 to keep Spo2 >90% - aspiration precautions - DVT prophylaxis Problem List - Problems (1) Altered mental status Code(s): R41.82 - ALTERED MENTAL STATUS, UNSPECIFIED
--- NOTE | 2019-12-06 12:27 | PN ---
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 (short form) - Note 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: Renal follow up for RADHA on CKD Seen and examined at the bedside awake and alert offers no acute complaints no chest pain, abdominal pain, fever or chills making urine awaiting discharge to rehab Vital Signs Temperature 97.8 F 12/06/19 10:00 Pulse Rate 75 12/06/19 10:00 Respiratory Rate 20 12/06/19 10:00 Blood Pressure 135/50 L 12/06/19 10:00 O2 Sat by Pulse Oximetry (%) 100 12/06/19 09:00 Intake & Output 12/03/19 12/04/19 12/05/19 12/06/19 23:59 23:59 23:59 23:59 Intake Total 950 590 860 70 Output Total 300 Balance 650 590 860 70 Weight 77.111 kg NAD awake and alert neck supple, no JVD RRR, no M/R Dec BS at lung bases but no rales Soft NT/ND no LE edema, clubbing or cyanosis CBC, BMP 12/06/19 05:50 12/06/19 05:50 Current Medications Acetaminophen (Tylenol -) 650 mg PO Q6H PRN PRN Reason: PAIN LEVEL 1-5 Albuterol/Ipratropium (Duoneb -) 1 amp NEB RQID [facility] Last Admin: 12/06/19 11:49 Dose: 1 amp Amlodipine Besylate (Norvasc -) 10 mg PO DAILY [facility] Last Admin: 12/06/19 09:07 Dose: 10 mg Amoxicillin/Clavulanate Potassium (Augmentin - 500mg Tablet) 1 tab PO BID@0800, 1730 [facility] Aspirin (Ecotrin -) 81 mg PO DAILY [facility] Last Admin: 12/06/19 09:07 Dose: 81 mg Atorvastatin Calcium (Lipitor -) 80 mg PO HS [facility] Last Admin: 12/05/19 21:48 Dose: 80 mg Budesonide/Formoterol Fumarate (Symbicort 160/4.5mcg -) 2 puff IH BID [facility] Last Admin: 12/06/19 09:17 Dose: 2 puff Hydralazine HCl (Apresoline -) 50 mg PO TID [facility] Last Admin: 12/06/19 05:58 Dose: 50 mg Iron Sucrose 200 mg/ Sodium (Chloride) 100 mls @ 100 mls/hr IVPB ONCE ONE Stop: 12/06/19 12:41 Insulin Aspart (Novolog Vial Sliding Scale -) 1 vial SQ ACHS [facility]; Protocol Last Admin: 12/06/19 10:58 Dose: 2 unit Labetalol HCl (Normodyne -) 300 mg PO TID [facility] Last Admin: 12/06/19 05:58 Dose: 300 mg Levetiracetam (Keppra -) 500 mg PO BID [facility] Ondansetron HCl (Zofran Injection) 4 mg IVPUSH Q6H PRN PRN Reason: NAUSEA AND/OR VOMITING Last Admin: 11/29/19 11:00 Dose: 4 mg Sodium Zirconium Cyclosilicate (Lokelma) 10 gm PO DAILY [facility] Last Admin: 12/06/19 09:11 Dose: 10 gm 74 year old woman with history of CKD stage 4, CHF with diastolic dysfunction, pulmonary hypertension, Lung Ca s/p Chemo and radiation therapy, hypertension, DM who presented from home with AMS 1. AMS r/o seizures vs. hypoglycemia encephalopathy 2. CKD stage 4 3. CHF 4. Hypertension 5. DM Renal function improved and stable continue oral diet as toleratede. s/p PRBC transfusion with good response. to get IV iron as well. anemia is likely multifactorial and CKD related anemia is a likeky contributor. CT of the Abd/Pelvis showed bilateral effusions. Off diuretics for now. Clinically not congested. No renal obstruction seen on CT UA showed 4+ protein and was indicate of a UTI. Urine Culture grew Gram negative bacilli. On Abx. continue Labetalol 200mg TID, hydralzine 50mg TID, Amlodipine 10mg Daily. Continue Neurology work up discharge planning as per primary team to follow up in our office within 2 weeks of discharge Elvis Mayorga DO
--- NOTE | 2019-12-06 15:33 | PN ---
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 patient was brought to hospital for hypoglycemia and unreponsive. Patient is having intermittent jerking motion ( myoclonic jerking). Patient was seen with son at bedside. She did get iv ativan and sedated. Patient did get mri of brain and mri of c spine( no good study due to motion). Both studies were inconclusive, and pateint remains confused and keep having intermittent jerking motion. Patinet is getting pt and feeling better . No new complain NEUROLOGICAL EXAMINATION Patient alert oriented x 3, feeling better neck is supple pupils is reactive no face asymmetry moving all extermity sensation is normal reflex are generalized diminished ct head wnl mri of brain and c spine limited exam due to motion eeg showed generalized encephalopathic and intermittent generalized spikes activity Assessment/Plan 1. Hypoglycemic encephalopathy continue supportive care and current level of care, improving clinically 2. myoclonic jerks after hypoglycemia event, eeg showed generalized epileptiform discharges, continue keppra for now 3. Moving all extermity , good strengh in all four extremity .there is no evidence of cord copmression. PLan: Patient is feeling better and doing more activity with PT rpeat eeg as first one showed abnormality waiting for placement Thanking you so much Vernon Ritter MD
[2019-12-06] MEDS: ATORVASTATIN CA 80 MG TABLET (FP) PO SCH (21:10)
[2019-12-06] MEDS: levETIRAcetam 500 MG TABLET (FP) PO SCH (21:10)
[2019-12-07] MEDS: hydrALAZINE HCL 50 MG TABLET (FP) PO SCH ×3 (06:11→21:25)
[2019-12-07] MEDS: LABETALOL HCL 200 MG TABLET (FP) PO SCH ×3 (06:11→21:25)
[2019-12-07] MEDS: INSULIN SLIDING SCALE (NOVOLOG) 1 VIAL SQ SCH ×4 (06:12→21:25)
[2019-12-07 07:23] LABS: HEMATOCRIT 23.9 % (32.4-45.2); HEMOGLOBIN 7.6 GM/dL (10.7-15.3); MCH 25.1 pg (25.7-33.7); MCHC 31.9 g/dl (32.0-36.0); MEAN CELL VOLUME 78.5 fl (80-96); MEAN PLT VOLUME 10.4 fl (7.5-11.1); PLATELET COUNT 158 K/MM3 (134-434); RBC 3.04 M/mm3 (3.60-5.2); RDW 16.2 % (11.6-15.6); WHITE BLOOD COUNT 7.8 K/mm3 (4.0-10.0)
[2019-12-07 07:31] LABS: BLOOD UREA NITROGEN 62.7 mg/dL (7-18); CALCIUM 8.2 mg/dL (8.5-10.1); CREATININE 3.1 mg/dL (0.55-1.3); POTASSIUM 4.7 mmol/L (3.5-5.1)
[2019-12-07] MEDS: ALBUTEROL SO4 2.5/IPRATROPIUM 0.5 INH SOL 3 ML VIAL.NEB. NEB SCH ×5 (07:52→20:17)
--- NOTE | 2019-12-07 08:28 | PN ---
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 patient was brought to hospital for hypoglycemia and unreponsive. At admisison,Patient is having intermittent jerking motion ( myoclonic jerking). Patient did get mri of brain and mri of c spine( no good study due to motion). Both studies were inconclusive, Patinet had eeg and dshowed epiletiform discharged and clinically patient is improved and now alert orietned x 3 NEUROLOGICAL EXAMINATION Patient alert oriented x 3, feeling better neck is supple pupils is reactive no face asymmetry moving all extermity sensation is normal reflex are generalized diminished ct head wnl mri of brain and c spine limited exam due to motion eeg showed generalized encephalopathic and intermittent generalized spikes activity Assessment/Plan 1. Hypoglycemic encephalopathy continue supportive care and current level of care,improved clinically 2. myoclonic jerks after hypoglycemia event, eeg showed generalized epileptiform discharges, continue keppra for now 3. Moving all extermity , good strengh in all four extremity .there is no evidence of cord copmression. PLan: Patient is feeling better and doing more activity with PT rpeat eeg as first one showed abnormality waiting for placement Thanking you so much Vernon Ritter MD
[2019-12-07] MEDS ORDERED: PT OWN MED DRAWER 7, Y5N ONE ×2 (08:50→10:33)
[2019-12-07] MEDS: AMOX TR/POT CLAV 500MG/125MG TABLETS (FP) PO SCH ×2 (10:34→16:39)
[2019-12-07] MEDS: amLODIPine BESYLATE 10 MG TABLET (FP) PO SCH (10:34)
[2019-12-07] MEDS: levETIRAcetam 500 MG TABLET (FP) PO SCH ×2 (10:34→21:25)
[2019-12-07] MEDS: ASPIRIN COATED 81 MG TABLET.EC PO SCH (10:34)
[2019-12-07] MEDS: SODIUM ZIRCONIUM CYCLOSILICATE (LOKELMA) 5 GM PACKET PO SCH (10:35)
[2019-12-07] MEDS: BUDESONIDE/FORMETEROL FUMARATE 160/4.5 mcg INHALER IH SCH ×2 (10:35→21:26)
--- NOTE | 2019-12-07 11:20 | PN ---
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 (short form) - Note 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: Events note more awake and alert Vital Signs - 24 hr 12/06/19 12/06/19 12/06/19 14:00 18:00 21:00 Temperature 98 F 97.7 F Pulse Rate 58 L 60 Respiratory 20 20 20 Rate Blood Pressure 143/57 L 150/57 L O2 Sat by Pulse 92 L Oximetry (%) 12/07/19 12/07/19 12/07/19 01:47 06:00 09:00 Temperature 98.2 F 98.2 F Pulse Rate 65 67 Respiratory 20 20 20 Rate Blood Pressure 140/53 L 144/47 L O2 Sat by Pulse 96 Oximetry (%) Current Medications Generic Name Dose Route Start Last Admin Trade Name Freq PRN Reason Stop Dose Admin Acetaminophen 650 mg 12/01/19 17:29 Tylenol - PO Q6H PRN PAIN LEVEL 1-5 Albuterol/Ipratropium 1 amp 12/01/19 16:00 12/07/19 07:53 Duoneb - NEB Not Given RQID [facility]AN[facility] Amlodipine Besylate 10 mg 11/29/19 10:00 12/07/19 10:34 Norvasc - PO 10 mg DAILY [facility] Administration Amoxicillin/Clavulanate Potassium 1 tab 12/07/19 08:00 12/07/19 10:34 Augmentin - 500mg Tablet PO 1 tab BID@0800,1730 [facility] Administration Aspirin 81 mg 11/29/19 10:00 12/07/19 10:34 Ecotrin - PO 81 mg DAILY [facility] Administration Atorvastatin Calcium 80 mg 11/28/19 22:00 12/06/19 21:10 Lipitor - PO 80 mg HS [facility] Administration Budesonide/Formoterol Fumarate 2 puff 11/28/19 22:00 12/07/19 10:35 Symbicort 160/4.5mcg - IH 2 puff BID [facility] Administration Hydralazine HCl 50 mg 12/02/19 14:00 12/07/19 06:11 Apresoline - PO 50 mg TID [facility] Administration Insulin Aspart 1 vial 11/28/19 22:00 12/07/19 06:12 Novolog Vial Sliding Scale - SQ Not Given ACHS [facility] Protocol Labetalol HCl 300 mg 12/03/19 22:00 12/07/19 06:11 Normodyne - PO 300 mg TID [facility] Administration Levetiracetam 500 mg 12/06/19 22:00 12/07/19 10:34 Keppra - PO 500 mg BID [facility] Administration Ondansetron HCl 4 mg 11/29/19 11:21 11/29/19 11:00 Zofran Injection IVPUSH 4 mg Q6H PRN Administration NAUSEA AND/OR VOMITING Sodium Zirconium Cyclosilicate 10 gm 11/28/19 21:30 12/07/19 10:35 Lokelma PO 10 gm DAILY [facility] Administration Laboratory Results - last 24 hr 12/06/19 12/06/19 12/07/19 16:22 21:12 06:08 WBC 7.8 RBC 3.04 L Hgb 7.6 L Hct 23.9 L MCV 78.5 L MCH 25.1 L MCHC 31.9 L RDW 16.2 H Plt Count 158 MPV 10.4 Sodium Potassium Chloride Carbon Dioxide Anion Gap BUN Creatinine Est GFR (CKD-EPI)AfAm Est GFR (CKD-EPI)NonAf POC Glucometer 144 153 Random Glucose Calcium 12/07/19 12/07/19 12/07/19 06:08 06:08 11:02 WBC RBC Hgb Hct MCV MCH MCHC RDW Plt Count MPV Sodium 144 Potassium 4.7 Chloride 113 H Carbon Dioxide 27 Anion Gap 5 L BUN 62.7 H Creatinine 3.1 H Est GFR (CKD-EPI)AfAm 16.37 Est GFR (CKD-EPI)NonAf 14.12 POC Glucometer 106 131 Random Glucose 97 Calcium 8.2 L S1 S2 RRR Lungs decreased breath sounds+ Abd- soft, NT no edema Microbiology 11/28/19 17:52 Urine - Urine Clean Catch Urine Culture - Final Klebsiella Pneumoniae 11/29/19 12:43 Blood - Peripheral Venous Blood Culture - Preliminary NO GROWTH OBTAINED AFTER 24 HOURS, INCUBATION TO CONTINUE FOR 4 DAYS. 11/29/19 12:43 Blood - Peripheral Venous Blood Culture - Preliminary NO GROWTH OBTAINED AFTER 24 HOURS, INCUBATION TO CONTINUE FOR 4 DAYS. A/P AMS HYpoglycemia toxic metabolic encephalopathy Seizures COPD exacerbations acute on chronic renal failure P Afib anemia -- holding Torsemide for now\ -- Nebs, O2,change iv antibiotics to po -- MRI brain and c spine noted-- no sign of acute CVA -- elevated LFT--trending down -- monitor blood sugars -- EEG-->encephalopathy, seizure repeating EEG today per Neurology --s/p venofer -- will transfuse one unit today -->likely due to CKD, no signs of active bleeding -- dc planning-- spoke with -- agreeing for STR , acute rehab --monitor HCT -- influenza screen --negative Problem List - Problems (1) Altered mental status Code(s): R41.82 - ALTERED MENTAL STATUS, UNSPECIFIED (2) Hypoglycemia Code(s): E16.2 - HYPOGLYCEMIA, UNSPECIFIED (3) COPD (chronic obstructive pulmonary disease) Code(s): J44.9 - CHRONIC OBSTRUCTIVE PULMONARY DISEASE, UNSPECIFIED (4) COPD exacerbation Code(s): J44.1 - CHRONIC OBSTRUCTIVE PULMONARY DISEASE W (ACUTE) EXACERBATION (5) Diabetes Code(s): E11.9 - TYPE 2 DIABETES MELLITUS WITHOUT COMPLICATIONS Qualifiers: Diabetes mellitus type: type 2 Diabetes mellitus complication status: with kidney complications Chronic kidney disease stage: stage 3 (moderate) (6) Hyperkalemia Code(s): E87.5 - HYPERKALEMIA (7) Lung cancer Code(s): C34.90 - MALIGNANT NEOPLASM OF UNSP PART OF UNSP BRONCHUS OR LUNG
--- NOTE | 2019-12-07 11:38 | PN ---
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, Physician History of Present Illness: pulmonary alert,oob-chair,-sob - Current Medication List Current Medications: Active Medications Acetaminophen (Tylenol -) 650 mg PO Q6H PRN PRN Reason: PAIN LEVEL 1-5 Albuterol/Ipratropium (Duoneb -) 1 amp NEB RQID [facility] Last Admin: 12/07/19 07:53 Dose: Not Given Amlodipine Besylate (Norvasc -) 10 mg PO DAILY [facility] Last Admin: 12/07/19 10:34 Dose: 10 mg Amoxicillin/Clavulanate Potassium (Augmentin - 500mg Tablet) 1 tab PO BID@0800, 1730 [facility] Last Admin: 12/07/19 10:34 Dose: 1 tab Aspirin (Ecotrin -) 81 mg PO DAILY [facility] Last Admin: 12/07/19 10:34 Dose: 81 mg Atorvastatin Calcium (Lipitor -) 80 mg PO HS [facility] Last Admin: 12/06/19 21:10 Dose: 80 mg Budesonide/Formoterol Fumarate (Symbicort 160/4.5mcg -) 2 puff IH BID [facility] Last Admin: 12/07/19 10:35 Dose: 2 puff Hydralazine HCl (Apresoline -) 50 mg PO TID [facility] Last Admin: 12/07/19 06:11 Dose: 50 mg Insulin Aspart (Novolog Vial Sliding Scale -) 1 vial SQ ACHS [facility]; Protocol Last Admin: 12/07/19 06:12 Dose: Not Given Labetalol HCl (Normodyne -) 300 mg PO TID [facility] Last Admin: 12/07/19 06:11 Dose: 300 mg Levetiracetam (Keppra -) 500 mg PO BID [facility] Last Admin: 12/07/19 10:34 Dose: 500 mg Ondansetron HCl (Zofran Injection) 4 mg IVPUSH Q6H PRN PRN Reason: NAUSEA AND/OR VOMITING Last Admin: 11/29/19 11:00 Dose: 4 mg Sodium Zirconium Cyclosilicate (Lokelma) 10 gm PO DAILY [facility] Last Admin: 12/07/19 10:35 Dose: 10 gm - Objective Vital Signs: Vital Signs Temperature 98.2 F 12/07/19 06:00 Pulse Rate 67 12/07/19 06:00 Respiratory Rate 20 12/07/19 09:00 Blood Pressure 144/47 L 12/07/19 06:00 O2 Sat by Pulse Oximetry (%) 96 12/07/19 09:00 Constitutional: Yes: Well Nourished, Calm Eyes: Yes: WNL HENT: Yes: WNL Neck: Yes: WNL Cardiovascular: Yes: Regular Rate and Rhythm, S1, S2 Respiratory: Yes: Rales (bibasilar crackles) Gastrointestinal: Yes: Normal Bowel Sounds, Soft Extremities: Yes: WNL Edema: No Labs: CBC, BMP 12/07/19 06:08 12/07/19 06:08 Problem List - Problems (1) Altered mental status Code(s): R41.82 - ALTERED MENTAL STATUS, UNSPECIFIED (2) Hypoglycemia Code(s): E16.2 - HYPOGLYCEMIA, UNSPECIFIED (3) Pfxbd-td-uzincer kidney injury Code(s): N17.9 - ACUTE KIDNEY FAILURE, UNSPECIFIED; N18.9 - CHRONIC KIDNEY DISEASE, UNSPECIFIED Qualifiers: Acute renal failure type: unspecified Chronic kidney disease stage: unspecified stage Qualified Code(s): N17.9 - Acute kidney failure, unspecified ; N18.9 - Chronic kidney disease, unspecified (4) COPD (chronic obstructive pulmonary disease) Code(s): J44.9 - CHRONIC OBSTRUCTIVE PULMONARY DISEASE, UNSPECIFIED (5) Hypertensive heart disease Code(s): I11.9 - HYPERTENSIVE HEART DISEASE WITHOUT HEART FAILURE Qualifiers: Heart failure presence: with heart failure Heart failure type: diastolic Heart failure chronicity: acute on chronic Qualified Code(s): I11.0 - Hypertensive heart disease with heart failure; I50.33 - Acute on chronic diastolic (congestive) heart failure (6) Lung cancer Code(s): C34.90 - MALIGNANT NEOPLASM OF UNSP PART OF UNSP BRONCHUS OR LUNG (7) Microcytic anemia Code(s): D50.9 - IRON DEFICIENCY ANEMIA, UNSPECIFIED (8) Pulmonary HTN Code(s): I27.20 - PULMONARY HYPERTENSION, UNSPECIFIED Assessment/Plan A/P Altered Mental Status improving Pneumonia improved UTI Acute on Chronic Renal Failure LV Diastolic Dysfunction Pulmonary HTN COPD h/o Lung Cancer s/p chemo/RT Hypoglycemia r/o Seizures HTN DM Anemia - monitor urine output, creatinine - inhaled bronchodilators - can defer systemic steroids at this time - O2 to keep Spo2 >90% - aspiration precautions - DVT prophylaxis - monitor h+h - placement Problem List - Problems (1) Altered mental status Code(s): R41.82 - ALTERED MENTAL STATUS, UNSPECIFIED
--- NOTE | 2019-12-07 12:22 | PN ---
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 On reg chopped diet. Seen lunchtime, only had lentil soup. Dislikes ground meat and chopped fries recieved. Swallowing much improved. Doing well with thin liquids. Suggest upgrade to soft, reg diet
--- NOTE | 2019-12-07 12:33 | PN ---
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 (short form) - Note 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: Renal follow up for RADHA on CKD Seen and examined at the bedside awake and alert offers no acute complaints no chest pain, abdominal pain, fever or chills making urine awaiting discharge to rehab Vital Signs Temperature 98 F 12/07/19 10:00 Pulse Rate 62 12/07/19 10:00 Respiratory Rate 20 12/07/19 10:00 Blood Pressure 144/58 L 12/07/19 10:00 O2 Sat by Pulse Oximetry (%) 96 12/07/19 09:00 Intake & Output 12/04/19 12/05/19 12/06/19 12/07/19 23:59 23:59 23:59 23:59 Intake Total 592 125 3180 Balance 572 915 4761 Weight 77.111 kg NAD awake and alert neck supple, no JVD RRR, no M/R Dec BS at lung bases but no rales Soft NT/ND no LE edema, clubbing or cyanosis CBC, BMP 12/07/19 06:08 12/07/19 06:08 Current Medications Acetaminophen (Tylenol -) 650 mg PO Q6H PRN PRN Reason: PAIN LEVEL 1-5 Albuterol/Ipratropium (Duoneb -) 1 amp NEB RQID [facility] Last Admin: 12/07/19 11:41 Dose: 1 amp Amlodipine Besylate (Norvasc -) 10 mg PO DAILY [facility] Last Admin: 12/07/19 10:34 Dose: 10 mg Amoxicillin/Clavulanate Potassium (Augmentin - 500mg Tablet) 1 tab PO BID@0800, 1730 [facility] Last Admin: 12/07/19 10:34 Dose: 1 tab Aspirin (Ecotrin -) 81 mg PO DAILY [facility] Last Admin: 12/07/19 10:34 Dose: 81 mg Atorvastatin Calcium (Lipitor -) 80 mg PO HS [facility] Last Admin: 12/06/19 21:10 Dose: 80 mg Budesonide/Formoterol Fumarate (Symbicort 160/4.5mcg -) 2 puff IH BID [facility] Last Admin: 12/07/19 10:35 Dose: 2 puff Hydralazine HCl (Apresoline -) 50 mg PO TID [facility] Last Admin: 12/07/19 06:11 Dose: 50 mg Insulin Aspart (Novolog Vial Sliding Scale -) 1 vial SQ ACHS [facility]; Protocol Last Admin: 12/07/19 11:43 Dose: Not Given Labetalol HCl (Normodyne -) 300 mg PO TID [facility] Last Admin: 12/07/19 06:11 Dose: 300 mg Levetiracetam (Keppra -) 500 mg PO BID [facility] Last Admin: 12/07/19 10:34 Dose: 500 mg Ondansetron HCl (Zofran Injection) 4 mg IVPUSH Q6H PRN PRN Reason: NAUSEA AND/OR VOMITING Last Admin: 11/29/19 11:00 Dose: 4 mg Sodium Zirconium Cyclosilicate (Lokelma) 10 gm PO DAILY [facility] Last Admin: 12/07/19 10:35 Dose: 10 gm 74 year old woman with history of CKD stage 4, CHF with diastolic dysfunction, pulmonary hypertension, Lung Ca s/p Chemo and radiation therapy, hypertension, DM who presented from home with AMS 1. AMS r/o seizures vs. hypoglycemia encephalopathy 2. CKD stage 4 3. CHF 4. Hypertension 5. DM Renal function stable. 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 CT of the Abd/Pelvis showed bilateral effusions. Off diuretics for now. Clinically not congested. No renal obstruction seen on CT UA showed 4+ protein and was indicate of a UTI. Urine Culture grew Gram negative bacilli. s/p Abx continue Labetalol 200mg TID, hydralzine 50mg TID, Amlodipine 10mg Daily. Continue Neurology work up discharge planning as per primary team to follow up in our office within 2 weeks of discharge Elvis Mayorga DO
[2019-12-07] MEDS: ATORVASTATIN CA 80 MG TABLET (FP) PO SCH (21:25)
[2019-12-08] MEDS: LABETALOL HCL 200 MG TABLET (FP) PO SCH ×3 (06:00→21:11)
[2019-12-08] MEDS: hydrALAZINE HCL 50 MG TABLET (FP) PO SCH ×3 (06:00→21:11)
[2019-12-08 07:35] LABS: HEMATOCRIT 26.1 % (32.4-45.2); HEMOGLOBIN 8.6 GM/dL (10.7-15.3); MCH 25.9 pg (25.7-33.7); MCHC 33.1 g/dl (32.0-36.0); MEAN CELL VOLUME 78.1 fl (80-96); PLATELET COUNT 155 K/MM3 (134-434); RBC 3.34 M/mm3 (3.60-5.2); RDW 16.3 % (11.6-15.6); WHITE BLOOD COUNT 9.1 K/mm3 (4.0-10.0)
[2019-12-08] MEDS: INSULIN SLIDING SCALE (NOVOLOG) 1 VIAL SQ SCH ×4 (07:51→21:12)
[2019-12-08 07:57] LABS: BLOOD UREA NITROGEN 67.7 mg/dL (7-18); CALCIUM 8.3 mg/dL (8.5-10.1); CREATININE 3.3 mg/dL (0.55-1.3); POTASSIUM 4.7 mmol/L (3.5-5.1)
[2019-12-08] MEDS: ALBUTEROL SO4 2.5/IPRATROPIUM 0.5 INH SOL 3 ML VIAL.NEB. NEB SCH ×3 (08:26→20:57)
[2019-12-08] MEDS ORDERED: PT OWN MED DRAWER 7, Y5N ONE ×2 (09:05→16:58)
[2019-12-08] MEDS: AMOX TR/POT CLAV 500MG/125MG TABLETS (FP) PO SCH ×2 (09:07→17:01)
[2019-12-08] MEDS: levETIRAcetam 500 MG TABLET (FP) PO SCH ×2 (09:07→21:11)
[2019-12-08] MEDS: ASPIRIN COATED 81 MG TABLET.EC PO SCH (09:07)
[2019-12-08] MEDS: amLODIPine BESYLATE 10 MG TABLET (FP) PO SCH (09:07)
[2019-12-08] MEDS: SODIUM ZIRCONIUM CYCLOSILICATE (LOKELMA) 5 GM PACKET PO SCH (09:08)
[2019-12-08] MEDS: BUDESONIDE/FORMETEROL FUMARATE 160/4.5 mcg INHALER IH SCH ×2 (09:12→21:12)
--- NOTE | 2019-12-08 10:09 | PN ---
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 patient was brought to hospital for hypoglycemia and unreponsive. At admisison,Patient is having intermittent jerking motion ( myoclonic jerking). Patient did get mri of brain and mri of c spine( no good study due to motion). Both studies were inconclusive, Patinet had eeg and dshowed epiletiform discharged and clinically patient is improved and now alert orietned x 3. repeat eeg is unremarkable. She is waiting to go to Short term rehab NEUROLOGICAL EXAMINATION Patient alert oriented x 3, feeling better neck is supple pupils is reactive no face asymmetry moving all extermity sensation is normal reflex are generalized diminished ct head wnl mri of brain and c spine limited exam due to motion eeg showed generalized encephalopathic and intermittent generalized spikes activity repeat eeg on december 06 was unremarkable Assessment/Plan 1. Hypoglycemic encephalopathy continue supportive care and current level of care,improved clinically 2. myoclonic jerks after hypoglycemia event, eeg showed generalized epileptiform discharges, continue keppra for now 3. Moving all extermity , good strengh in all four extremity .there is no evidence of cord copmression. PLan: repeat eeg was unremarkable, this seizure was induced by hypoglycemia, patient may not need aed for mcc, can be tapered off after four week of therapy waiting for placement Thanking you so much Vernon Ritter MD
--- NOTE | 2019-12-08 12:13 | PN ---
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 (short form) - Note 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: Awake and responsive. No CP or SOB. No acute events overnight. Intake & Output 12/05/19 12/06/19 12/07/19 12/08/19 23:59 23:59 23:59 23:59 Intake Total 860 1790 2160 200 Balance 860 1790 2160 200 Weight 170 lb 177 lb 6.4 oz Last Vital Signs Temp Pulse Resp BP Pulse Ox 98.2 F 64 18 154/60 100 12/08/19 10:00 12/08/19 10:00 12/08/19 10:00 12/08/19 10:00 12/08/19 09:00 Active Medications Acetaminophen (Tylenol -) 650 mg PO Q6H PRN PRN Reason: PAIN LEVEL 1-5 Albuterol/Ipratropium (Duoneb -) 1 amp NEB RQID [facility] Last Admin: 12/08/19 08:26 Dose: 1 amp Documented by: Amlodipine Besylate (Norvasc -) 10 mg PO DAILY [facility] Last Admin: 12/08/19 09:07 Dose: 10 mg Documented by: Amoxicillin/Clavulanate Potassium (Augmentin - 500mg Tablet) 1 tab PO BID@0800,1730 [facility] Last Admin: 12/08/19 09:07 Dose: 1 tab Documented by: Aspirin (Ecotrin -) 81 mg PO DAILY [facility] Last Admin: 12/08/19 09:07 Dose: 81 mg Documented by: Atorvastatin Calcium (Lipitor -) 80 mg PO HS [facility] Last Admin: 12/07/19 21:25 Dose: 80 mg Documented by: Budesonide/Formoterol Fumarate (Symbicort 160/4.5mcg -) 2 puff IH BID [facility] Last Admin: 12/08/19 09:12 Dose: 2 puff Documented by: Hydralazine HCl (Apresoline -) 50 mg PO TID [facility] Last Admin: 12/08/19 06:00 Dose: 50 mg Documented by: Insulin Aspart (Novolog Vial Sliding Scale -) 1 vial SQ ACHS [facility]; Protocol Last Admin: 12/08/19 11:03 Dose: Not Given Documented by: Labetalol HCl (Normodyne -) 300 mg PO TID [facility] Last Admin: 12/08/19 06:00 Dose: 300 mg Documented by: Levetiracetam (Keppra -) 500 mg PO BID [facility] Last Admin: 12/08/19 09:07 Dose: 500 mg Documented by: Ondansetron HCl (Zofran Injection) 4 mg IVPUSH Q6H PRN PRN Reason: NAUSEA AND/OR VOMITING Last Admin: 11/29/19 11:00 Dose: 4 mg Documented by: Sodium Zirconium Cyclosilicate (Lokelma) 10 gm PO DAILY [facility] Last Admin: 12/08/19 09:08 Dose: 10 gm Documented by: Gen: awake, NAD Heart: RRR Lung: few scattered rhonchi Abd: soft, nontender Ext: no edema Laboratory Results - last 24 hr 12/07/19 12/07/19 12/07/19 12:10 16:37 21:24 WBC RBC Hgb Hct MCV MCH MCHC RDW Plt Count MPV Sodium Potassium Chloride Carbon Dioxide Anion Gap BUN Creatinine Est GFR (CKD-EPI)AfAm Est GFR (CKD-EPI)NonAf POC Glucometer 147 148 Random Glucose Calcium Blood Type O POSITIVE Antibody Screen Negative Crossmatch See Detail 12/08/19 12/08/19 12/08/19 05:30 05:30 05:58 WBC 9.1 RBC 3.34 L Hgb 8.6 L Hct 26.1 L MCV 78.1 L MCH 25.9 MCHC 33.1 RDW 16.3 H Plt Count 155 MPV 11.0 Sodium 144 Potassium 4.7 Chloride 111 H Carbon Dioxide 24 Anion Gap 8 BUN 67.7 H Creatinine 3.3 H Est GFR (CKD-EPI)AfAm 15.18 Est GFR (CKD-EPI)NonAf 13.09 POC Glucometer 104 Random Glucose 102 Calcium 8.3 L Blood Type Antibody Screen Crossmatch 12/08/19 11:02 WBC RBC Hgb Hct MCV MCH MCHC RDW Plt Count MPV Sodium Potassium Chloride Carbon Dioxide Anion Gap BUN Creatinine Est GFR (CKD-EPI)AfAm Est GFR (CKD-EPI)NonAf POC Glucometer 107 Random Glucose Calcium Blood Type Antibody Screen Crossmatch Problem List - Problems (1) Altered mental status Code(s): R41.82 - ALTERED MENTAL STATUS, UNSPECIFIED A/P Altered Mental Status Pneumonia Acute on Chronic Renal Failure LV Diastolic Dysfunction Pulmonary HTN COPD h/o Lung Cancer s/p chemo/RT Hypoglycemia r/o Seizures HTN DM UTI - ABX - inhaled bronchodilators - O2 to keep Spo2 >90% - Aspiration precautions - DVT prophylaxis Dr Rogers
--- NOTE | 2019-12-08 12:47 | DS ---
Physical Examination Vital Signs: Vital Signs Temperature 98.2 F 12/08/19 10:00 Pulse Rate 64 12/08/19 10:00 Respiratory Rate 18 12/08/19 10:00 Blood Pressure 154/60 12/08/19 10:00 O2 Sat by Pulse Oximetry (%) 100 12/08/19 09:00 Constitutional: Yes: No Distress, Calm Cardiovascular: Yes: Regular Rate and Rhythm Respiratory: Yes: Diminished Gastrointestinal: Yes: Normal Bowel Sounds, Soft, Abdomen, Obese. No: Ten derness Edema: Yes Edema: LLE: Trace, RLE: Trace Psychiatric: Yes: Alert, Oriented Labs: CBC, BMP 12/08/19 05:30 12/08/19 05:30 Discharge Summary Problems reviewed: Yes Reason For Visit: HYPOGLYCEMIA, AMS Current Active Problems Altered mental status (Acute) Hypoglycemia (Acute) Hospital Course: History-- CHIEF COMPLAINT: Altered Mental Status PCP: Dr.Tina Bland HISTORY OF PRESENT ILLNESS: 74 F PMH HTN, IDDM, CKD, COPD, CHF, non small lung CA (s/p chemo resolved 5 yea rs ago), who presents today after being found down and unresponsive by at home in the morning. Unknown time down. At that time EMS was called and once they arrived they found her POC glucose to be in the 50s, and administered D50. Patient was not to be altered although alert and awake after receiving glucose. She has no recall of the events in the morning, and she can vaguely remember the events of the night before admission. She is currently aware of where she is able to recall her medical history. She endorses shortness of breath, but denies chest pain, abdominal pain, nausea, vomiting, diarrhea, dysuria, hematuria, fevers and chills. Her son who is bedside notes that her tremors only began after she was in the ED, he had seen her in the morning initially after she arrived but at that time she was not shaking. He saw her last normal yesterday,but did endorse that patient was coughing more often than usual over the previous few days. ER course was notable for: (1) Patient was given Duoneb x3, Solumedrol 125, D50 1 vial, calcium gluconate and sodium bicarbonate. (2) Head CT was completed which showed no acute pathology, and mild periventricular and subcortical hypodensity which is probably representing chronic microvascular ischemic changes. (3) Chest X-Ray was completed which showed possible atelectasis or fluid in the right fissure, and pleural reaction and atelectasis at the right base. Hospital course Evaluated by ID, Pulmonary ,renal and Neurology Started on antibiotics, iv fluids Pt slowly became more arousable and moving towards baseline EEG-- 1st suspicious for seizure activity EEG repeated-- no seizure activity Renal function worsening -- diuretics held Pt received Venofer and PRBC -- anemia of chronic renal failure sugars better pt is deconditioned due to her long hospital course iv antibiotics changed to po pt is better and stable for dc to STR will need follow up with renal as an outpt Keppra to be tapered off in a 1 month per Neurology Condition: Improved - Instructions Disposition: LONGTERM FACILITY - Home Medications Comprehensive Discharge Medication List: Ambulatory Orders Insulin (Levemir) [Levemir Flexpen -] 40 units SQ DAILY 12/13/13 Insulin Aspart [Novolog] 10 unit SQ AC 12/13/13 Albuterol 0.083% Nebulizer Rosemarie [Ventolin 0.083% Nebulizer Soln -] 1 neb NEB Q6H #30 vial 01/09/16 Amlodipine Besylate 10 mg PO DAILY 09/06/19 Budesonide/Formeterol Fumarate [SYMBICORT 160/4.5mcg -] 2 puff PO DAILY 09/06/19 Insulin (LOG) Aspart [NovoLOG -] 6 unit SQ HS 09/06/19 Apixaban [Eliquis -] 2.5 mg PO BID #60 tablet 09/13/19 Carvedilol [Coreg -] 25 mg PO BID #60 tablet 09/13/19 Sodium Bicarbonate - 650 mg PO DAILY #30 tablet 09/13/19 Torsemide [Demadex -] 20 mg PO DAILY #30 tablet 09/13/19 hydrALAZINE HCL [Apresoline -] 100 mg PO TID #90 tablet 09/13/19 Metoprolol Succinate 25 mg PO DAILY 11/28/19 Rosuvastatin [Crestor -] 5 mg PO DAILY 11/28/19 Valsartan/Hydrochlorothiazide [Valsartan-Hctz 80-12.5 mg Tab] 1 tab PO DAILY 11/28/19
[2019-12-08] MEDS ORDERED: SODIUM CHLORIDE 1,000 ML IV SCH (14:30)
--- NOTE | 2019-12-08 14:31 | PN ---
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 (short form) - Note 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: Renal follow up for RADHA on CKD Seen and examined at the bedside awake and alert offers no acute complaints no chest pain, abdominal pain, fever or chills making urine awaiting discharge to rehab Vital Signs Temperature 98 F 12/08/19 14:00 Pulse Rate 67 12/08/19 14:00 Respiratory Rate 18 12/08/19 14:00 Blood Pressure 144/50 L 12/08/19 14:00 O2 Sat by Pulse Oximetry (%) 100 12/08/19 09:00 Intake & Output 12/05/19 12/06/19 12/07/19 12/08/19 23:59 23:59 23:59 23:59 Intake Total 860 1790 2160 200 Balance 860 1790 2160 200 Weight 77.111 kg 80.467 kg NAD awake and alert neck supple, no JVD RRR, no M/R Dec BS at lung bases but no rales Soft NT/ND no LE edema, clubbing or cyanosis CBC, BMP 12/08/19 05:30 12/08/19 05:30 Current Medications Acetaminophen (Tylenol -) 650 mg PO Q6H PRN PRN Reason: PAIN LEVEL 1-5 Albuterol/Ipratropium (Duoneb -) 1 amp NEB RQID [facility] Last Admin: 12/08/19 12:14 Dose: 1 amp Documented by: Amlodipine Besylate (Norvasc -) 10 mg PO DAILY [facility] Last Admin: 12/08/19 09:07 Dose: 10 mg Documented by: Amoxicillin/Clavulanate Potassium (Augmentin - 500mg Tablet) 1 tab PO BID@0800,1730 [facility] Last Admin: 12/08/19 09:07 Dose: 1 tab Documented by: Aspirin (Ecotrin -) 81 mg PO DAILY [facility] Last Admin: 12/08/19 09:07 Dose: 81 mg Documented by: Atorvastatin Calcium (Lipitor -) 80 mg PO HS [facility] Last Admin: 12/07/19 21:25 Dose: 80 mg Documented by: Budesonide/Formoterol Fumarate (Symbicort 160/4.5mcg -) 2 puff IH BID [facility] Last Admin: 12/08/19 09:12 Dose: 2 puff Documented by: Hydralazine HCl (Apresoline -) 50 mg PO TID [facility] Last Admin: 12/08/19 14:21 Dose: 50 mg Documented by: Sodium Chloride (Normal Saline -) 1,000 mls @ 83 mls/hr IV ASDIR [facility] Stop: 12/09/19 02:29 Insulin Aspart (Novolog Vial Sliding Scale -) 1 vial SQ ACHS [facility]; Protocol Last Admin: 12/08/19 11:03 Dose: Not Given Documented by: Labetalol HCl (Normodyne -) 300 mg PO TID [facility] Last Admin: 12/08/19 14:21 Dose: 300 mg Documented by: Levetiracetam (Keppra -) 500 mg PO BID [facility] Last Admin: 12/08/19 09:07 Dose: 500 mg Documented by: Ondansetron HCl (Zofran Injection) 4 mg IVPUSH Q6H PRN PRN Reason: NAUSEA AND/OR VOMITING Last Admin: 11/29/19 11:00 Dose: 4 mg Documented by: Sodium Zirconium Cyclosilicate (Lokelma) 10 gm PO DAILY [facility] Last Admin: 12/08/19 09:08 Dose: 10 gm Documented by: 74 year old woman with history of CKD stage 4, CHF with diastolic dysfunction, pulmonary hypertension, Lung Ca s/p Chemo and radiation therapy, hypertension, DM who presented from home with AMS 1. AMS r/o seizures vs. hypoglycemia encephalopathy 2. CKD stage 4 3. CHF 4. Hypertension 5. DM BUN/Cr slowly trending up No signs of volume overload, or volume loss (diarrhea, N/V) Will give NS x 12 hours to help promote volume expansion no indication for COMPLIANCE COUNSEL despite low eGFR Renal diet s/p PRBC transfusion anemia is likely multifactorial and CKD related anemia is a likeky contributor. CT of the Abd/Pelvis showed bilateral effusions. Off diuretics for now. Clinically not congested. No renal obstruction seen on CT UA showed 4+ protein and was indicate of a UTI. Urine Culture grew Gram negative bacilli. s/p Abx continue Labetalol 200mg TID, hydralzine 50mg TID, Amlodipine 10mg Daily. Continue Neurology work up discharge planning as per primary team to follow up in our office within 2 weeks of discharge once Rehab placement obtained is cleared for discharge Elvis Mayorga DO
--- NOTE | 2019-12-08 16:01 | PN ---
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 - Note 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: Selected Entries 12/06/19 12/06/19 12/06/19 02:00 06:00 10:00 Breakfast Lunch Supper Temperature 98.4 F 98.5 F 97.8 F 12/06/19 12/06/19 12/07/19 14:00 18:00 01:47 Breakfast 50% Lunch 50% Supper 50% Temperature 98 F 97.7 F 98.2 F 12/07/19 12/07/19 06:00 10:00 Breakfast Lunch Supper Temperature 98.2 F 98 F Selected Entries 12/07/19 12/07/19 12/07/19 01:47 06:00 10:00 Breakfast Lunch Supper Temperature 98.2 F 98.2 F 98 F 12/07/19 12/07/19 12/07/19 14:00 18:00 21:00 Breakfast 75% Lunch 50% Supper Temperature 97.5 F L 97.8 F 98.1 F 12/07/19 12/08/19 12/08/19 22:04 02:00 06:00 Breakfast Lunch Supper 75% Temperature 98.5 F 98 F 12/08/19 12/08/19 12/08/19 10:00 10:18 14:00 Breakfast 75% Lunch Supper Temperature 98.2 F 98 F Laboratory Tests 12/08/19 05:30 WBC 9.1 Speech/lang at baseline. On reg chopped diet. Dislikes chopped diet. Swallowing much improved. Doing well with thin liquids. Suggest upgrade to soft, reg diet
[2019-12-08] MEDS: ATORVASTATIN CA 80 MG TABLET (FP) PO SCH (21:11)
[2019-12-09] MEDS: hydrALAZINE HCL 50 MG TABLET (FP) PO SCH ×3 (05:27→21:47)
[2019-12-09] MEDS: LABETALOL HCL 200 MG TABLET (FP) PO SCH ×3 (05:27→21:47)
[2019-12-09] MEDS: INSULIN SLIDING SCALE (NOVOLOG) 1 VIAL SQ SCH ×4 (06:14→21:51)
[2019-12-09] MEDS: ALBUTEROL SO4 2.5/IPRATROPIUM 0.5 INH SOL 3 ML VIAL.NEB. NEB SCH ×4 (07:20→21:20)
[2019-12-09 07:29] LABS: BLOOD UREA NITROGEN 71.9 mg/dL (7-18); CALCIUM 8.2 mg/dL (8.5-10.1); CREATININE 3.5 mg/dL (0.55-1.3); MAGNESIUM 2.1 mg/dL (1.8-2.4); POTASSIUM 4.7 mmol/L (3.5-5.1)
[2019-12-09] MEDS ORDERED: PT OWN MED DRAWER 7, Y5N ONE (10:01)
[2019-12-09] MEDS: ASPIRIN COATED 81 MG TABLET.EC PO SCH (10:06)
[2019-12-09] MEDS: AMOX TR/POT CLAV 500MG/125MG TABLETS (FP) PO SCH ×2 (10:06→17:10)
[2019-12-09] MEDS: amLODIPine BESYLATE 10 MG TABLET (FP) PO SCH (10:06)
[2019-12-09] MEDS: levETIRAcetam 500 MG TABLET (FP) PO SCH ×2 (10:06→21:47)
[2019-12-09] MEDS: BUDESONIDE/FORMETEROL FUMARATE 160/4.5 mcg INHALER IH SCH ×2 (10:07→21:51)
[2019-12-09] MEDS: SODIUM ZIRCONIUM CYCLOSILICATE (LOKELMA) 5 GM PACKET PO SCH (10:08)
--- NOTE | 2019-12-09 10:33 | PN ---
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 (short form) - Note 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: pt seen/ examined chart reviewed awake/ comfortable No new issues d/w Rn- Awaiting Authorization for rehab Vital Signs Temp 98 F 12/09/19 06:00 Pulse 64 12/09/19 06:00 Resp 18 12/09/19 06:00 BP 151/51 L 12/09/19 06:00 Pulse Ox 90 L 12/08/19 21:00 Intake & Output 12/08/19 12/08/19 12/09/19 11:59 23:59 11:59 Intake Total 200 812 664 Balance 200 812 664 Weight 177 lb 6.4 oz 180 lb 3.2 oz Intake: IV 332 664 Normal Saline - 1,000 ml 332 664 @ 83 mls/hr IV ASDIR [facility] Rx#:[id number] Oral 200 480 Other: Voiding Method Incontinent Incontinent # Unmeasured Voids Void 2 1 Bowel Movement No No Weight Measurement Method Standing Scale Standing Scale Active Medications Acetaminophen (Tylenol -) 650 mg PO Q6H PRN PRN Reason: PAIN LEVEL 1-5 Albuterol/Ipratropium (Duoneb -) 1 amp NEB RQID [facility] Last Admin: 12/09/19 07:20 Dose: 1 amp Documented by: Amlodipine Besylate (Norvasc -) 10 mg PO DAILY [facility] Last Admin: 12/09/19 10:06 Dose: 10 mg Documented by: Amoxicillin/Clavulanate Potassium (Augmentin - 500mg Tablet) 1 tab PO BID@0800,1730 [facility] Last Admin: 12/09/19 10:06 Dose: 1 tab Documented by: Aspirin (Ecotrin -) 81 mg PO DAILY [facility] Last Admin: 12/09/19 10:06 Dose: 81 mg Documented by: Atorvastatin Calcium (Lipitor -) 80 mg PO HS [facility] Last Admin: 12/08/19 21:11 Dose: 80 mg Documented by: Budesonide/Formoterol Fumarate (Symbicort 160/4.5mcg -) 2 puff IH BID [facility] Last Admin: 12/09/19 10:07 Dose: 2 puff Documented by: Hydralazine HCl (Apresoline -) 50 mg PO TID [facility] Last Admin: 12/09/19 05:27 Dose: 50 mg Documented by: Insulin Aspart (Novolog Vial Sliding Scale -) 1 vial SQ ACHS [facility]; Protocol Last Admin: 12/09/19 06:14 Dose: Not Given Documented by: Labetalol HCl (Normodyne -) 300 mg PO TID [facility] Last Admin: 12/09/19 05:27 Dose: 300 mg Documented by: Levetiracetam (Keppra -) 500 mg PO BID [facility] Last Admin: 12/09/19 10:06 Dose: 500 mg Documented by: Ondansetron HCl (Zofran Injection) 4 mg IVPUSH Q6H PRN PRN Reason: NAUSEA AND/OR VOMITING Last Admin: 11/29/19 11:00 Dose: 4 mg Documented by: Sodium Zirconium Cyclosilicate (Lokelma) 10 gm PO DAILY [facility] Last Admin: 12/09/19 10:08 Dose: Not Given Documented by: CBC, BMP 12/08/19 05:30 12/09/19 05:50 Physical Exam S1S2 RRR Lungs - Clear Abd- soft, NT no edema aox3 Moves all extremities A/P AMS Hypoglycemia toxic metabolic encephalopathy Seizures COPD exacerbation acute on chronic renal failure P Afib anemia uti Stable See d/c summary - 12/08/19 Awaiting Authorization
--- NOTE | 2019-12-09 12:49 | PN ---
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 (short form) - Note 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: Renal follow up for RADHA on CKD Seen and examined at the bedside awake and alert offers no acute complaints no chest pain, abdominal pain, fever or chills making urine awaiting discharge to rehabs s/p IV fluids overnight Vital Signs Temperature 98 F 12/09/19 10:00 Pulse Rate 61 12/09/19 10:00 Respiratory Rate 18 12/09/19 10:00 Blood Pressure 136/48 L 12/09/19 10:00 O2 Sat by Pulse Oximetry (%) 93 L 12/09/19 10:00 Intake & Output 12/06/19 12/07/19 12/08/19 12/09/19 23:59 23:59 23:59 23:59 Intake Total 1790 2160 1012 664 Balance 1790 2160 1012 664 Weight 80.467 kg 81.737 kg NAD awake and alert neck supple, no JVD RRR, no M/R Dec BS at lung bases but no rales Soft NT/ND no LE edema, clubbing or cyanosis CBC, BMP 12/08/19 05:30 12/09/19 05:50 Current Medications Acetaminophen (Tylenol -) 650 mg PO Q6H PRN PRN Reason: PAIN LEVEL 1-5 Albuterol/Ipratropium (Duoneb -) 1 amp NEB RQID [facility] Last Admin: 12/09/19 11:19 Dose: 1 amp Documented by: Amlodipine Besylate (Norvasc -) 10 mg PO DAILY [facility] Last Admin: 12/09/19 10:06 Dose: 10 mg Documented by: Amoxicillin/Clavulanate Potassium (Augmentin - 500mg Tablet) 1 tab PO BID@0800,1730 [facility] Last Admin: 12/09/19 10:06 Dose: 1 tab Documented by: Aspirin (Ecotrin -) 81 mg PO DAILY [facility] Last Admin: 12/09/19 10:06 Dose: 81 mg Documented by: Atorvastatin Calcium (Lipitor -) 80 mg PO HS [facility] Last Admin: 12/08/19 21:11 Dose: 80 mg Documented by: Budesonide/Formoterol Fumarate (Symbicort 160/4.5mcg -) 2 puff IH BID [facility] Last Admin: 12/09/19 10:07 Dose: 2 puff Documented by: Hydralazine HCl (Apresoline -) 50 mg PO TID [facility] Last Admin: 12/09/19 05:27 Dose: 50 mg Documented by: Insulin Aspart (Novolog Vial Sliding Scale -) 1 vial SQ ACHS [facility]; Protocol Last Admin: 12/09/19 11:29 Dose: Not Given Documented by: Labetalol HCl (Normodyne -) 300 mg PO TID [facility] Last Admin: 12/09/19 05:27 Dose: 300 mg Documented by: Levetiracetam (Keppra -) 500 mg PO BID [facility] Last Admin: 12/09/19 10:06 Dose: 500 mg Documented by: Ondansetron HCl (Zofran Injection) 4 mg IVPUSH Q6H PRN PRN Reason: NAUSEA AND/OR VOMITING Last Admin: 11/29/19 11:00 Dose: 4 mg Documented by: Sodium Zirconium Cyclosilicate (Lokelma) 10 gm PO DAILY [facility] Last Admin: 12/09/19 10:08 Dose: Not Given Documented by: 74 year old woman with history of CKD stage 4, CHF with diastolic dysfunction, pulmonary hypertension, Lung Ca s/p Chemo and radiation therapy, hypertension, DM who presented from home with AMS 1. AMS r/o seizures vs. hypoglycemia encephalopathy 2. CKD stage 4 3. CHF 4. Hypertension 5. DM BUN/Cr slowly trending up if pt develops any sob or signs of volume overload would restart diuretics s/p IV fluids overnight w/o any significant impact on renal function no indication for [employer] despite low eGFR at this time. Eventually as an outpatient she will require dialysis. Renal diet s/p PRBC transfusion anemia is likely multifactorial and CKD related anemia is a likeky contributor. CT of the Abd/Pelvis showed bilateral effusions. Off diuretics for now. Clinically not congested. No renal obstruction seen on CT UA showed 4+ protein and was indicate of a UTI. Urine Culture grew Gram negative bacilli. s/p Abx continue Labetalol 200mg TID, hydralzine 50mg TID, Amlodipine 10mg Daily. Continue Neurology work up discharge planning as per primary team to follow up in our office within 2 weeks of discharge once Rehab placement obtained is cleared for discharge Elvis Mayorga DO
[2019-12-09 12:53] LABS: EPI CELLS 3.2 /HPF (0-5/HPF); HYALINE CASTS 6 /lpf (0-8); URINE APPEARANCE CLOUDY; URINE BACTERIA 0.8 /hpf (NEGATIVE); URINE BILIRUBIN NEGATIVE (NEGATIVE); URINE COLOR YELLOW; URINE GLUCOSE (UA) NEGATIVE (NEGATIVE); URINE KETONE NEGATIVE (NEGATIVE); URINE LEUK ESTERASE NEGATIVE (NEGATIVE); URINE NITRITE NEGATIVE (NEGATIVE); URINE PROTEIN 3+ (NEGATIVE); URINE RBC 2 /hpf (0-4); URINE UROBILINOGEN 0.2 mg/dL (0.2-1.0); URINE WBC 5 /hpf (0-5)
--- NOTE | 2019-12-09 13:32 | PN ---
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 patient was brought to hospital for hypoglycemia and unreponsive. At admisison,Patient is having intermittent jerking motion ( myoclonic jerking). Patient did get mri of brain and mri of c spine( no good study due to motion). Both studies were inconclusive, Patinet had eeg and dshowed epiletiform discharged and clinically patient is improved and now alert orietned x 3. repeat eeg is unremarkable. She is waiting to go to Short term rehab Patient see and examined, discussed with nursing staff, no new issue. NEUROLOGICAL EXAMINATION Patient alert oriented x 3, feeling better neck is supple pupils is reactive no face asymmetry moving all extermity sensation is normal reflex are generalized diminished ct head wnl mri of brain and c spine limited exam due to motion eeg showed generalized encephalopathic and intermittent generalized spikes activity repeat eeg on december 06 was unremarkable Assessment/Plan 1. Hypoglycemic encephalopathy continue supportive care and current level of care,improved clinically 2. myoclonic jerks after hypoglycemia event, eeg showed generalized epileptiform discharges, continue keppra for now 3. Moving all extermity , good strengh in all four extremity .there is no evidence of cord copmression. PLan: repeat eeg was unremarkable, this seizure was induced by hypoglycemia, patient may not need aed for mcfp, can be tapered off after four week of therapy waiting for placement Thanking you so much Vernon Ritter MD
[2019-12-09] MEDS: ATORVASTATIN CA 80 MG TABLET (FP) PO SCH (21:47)
[2019-12-10] MEDS: hydrALAZINE HCL 50 MG TABLET (FP) PO SCH ×3 (06:01→21:27)
[2019-12-10] MEDS: LABETALOL HCL 200 MG TABLET (FP) PO SCH ×3 (06:01→21:27)
[2019-12-10] MEDS: INSULIN SLIDING SCALE (NOVOLOG) 1 VIAL SQ SCH ×4 (06:02→21:27)
[2019-12-10 07:14] LABS: BLOOD UREA NITROGEN 77.3 mg/dL (7-18); CREATININE 3.6 mg/dL (0.55-1.3); PHOSPHOROUS 4.6 mg/dL (2.5-4.9); POTASSIUM 4.5 mmol/L (3.5-5.1)
[2019-12-10] MEDS: ALBUTEROL SO4 2.5/IPRATROPIUM 0.5 INH SOL 3 ML VIAL.NEB. NEB SCH ×4 (07:55→19:45)
[2019-12-10] MEDS: ASPIRIN COATED 81 MG TABLET.EC PO SCH (09:57)
[2019-12-10] MEDS ORDERED: PT OWN MED DRAWER 7, Y5N ONE (09:57)
[2019-12-10] MEDS: levETIRAcetam 500 MG TABLET (FP) PO SCH ×2 (09:57→21:27)
[2019-12-10] MEDS: SODIUM ZIRCONIUM CYCLOSILICATE (LOKELMA) 5 GM PACKET PO SCH (09:58)
[2019-12-10] MEDS: amLODIPine BESYLATE 10 MG TABLET (FP) PO SCH (09:58)
[2019-12-10] MEDS: BUDESONIDE/FORMETEROL FUMARATE 160/4.5 mcg INHALER IH SCH ×2 (10:10→21:27)
--- NOTE | 2019-12-10 10:48 | PN ---
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, Physician History of Present Illness: Pt seen and examined at bedside. She is awake and appears comfortable. She denies shortness of breath. - Current Medication List Current Medications: Active Medications Acetaminophen (Tylenol -) 650 mg PO Q6H PRN PRN Reason: PAIN LEVEL 1-5 Albuterol/Ipratropium (Duoneb -) 1 amp NEB RQID [facility] Last Admin: 12/09/19 21:20 Dose: 1 amp Documented by: Amlodipine Besylate (Norvasc -) 10 mg PO DAILY [facility] Last Admin: 12/10/19 09:58 Dose: 10 mg Documented by: Aspirin (Ecotrin -) 81 mg PO DAILY [facility] Last Admin: 12/10/19 09:57 Dose: 81 mg Documented by: Atorvastatin Calcium (Lipitor -) 80 mg PO HS [facility] Last Admin: 12/09/19 21:47 Dose: 80 mg Documented by: Budesonide/Formoterol Fumarate (Symbicort 160/4.5mcg -) 2 puff IH BID [facility] Last Admin: 12/10/19 10:10 Dose: 2 puff Documented by: Hydralazine HCl (Apresoline -) 50 mg PO TID [facility] Last Admin: 12/10/19 06:01 Dose: 50 mg Documented by: Insulin Aspart (Novolog Vial Sliding Scale -) 1 vial SQ [facility]; Protocol Last Admin: 12/10/19 06:02 Dose: Not Given Documented by: Labetalol HCl (Normodyne -) 300 mg PO TID [facility] Last Admin: 12/10/19 06:01 Dose: 300 mg Documented by: Levetiracetam (Keppra -) 500 mg PO BID [facility] Last Admin: 12/10/19 09:57 Dose: 500 mg Documented by: Ondansetron HCl (Zofran Injection) 4 mg IVPUSH Q6H PRN PRN Reason: NAUSEA AND/OR VOMITING Last Admin: 11/29/19 11:00 Dose: 4 mg Documented by: Sodium Zirconium Cyclosilicate (Lokelma) 10 gm PO DAILY [facility] Last Admin: 12/10/19 09:58 Dose: 10 gm Documented by: - Objective Vital Signs: Vital Signs Temperature 97.6 F 12/10/19 10:00 Pulse Rate 57 L 12/10/19 10:00 Respiratory Rate 20 12/10/19 10:00 Blood Pressure 137/57 L 12/10/19 10:00 O2 Sat by Pulse Oximetry (%) 95 12/10/19 09:00 Constitutional: Yes: Calm Eyes: Yes: Conjunctiva Clear HENT: Yes: Atraumatic Neck: Yes: Supple Cardiovascular: Yes: S1, S2 Respiratory: Yes: CTA Bilaterally Gastrointestinal: Yes: Soft Genitourinary: Yes: WNL Musculoskeletal: Yes: WNL Edema: Yes Edema: LLE: 1+, RLE: 1+ Neurological: Yes: Oriented Labs: CBC, BMP 12/08/19 05:30 12/10/19 05:50 Assessment/Plan Current Medications Generic Name Dose Route Start Last Admin Trade Name Freq PRN Reason Stop Dose Admin Acetaminophen 650 mg 12/01/19 17:29 Tylenol - PO Q6H PRN PAIN LEVEL 1-5 Albuterol/Ipratropium 1 amp 12/01/19 16:00 12/09/19 21:20 Duoneb - NEB 1 amp RQID [facility] Administration Amlodipine Besylate 10 mg 11/29/19 10:00 12/10/19 09:58 Norvasc - PO 10 mg DAILY [facility] Administration Aspirin 81 mg 11/29/19 10:00 12/10/19 09:57 Ecotrin - PO 81 mg DAILY [facility] Administration Atorvastatin Calcium 80 mg 11/28/19 22:00 12/09/19 21:47 Lipitor - PO 80 mg HS [facility] Administration Budesonide/Formoterol Fumarate 2 puff 11/28/19 22:00 12/10/19 10:10 Symbicort 160/4.5mcg - IH 2 puff BID [facility] Administration Hydralazine HCl 50 mg 12/02/19 14:00 12/10/19 06:01 Apresoline - PO 50 mg TID [facility] Administration Insulin Aspart 1 vial 11/28/19 22:00 12/10/19 06:02 Novolog Vial Sliding Scale - SQ Not Given ACHS [facility] Protocol Labetalol HCl 300 mg 12/03/19 22:00 12/10/19 06:01 Normodyne - PO 300 mg TID [facility] Administration Levetiracetam 500 mg 12/06/19 22:00 12/10/19 09:57 Keppra - PO 500 mg BID [facility] Administration Ondansetron HCl 4 mg 11/29/19 11:21 11/29/19 11:00 Zofran Injection IVPUSH 4 mg Q6H PRN Administration NAUSEA AND/OR VOMITING Sodium Zirconium Cyclosilicate 10 gm 11/28/19 21:30 12/10/19 09:58 Lokelma PO 10 gm DAILY [facility] Administration 74 year old woman with history of CKD stage 4, CHF with diastolic dysfunction, pulmonary hypertension, Lung Ca s/p Chemo and radiation therapy, hypertension, DM who presented from home with AMS 1. AMS 2. CKD stage 4 3. CHF 4. Hypertension 5. DM 6. proteinuria Plan - cont to monitor renal function - observe off of lokelma, potassium has been stable - bp is stable, cont current meds - neurology follow up - will need further proteinuria workup as outpt
--- NOTE | 2019-12-10 10:52 | PN ---
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 (short form) - Note 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: PULMONMARY No CP or SOB. No acute events overnight. VSS/Afebrile Gen: awake, NAD Heart: RRR Lung: few scattered rhonchi Abd: soft, nontender Ext: no edema All labs reviewed A/P Altered Mental Status improved Pneumonia Acute on Chronic Renal Failure LV Diastolic Dysfunction Pulmonary HTN COPD h/o Lung Cancer s/p chemo/RT Hypoglycemia r/o Seizures HTN DM UTI - inhaled bronchodilators - O2 to keep Spo2 >90% - Aspiration precautions - DVT prophylaxis Baldemar Marcial MD
--- NOTE | 2019-12-10 11:34 | PN ---
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 (short form) - Note 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: Events note more awake and alert denies sob Vital Signs - 24 hr 12/09/19 12/09/19 12/09/19 15:45 18:00 21:00 Temperature 98.3 F 98.2 F Pulse Rate 66 62 Respiratory 20 20 20 Rate Blood Pressure 136/70 137/62 O2 Sat by Pulse 95 Oximetry (%) 12/09/19 12/10/19 12/10/19 22:00 01:51 06:00 Temperature 97.9 F 97.9 F 97.7 F Pulse Rate 62 64 61 Respiratory 20 20 20 Rate Blood Pressure 143/56 L 157/57 L 153/63 O2 Sat by Pulse Oximetry (%) 12/10/19 12/10/19 09:00 10:00 Temperature 97.6 F Pulse Rate 57 L Respiratory 20 20 Rate Blood Pressure 137/57 L O2 Sat by Pulse 95 Oximetry (%) Current Medications Generic Name Dose Route Start Last Admin Trade Name Freq PRN Reason Stop Dose Admin Acetaminophen 650 mg 12/01/19 17:29 Tylenol - PO Q6H PRN PAIN LEVEL 1-5 Albuterol/Ipratropium 1 amp 12/01/19 16:00 12/10/19 11:29 Duoneb - NEB 1 amp RQID [facility] Administration Amlodipine Besylate 10 mg 11/29/19 10:00 12/10/19 09:58 Norvasc - PO 10 mg DAILY [facility] Administration Aspirin 81 mg 11/29/19 10:00 12/10/19 09:57 Ecotrin - PO 81 mg DAILY [facility] Administration Atorvastatin Calcium 80 mg 11/28/19 22:00 12/09/19 21:47 Lipitor - PO 80 mg HS [facility] Administration Budesonide/Formoterol Fumarate 2 puff 11/28/19 22:00 12/10/19 10:10 Symbicort 160/4.5mcg - IH 2 puff BID [facility] Administration Hydralazine HCl 50 mg 12/02/19 14:00 12/10/19 06:01 Apresoline - PO 50 mg TID [facility] Administration Insulin Aspart 1 vial 11/28/19 22:00 12/10/19 06:02 Novolog Vial Sliding Scale - SQ Not Given ACHS [facility] Protocol Labetalol HCl 300 mg 12/03/19 22:00 12/10/19 06:01 Normodyne - PO 300 mg TID [facility] Administration Levetiracetam 500 mg 12/06/19 22:00 12/10/19 09:57 Keppra - PO 500 mg BID [facility] Administration Ondansetron HCl 4 mg 11/29/19 11:21 11/29/19 11:00 Zofran Injection IVPUSH 4 mg Q6H PRN Administration NAUSEA AND/OR VOMITING Torsemide 20 mg 12/10/19 11:15 Demadex - PO DAILY [facility] Laboratory Results - last 24 hr 12/09/19 12/09/19 12/09/19 11:45 11:45 11:45 Sodium Potassium Chloride Carbon Dioxide Anion Gap BUN Creatinine Est GFR (CKD-EPI)AfAm Est GFR (CKD-EPI)NonAf POC Glucometer Random Glucose Calcium Phosphorus Urine Color Yellow Urine Appearance Cloudy Urine pH 5.0 Ur Specific [place] 1.019 Urine Protein 3+ H Urine Glucose (UA) Negative Urine Ketones Negative Urine Blood Negative Urine Nitrite Negative Urine Bilirubin Negative Urine Urobilinogen 0.2 Ur Leukocyte Esterase Negative Urine WBC (Auto) 5 Urine RBC (Auto) 2 Urine Casts (Auto) 6 U Epithel Cells (Auto) 3.2 Urine Bacteria (Auto) 0.8 Ur Random Creatinine 166.0 H U Random Total Protein 261.2 H Ur Random Sodium Cancelled 23 L Urine Creatinine 166.0 H Protein/Creatinin Ratio 1.6 12/09/19 12/09/19 12/10/19 16:29 21:46 05:50 Sodium 140 Potassium 4.5 Chloride 109 H Carbon Dioxide 24 Anion Gap 7 L BUN 77.3 H Creatinine 3.6 H Est GFR (CKD-EPI)AfAm 13.66 Est GFR (CKD-EPI)NonAf 11.79 POC Glucometer 142 123 Random Glucose 119 H Calcium 8.0 L Phosphorus 4.6 Urine Color Urine Appearance Urine pH Ur Specific [place] Urine Protein Urine Glucose (UA) Urine Ketones Urine Blood Urine Nitrite Urine Bilirubin Urine Urobilinogen Ur Leukocyte Esterase Urine WBC (Auto) Urine RBC (Auto) Urine Casts (Auto) U Epithel Cells (Auto) Urine Bacteria (Auto) Ur Random Creatinine U Random Total Protein Ur Random Sodium Urine Creatinine Protein/Creatinin Ratio 12/10/19 12/10/19 05:56 11:13 Sodium Potassium Chloride Carbon Dioxide Anion Gap BUN Creatinine Est GFR (CKD-EPI)AfAm Est GFR (CKD-EPI)NonAf POC Glucometer 119 158 Random Glucose Calcium Phosphorus Urine Color Urine Appearance Urine pH Ur Specific [place] Urine Protein Urine Glucose (UA) Urine Ketones Urine Blood Urine Nitrite Urine Bilirubin Urine Urobilinogen Ur Leukocyte Esterase Urine WBC (Auto) Urine RBC (Auto) Urine Casts (Auto) U Epithel Cells (Auto) Urine Bacteria (Auto) Ur Random Creatinine U Random Total Protein Ur Random Sodium Urine Creatinine Protein/Creatinin Ratio S1 S2 RRR Lungs decreased breath sounds+ronchi heard Abd- soft, NT no edema Microbiology 11/28/19 17:52 Urine - Urine Clean Catch Urine Culture - Final Klebsiella Pneumoniae 11/29/19 12:43 Blood - Peripheral Venous Blood Culture - Preliminary NO GROWTH OBTAINED AFTER 24 HOURS, INCUBATION TO CONTINUE FOR 4 DAYS. 11/29/19 12:43 Blood - Peripheral Venous Blood Culture - Preliminary NO GROWTH OBTAINED AFTER 24 HOURS, INCUBATION TO CONTINUE FOR 4 DAYS. A/P AMS HYpoglycemia toxic metabolic encephalopathy Seizures COPD exacerbations acute on chronic renal failure P Afib anemia -- noted slow worsening of renal failure-- spoke with Renal ---> will start low dose Torsemide-->monitor renal function -- Nebs, O2,change iv antibiotics to po --2 more days -- MRI brain and c spine noted-- no sign of acute CVA -- elevated LFT--trending down -- monitor blood sugars -- EEG-->encephalopathy, seizure repeating EEG today per Neurology --s/p venofer -- s/p PRBC -- dc planning-- spoke with -- agreeing for STR , acute rehab -- will hold off discharge as her renal function is worsening --monitor HCT -- influenza screen --negative Problem List - Problems (1) Altered mental status Code(s): R41.82 - ALTERED MENTAL STATUS, UNSPECIFIED (2) Hypoglycemia Code(s): E16.2 - HYPOGLYCEMIA, UNSPECIFIED (3) COPD (chronic obstructive pulmonary disease) Code(s): J44.9 - CHRONIC OBSTRUCTIVE PULMONARY DISEASE, UNSPECIFIED (4) COPD exacerbation Code(s): J44.1 - CHRONIC OBSTRUCTIVE PULMONARY DISEASE W (ACUTE) EXACERBATION (5) Diabetes Code(s): E11.9 - TYPE 2 DIABETES MELLITUS WITHOUT COMPLICATIONS Qualifiers: Diabetes mellitus type: type 2 Diabetes mellitus complication status: with kidney complications Chronic kidney disease stage: stage 3 (moderate) (6) Hyperkalemia Code(s): E87.5 - HYPERKALEMIA (7) Lung cancer Code(s): C34.90 - MALIGNANT NEOPLASM OF UNSP PART OF UNSP BRONCHUS OR LUNG
[2019-12-10] MEDS: TORSEMIDE 20 MG TABLET (FP) PO SCH (12:28)
[2019-12-10] MEDS: ATORVASTATIN CA 80 MG TABLET (FP) PO SCH (21:27)
[2019-12-11] MEDS: hydrALAZINE HCL 50 MG TABLET (FP) PO SCH ×3 (05:46→21:44)
[2019-12-11] MEDS: LABETALOL HCL 200 MG TABLET (FP) PO SCH ×3 (05:46→21:44)
[2019-12-11] MEDS: INSULIN SLIDING SCALE (NOVOLOG) 1 VIAL SQ SCH ×4 (06:02→21:49)
[2019-12-11 07:28] LABS: ALBUMIN 2.5 g/dl (3.4-5.0); BILIRUBIN,TOTAL 0.3 mg/dL (0.2-1); BLOOD UREA NITROGEN 77.4 mg/dL (7-18); CALCIUM 8.2 mg/dL (8.5-10.1); CREATININE 3.6 mg/dL (0.55-1.3); POTASSIUM 4.2 mmol/L (3.5-5.1); TOT PROT 5.8 g/dl (6.4-8.2)
[2019-12-11] MEDS: ALBUTEROL SO4 2.5/IPRATROPIUM 0.5 INH SOL 3 ML VIAL.NEB. NEB SCH ×3 (07:43→20:50)
[2019-12-11] MEDS ORDERED: PT OWN MED DRAWER 7, Y5N ONE ×2 (09:07→23:11)
[2019-12-11] MEDS: TORSEMIDE 20 MG TABLET (FP) PO SCH (09:23)
[2019-12-11] MEDS: BUDESONIDE/FORMETEROL FUMARATE 160/4.5 mcg INHALER IH SCH ×2 (09:23→21:44)
[2019-12-11] MEDS: levETIRAcetam 500 MG TABLET (FP) PO SCH ×2 (09:23→21:44)
[2019-12-11] MEDS: ASPIRIN COATED 81 MG TABLET.EC PO SCH (09:23)
[2019-12-11] MEDS: amLODIPine BESYLATE 10 MG TABLET (FP) PO SCH (09:23)
--- NOTE | 2019-12-11 11:25 | PN ---
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 (short form) - Note 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: Events note more awake and alert denies sob Vital Signs - 24 hr 12/10/19 12/10/19 12/10/19 14:00 18:00 21:00 Temperature 97.4 F L 97.3 F L Pulse Rate 59 L 60 Respiratory 18 19 Rate Blood Pressure 128/53 L 146/60 O2 Sat by Pulse 96 Oximetry (%) 12/10/19 12/11/19 12/11/19 22:00 01:37 06:00 Temperature 97.5 F L 97.5 F L 98.1 F Pulse Rate 64 59 L 59 L Respiratory 20 20 20 Rate Blood Pressure 144/59 L 136/47 L 153/57 L O2 Sat by Pulse Oximetry (%) 12/11/19 12/11/19 09:00 10:00 Temperature 97.2 F L Pulse Rate 57 L Respiratory 18 18 Rate Blood Pressure 144/56 L O2 Sat by Pulse 96 Oximetry (%) Current Medications Generic Name Dose Route Start Last Admin Trade Name Freq PRN Reason Stop Dose Admin Acetaminophen 650 mg 12/01/19 17:29 Tylenol - PO Q6H PRN PAIN LEVEL 1-5 Albuterol/Ipratropium 1 amp 12/01/19 16:00 12/11/19 07:43 Duoneb - NEB 1 amp RQID [facility] Administration Amlodipine Besylate 10 mg 11/29/19 10:00 12/11/19 09:23 Norvasc - PO 10 mg DAILY [facility] Administration Amoxicillin/Clavulanate Potassium 1 tab 12/11/19 11:30 Augmentin - 500mg Tablet PO DAILY [facility] Aspirin 81 mg 11/29/19 10:00 12/11/19 09:23 Ecotrin - PO 81 mg DAILY [facility] Administration Atorvastatin Calcium 80 mg 11/28/19 22:00 12/10/19 21:27 Lipitor - PO 80 mg HS [facility] Administration Budesonide/Formoterol Fumarate 2 puff 11/28/19 22:00 12/11/19 09:23 Symbicort 160/4.5mcg - IH 2 puff BID [facility] Administration Hydralazine HCl 50 mg 12/02/19 14:00 12/11/19 05:46 Apresoline - PO 50 mg TID [facility] Administration Insulin Aspart 1 vial 11/28/19 22:00 12/11/19 06:02 Novolog Vial Sliding Scale - SQ Not Given [facility] Protocol Labetalol HCl 300 mg 12/03/19 22:00 12/11/19 05:46 Normodyne - PO 300 mg TID [facility] Administration Levetiracetam 500 mg 12/06/19 22:00 12/11/19 09:23 Keppra - PO 500 mg BID [facility] Administration Ondansetron HCl 4 mg 11/29/19 11:21 11/29/19 11:00 Zofran Injection IVPUSH 4 mg Q6H PRN Administration NAUSEA AND/OR VOMITING Torsemide 20 mg 12/10/19 11:15 12/11/19 09:23 Demadex - PO 20 mg DAILY [facility] Administration Laboratory Results - last 24 hr 12/07/19 12/10/19 12/10/19 12:10 11:13 16:05 Sodium Potassium Chloride Carbon Dioxide Anion Gap BUN Creatinine Est GFR (CKD-EPI)AfAm Est GFR (CKD-EPI)NonAf POC Glucometer 158 142 Random Glucose Calcium Total Bilirubin AST ALT Alkaline Phosphatase Total Protein Albumin Blood Type O POSITIVE Antibody Screen Negative Crossmatch See Detail 12/10/19 12/11/19 12/11/19 21:23 05:38 05:55 Sodium 141 Potassium 4.2 Chloride 110 H Carbon Dioxide 23 Anion Gap 8 BUN 77.4 H Creatinine 3.6 H Est GFR (CKD-EPI)AfAm 13.66 Est GFR (CKD-EPI)NonAf 11.79 POC Glucometer 161 122 Random Glucose 114 H Calcium 8.2 L Total Bilirubin 0.3 AST 35 ALT 63 H Alkaline Phosphatase 220 H Total Protein 5.8 L Albumin 2.5 L Blood Type Antibody Screen Crossmatch 12/11/19 11:12 Sodium Potassium Chloride Carbon Dioxide Anion Gap BUN Creatinine Est GFR (CKD-EPI)AfAm Est GFR (CKD-EPI)NonAf POC Glucometer 159 Random Glucose Calcium Total Bilirubin AST ALT Alkaline Phosphatase Total Protein Albumin Blood Type Antibody Screen Crossmatch S1 S2 RRR Lungs decreased breath sounds+ decreased ronchi Abd- soft, NT no edema Microbiology 11/28/19 17:52 Urine - Urine Clean Catch Urine Culture - Final Klebsiella Pneumoniae 11/29/19 12:43 Blood - Peripheral Venous Blood Culture - Preliminary NO GROWTH OBTAINED AFTER 24 HOURS, INCUBATION TO CONTINUE FOR 4 DAYS. 11/29/19 12:43 Blood - Peripheral Venous Blood Culture - Preliminary NO GROWTH OBTAINED AFTER 24 HOURS, INCUBATION TO CONTINUE FOR 4 DAYS. A/P AMS HYpoglycemia toxic metabolic encephalopathy Seizures COPD exacerbations acute on chronic renal failure P Afib anemia -- noted slow worsening of renal failure-- spoke with Renal ---> will start low dose Torsemide-->monitor renal function -- Nebs, O2,change iv antibiotics to po --2 more days -- MRI brain and c spine noted-- no sign of acute CVA -- elevated LFT--trending down -- monitor blood sugars -- EEG-->encephalopathy, seizure repeat EEG -->no seizure-- As per Neurology-- taper off keppra in 4 weeks --s/p venofer -- s/p PRBC -- dc planning-- spoke with -- agreeing for STR , acute rehab -- renal function stable on Torsemide-- ok for dc to STR once bed available --monitor HCT -- influenza screen --negative Problem List - Problems (1) Altered mental status Code(s): R41.82 - ALTERED MENTAL STATUS, UNSPECIFIED (2) Hypoglycemia Code(s): E16.2 - HYPOGLYCEMIA, UNSPECIFIED (3) COPD (chronic obstructive pulmonary disease) Code(s): J44.9 - CHRONIC OBSTRUCTIVE PULMONARY DISEASE, UNSPECIFIED (4) COPD exacerbation Code(s): J44.1 - CHRONIC OBSTRUCTIVE PULMONARY DISEASE W (ACUTE) EXACERBATION (5) Diabetes Code(s): E11.9 - TYPE 2 DIABETES MELLITUS WITHOUT COMPLICATIONS Qualifiers: Diabetes mellitus type: type 2 Diabetes mellitus complication status: with kidney complications Chronic kidney disease stage: stage 3 (moderate) (6) Hyperkalemia Code(s): E87.5 - HYPERKALEMIA (7) Lung cancer Code(s): C34.90 - MALIGNANT NEOPLASM OF UNSP PART OF UNSP BRONCHUS OR LUNG
[2019-12-11] MEDS ORDERED: AMOX TR/POT CLAV 500MG/125MG TABLETS (FP) PO SCH (14:30)
[2019-12-11] MEDS: AMOX TR/POT CLAV 500MG/125MG TABLETS (FP) PO SCH ×2 (15:00→21:31)
--- NOTE | 2019-12-11 15:55 | PN ---
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, Physician History of Present Illness: Pt seen and examined at bedside. She is awake and appears comfortable. She feels that her edema is improving. - Current Medication List Current Medications: Active Medications Acetaminophen (Tylenol -) 650 mg PO Q6H PRN PRN Reason: PAIN LEVEL 1-5 Albuterol/Ipratropium (Duoneb -) 1 amp NEB RQID [facility] Last Admin: 12/11/19 15:25 Dose: 1 amp Documented by: Amlodipine Besylate (Norvasc -) 10 mg PO DAILY [facility] Last Admin: 12/11/19 09:23 Dose: 10 mg Documented by: Amoxicillin/Clavulanate Potassium (Augmentin - 500mg Tablet) 1 tab PO BIDWM [facility] Last Admin: 12/11/19 15:00 Dose: 1 tab Documented by: Aspirin (Ecotrin -) 81 mg PO DAILY [facility] Last Admin: 12/11/19 09:23 Dose: 81 mg Documented by: Atorvastatin Calcium (Lipitor -) 80 mg PO HS [facility] Last Admin: 12/10/19 21:27 Dose: 80 mg Documented by: Budesonide/Formoterol Fumarate (Symbicort 160/4.5mcg -) 2 puff IH BID [facility] Last Admin: 12/11/19 09:23 Dose: 2 puff Documented by: Hydralazine HCl (Apresoline -) 50 mg PO TID [facility] Last Admin: 12/11/19 13:15 Dose: 50 mg Documented by: Insulin Aspart (Novolog Vial Sliding Scale -) 1 vial SQ [facility]; Protocol Last Admin: 12/11/19 12:06 Dose: 1 unit Documented by: Labetalol HCl (Normodyne -) 300 mg PO TID [facility] Last Admin: 12/11/19 13:15 Dose: 300 mg Documented by: Levetiracetam (Keppra -) 500 mg PO BID [facility] Last Admin: 12/11/19 09:23 Dose: 500 mg Documented by: Ondansetron HCl (Zofran Injection) 4 mg IVPUSH Q6H PRN PRN Reason: NAUSEA AND/OR VOMITING Last Admin: 11/29/19 11:00 Dose: 4 mg Documented by: Torsemide (Demadex -) 20 mg PO DAILY [facility] Last Admin: 12/11/19 09:23 Dose: 20 mg Documented by: - Objective Vital Signs: Vital Signs Temperature 97.3 F L 12/11/19 14:00 Pulse Rate 59 L 12/11/19 14:00 Respiratory Rate 18 12/11/19 14:00 Blood Pressure 148/83 12/11/19 14:00 O2 Sat by Pulse Oximetry (%) 96 12/11/19 09:00 Constitutional: Yes: Calm Eyes: Yes: Conjunctiva Clear HENT: Yes: Atraumatic Neck: Yes: Supple Cardiovascular: Yes: S1, S2 Respiratory: Yes: CTA Bilaterally Gastrointestinal: Yes: Soft Musculoskeletal: Yes: WNL Extremities: Yes: WNL Edema: Yes Edema: LLE: 1+, RLE: 1+ Neurological: Yes: Oriented Psychiatric: Yes: Oriented Labs: CBC, BMP 12/08/19 05:30 12/11/19 05:55 Assessment/Plan Current Medications Generic Name Dose Route Start Last Admin Trade Name Freq PRN Reason Stop Dose Admin Acetaminophen 650 mg 12/01/19 17:29 Tylenol - PO Q6H PRN PAIN LEVEL 1-5 Albuterol/Ipratropium 1 amp 12/01/19 16:00 12/11/19 15:25 Duoneb - NEB 1 amp RQID [facility] Administration Amlodipine Besylate 10 mg 11/29/19 10:00 12/11/19 09:23 Norvasc - PO 10 mg DAILY [facility] Administration Amoxicillin/Clavulanate Potassium 1 tab 12/11/19 15:00 12/11/19 15:00 Augmentin - 500mg Tablet PO 1 tab BIDWM [facility] Administration Aspirin 81 mg 11/29/19 10:00 12/11/19 09:23 Ecotrin - PO 81 mg DAILY [facility] Administration Atorvastatin Calcium 80 mg 11/28/19 22:00 12/10/19 21:27 Lipitor - PO 80 mg HS [facility] Administration Budesonide/Formoterol Fumarate 2 puff 11/28/19 22:00 12/11/19 09:23 Symbicort 160/4.5mcg - IH 2 puff BID [facility] Administration Hydralazine HCl 50 mg 12/02/19 14:00 12/11/19 13:15 Apresoline - PO 50 mg TID [facility] Administration Insulin Aspart 1 vial 11/28/19 22:00 12/11/19 12:06 Novolog Vial Sliding Scale - SQ 1 unit ACHS [facility] Administration Protocol Labetalol HCl 300 mg 12/03/19 22:00 12/11/19 13:15 Normodyne - PO 300 mg TID [facility] Administration Levetiracetam 500 mg 12/06/19 22:00 12/11/19 09:23 Keppra - PO 500 mg BID [facility] Administration Ondansetron HCl 4 mg 11/29/19 11:21 11/29/19 11:00 Zofran Injection IVPUSH 4 mg Q6H PRN Administration NAUSEA AND/OR VOMITING Torsemide 20 mg 12/10/19 11:15 12/11/19 09:23 Demadex - PO 20 mg DAILY [facility] Administration 1. AMS 2. CKD stage 4 3. CHF 4. Hypertension 5. DM 6. proteinuria Plan - cont torsemide - lokelma on hold - monitor renal function and lytes - bp is also stabilizing - will need further proteinuria workup as outpt
[2019-12-11] MEDS: ATORVASTATIN CA 80 MG TABLET (FP) PO SCH (21:44)
[2019-12-12] MEDS: hydrALAZINE HCL 50 MG TABLET (FP) PO SCH ×3 (06:24→22:04)
[2019-12-12] MEDS: LABETALOL HCL 200 MG TABLET (FP) PO SCH ×3 (06:24→22:04)
[2019-12-12] MEDS: INSULIN SLIDING SCALE (NOVOLOG) 1 VIAL SQ SCH ×4 (06:24→22:05)
[2019-12-12] MEDS ORDERED: PT OWN MED DRAWER 7, Y5N ONE (08:19)
[2019-12-12] MEDS: AMOX TR/POT CLAV 500MG/125MG TABLETS (FP) PO SCH ×2 (08:20→17:13)
[2019-12-12] MEDS: ALBUTEROL SO4 2.5/IPRATROPIUM 0.5 INH SOL 3 ML VIAL.NEB. NEB SCH ×4 (08:35→20:20)
--- NOTE | 2019-12-12 10:18 | PN ---
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, [employer] SPLITTER - Note 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: Selected Entries 12/11/19 12/11/19 12/11/19 01:37 06:00 10:00 Breakfast Lunch Supper Temperature 97.5 F L 98.1 F 97.2 F L 12/11/19 12/11/19 12/11/19 11:04 14:00 18:00 Breakfast 75% Lunch 75% Supper 50% Temperature 97.3 F L 97.2 F L 12/11/19 12/12/19 12/12/19 22:00 02:00 06:00 Breakfast Lunch Supper 75% Temperature 97.6 F 97.9 F 97.8 F 12/12/19 10:00 Breakfast Lunch Supper Temperature 98 F Laboratory Tests 12/08/19 05:30 WBC 9.1 Diet upgraded. Tolerasting well with good appetite. No further f/u indicated
[2019-12-12] MEDS: TORSEMIDE 20 MG TABLET (FP) PO SCH (10:24)
[2019-12-12] MEDS: BUDESONIDE/FORMETEROL FUMARATE 160/4.5 mcg INHALER IH SCH ×2 (10:24→22:03)
[2019-12-12] MEDS: levETIRAcetam 500 MG TABLET (FP) PO SCH ×2 (10:24→22:04)
[2019-12-12] MEDS: ASPIRIN COATED 81 MG TABLET.EC PO SCH (10:24)
[2019-12-12] MEDS: amLODIPine BESYLATE 10 MG TABLET (FP) PO SCH (10:24)
--- NOTE | 2019-12-12 12:14 | PN ---
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 (short form) - Note 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: pt seen/ examined comfortable all f/u noted able to walk today denies cp/sob/abd pain Vital Signs Temp 98 F 12/12/19 10:00 Pulse 60 12/12/19 10:00 Resp 18 12/12/19 10:00 BP 124/58 L 12/12/19 10:00 Pulse Ox 96 12/11/19 21:00 Intake & Output 12/11/19 12/12/19 12/12/19 23:59 11:59 23:59 Intake Total 580 490 Output Total 1 Balance 579 490 Weight 181 lb Intake: Oral 580 490 Output: Urine 1 Void 1 Other: Voiding Method Toilet # Unmeasured Voids Void 1 2 Bowel Movement No Weight Measurement Method Standing Scale Active Medications Acetaminophen (Tylenol -) 650 mg PO Q6H PRN PRN Reason: PAIN LEVEL 1-5 Albuterol/Ipratropium (Duoneb -) 1 amp NEB RQID [facility] Last Admin: 12/12/19 08:35 Dose: 1 amp Documented by: Amlodipine Besylate (Norvasc -) 10 mg PO DAILY [facility] Last Admin: 12/12/19 10:24 Dose: 10 mg Documented by: Amoxicillin/Clavulanate Potassium (Augmentin - 500mg Tablet) 1 tab PO BIDWM [facility] Last Admin: 12/12/19 08:20 Dose: 1 tab Documented by: Aspirin (Ecotrin -) 81 mg PO DAILY [facility] Last Admin: 12/12/19 10:24 Dose: 81 mg Documented by: Atorvastatin Calcium (Lipitor -) 80 mg PO HS [facility] Last Admin: 12/11/19 21:44 Dose: 80 mg Documented by: Budesonide/Formoterol Fumarate (Symbicort 160/4.5mcg -) 2 puff IH BID [facility] Last Admin: 12/12/19 10:24 Dose: 2 puff Documented by: Hydralazine HCl (Apresoline -) 50 mg PO TID [facility] Last Admin: 12/12/19 06:24 Dose: 50 mg Documented by: Insulin Aspart (Novolog Vial Sliding Scale -) 1 vial SQ [facility]; Protocol Last Admin: 12/12/19 11:39 Dose: Not Given Documented by: Labetalol HCl (Normodyne -) 300 mg PO TID [facility] Last Admin: 03/09/20 06:24 Dose: 300 mg Documented by: Levetiracetam (Keppra -) 500 mg PO BID [facility] Last Admin: 12/12/19 10:24 Dose: 500 mg Documented by: Ondansetron HCl (Zofran Injection) 4 mg IVPUSH Q6H PRN PRN Reason: NAUSEA AND/OR VOMITING Last Admin: 11/29/19 11:00 Dose: 4 mg Documented by: Torsemide (Demadex -) 20 mg PO DAILY [facility] Last Admin: 12/12/19 10:24 Dose: 20 mg Documented by: CBC, BMP 12/08/19 05:30 12/11/19 05:55 Physical Exam awake/comfortable S1 S2 RRR Lungs decreased breath sounds - at bases Abd- soft, NT Trace edema Alert/ awake A/P AMS HYpoglycemia toxic metabolic encephalopathy Seizures COPD exacerbations acute on chronic renal failure P Afib anemia Stable Awaiting str Monitor Labs/ renal function as out pt Anticipate d/c today D/W Rn also Will follow
--- NOTE | 2019-12-12 13:41 | PN ---
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 (short form) - Note 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: PULMONARY Denies shortness of breath, cough or wheezing.No fevers. Vital Signs Period Temp Pulse Resp BP Sys/[place] Pulse Ox Last 24 Hr 97.2 F-98 F 59-66 18-20 124-154/53-83 96 Gen: more alert, awake Heart: RRR Lung: decreased breath sounds at the bases Abd: soft, nontender Ext: no edema CBC, BMP 12/08/19 05:30 12/11/19 05:55 Active Medications Acetaminophen (Tylenol -) 650 mg PO Q6H PRN PRN Reason: PAIN LEVEL 1-5 Albuterol/Ipratropium (Duoneb -) 1 amp NEB RQID [facility]EDS [facility] Last Admin: 12/12/19 08:35 Dose: 1 amp Documented by: Amlodipine Besylate (Norvasc -) 10 mg PO DAILY [facility] 234 [facility]S [facility] Last Admin: 12/12/19 10:24 Dose: 10 mg Documented by: Amoxicillin/Clavulanate Potassium (Augmentin - 500mg Tablet) 1 tab PO BIDWM [facility]CLUDE 234 BEDS [facility] Last Admin: 12/12/19 08:20 Dose: 1 tab Documented by: Aspirin (Ecotrin -) 81 mg PO DAILY [facility] 234 B[facility]S [facility] Last Admin: 12/12/19 10:24 Dose: 81 mg Documented by: Atorvastatin Calcium (Lipitor -) 80 mg PO HS [facility] 234 B[facility]S [facility] Last Admin: 12/11/19 21:44 Dose: 80 mg Documented by: Budesonide/Formoterol Fumarate (Symbicort 160/4.5mcg -) 2 puff IH BID [facility] 234 [facility]S [facility] Last Admin: 12/12/19 10:24 Dose: 2 puff Documented by: Hydralazine HCl (Apresoline -) 50 mg PO TID [facility] 234 BEDS [facility] Last Admin: 12/12/19 06:24 Dose: 50 mg Documented by: Insulin Aspart (Novolog Vial Sliding Scale -) 1 vial SQ [facility] COUNTS INCLUDE 234 BEDS AT [facility]; Protocol Last Admin: 12/12/19 11:39 Dose: Not Given Documented by: Labetalol HCl (Normodyne -) 300 mg PO TID [facility] 234 BEDS [facility] Last Admin: 12/12/19 06:24 Dose: 300 mg Documented by: Levetiracetam (Keppra -) 500 mg PO BID [facility] 234 BEDS [facility] Last Admin: 12/12/19 10:24 Dose: 500 mg Documented by: Ondansetron HCl (Zofran Injection) 4 mg IVPUSH Q6H PRN PRN Reason: NAUSEA AND/OR VOMITING Last Admin: 11/29/19 11:00 Dose: 4 mg Documented by: Torsemide (Demadex -) 20 mg PO DAILY [facility] Last Admin: 12/12/19 10:24 Dose: 20 mg Documented by: A/P Altered Mental Status resolved r/o Pneumonia UTI Acute on Chronic Renal Failure LV Diastolic Dysfunction Pulmonary HTN COPD h/o Lung Cancer s/p chemo/RT Hypoglycemia r/o Seizures HTN DM UTI - complete antibiotics - monitor urine output, creatinine - inhaled bronchodilators - O2 to keep Spo2 >90% - aspiration precautions - DVT prophylaxis Problem List - Problems (1) Altered mental status Code(s): R41.82 - ALTERED MENTAL STATUS, UNSPECIFIED
[2019-12-12 14:06] VITALS: BMI 32.1
--- NOTE | 2019-12-12 15:52 | PN ---
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 patient was brought to hospital for hypoglycemia and unreponsive. At admisison,Patient is having intermittent jerking motion ( myoclonic jerking). Patient did get mri of brain and mri of c spine( no good study due to motion). Both studies were inconclusive, Patinet had eeg and dshowed epiletiform discharged and clinically patient is improved and now alert orietned x 3. repeat eeg is unremarkable. She is waiting to go to Short term rehab Patient see and examined, discussed with nursing staff. NEUROLOGICAL EXAMINATION Patient alert oriented x 3, feeling better neck is supple pupils is reactive no face asymmetry moving all extermity sensation is normal reflex are generalized diminished ct head wnl mri of brain and c spine limited exam due to motion eeg showed generalized encephalopathic and intermittent generalized spikes activity repeat eeg on december 06 was unremarkable Assessment/Plan 1. Hypoglycemic encephalopathy continue supportive care and current level of care,improved clinically 2. myoclonic jerks after hypoglycemia event, eeg showed generalized epileptiform discharges, continue keppra for now 3. Moving all extermity , good strengh in all four extremity .there is no evidence of cord copmression. 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
[2019-12-12] MEDS: ATORVASTATIN CA 80 MG TABLET (FP) PO SCH (22:04)
[2019-12-13] MEDS: LABETALOL HCL 200 MG TABLET (FP) PO SCH (05:58)
[2019-12-13] MEDS: hydrALAZINE HCL 50 MG TABLET (FP) PO SCH (05:58)
[2019-12-13] MEDS: INSULIN SLIDING SCALE (NOVOLOG) 1 VIAL SQ SCH (06:01)
[2019-12-13 06:59] LABS: BLOOD UREA NITROGEN 74.2 mg/dL (7-18); CREATININE 3.1 mg/dL (0.55-1.3); POTASSIUM 4.3 mmol/L (3.5-5.1)
[2019-12-13] MEDS: ALBUTEROL SO4 2.5/IPRATROPIUM 0.5 INH SOL 3 ML VIAL.NEB. NEB SCH (08:25)
[2019-12-13 08:26] VITALS: BP 125/45; PULSE 60; TEMP 98.8
--- NOTE | 2019-12-13 08:36 | PN ---
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 patient was brought to hospital for hypoglycemia and unreponsive. At admisison,Patient is having intermittent jerking motion ( myoclonic jerking). Patient did get mri of brain and mri of c spine( no good study due to motion). Both studies were inconclusive, Patinet had eeg and dshowed epiletiform discharged and clinically patient is improved and now alert orietned x 3. repeat eeg is unremarkable. Spoke to staff, chart reviewed, no new complain. NEUROLOGICAL EXAMINATION Patient alert oriented x 3, feeling better neck is supple pupils is reactive no face asymmetry moving all extermity sensation is normal reflex are generalized diminished ct head wnl mri of brain and c spine limited exam due to motion eeg showed generalized encephalopathic and intermittent generalized spikes activity repeat eeg on december 06 was unremarkable Assessment/Plan 1. Hypoglycemic encephalopathy improved 2. myoclonic jerks after hypoglycemia event, eeg showed generalized epileptiform discharges, continue keppra for now , consider dicontinue in 2-4 weeks time, spoke to patient 3. Moving all extermity , good strengh in all four extremity .there is no evidence of cord copmression. Thanking you so much Vernon Ritter MD
[2019-12-13] MEDS ORDERED: PT OWN MED DRAWER 7, Y5N ONE (09:02)
[2019-12-13] MEDS: AMOX TR/POT CLAV 500MG/125MG TABLETS (FP) PO SCH (09:10)
[2019-12-13] MEDS: amLODIPine BESYLATE 10 MG TABLET (FP) PO SCH (09:10)
[2019-12-13] MEDS: ASPIRIN COATED 81 MG TABLET.EC PO SCH (09:10)
[2019-12-13] MEDS: levETIRAcetam 500 MG TABLET (FP) PO SCH (09:10)
[2019-12-13] MEDS: TORSEMIDE 20 MG TABLET (FP) PO SCH (09:10)
[2019-12-13] MEDS: BUDESONIDE/FORMETEROL FUMARATE 160/4.5 mcg INHALER IH SCH (09:14)
== END 2019-12-13 10:57 | DRG 637 ==
LOC: JER 14:12 → JERBED 18:48 → J4S 11-29 20:58
PROVIDERS: ADMIT Internal Medicine; ATTEND Internal Medicine
PROC: 4A00X4Z Measurement of Central Nervous Electrical Activity, External Approach (ICD-10-PCS; principal; 2019-12-07)
DX: E11.649 Type 2 diabetes mellitus with hypoglycemia without coma (principal); J18.9 Pneumonia, unspecified organism; E87.2 Acidosis; I13.0 Hypertensive heart and chronic kidney disease with heart failure and stage 1 through stage 4 chronic kidney disease, or unspecified chronic kidney disease; G93.49 Other encephalopathy; C34.90 Malignant neoplasm of unspecified part of unspecified bronchus or lung; I50.32 Chronic diastolic (congestive) heart failure; N39.0 Urinary tract infection, site not specified; J44.1 Chronic obstructive pulmonary disease with (acute) exacerbation; E11.22 Type 2 diabetes mellitus with diabetic chronic kidney disease; D64.9 Anemia, unspecified; E87.5 Hyperkalemia; Z79.4 Long term (current) use of insulin; E88.09 Other disorders of plasma-protein metabolism, not elsewhere classified; I48.0 Paroxysmal atrial fibrillation; N17.9 Acute kidney failure, unspecified; E87.6 Hypokalemia; I27.20 Pulmonary hypertension, unspecified; N18.4 Chronic kidney disease, stage 4 (severe); G25.3 Myoclonus; D50.9 Iron deficiency anemia, unspecified; R19.7 Diarrhea, unspecified
CPT/HCPCS: 36415; 36430; 36511; 36600; 70450-TC; 70551-TC; 71045-TC-FY; 72141-TC; 74176-TC; 74230-TC-FY; 76775-TC; 80048; 80053; 80061; 80307; 81003; 82140; 82272; 82550; 82553; 82565; 82570; 82607; 82728; 82803; 82962; 83036; 83540; 83550; 83605; 83721; 83735; 83880; 84100; 84156; 84300; 84443; 84484; 85025; 85027; 85044; 86850; 86900; 86901; 86922; 87040; 87086; 87186; 87324; 87449; 87804; 87899; 92611-GN; 93005; 93010; 93306-TC; 93880-TC; 94640; 95816; 97116-GP; 97161-GP; 99291; J0131; J0475; J1100; J1644; J1756; J7030; P9038; P9058

== ENCOUNTER 2021-01-14 09:26 | Inpatient (IN) | payer OTHER ==
[2021-01-14 11:19] LABS: BASO % 1.4 % (0-2.0); EOS % 1.1 % (0-4.5); HEMATOCRIT 18.6 % (32.4-45.2); LYMPH % 18.6 % (8-40); MCH 25.1 pg (25.7-33.7); MEAN CELL VOLUME 78.3 fl (80-96); MEAN PLT VOLUME 10.6 fl (7.5-11.1); MONO % 5.6 % (3.8-10.2); NEUT % 73.3 % (42.8-82.8); PLATELET COUNT 278 K/MM3 (134-434); RBC 2.38 M/mm3 (3.60-5.2); RDW 19.5 % (11.6-15.6); WHITE BLOOD COUNT 9.1 K/mm3 (4.0-10.0)
[2021-01-14] MEDS ORDERED: FUROSEMIDE 40 MG/4 ML INJECTABLE VIAL IVPUSH ONE (11:26)
[2021-01-14 11:30] LABS: CHLORIDE 111 mmol/L (98-107); SODIUM 139 mmol/L (136-145)
[2021-01-14 11:34] LABS: CALCIUM 8.7 mg/dL (8.5-10.1)
[2021-01-14 11:35] LABS: ALBUMIN 3.1 g/dl (3.4-5.0); ANION GAP 7 MMOL/L (8-16); BLOOD UREA NITROGEN 81.5 mg/dL (7-18); CO2 21 mmol/L (21-32); GLUCOSE,RANDOM 141 mg/dL (74-106)
[2021-01-14 11:39] LABS: SGOT/AST 53 U/L (15-37); SGPT/ALT 36 U/L (13-61); TOT PROT 7.3 g/dl (6.4-8.2)
[2021-01-14 11:41] LABS: ALK PHOS 223 U/L (45-117)
[2021-01-14 11:44] LABS: BILIRUBIN,TOTAL 0.5 mg/dL (0.2-1); N-TERMINAL BNP 10605.3 pg/ml (5-450)
[2021-01-14] MEDS ORDERED: FUROSEMIDE 40 MG/4 ML INJECTABLE VIAL ONE (12:00)
[2021-01-14 12:42] LABS: BLOOD UREA NITROGEN 83.9 mg/dL (7-18); CALCIUM 8.7 mg/dL (8.5-10.1)
[2021-01-14] MEDS ORDERED: ALBUTEROL SO4 0.083% IH SOL 2.5 MG/3 ML VIAL.NEB. NEB PRN (13:00)
[2021-01-14] MEDS ORDERED: ACETAMINOPHEN 325 MG TABLET (FP) PO PRN (13:05)
[2021-01-14] MEDS ORDERED: hydrALAZINE HCL 25 MG TABLET (FP) ONE ×2 (14:29→22:14)
[2021-01-14] MEDS ORDERED: LABETALOL HCL 100 MG TABLET (FP) ONE ×2 (14:29→22:14)
[2021-01-14] MEDS: hydrALAZINE HCL 50 MG TABLET (FP) PO SCH ×2 (14:48→22:15)
[2021-01-14] MEDS: LABETALOL HCL 100 MG TABLET (FP) PO SCH ×2 (14:48→22:15)
[2021-01-14] MEDS: INSULIN SLIDING SCALE (NOVOLOG) 1 VIAL SQ SCH ×2 (18:13→22:12)
[2021-01-14] MEDS ORDERED: APIXABAN 2.5 MG TABLET PO SCH (22:00)
[2021-01-14] MEDS: BUDESONIDE/FORMETEROL FUMARATE 160/4.5 mcg INHALER IH SCH (23:04)
[2021-01-15] MEDS: hydrALAZINE HCL 50 MG TABLET (FP) PO SCH ×3 (05:38→21:07)
[2021-01-15] MEDS: LABETALOL HCL 100 MG TABLET (FP) PO SCH ×3 (05:38→21:07)
[2021-01-15] MEDS: INSULIN SLIDING SCALE (NOVOLOG) 1 VIAL SQ SCH ×4 (06:02→22:03)
[2021-01-15 09:19] LABS: BASO % 0.7 % (0-2.0); EOS % 1.2 % (0-4.5); HEMATOCRIT 19.3 % (32.4-45.2); LYMPH % 14.8 % (8-40); MCH 26.3 pg (25.7-33.7); MCHC 33.5 g/dl (32.0-36.0); MEAN CELL VOLUME 78.6 fl (80-96); MEAN PLT VOLUME 10.5 fl (7.5-11.1); MONO % 6.3 % (3.8-10.2); PLATELET COUNT 228 K/MM3 (134-434); RBC 2.45 M/mm3 (3.60-5.2); RDW 17.7 % (11.6-15.6); WHITE BLOOD COUNT 9.4 K/mm3 (4.0-10.0)
[2021-01-15 09:23] LABS: HEMOGLOBIN 6.5 GM/dL (10.7-15.3)
[2021-01-15] MEDS: BUDESONIDE/FORMETEROL FUMARATE 160/4.5 mcg INHALER IH SCH ×2 (09:50→21:58)
[2021-01-15] MEDS ORDERED: SODIUM ZIRCONIUM CYCLOSILICATE (LOKELMA) 10 GM PACKET PO SCH (10:00)
[2021-01-15] MEDS ORDERED: TORSEMIDE 20 MG TABLET (FP) PO SCH (10:00)
[2021-01-15 10:05] LABS: ALBUMIN 2.8 g/dl (3.4-5.0); BLOOD UREA NITROGEN 86.5 mg/dL (7-18); CALCIUM 8.4 mg/dL (8.5-10.1)
[2021-01-15 10:08] LABS: CREATININE 2.8 mg/dL (0.55-1.3)
[2021-01-15 10:09] LABS: BILIRUBIN,TOTAL 0.6 mg/dL (0.2-1); TOT PROT 6.2 g/dl (6.4-8.2)
[2021-01-15] MEDS ORDERED: FUROSEMIDE 40 MG/4 ML INJECTABLE VIAL IVPUSH SCH (11:00)
[2021-01-15] MEDS ORDERED: PEG 3350/NA SULF BICARB CL/KCL 4000 ML SOLN.RECON PO ONE (12:50)
[2021-01-15 13:12] VITALS: BMI 32.0
[2021-01-15] MEDS: amLODIPine BESYLATE 5 MG TABLET (FP) PO SCH (13:40)
[2021-01-15] MEDS ORDERED: BISACODYL 5 MG TABLET.DR (FP) PO ONE (18:00)
[2021-01-15] MEDS ORDERED: ACETAMINOPHEN 325 MG TABLET (FP) PO PRN (20:29)
[2021-01-15] MEDS ORDERED: ALBUTEROL SO4 0.083% IH SOL 2.5 MG/3 ML VIAL.NEB. NEB PRN (20:29)
[2021-01-15] MEDS: ROSUVASTATIN CA 5 MG TABLET (FP) PO SCH (21:07)
[2021-01-15] MEDS ORDERED: ROSUVASTATIN CA 5 MG TABLET (FP) PO SCH (22:00)
[2021-01-16] MEDS: hydrALAZINE HCL 50 MG TABLET (FP) PO SCH ×3 (06:15→22:13)
[2021-01-16] MEDS: LABETALOL HCL 100 MG TABLET (FP) PO SCH ×3 (06:15→22:12)
[2021-01-16] MEDS: INSULIN SLIDING SCALE (NOVOLOG) 1 VIAL SQ SCH ×4 (06:46→22:12)
[2021-01-16 09:09] LABS: RBC 3.56 M/mm3 (3.60-5.2)
[2021-01-16 09:10] LABS: BASO % 0.6 % (0-2.0); EOS % 1.6 % (0-4.5); HEMATOCRIT 29.2 % (32.4-45.2); LYMPH % 12.9 % (8-40); MCH 28.1 pg (25.7-33.7); MCHC 34.3 g/dl (32.0-36.0); MEAN CELL VOLUME 81.9 fl (80-96); MONO % 8.1 % (3.8-10.2); NEUT % 76.8 % (42.8-82.8); PLATELET COUNT 222 K/MM3 (134-434); RDW 17.4 % (11.6-15.6)
[2021-01-16 09:15] LABS: INR 1.13 (0.83-1.09); PROTHROMBIN TIME (PATIENT) 13.8 SEC (9.7-13.0)
[2021-01-16 09:27] LABS: ALBUMIN 2.8 g/dl (3.4-5.0); BLOOD UREA NITROGEN 69.8 mg/dL (7-18)
[2021-01-16 09:31] LABS: CREATININE 2.6 mg/dL (0.55-1.3)
[2021-01-16 09:32] LABS: BILIRUBIN,TOTAL 0.9 mg/dL (0.2-1); TOT PROT 6.4 g/dl (6.4-8.2)
[2021-01-16] MEDS: FUROSEMIDE 40 MG/4 ML INJECTABLE VIAL IVPUSH SCH (09:45)
[2021-01-16] MEDS: amLODIPine BESYLATE 5 MG TABLET (FP) PO SCH (09:45)
[2021-01-16] MEDS: BUDESONIDE/FORMETEROL FUMARATE 160/4.5 mcg INHALER IH SCH ×2 (09:45→22:13)
[2021-01-16] MEDS: SODIUM ZIRCONIUM CYCLOSILICATE (LOKELMA) 10 GM PACKET PO SCH (10:03)
[2021-01-16] MEDS: ROSUVASTATIN CA 5 MG TABLET (FP) PO SCH (22:12)
[2021-01-16] MEDS: PANTOPRAZOLE 40 MG TABLET PO SCH (22:13)
[2021-01-17 06:07] VITALS: TEMP 98.2
[2021-01-17] MEDS: hydrALAZINE HCL 50 MG TABLET (FP) PO SCH ×2 (06:22→14:07)
[2021-01-17] MEDS: LABETALOL HCL 100 MG TABLET (FP) PO SCH ×2 (06:23→14:07)
[2021-01-17] MEDS: INSULIN SLIDING SCALE (NOVOLOG) 1 VIAL SQ SCH ×2 (06:31→12:20)
[2021-01-17 09:23] LABS: HEMATOCRIT 27.7 % (32.4-45.2); HEMOGLOBIN 9.4 GM/dL (10.7-15.3); MCH 28.3 pg (25.7-33.7); MCHC 33.9 g/dl (32.0-36.0); MEAN CELL VOLUME 83.4 fl (80-96); PLATELET COUNT 214 K/MM3 (134-434); RBC 3.32 M/mm3 (3.60-5.2); RDW 17.5 % (11.6-15.6); WHITE BLOOD COUNT 8.1 K/mm3 (4.0-10.0)
[2021-01-17] MEDS ORDERED: PT OWN MED DRAWER 7, Y5N ONE (09:45)
[2021-01-17] MEDS: SODIUM ZIRCONIUM CYCLOSILICATE (LOKELMA) 10 GM PACKET PO SCH (09:50)
[2021-01-17] MEDS: PANTOPRAZOLE 40 MG TABLET PO SCH (09:50)
[2021-01-17] MEDS: amLODIPine BESYLATE 5 MG TABLET (FP) PO SCH (09:50)
[2021-01-17] MEDS: FUROSEMIDE 40 MG/4 ML INJECTABLE VIAL IVPUSH SCH (09:50)
[2021-01-17] MEDS: BUDESONIDE/FORMETEROL FUMARATE 160/4.5 mcg INHALER IH SCH (09:51)
[2021-01-17 10:05] LABS: ALBUMIN 2.6 g/dl (3.4-5.0); BLOOD UREA NITROGEN 72.6 mg/dL (7-18); CALCIUM 8.1 mg/dL (8.5-10.1)
[2021-01-17 10:08] LABS: CREATININE 3.2 mg/dL (0.55-1.3)
[2021-01-17 10:09] LABS: BILIRUBIN,TOTAL 0.6 mg/dL (0.2-1)
[2021-01-17 19:57] VITALS: BP 140/63; PULSE 66
== END 2021-01-17 14:45 | disposition home or self-care (01) | DRG 377 ==
LOC: JER 09:26 → JERBED 12:04 → J6WEST-2 01-15 04:32 → J6S 01-15 15:52
PROVIDERS: ADMIT Internal Medicine; ATTEND Internal Medicine
PROC: 30233N1 Transfusion of Nonautologous Red Blood Cells into Peripheral Vein, Percutaneous Approach (ICD-10-PCS; principal; 2021-01-14)
PROC: 0DB77ZX Excision of Stomach, Pylorus, Via Natural or Artificial Opening, Diagnostic (ICD-10-PCS; 2021-01-16)
PROC: 0DB68ZX Excision of Stomach, Via Natural or Artificial Opening Endoscopic, Diagnostic (ICD-10-PCS; 2021-01-16)
PROC: 0DB98ZX Excision of Duodenum, Via Natural or Artificial Opening Endoscopic, Diagnostic (ICD-10-PCS; 2021-01-16)
PROC: 0DBM8ZX Excision of Descending Colon, Via Natural or Artificial Opening Endoscopic, Diagnostic (ICD-10-PCS; 2021-01-16)
DX: K26.4 Chronic or unspecified duodenal ulcer with hemorrhage (principal); I50.33 Acute on chronic diastolic (congestive) heart failure; I13.0 Hypertensive heart and chronic kidney disease with heart failure and stage 1 through stage 4 chronic kidney disease, or unspecified chronic kidney disease; N18.4 Chronic kidney disease, stage 4 (severe); D62 Acute posthemorrhagic anemia; K25.4 Chronic or unspecified gastric ulcer with hemorrhage; E78.00 Pure hypercholesterolemia, unspecified; E11.22 Type 2 diabetes mellitus with diabetic chronic kidney disease; J44.9 Chronic obstructive pulmonary disease, unspecified; I27.20 Pulmonary hypertension, unspecified; K44.9 Diaphragmatic hernia without obstruction or gangrene; K29.50 Unspecified chronic gastritis without bleeding; K31.7 Polyp of stomach and duodenum; K63.5 Polyp of colon; K64.8 Other hemorrhoids; K57.30 Diverticulosis of large intestine without perforation or abscess without bleeding; Z91.14 Patient's other noncompliance with medication regimen
CPT/HCPCS: 36415; 36430; 36511; 71046-TC-FY; 80048; 80053; 80061; 82272; 82962; 83036; 83721; 83880; 84443; 84484; 85025; 85027; 85610; 86850; 86900; 86901; 86922; 93005; 93010; 99285-25; C9803; P9038; P9058; U0003; U0005

== ENCOUNTER 2021-03-09 14:34 | Inpatient (IN) | payer OTHER ==
[2021-03-09] MEDS ORDERED: FUROSEMIDE 40 MG/4 ML INJECTABLE VIAL IVPUSH ONE (15:47)
[2021-03-09 15:51] LABS: BASO % 0.8 % (0-2.0); EOS % 0.8 % (0-4.5); HEMATOCRIT 20.1 % (32.4-45.2); LYMPH % 12.8 % (8-40); MCH 26.2 pg (25.7-33.7); MCHC 32.1 g/dl (32.0-36.0); MEAN CELL VOLUME 81.6 fl (80-96); MEAN PLT VOLUME 9.4 fl (7.5-11.1); MONO % 5.8 % (3.8-10.2); NEUT % 79.8 % (42.8-82.8); PLATELET COUNT 195 K/MM3 (134-434); RBC 2.46 M/mm3 (3.60-5.2); RDW 16.3 % (11.6-15.6); WHITE BLOOD COUNT 10.1 K/mm3 (4.0-10.0)
[2021-03-09 15:56] LABS: HEMOGLOBIN 6.4 GM/dL (10.7-15.3)
[2021-03-09 15:57] LABS: INR 1.08 (0.83-1.09); PROTHROMBIN TIME (PATIENT) 13.2 SEC (9.7-13.0)
[2021-03-09 16:00] LABS: ACTIVATED PTT 32.6 SECONDS (25.2-36.5)
[2021-03-09 16:07] LABS: CHLORIDE 113 mmol/L (98-107); SODIUM 142 mmol/L (136-145)
[2021-03-09 16:13] LABS: ALBUMIN 3.3 g/dl (3.4-5.0); ANION GAP 7 MMOL/L (8-16); BLOOD UREA NITROGEN 82.4 mg/dL (7-18); CALCIUM 8.9 mg/dL (8.5-10.1); CO2 22 mmol/L (21-32); GLUCOSE,RANDOM 178 mg/dL (74-106); MAGNESIUM 2.3 mg/dL (1.8-2.4)
[2021-03-09 16:16] LABS: SGOT/AST 23 U/L (15-37); SGPT/ALT 34 U/L (13-61)
[2021-03-09 16:17] LABS: BILIRUBIN,TOTAL 0.4 mg/dL (0.2-1); CREATININE 3.4 mg/dL (0.55-1.3); PHOSPHOROUS 4.4 mg/dL (2.5-4.9); TOT PROT 7.7 g/dl (6.4-8.2)
[2021-03-09 16:19] LABS: ALK PHOS 238 U/L (45-117)
[2021-03-09 16:21] LABS: N-TERMINAL BNP 13387.5 pg/ml (5-450)
[2021-03-09] MEDS ORDERED: FUROSEMIDE 40 MG/4 ML INJECTABLE VIAL ONE (16:28)
[2021-03-09 17:41] LABS: EPI CELLS 2 /uL (0-25.1); HYALINE CASTS 1 /uL (0-3.1); PH,URINE 5.5 (5.0-8.0); URINE APPEARANCE CLOUDY; URINE BACTERIA >9,000 /uL (0-1359); URINE BILIRUBIN NEGATIVE (NEGATIVE); URINE COLOR YELLOW; URINE GLUCOSE (UA) NEGATIVE (NEGATIVE); URINE KETONE NEGATIVE (NEGATIVE); URINE LEUK ESTERASE 1+ (NEGATIVE); URINE NITRITE NEGATIVE (NEGATIVE); URINE PROTEIN 3+ (NEGATIVE); URINE RBC 15 /uL (0-23.9); URINE UROBILINOGEN 0.2 mg/dL (0.2-1.0); URINE WBC 324 /uL (0-25.8)
[2021-03-09] MEDS: ALBUTEROL SO4 0.083% IH SOL 2.5 MG/3 ML VIAL.NEB. NEB SCH (21:42)
[2021-03-09] MEDS: LABETALOL HCL 100 MG TABLET (FP) PO SCH (21:45)
[2021-03-09] MEDS: hydrALAZINE HCL 25 MG TABLET (FP) PO SCH (21:46)
[2021-03-09] MEDS: levETIRAcetam 500 MG TABLET (FP) PO SCH (21:46)
[2021-03-09] MEDS: ROSUVASTATIN CA 5 MG TABLET (FP) PO SCH (21:46)
[2021-03-09] MEDS: PANTOPRAZOLE 40 MG TABLET PO SCH (21:47)
[2021-03-10] MEDS: ALBUTEROL SO4 0.083% IH SOL 2.5 MG/3 ML VIAL.NEB. NEB SCH ×4 (02:50→20:47)
[2021-03-10 06:37] LABS: BASO % 0.9 % (0-2.0); EOS % 0.8 % (0-4.5); HEMATOCRIT 22.7 % (32.4-45.2); HEMOGLOBIN 7.6 GM/dL (10.7-15.3); LYMPH % 11.7 % (8-40); MCH 28.1 pg (25.7-33.7); MCHC 33.5 g/dl (32.0-36.0); MEAN CELL VOLUME 83.9 fl (80-96); MEAN PLT VOLUME 9.8 fl (7.5-11.1); MONO % 6.4 % (3.8-10.2); NEUT % 80.2 % (42.8-82.8); PLATELET COUNT 178 K/MM3 (134-434); RDW 16.5 % (11.6-15.6); WHITE BLOOD COUNT 10.5 K/mm3 (4.0-10.0)
[2021-03-10] MEDS: LABETALOL HCL 100 MG TABLET (FP) PO SCH ×3 (06:48→21:56)
[2021-03-10] MEDS: hydrALAZINE HCL 25 MG TABLET (FP) PO SCH ×3 (06:48→21:56)
[2021-03-10 07:05] LABS: CALCIUM 8.6 mg/dL (8.5-10.1)
[2021-03-10 07:06] LABS: ALBUMIN 2.9 g/dl (3.4-5.0)
[2021-03-10 07:09] LABS: CREATININE 3.2 mg/dL (0.55-1.3)
[2021-03-10 07:11] LABS: BILIRUBIN,TOTAL 0.7 mg/dL (0.2-1); TOT PROT 6.6 g/dl (6.4-8.2)
[2021-03-10] MEDS: amLODIPine BESYLATE 10 MG TABLET (FP) PO SCH (09:26)
[2021-03-10] MEDS: FUROSEMIDE 40 MG/4 ML INJECTABLE VIAL IVPUSH SCH (09:26)
[2021-03-10] MEDS: levETIRAcetam 500 MG TABLET (FP) PO SCH ×2 (09:26→21:56)
[2021-03-10] MEDS: SODIUM ZIRCONIUM CYCLOSILICATE (LOKELMA) 5 GM PACKET PO SCH (09:26)
[2021-03-10] MEDS: PANTOPRAZOLE 40 MG TABLET PO SCH ×2 (09:27→21:56)
[2021-03-10] MEDS: BUDESONIDE/FORMETEROL FUMARATE 160/4.5 mcg INHALER IH SCH (17:05)
[2021-03-10] MEDS: ROSUVASTATIN CA 5 MG TABLET (FP) PO SCH (21:57)
[2021-03-11] MEDS: hydrALAZINE HCL 25 MG TABLET (FP) PO SCH ×3 (06:21→21:00)
[2021-03-11] MEDS: LABETALOL HCL 100 MG TABLET (FP) PO SCH ×3 (06:21→21:00)
[2021-03-11] MEDS: ALBUTEROL SO4 0.083% IH SOL 2.5 MG/3 ML VIAL.NEB. NEB SCH ×4 (07:55→20:20)
[2021-03-11] MEDS: FUROSEMIDE 40 MG/4 ML INJECTABLE VIAL IVPUSH SCH (09:01)
[2021-03-11] MEDS: amLODIPine BESYLATE 10 MG TABLET (FP) PO SCH (09:01)
[2021-03-11] MEDS: PANTOPRAZOLE 40 MG TABLET PO SCH ×2 (09:01→21:00)
[2021-03-11] MEDS: SODIUM ZIRCONIUM CYCLOSILICATE (LOKELMA) 5 GM PACKET PO SCH (09:02)
[2021-03-11] MEDS: levETIRAcetam 500 MG TABLET (FP) PO SCH ×2 (09:02→21:00)
[2021-03-11] MEDS: BUDESONIDE/FORMETEROL FUMARATE 160/4.5 mcg INHALER IH SCH (09:10)
[2021-03-11] MEDS ORDERED: EPOETIN ALFA-EPBX 20,000 UNIT/ML VIAL SQ ONE (12:45)
[2021-03-11] MEDS ORDERED: cefTRIAXone SODIUM 1 GM VIAL ONE (13:31)
[2021-03-11] MEDS ORDERED: DEXTROSE 5%-WATER - 50 ML IVPB ONE (13:31)
[2021-03-11] MEDS: CEFTRIAXONE 1 GM in DEXTROSE 5%-WATER - 50 ML IVPB SCH (13:54)
[2021-03-11 14:16] VITALS: BMI 29.2
[2021-03-11] MEDS ORDERED: INSULIN (NOVOLOG MIX 70/30) 100 UNITS/ML MDV SQ ONE (16:36)
[2021-03-11] MEDS: ROSUVASTATIN CA 5 MG TABLET (FP) PO SCH (21:00)
[2021-03-12] MEDS: hydrALAZINE HCL 25 MG TABLET (FP) PO SCH ×3 (05:34→21:14)
[2021-03-12] MEDS: LABETALOL HCL 100 MG TABLET (FP) PO SCH ×3 (05:34→21:14)
[2021-03-12 07:13] LABS: HEMATOCRIT 20.7 % (32.4-45.2); MCH 27.9 pg (25.7-33.7); MCHC 32.9 g/dl (32.0-36.0); MEAN CELL VOLUME 84.9 fl (80-96); MEAN PLT VOLUME 10.4 fl (7.5-11.1); PLATELET COUNT 162 K/MM3 (134-434); RBC 2.44 M/mm3 (3.60-5.2); RDW 17.2 % (11.6-15.6); WHITE BLOOD COUNT 8.6 K/mm3 (4.0-10.0)
[2021-03-12 07:17] LABS: HEMOGLOBIN 6.8 GM/dL (10.7-15.3)
[2021-03-12 07:41] LABS: BLOOD UREA NITROGEN 87.7 mg/dL (7-18)
[2021-03-12 07:43] LABS: ALBUMIN 2.7 g/dl (3.4-5.0)
[2021-03-12 07:47] LABS: CALCIUM 8.4 mg/dL (8.5-10.1); CREATININE 3.8 mg/dL (0.55-1.3)
[2021-03-12 07:48] LABS: BILIRUBIN,TOTAL 0.4 mg/dL (0.2-1); TOT PROT 6.2 g/dl (6.4-8.2)
[2021-03-12 07:59] LABS: PHOSPHOROUS 5.4 mg/dL (2.5-4.9)
[2021-03-12] MEDS ORDERED: DEXTROSE 5%-WATER - 50 ML IVPB ONE (08:31)
[2021-03-12] MEDS ORDERED: cefTRIAXone SODIUM 1 GM VIAL ONE (08:31)
[2021-03-12] MEDS: ALBUTEROL SO4 0.083% IH SOL 2.5 MG/3 ML VIAL.NEB. NEB SCH ×4 (08:49→20:22)
[2021-03-12] MEDS: CEFTRIAXONE 1 GM in DEXTROSE 5%-WATER - 50 ML IVPB SCH (10:55)
[2021-03-12] MEDS: PANTOPRAZOLE 40 MG TABLET PO SCH ×2 (10:55→21:13)
[2021-03-12] MEDS: SODIUM ZIRCONIUM CYCLOSILICATE (LOKELMA) 5 GM PACKET PO SCH (10:55)
[2021-03-12] MEDS: amLODIPine BESYLATE 10 MG TABLET (FP) PO SCH (10:55)
[2021-03-12] MEDS: levETIRAcetam 500 MG TABLET (FP) PO SCH ×2 (10:55→21:14)
[2021-03-12] MEDS: BUDESONIDE/FORMETEROL FUMARATE 160/4.5 mcg INHALER IH SCH (10:56)
[2021-03-12] MEDS: FUROSEMIDE 40 MG/4 ML INJECTABLE VIAL IVPUSH SCH (16:10)
[2021-03-12] MEDS: ROSUVASTATIN CA 5 MG TABLET (FP) PO SCH (21:14)
[2021-03-13] MEDS: LABETALOL HCL 100 MG TABLET (FP) PO SCH ×3 (06:18→22:21)
[2021-03-13] MEDS: hydrALAZINE HCL 25 MG TABLET (FP) PO SCH ×3 (06:19→22:22)
[2021-03-13 07:22] LABS: HEMATOCRIT 24.5 % (32.4-45.2); HEMOGLOBIN 8.2 GM/dL (10.7-15.3); MCH 28.5 pg (25.7-33.7); MCHC 33.7 g/dl (32.0-36.0); MEAN CELL VOLUME 84.6 fl (80-96); MEAN PLT VOLUME 10.8 fl (7.5-11.1); PLATELET COUNT 157 K/MM3 (134-434); RDW 17.2 % (11.6-15.6); WHITE BLOOD COUNT 9.3 K/mm3 (4.0-10.0)
[2021-03-13 07:47] LABS: CALCIUM 8.4 mg/dL (8.5-10.1)
[2021-03-13 07:48] LABS: ALBUMIN 2.7 g/dl (3.4-5.0)
[2021-03-13 07:51] LABS: CREATININE 4.1 mg/dL (0.55-1.3)
[2021-03-13 07:52] LABS: BILIRUBIN,TOTAL 0.4 mg/dL (0.2-1); TOT PROT 6.6 g/dl (6.4-8.2)
[2021-03-13] MEDS: ALBUTEROL SO4 0.083% IH SOL 2.5 MG/3 ML VIAL.NEB. NEB SCH ×5 (08:00→20:00)
[2021-03-13] MEDS ORDERED: cefTRIAXone SODIUM 1 GM VIAL ONE (09:10)
[2021-03-13] MEDS ORDERED: DEXTROSE 5%-WATER - 50 ML IVPB ONE (09:10)
[2021-03-13] MEDS: SODIUM ZIRCONIUM CYCLOSILICATE (LOKELMA) 5 GM PACKET PO SCH (09:43)
[2021-03-13] MEDS: PANTOPRAZOLE 40 MG TABLET PO SCH ×2 (09:44→22:22)
[2021-03-13] MEDS: BUDESONIDE/FORMETEROL FUMARATE 160/4.5 mcg INHALER IH SCH (09:44)
[2021-03-13] MEDS: amLODIPine BESYLATE 10 MG TABLET (FP) PO SCH (09:44)
[2021-03-13] MEDS: levETIRAcetam 500 MG TABLET (FP) PO SCH ×2 (09:44→22:22)
[2021-03-13] MEDS: CEFTRIAXONE 1 GM in DEXTROSE 5%-WATER - 50 ML IVPB SCH (09:46)
[2021-03-13] MEDS: ROSUVASTATIN CA 5 MG TABLET (FP) PO SCH (22:22)
[2021-03-14] MEDS: hydrALAZINE HCL 25 MG TABLET (FP) PO SCH ×3 (06:26→22:13)
[2021-03-14] MEDS: LABETALOL HCL 100 MG TABLET (FP) PO SCH ×3 (06:26→22:13)
[2021-03-14 07:13] LABS: HEMATOCRIT 24.2 % (32.4-45.2); MCH 27.9 pg (25.7-33.7); MCHC 32.8 g/dl (32.0-36.0); MEAN PLT VOLUME 10.8 fl (7.5-11.1); PLATELET COUNT 150 K/MM3 (134-434); RBC 2.85 M/mm3 (3.60-5.2); RDW 17.5 % (11.6-15.6); WHITE BLOOD COUNT 8.3 K/mm3 (4.0-10.0)
[2021-03-14 07:29] LABS: CALCIUM 8.5 mg/dL (8.5-10.1)
[2021-03-14] MEDS: ALBUTEROL SO4 0.083% IH SOL 2.5 MG/3 ML VIAL.NEB. NEB SCH ×4 (07:31→20:14)
[2021-03-14 07:33] LABS: CREATININE 4.5 mg/dL (0.55-1.3)
[2021-03-14 07:35] LABS: BLOOD UREA NITROGEN 82.5 mg/dL (7-18)
[2021-03-14] MEDS ORDERED: cefTRIAXone SODIUM 1 GM VIAL ONE (08:40)
[2021-03-14] MEDS ORDERED: DEXTROSE 5%-WATER - 50 ML IVPB ONE (08:41)
[2021-03-14 08:52] LABS: BF WBC & OTHER NUCLEATED CELLS 182 /mm3
[2021-03-14] MEDS: levETIRAcetam 500 MG TABLET (FP) PO SCH ×2 (09:01→22:13)
[2021-03-14] MEDS: PANTOPRAZOLE 40 MG TABLET PO SCH ×2 (09:01→22:13)
[2021-03-14] MEDS: amLODIPine BESYLATE 10 MG TABLET (FP) PO SCH (09:01)
[2021-03-14] MEDS: SODIUM ZIRCONIUM CYCLOSILICATE (LOKELMA) 5 GM PACKET PO SCH (09:01)
[2021-03-14] MEDS: BUDESONIDE/FORMETEROL FUMARATE 160/4.5 mcg INHALER IH SCH (09:02)
[2021-03-14] MEDS: CEFTRIAXONE 1 GM in DEXTROSE 5%-WATER - 50 ML IVPB SCH (09:02)
[2021-03-14 11:37] LABS: BODY FLUID MACROPHAGES 14 %; BODY FLUID MESOTHELIAL 10 %; BODY FLUID MONOCYTE 6 %; BODYL FLD EOSINOPHIL 1 %
[2021-03-14] MEDS ORDERED: SODIUM CHLORIDE 1,000 ML IV SCH (12:45)
[2021-03-14] MEDS: ROSUVASTATIN CA 5 MG TABLET (FP) PO SCH (22:13)
[2021-03-15] MEDS: hydrALAZINE HCL 25 MG TABLET (FP) PO SCH ×3 (06:17→21:16)
[2021-03-15] MEDS: LABETALOL HCL 100 MG TABLET (FP) PO SCH ×3 (06:17→21:15)
[2021-03-15] MEDS: ALBUTEROL SO4 0.083% IH SOL 2.5 MG/3 ML VIAL.NEB. NEB SCH ×3 (07:25→15:40)
[2021-03-15 07:59] LABS: HEMATOCRIT 25.2 % (32.4-45.2); HEMOGLOBIN 8.3 GM/dL (10.7-15.3); MEAN CELL VOLUME 84.7 fl (80-96); MEAN PLT VOLUME 10.9 fl (7.5-11.1); PLATELET COUNT 148 K/MM3 (134-434); RBC 2.97 M/mm3 (3.60-5.2); RDW 17.6 % (11.6-15.6); WHITE BLOOD COUNT 8.1 K/mm3 (4.0-10.0)
[2021-03-15] MEDS ORDERED: cefTRIAXone SODIUM 1 GM VIAL ONE (08:12)
[2021-03-15] MEDS ORDERED: DEXTROSE 5%-WATER - 50 ML IVPB ONE (08:12)
[2021-03-15 08:27] LABS: BLOOD UREA NITROGEN 87.2 mg/dL (7-18); CALCIUM 8.2 mg/dL (8.5-10.1)
[2021-03-15 08:31] LABS: CREATININE 4.3 mg/dL (0.55-1.3)
[2021-03-15] MEDS: CEFTRIAXONE 1 GM in DEXTROSE 5%-WATER - 50 ML IVPB SCH (09:08)
[2021-03-15] MEDS: SODIUM ZIRCONIUM CYCLOSILICATE (LOKELMA) 5 GM PACKET PO SCH (09:08)
[2021-03-15] MEDS: PANTOPRAZOLE 40 MG TABLET PO SCH ×2 (09:08→21:16)
[2021-03-15] MEDS: amLODIPine BESYLATE 10 MG TABLET (FP) PO SCH (09:08)
[2021-03-15] MEDS: levETIRAcetam 500 MG TABLET (FP) PO SCH ×2 (09:09→21:16)
[2021-03-15] MEDS: BUDESONIDE/FORMETEROL FUMARATE 160/4.5 mcg INHALER IH SCH (09:10)
[2021-03-15 14:07] LABS: BODY FLUID ALBUMIN 0.8 g/dL (Not Estab.)
[2021-03-15] MEDS: ROSUVASTATIN CA 5 MG TABLET (FP) PO SCH (21:16)
[2021-03-16] MEDS: LABETALOL HCL 100 MG TABLET (FP) PO SCH ×3 (05:46→21:18)
[2021-03-16] MEDS: hydrALAZINE HCL 25 MG TABLET (FP) PO SCH ×3 (05:46→21:18)
[2021-03-16 06:53] LABS: HEMATOCRIT 25.7 % (32.4-45.2); HEMOGLOBIN 8.2 GM/dL (10.7-15.3); MCH 27.2 pg (25.7-33.7); MCHC 31.8 g/dl (32.0-36.0); MEAN CELL VOLUME 85.5 fl (80-96); PLATELET COUNT 149 K/MM3 (134-434); RDW 17.1 % (11.6-15.6); WHITE BLOOD COUNT 7.5 K/mm3 (4.0-10.0)
[2021-03-16 07:09] LABS: ALBUMIN 2.8 g/dl (3.4-5.0); CALCIUM 8.5 mg/dL (8.5-10.1)
[2021-03-16 07:10] LABS: BLOOD UREA NITROGEN 82.6 mg/dL (7-18)
[2021-03-16 07:13] LABS: CREATININE 4.2 mg/dL (0.55-1.3)
[2021-03-16 07:14] LABS: BILIRUBIN,TOTAL 0.6 mg/dL (0.2-1); TOT PROT 6.5 g/dl (6.4-8.2)
[2021-03-16] MEDS: SODIUM ZIRCONIUM CYCLOSILICATE (LOKELMA) 5 GM PACKET PO SCH (09:33)
[2021-03-16] MEDS: levETIRAcetam 500 MG TABLET (FP) PO SCH ×2 (09:33→21:18)
[2021-03-16] MEDS: PANTOPRAZOLE 40 MG TABLET PO SCH ×2 (09:34→21:18)
[2021-03-16] MEDS: amLODIPine BESYLATE 10 MG TABLET (FP) PO SCH (09:34)
[2021-03-16] MEDS: BUDESONIDE/FORMETEROL FUMARATE 160/4.5 mcg INHALER IH SCH (09:34)
[2021-03-16] MEDS: ACETAMINOPHEN 325 MG TABLET (FP) PO PRN (18:22)
[2021-03-16] MEDS: ROSUVASTATIN CA 5 MG TABLET (FP) PO SCH (21:18)
[2021-03-17] MEDS: LABETALOL HCL 100 MG TABLET (FP) PO SCH ×3 (06:08→21:39)
[2021-03-17] MEDS: hydrALAZINE HCL 25 MG TABLET (FP) PO SCH ×3 (06:09→21:39)
[2021-03-17 08:04] LABS: BASO % 0.8 % (0-2.0); EOS % 2.4 % (0-4.5); HEMATOCRIT 24.1 % (32.4-45.2); LYMPH % 14.5 % (8-40); MCH 27.8 pg (25.7-33.7); MCHC 33.1 g/dl (32.0-36.0); MEAN CELL VOLUME 84.2 fl (80-96); MEAN PLT VOLUME 10.4 fl (7.5-11.1); MONO % 8.1 % (3.8-10.2); NEUT % 74.2 % (42.8-82.8); PLATELET COUNT 155 K/MM3 (134-434); RBC 2.86 M/mm3 (3.60-5.2); RDW 16.9 % (11.6-15.6); WHITE BLOOD COUNT 7.4 K/mm3 (4.0-10.0)
[2021-03-17 08:18] LABS: CALCIUM 8.5 mg/dL (8.5-10.1)
[2021-03-17 08:19] LABS: BLOOD UREA NITROGEN 85.2 mg/dL (7-18)
[2021-03-17 08:24] LABS: CREATININE 4.7 mg/dL (0.55-1.3)
[2021-03-17] MEDS: levETIRAcetam 500 MG TABLET (FP) PO SCH ×2 (09:52→21:39)
[2021-03-17] MEDS: SODIUM ZIRCONIUM CYCLOSILICATE (LOKELMA) 5 GM PACKET PO SCH (09:52)
[2021-03-17] MEDS: amLODIPine BESYLATE 10 MG TABLET (FP) PO SCH (09:53)
[2021-03-17] MEDS: BUDESONIDE/FORMETEROL FUMARATE 160/4.5 mcg INHALER IH SCH (09:53)
[2021-03-17] MEDS: PANTOPRAZOLE 40 MG TABLET PO SCH ×2 (09:53→21:39)
[2021-03-17] MEDS ORDERED: SODIUM CHLORIDE 1,000 ML IV SCH (12:15)
[2021-03-17] MEDS: ROSUVASTATIN CA 5 MG TABLET (FP) PO SCH (21:39)
[2021-03-17] MEDS: DOCUSATE SODIUM 100 MG CAPSULE (FP) PO PRN (22:33)
[2021-03-18] MEDS: LABETALOL HCL 100 MG TABLET (FP) PO SCH ×3 (06:12→21:32)
[2021-03-18] MEDS: hydrALAZINE HCL 25 MG TABLET (FP) PO SCH ×3 (06:12→21:31)
[2021-03-18 08:23] LABS: HEMATOCRIT 26.1 % (32.4-45.2); HEMOGLOBIN 8.3 GM/dL (10.7-15.3); MCH 27.4 pg (25.7-33.7); MCHC 31.9 g/dl (32.0-36.0); MEAN PLT VOLUME 10.7 fl (7.5-11.1); PLATELET COUNT 152 K/MM3 (134-434); RBC 3.03 M/mm3 (3.60-5.2); RDW 17.6 % (11.6-15.6); WHITE BLOOD COUNT 7.9 K/mm3 (4.0-10.0)
[2021-03-18 08:44] LABS: CALCIUM 8.5 mg/dL (8.5-10.1)
[2021-03-18 08:45] LABS: ALBUMIN 2.9 g/dl (3.4-5.0); MAGNESIUM 2.3 mg/dL (1.8-2.4)
[2021-03-18 08:48] LABS: BLOOD UREA NITROGEN 94.8 mg/dL (7-18); CREATININE 4.6 mg/dL (0.55-1.3)
[2021-03-18 08:50] LABS: BILIRUBIN,TOTAL 0.5 mg/dL (0.2-1); TOT PROT 6.6 g/dl (6.4-8.2)
[2021-03-18] MEDS: amLODIPine BESYLATE 10 MG TABLET (FP) PO SCH (10:37)
[2021-03-18] MEDS: PANTOPRAZOLE 40 MG TABLET PO SCH ×2 (10:38→21:31)
[2021-03-18] MEDS: levETIRAcetam 500 MG TABLET (FP) PO SCH ×2 (10:38→21:32)
[2021-03-18] MEDS: SODIUM ZIRCONIUM CYCLOSILICATE (LOKELMA) 5 GM PACKET PO SCH (10:38)
[2021-03-18] MEDS: BUDESONIDE/FORMETEROL FUMARATE 160/4.5 mcg INHALER IH SCH (10:38)
[2021-03-18] MEDS ORDERED: FUROSEMIDE 100 MG/10 ML INJECTABLE VIAL IVPB ONE (12:12)
[2021-03-18] MEDS ORDERED: EPOETIN ALFA-EPBX 20,000 UNIT/ML VIAL SQ ONE (12:26)
[2021-03-18] MEDS: ROSUVASTATIN CA 5 MG TABLET (FP) PO SCH (21:31)
[2021-03-18] MEDS: DOCUSATE SODIUM 100 MG CAPSULE (FP) PO PRN (21:32)
[2021-03-19] MEDS: hydrALAZINE HCL 25 MG TABLET (FP) PO SCH ×3 (06:17→21:36)
[2021-03-19] MEDS: LABETALOL HCL 100 MG TABLET (FP) PO SCH ×3 (06:17→21:36)
[2021-03-19 08:08] LABS: HEMATOCRIT 23.9 % (32.4-45.2); HEMOGLOBIN 7.6 GM/dL (10.7-15.3); MCH 27.1 pg (25.7-33.7); MCHC 31.7 g/dl (32.0-36.0); MEAN CELL VOLUME 85.3 fl (80-96); PLATELET COUNT 142 10^3/uL (134-434); RBC 2.81 M/mm3 (3.60-5.2); RDW 17.2 % (11.6-15.6); WHITE BLOOD COUNT 7.5 K/mm3 (4.0-10.0)
[2021-03-19 08:30] LABS: CALCIUM 8.4 mg/dL (8.5-10.1)
[2021-03-19 08:31] LABS: ALBUMIN 2.7 g/dl (3.4-5.0); BLOOD UREA NITROGEN 91.2 mg/dL (7-18); MAGNESIUM 2.3 mg/dL (1.8-2.4)
[2021-03-19 08:34] LABS: CREATININE 5.3 mg/dL (0.55-1.3); PHOSPHOROUS 5.2 mg/dL (2.5-4.9)
[2021-03-19 08:35] LABS: BILIRUBIN,TOTAL 0.5 mg/dL (0.2-1); TOT PROT 6.3 g/dl (6.4-8.2)
[2021-03-19] MEDS: ACETAMINOPHEN 325 MG TABLET (FP) PO PRN (09:40)
[2021-03-19] MEDS: SODIUM ZIRCONIUM CYCLOSILICATE (LOKELMA) 5 GM PACKET PO SCH (09:41)
[2021-03-19] MEDS: amLODIPine BESYLATE 10 MG TABLET (FP) PO SCH (09:42)
[2021-03-19] MEDS: PANTOPRAZOLE 40 MG TABLET PO SCH ×2 (09:42→21:36)
[2021-03-19] MEDS: levETIRAcetam 500 MG TABLET (FP) PO SCH ×2 (09:42→21:36)
[2021-03-19] MEDS: TORSEMIDE 20 MG TABLET (FP) PO SCH (09:42)
[2021-03-19] MEDS: BUDESONIDE/FORMETEROL FUMARATE 160/4.5 mcg INHALER IH SCH (09:43)
[2021-03-19] MEDS ORDERED: SODIUM CHLORIDE 250 ML IV PRN (16:55)
[2021-03-19] MEDS: ROSUVASTATIN CA 5 MG TABLET (FP) PO SCH (21:36)
[2021-03-20] MEDS: LABETALOL HCL 100 MG TABLET (FP) PO SCH ×2 (06:23→14:10)
[2021-03-20] MEDS: hydrALAZINE HCL 25 MG TABLET (FP) PO SCH ×2 (06:23→14:10)
[2021-03-20] MEDS: PANTOPRAZOLE 40 MG TABLET PO SCH (10:07)
[2021-03-20] MEDS: levETIRAcetam 500 MG TABLET (FP) PO SCH (10:07)
[2021-03-20] MEDS: SODIUM ZIRCONIUM CYCLOSILICATE (LOKELMA) 5 GM PACKET PO SCH (10:07)
[2021-03-20] MEDS: BUDESONIDE/FORMETEROL FUMARATE 160/4.5 mcg INHALER IH SCH (10:08)
[2021-03-20] MEDS: TORSEMIDE 20 MG TABLET (FP) PO SCH (10:08)
[2021-03-20] MEDS: amLODIPine BESYLATE 10 MG TABLET (FP) PO SCH (10:08)
[2021-03-20 11:43] LABS: HEMATOCRIT 26.6 % (32.4-45.2); MCH 28.7 pg (25.7-33.7); MCHC 33.7 g/dl (32.0-36.0); MEAN CELL VOLUME 85.4 fl (80-96); MEAN PLT VOLUME 9.6 fl (7.5-11.1); PLATELET COUNT 127 10^3/uL (134-434); RBC 3.12 M/mm3 (3.60-5.2); RDW 17.7 % (11.6-15.6); WHITE BLOOD COUNT 8.2 K/mm3 (4.0-10.0)
[2021-03-20 12:05] LABS: CALCIUM 8.5 mg/dL (8.5-10.1)
[2021-03-20 12:06] LABS: ALBUMIN 2.8 g/dl (3.4-5.0)
[2021-03-20 12:09] LABS: BILIRUBIN,DIRECT 0.2 mg/dL (0.0-0.2); CREATININE 5.4 mg/dL (0.55-1.3)
[2021-03-20 12:10] LABS: TOT PROT 6.4 g/dl (6.4-8.2)
[2021-03-20 12:11] LABS: BILIRUBIN,TOTAL 0.6 mg/dL (0.2-1)
[2021-03-20 13:39] LABS: INR 1.04 (0.83-1.09); PROTHROMBIN TIME (PATIENT) 12.6 SEC (9.7-13.0)
[2021-03-20] MEDS ORDERED: HEPARIN NA (PORCINE) 5,000 UNITS/ML 1ML VIAL ONE (14:58)
[2021-03-20] MEDS ORDERED: LIDOCAINE HCL 1%, 10 MG/ML (20ML VIAL) ONE ×2 (14:58→16:31)
[2021-03-20] MEDS ORDERED: SODIUM CHLORIDE 250 ML IV PRN ×3 (15:39→22:23)
[2021-03-20] MEDS ORDERED: MIDAZOLAM HCL 2 MG/2 ML SINGLE DOSE VIAL ONE (18:15)
[2021-03-20] MEDS ORDERED: PROPOFOL 20 ML ONE (18:29)
[2021-03-20] MEDS ORDERED: ceFAZolin SODIUM 1 GM VIAL IVPB ONE (18:31)
[2021-03-20] MEDS ORDERED: LIDOCAINE HCL 1%, 10 MG/ML (20ML VIAL) INF ONE (18:39)
[2021-03-20] MEDS ORDERED: ceFAZolin SODIUM 1 GM VIAL ONE (19:21)
[2021-03-20] MEDS ORDERED: DOCUSATE SODIUM 100 MG CAPSULE (FP) PO PRN (19:26)
[2021-03-20] MEDS ORDERED: ACETAMINOPHEN 325 MG TABLET (FP) PO PRN (19:26)
[2021-03-21] MEDS: ROSUVASTATIN CA 5 MG TABLET (FP) PO SCH ×2 (01:23→21:14)
[2021-03-21] MEDS: levETIRAcetam 500 MG TABLET (FP) PO SCH ×3 (01:23→21:14)
[2021-03-21] MEDS: hydrALAZINE HCL 25 MG TABLET (FP) PO SCH ×4 (01:23→21:14)
[2021-03-21] MEDS: PANTOPRAZOLE 40 MG TABLET PO SCH ×3 (01:24→21:14)
[2021-03-21] MEDS: LABETALOL HCL 100 MG TABLET (FP) PO SCH ×4 (01:24→21:14)
[2021-03-21] MEDS ORDERED: EPOETIN ALFA-EPBX 20,000 UNIT/ML VIAL IVPUSH ONE ×2 (07:00→08:00)
[2021-03-21 07:59] LABS: HEMATOCRIT 26.9 % (32.4-45.2); MCH 28.4 pg (25.7-33.7); MCHC 33.5 g/dl (32.0-36.0); MEAN CELL VOLUME 84.6 fl (80-96); MEAN PLT VOLUME 10.4 fl (7.5-11.1); PLATELET COUNT 140 10^3/uL (134-434); RBC 3.18 M/mm3 (3.60-5.2); RDW 17.4 % (11.6-15.6); WHITE BLOOD COUNT 7.7 K/mm3 (4.0-10.0)
[2021-03-21 08:30] LABS: CALCIUM 7.9 mg/dL (8.5-10.1)
[2021-03-21 08:33] LABS: CREATININE 3.5 mg/dL (0.55-1.3)
[2021-03-21 08:35] LABS: BLOOD UREA NITROGEN 54.2 mg/dL (7-18)
[2021-03-21] MEDS ORDERED: SODIUM ZIRCONIUM CYCLOSILICATE (LOKELMA) 5 GM PACKET PO SCH (10:00)
[2021-03-21] MEDS: amLODIPine BESYLATE 10 MG TABLET (FP) PO SCH (11:30)
[2021-03-21] MEDS: TORSEMIDE 20 MG TABLET (FP) PO SCH (11:30)
[2021-03-21] MEDS ORDERED: POTASSIUM CHLORIDE TABS 10 MEQ TABLET.ER (FP) PO ONE (11:31)
[2021-03-21] MEDS: BUDESONIDE/FORMETEROL FUMARATE 160/4.5 mcg INHALER IH SCH (11:31)
[2021-03-22] MEDS: hydrALAZINE HCL 25 MG TABLET (FP) PO SCH ×4 (05:52→21:21)
[2021-03-22] MEDS: LABETALOL HCL 100 MG TABLET (FP) PO SCH ×4 (05:52→21:21)
[2021-03-22] MEDS: levETIRAcetam 500 MG TABLET (FP) PO SCH ×2 (09:13→21:21)
[2021-03-22] MEDS: PANTOPRAZOLE 40 MG TABLET PO SCH ×2 (09:13→21:21)
[2021-03-22] MEDS: TORSEMIDE 20 MG TABLET (FP) PO SCH (09:13)
[2021-03-22] MEDS: amLODIPine BESYLATE 10 MG TABLET (FP) PO SCH (09:13)
[2021-03-22] MEDS: BUDESONIDE/FORMETEROL FUMARATE 160/4.5 mcg INHALER IH SCH (09:14)
[2021-03-22] MEDS: ROSUVASTATIN CA 5 MG TABLET (FP) PO SCH (21:21)
[2021-03-23] MEDS: hydrALAZINE HCL 25 MG TABLET (FP) PO SCH ×3 (06:03→21:01)
[2021-03-23] MEDS: LABETALOL HCL 100 MG TABLET (FP) PO SCH ×3 (06:03→21:00)
[2021-03-23] MEDS: amLODIPine BESYLATE 10 MG TABLET (FP) PO SCH (09:13)
[2021-03-23] MEDS: PANTOPRAZOLE 40 MG TABLET PO SCH ×2 (09:13→21:00)
[2021-03-23] MEDS: TORSEMIDE 20 MG TABLET (FP) PO SCH (09:13)
[2021-03-23] MEDS: levETIRAcetam 500 MG TABLET (FP) PO SCH ×2 (09:13→21:00)
[2021-03-23] MEDS: BUDESONIDE/FORMETEROL FUMARATE 160/4.5 mcg INHALER IH SCH (09:13)
[2021-03-23] MEDS ORDERED: SODIUM CHLORIDE 250 ML IV PRN (12:00)
[2021-03-23] MEDS ORDERED: EPOETIN ALFA-EPBX 20,000 UNIT/ML VIAL IVPUSH ONE (12:15)
[2021-03-23 12:35] LABS: HEMATOCRIT 29.3 % (32.4-45.2); HEMOGLOBIN 9.5 GM/dL (10.7-15.3); MCH 27.8 pg (25.7-33.7); MCHC 32.4 g/dl (32.0-36.0); MEAN CELL VOLUME 85.9 fl (80-96); MEAN PLT VOLUME 10.7 fl (7.5-11.1); PLATELET COUNT 161 10^3/uL (134-434); RDW 17.8 % (11.6-15.6); WHITE BLOOD COUNT 9.5 K/mm3 (4.0-10.0)
[2021-03-23 14:43] LABS: CALCIUM 8.4 mg/dL (8.5-10.1)
[2021-03-23 14:44] LABS: BLOOD UREA NITROGEN 44.8 mg/dL (7-18)
[2021-03-23 14:47] LABS: PHOSPHOROUS 3.5 mg/dL (2.5-4.9)
[2021-03-23] MEDS: ROSUVASTATIN CA 5 MG TABLET (FP) PO SCH (21:00)
[2021-03-24] MEDS: LABETALOL HCL 100 MG TABLET (FP) PO SCH ×3 (05:47→21:48)
[2021-03-24] MEDS: hydrALAZINE HCL 25 MG TABLET (FP) PO SCH ×3 (06:24→21:48)
[2021-03-24] MEDS: levETIRAcetam 500 MG TABLET (FP) PO SCH ×2 (09:40→21:48)
[2021-03-24] MEDS: PANTOPRAZOLE 40 MG TABLET PO SCH ×2 (09:40→21:48)
[2021-03-24] MEDS: amLODIPine BESYLATE 10 MG TABLET (FP) PO SCH (09:40)
[2021-03-24] MEDS: TORSEMIDE 20 MG TABLET (FP) PO SCH (09:40)
[2021-03-24] MEDS: BUDESONIDE/FORMETEROL FUMARATE 160/4.5 mcg INHALER IH SCH (09:41)
[2021-03-24] MEDS: ROSUVASTATIN CA 5 MG TABLET (FP) PO SCH (21:48)
[2021-03-25] MEDS: hydrALAZINE HCL 25 MG TABLET (FP) PO SCH ×3 (05:45→21:25)
[2021-03-25] MEDS: LABETALOL HCL 100 MG TABLET (FP) PO SCH ×3 (05:45→22:57)
[2021-03-25] MEDS: amLODIPine BESYLATE 10 MG TABLET (FP) PO SCH (09:42)
[2021-03-25] MEDS: PANTOPRAZOLE 40 MG TABLET PO SCH ×2 (09:42→21:23)
[2021-03-25] MEDS: levETIRAcetam 500 MG TABLET (FP) PO SCH ×2 (09:42→21:23)
[2021-03-25] MEDS: TORSEMIDE 20 MG TABLET (FP) PO SCH (09:42)
[2021-03-25] MEDS: BUDESONIDE/FORMETEROL FUMARATE 160/4.5 mcg INHALER IH SCH (09:43)
[2021-03-25] MEDS ORDERED: SODIUM CHLORIDE 250 ML IV PRN (12:46)
[2021-03-25] MEDS ORDERED: EPOETIN ALFA-EPBX 10,000 UNIT/ML VIAL IVPUSH ONE (13:00)
[2021-03-25] MEDS: ROSUVASTATIN CA 5 MG TABLET (FP) PO SCH (21:23)
[2021-03-26] MEDS: LABETALOL HCL 100 MG TABLET (FP) PO SCH ×3 (05:12→21:27)
[2021-03-26] MEDS: hydrALAZINE HCL 25 MG TABLET (FP) PO SCH ×3 (05:12→21:27)
[2021-03-26] MEDS: PANTOPRAZOLE 40 MG TABLET PO SCH ×2 (10:34→21:27)
[2021-03-26] MEDS: amLODIPine BESYLATE 10 MG TABLET (FP) PO SCH (10:34)
[2021-03-26] MEDS: TORSEMIDE 20 MG TABLET (FP) PO SCH (10:34)
[2021-03-26] MEDS: levETIRAcetam 500 MG TABLET (FP) PO SCH ×2 (10:34→21:27)
[2021-03-26] MEDS: BUDESONIDE/FORMETEROL FUMARATE 160/4.5 mcg INHALER IH SCH (10:35)
[2021-03-26] MEDS ORDERED: POVIDONE-IODINE OINTMENT 10% - 28.4 GM TUBE ONE (14:21)
[2021-03-26] MEDS ORDERED: HEPARIN NA (PORCINE) 5,000 UNITS/ML 1ML VIAL ONE (14:21)
[2021-03-26] MEDS ORDERED: LIDOCAINE HCL 1%, 10 MG/ML (20ML VIAL) ONE (14:21)
[2021-03-26] MEDS ORDERED: SUCCINYLCHOLINE CHLORIDE 200 MG/10 ML SYRINGE ONE (14:34)
[2021-03-26] MEDS ORDERED: PROPOFOL 20 ML ONE ×2 (14:34)
[2021-03-26] MEDS ORDERED: MIDAZOLAM HCL 2 MG/2 ML SINGLE DOSE VIAL ONE (14:34)
[2021-03-26] MEDS ORDERED: SODIUM CHLORIDE 250 ML IV PRN ×2 (14:48)
[2021-03-26] MEDS ORDERED: ceFAZolin 2 GRAM PREMIX BAG IVPB ONE (15:07)
[2021-03-26] MEDS ORDERED: LIDOCAINE HCL 1% PRESERVATIVE FREE - 30ML VIAL IJ ONE (15:22)
[2021-03-26] MEDS ORDERED: DOCUSATE SODIUM 100 MG CAPSULE (FP) PO PRN (17:15)
[2021-03-26] MEDS: ACETAMINOPHEN 325 MG TABLET (FP) PO PRN (18:47)
[2021-03-26] MEDS ORDERED: ROSUVASTATIN CA 5 MG TABLET (FP) PO SCH (22:00)
[2021-03-27] MEDS: LABETALOL HCL 100 MG TABLET (FP) PO SCH ×2 (06:16→10:37)
[2021-03-27] MEDS: hydrALAZINE HCL 25 MG TABLET (FP) PO SCH ×2 (06:16→10:36)
[2021-03-27] MEDS ORDERED: SODIUM CHLORIDE 250 ML IV PRN (07:08)
[2021-03-27 07:51] VITALS: TEMP 98
[2021-03-27] MEDS ORDERED: EPOETIN ALFA-EPBX 10,000 UNIT/ML VIAL IVPUSH ONE ×2 (08:00)
[2021-03-27 08:46] LABS: HEMOGLOBIN 9.7 GM/dL (10.7-15.3); MCHC 32.2 g/dl (32.0-36.0); MEAN CELL VOLUME 86.9 fl (80-96); MEAN PLT VOLUME 9.7 fl (7.5-11.1); PLATELET COUNT 207 10^3/uL (134-434); RBC 3.46 M/mm3 (3.60-5.2); RDW 17.5 % (11.6-15.6); WHITE BLOOD COUNT 10.4 K/mm3 (4.0-10.0)
[2021-03-27 08:52] LABS: INR 1.03 (0.83-1.09); PROTHROMBIN TIME (PATIENT) 12.6 SEC (9.7-13.0)
[2021-03-27 09:16] LABS: CALCIUM 8.2 mg/dL (8.5-10.1)
[2021-03-27 09:17] LABS: ALBUMIN 2.8 g/dl (3.4-5.0)
[2021-03-27 09:20] LABS: CREATININE 5.6 mg/dL (0.55-1.3)
[2021-03-27 09:21] LABS: BILIRUBIN,TOTAL 0.6 mg/dL (0.2-1); TOT PROT 6.5 g/dl (6.4-8.2)
[2021-03-27] MEDS ORDERED: BUDESONIDE/FORMETEROL FUMARATE 160/4.5 mcg INHALER IH SCH (10:00)
[2021-03-27] MEDS ORDERED: TORSEMIDE 20 MG TABLET (FP) PO SCH (10:00)
[2021-03-27] MEDS ORDERED: amLODIPine BESYLATE 10 MG TABLET (FP) PO SCH (10:00)
[2021-03-27] MEDS: PANTOPRAZOLE 40 MG TABLET PO SCH (10:38)
[2021-03-27] MEDS: levETIRAcetam 500 MG TABLET (FP) PO SCH (10:38)
[2021-03-27 10:40] VITALS: BP 138/60; PULSE 64
[2021-03-27] MEDS: ACETAMINOPHEN 325 MG TABLET (FP) PO PRN (12:27)
== END 2021-03-27 13:33 | disposition home or self-care (01) | DRG 264 ==
LOC: JER 14:34 → JERBED 16:44 → J4W 21:12
PROVIDERS: ADMIT Internal Medicine; ATTEND Internal Medicine
PROC: 30233N1 Transfusion of Nonautologous Red Blood Cells into Peripheral Vein, Percutaneous Approach (ICD-10-PCS; 2021-03-09)
PROC: 0W993ZX Drainage of Right Pleural Cavity, Percutaneous Approach, Diagnostic (ICD-10-PCS; 2021-03-13)
PROC: 0JH63XZ Insertion of Tunneled Vascular Access Device into Chest Subcutaneous Tissue and Fascia, Percutaneous Approach (ICD-10-PCS; 2021-03-20)
PROC: 05HM33Z Insertion of Infusion Device into Right Internal Jugular Vein, Percutaneous Approach (ICD-10-PCS; 2021-03-20)
PROC: B543ZZA Ultrasonography of Right Jugular Veins, Guidance (ICD-10-PCS; 2021-03-20)
PROC: 031C3ZF Bypass Left Radial Artery to Lower Arm Vein, Percutaneous Approach (ICD-10-PCS; principal; 2021-03-26 15:00)
DX: I13.2 Hypertensive heart and chronic kidney disease with heart failure and with stage 5 chronic kidney disease, or end stage renal disease (principal); N18.6 End stage renal disease; I50.33 Acute on chronic diastolic (congestive) heart failure; J90 Pleural effusion, not elsewhere classified; N17.9 Acute kidney failure, unspecified; I48.92 Unspecified atrial flutter; J44.9 Chronic obstructive pulmonary disease, unspecified; E78.5 Hyperlipidemia, unspecified; D64.9 Anemia, unspecified; D63.1 Anemia in chronic kidney disease; E11.22 Type 2 diabetes mellitus with diabetic chronic kidney disease; I25.119 Atherosclerotic heart disease of native coronary artery with unspecified angina pectoris; I48.91 Unspecified atrial fibrillation; I27.20 Pulmonary hypertension, unspecified; Z85.118 Personal history of other malignant neoplasm of bronchus and lung; Z99.2 Dependence on renal dialysis
CPT/HCPCS: 36415; 36430; 71045-TC-FY; 71250-TC; 76000-TC-FY; 76942; 80048; 80053; 80076; 81003; 82042; 82150; 82272; 82465; 82550; 82570; 82945; 82962; 83540; 83550; 83615; 83735; 83880; 83986; 84100; 84157; 84300; 84439; 84443; 84478; 84484; 85025; 85027; 85045; 85610; 85730; 86704; 86706; 86707; 86708; 86709; 86803; 86850; 86900; 86901; 86922; 87070; 87075; 87086; 87102; 87116; 87186; 87205; 87206; 87210; 87340; 88108; 88305-TC; 93005; 93010; 93225; 93226; 93306-TC; 93985; 94640; 94760; 94761; 97116-GP; 97161-GP; 99285-25; C9803; J1644; P9058; Q5106; U0003; U0005

== ENCOUNTER 2021-05-20 14:21 | Observation (INO) | payer OTHER ==
[2021-05-20 15:05] VITALS: BMI 24.1
[2021-05-20 16:41] LABS: BASO % 1.2 % (0-2.0); EOS % 1.2 % (0-4.5); HEMATOCRIT 22.9 % (32.4-45.2); HEMOGLOBIN 7.7 GM/dL (10.7-15.3); LYMPH % 21.3 % (8-40); MCH 27.3 pg (25.7-33.7); MCHC 33.6 g/dl (32.0-36.0); MEAN CELL VOLUME 81.1 fl (80-96); MEAN PLT VOLUME 10.3 fl (7.5-11.1); MONO % 5.9 % (3.8-10.2); NEUT % 70.4 % (42.8-82.8); PLATELET COUNT 328 10^3/uL (134-434); RBC 2.82 M/mm3 (3.60-5.2); RDW 18.1 % (11.6-15.6); WHITE BLOOD COUNT 9.5 K/mm3 (4.0-10.0)
[2021-05-20 16:55] LABS: INR 0.92 (0.83-1.09); PROTHROMBIN TIME (PATIENT) 11.2 SEC (9.7-13.0)
[2021-05-20 16:58] LABS: CHLORIDE 106 mmol/L (98-107); SODIUM 134 mmol/L (136-145)
[2021-05-20 17:01] LABS: ALBUMIN 3.4 g/dl (3.4-5.0); CALCIUM 8.1 mg/dL (8.5-10.1); CO2 20 mmol/L (21-32); GLUCOSE,RANDOM 218 mg/dL (74-106); MAGNESIUM 2.2 mg/dL (1.8-2.4)
[2021-05-20 17:04] LABS: CREATININE 5.4 mg/dL (0.55-1.3); SGOT/AST 57 U/L (15-37)
[2021-05-20 17:05] LABS: BILIRUBIN,TOTAL 0.3 mg/dL (0.2-1); PHOSPHOROUS 5.2 mg/dL (2.5-4.9); TOT PROT 8.3 g/dl (6.4-8.2)
[2021-05-20 17:07] LABS: ALK PHOS 280 U/L (45-117)
[2021-05-20 17:28] LABS: ANION GAP 8 MMOL/L (8-16); SGPT/ALT 19 U/L (13-61)
[2021-05-20 18:13] LABS: VENOUS O2 SATURATION 56.6 % (70-80); VENOUS PH 7.265 (7.310-7.410)
[2021-05-20 18:37] LABS: ALBUMIN 3.3 g/dl (3.4-5.0); BLOOD UREA NITROGEN 91.9 mg/dL (7-18); CALCIUM 8.1 mg/dL (8.5-10.1)
[2021-05-20 18:41] LABS: CREATININE 5.3 mg/dL (0.55-1.3)
[2021-05-20 18:42] LABS: BILIRUBIN,TOTAL 0.3 mg/dL (0.2-1); TOT PROT 7.3 g/dl (6.4-8.2)
[2021-05-20 19:31] LABS: URINE APPEARANCE CLEAR; URINE BILIRUBIN NEGATIVE (NEGATIVE); URINE COLOR YELLOW; URINE GLUCOSE (UA) NEGATIVE (NEGATIVE); URINE KETONE NEGATIVE (NEGATIVE); URINE LEUK ESTERASE NEGATIVE (NEGATIVE); URINE NITRITE NEGATIVE (NEGATIVE); URINE PROTEIN TRACE (NEGATIVE); URINE UROBILINOGEN 0.2 mg/dL (0.2-1.0)
[2021-05-21] MEDS ORDERED: ALBUTEROL SO4 2.5/IPRATROPIUM 0.5 INH SOL 3 ML VIAL.NEB. NEB PRN (06:48)
[2021-05-21] MEDS ORDERED: ALBUTEROL SO4 0.083% IH SOL 2.5 MG/3 ML VIAL.NEB. NEB PRN (06:48)
[2021-05-21 06:59] LABS: BASO % 0.5 % (0-2.0); EOS % 0.9 % (0-4.5); HEMATOCRIT 21.9 % (32.4-45.2); HEMOGLOBIN 7.3 GM/dL (10.7-15.3); LYMPH % 22.4 % (8-40); MCH 27.5 pg (25.7-33.7); MCHC 33.5 g/dl (32.0-36.0); MONO % 6.5 % (3.8-10.2); NEUT % 69.7 % (42.8-82.8); PLATELET COUNT 249 10^3/uL (134-434); RBC 2.67 M/mm3 (3.60-5.2); RDW 17.7 % (11.6-15.6); WHITE BLOOD COUNT 9.3 K/mm3 (4.0-10.0)
[2021-05-21] MEDS ORDERED: LABETALOL HCL 100 MG TABLET (FP) PO SCH (07:00)
[2021-05-21 07:19] LABS: BLOOD UREA NITROGEN 95.7 mg/dL (7-18); CALCIUM 8.3 mg/dL (8.5-10.1)
[2021-05-21 07:23] LABS: CREATININE 5.2 mg/dL (0.55-1.3)
[2021-05-21] MEDS ORDERED: LABETALOL HCL 100 MG TABLET (FP) ONE (07:35)
[2021-05-21] MEDS: INSULIN SLIDING SCALE (NOVOLOG) 1 VIAL SQ SCH ×2 (08:15→11:39)
[2021-05-21] MEDS ORDERED: hydrALAZINE HCL 25 MG TABLET (FP) ONE (09:56)
[2021-05-21] MEDS ORDERED: amLODIPine BESYLATE 5 MG TABLET (FP) ONE (09:56)
[2021-05-21] MEDS ORDERED: levETIRAcetam 500 MG TABLET (FP) PO ONE (09:57)
[2021-05-21] MEDS ORDERED: TORSEMIDE 20 MG TABLET (FP) PO SCH (10:00)
[2021-05-21] MEDS ORDERED: BUDESONIDE/FORMETEROL FUMARATE 160/4.5 mcg INHALER IH SCH (10:00)
[2021-05-21] MEDS ORDERED: hydrALAZINE HCL 50 MG TABLET (FP) PO SCH (10:00)
[2021-05-21] MEDS ORDERED: SODIUM ZIRCONIUM CYCLOSILICATE (LOKELMA) 10 GM PACKET PO SCH (10:00)
[2021-05-21] MEDS ORDERED: amLODIPine BESYLATE 10 MG TABLET (FP) PO SCH (10:00)
[2021-05-21] MEDS ORDERED: levETIRAcetam 500 MG TABLET (FP) PO SCH (10:00)
[2021-05-21] MEDS ORDERED: SODIUM CHLORIDE 250 ML IV PRN (11:45)
[2021-05-21] MEDS ORDERED: EPOETIN ALFA-EPBX 20,000 UNIT/ML VIAL IVPUSH ONE (12:15)
[2021-05-21 16:16] VITALS: BP 153/58; PULSE 65; TEMP 97.3
[2021-05-21] MEDS ORDERED: ROSUVASTATIN CA 5 MG TABLET (FP) PO SCH (22:00)
== END 2021-05-21 16:15 | disposition home or self-care (01) ==
LOC: JER 14:21 → JERBED 18:53
PROVIDERS: ADMIT Internal Medicine; ATTEND Internal Medicine
PROC: 3E033GC Introduction of Other Therapeutic Substance into Peripheral Vein, Percutaneous Approach (ICD-10-PCS; principal; 2021-05-20)
DX: E11.22 Type 2 diabetes mellitus with diabetic chronic kidney disease (principal); I12.0 Hypertensive chronic kidney disease with stage 5 chronic kidney disease or end stage renal disease; N18.6 End stage renal disease; Z88.8 Allergy status to other drugs, medicaments and biological substances; Z85.118 Personal history of other malignant neoplasm of bronchus and lung; Z29.9 Encounter for prophylactic measures, unspecified; D64.9 Anemia, unspecified; Z98.49 Cataract extraction status, unspecified eye; Z99.2 Dependence on renal dialysis
CPT/HCPCS: 36415; 36430; 71045-TC-FY; 80048; 80053; 81003; 82010; 82550; 82553; 82803; 82962; 83735; 84100; 84484; 85025; 85610; 85730; 86803; 86850; 86900; 86901; 86922; 87086; 87340; 93005; 93010; 96374; 99285-25; C9803; G0378; P9058; U0003; U0005

== ENCOUNTER 2021-07-25 04:59 | Day surgery (SDC) | payer OTHER ==
[2021-07-24 10:38] VITALS: BMI 28.1
[2021-07-25 13:03] VITALS: BP 143/81; PULSE 70; TEMP 98.5
[2021-07-25] MEDS ORDERED: HEPARIN NA (PORCINE) 5,000 UNITS/ML 1ML VIAL ONE (16:40)
[2021-07-25] MEDS ORDERED: LIDOCAINE HCL 1%, 10 MG/ML (20ML VIAL) ONE (16:41)
[2021-07-25] MEDS ORDERED: POVIDONE-IODINE OINTMENT 10% - 28.4 GM TUBE ONE (16:45)
== END 2021-07-25 18:00 | disposition home or self-care (01) ==
LOC: JASU-SURG 04:59
PROVIDERS: ATTEND Surgery Vascular Surgery
DX: Z53.8 Procedure and treatment not carried out for other reasons (principal)
CPT/HCPCS: 82962; J1644

== ENCOUNTER 2021-08-23 04:45 | Day surgery (SDC) | payer OTHER ==
[2021-08-21 11:45] VITALS: BMI 28.1
[2021-08-23] MEDS ORDERED: PAPAVERINE HCL 30 MG/1 ML 10 ML VIAL NR ONE (13:21)
[2021-08-23] MEDS ORDERED: DEXMEDETOMIDINE HCL 200 MCG/2 ML IVPB ONE (15:17)
[2021-08-23] MEDS ORDERED: PROPOFOL 20 ML ONE (15:36)
[2021-08-23] MEDS ORDERED: SUCCINYLCHOLINE CHLORIDE 200 MG/10 ML SYRINGE ONE (15:36)
[2021-08-23] MEDS ORDERED: LIDOCAINE HCL 1%, 10 MG/ML (20ML VIAL) PNB ONE ×3 (15:39)
[2021-08-23] MEDS ORDERED: HEPARIN NA (PORCINE) 5,000 UNITS/ML 1ML VIAL IVPUSH ONE (15:42)
[2021-08-23] MEDS ORDERED: KETAMINE HCL 200 MG/20 ML VIAL ONE (16:31)
[2021-08-23] MEDS ORDERED: ONDANSETRON 4 MG/2 ML VIAL ONE (17:27)
[2021-08-23] MEDS ORDERED: ONDANSETRON 4 MG/2 ML VIAL IVPUSH PRN (17:31)
[2021-08-23] MEDS ORDERED: LABETALOL HCL 5 MG/1 ML (100MG/20 ML VIAL) IVPUSH ONE (17:31)
[2021-08-23 19:45] VITALS: BP 153/54; PULSE 64; TEMP 97.4
== END 2021-08-23 19:40 | disposition home or self-care (01) ==
LOC: JASU-SURG 04:45
PROVIDERS: ATTEND Surgery
PROC: 03160JD Bypass Left Axillary Artery to Upper Arm Vein with Synthetic Substitute, Open Approach (ICD-10-PCS; principal; 2021-08-23 15:00)
DX: I12.0 Hypertensive chronic kidney disease with stage 5 chronic kidney disease or end stage renal disease (principal); N18.6 End stage renal disease; Z99.2 Dependence on renal dialysis
CPT/HCPCS: 36415; 82962; 84132; 94760; J1644

== ENCOUNTER 2021-09-09 14:57 | Inpatient (IN) | payer OTHER ==
[2021-09-09 15:09] VITALS: BMI 27.1
[2021-09-09 19:52] LABS: BASO % 0.7 % (0-2.0); HEMOGLOBIN 7.3 GM/dL (10.7-15.3); LYMPH % 16.2 % (8-40); MCH 25.6 pg (25.7-33.7); MCHC 31.6 g/dl (32.0-36.0); MEAN CELL VOLUME 81.1 fl (80-96); MEAN PLT VOLUME 9.1 fl (7.5-11.1); MONO % 6.6 % (3.8-10.2); NEUT % 74.5 % (42.8-82.8); PLATELET COUNT 266 10^3/uL (134-434); RBC 2.84 M/mm3 (3.60-5.2); RDW 21.3 % (11.6-15.6); WHITE BLOOD COUNT 9.6 K/mm3 (4.0-10.0)
[2021-09-09 19:53] LABS: INR 0.99 (0.83-1.09); PROTHROMBIN TIME (PATIENT) 11.6 SEC (9.7-13.0)
[2021-09-09 19:56] LABS: ACTIVATED PTT 29.9 SECONDS (25.2-36.5)
[2021-09-09 20:33] LABS: CHLORIDE 101 mmol/L (98-107); SODIUM 135 mmol/L (136-145)
[2021-09-09 20:38] LABS: CALCIUM 8.5 mg/dL (8.5-10.1)
[2021-09-09 20:39] LABS: ANION GAP 11 MMOL/L (8-16); BLOOD UREA NITROGEN 60.8 mg/dL (7-18); CO2 23 mmol/L (21-32); GLUCOSE,RANDOM 143 mg/dL (74-106)
[2021-09-09 20:42] LABS: CREATININE 6.5 mg/dL (0.55-1.3); SGOT/AST 10 U/L (15-37); SGPT/ALT 13 U/L (13-61)
[2021-09-09 20:43] LABS: BILIRUBIN,TOTAL 0.6 mg/dL (0.2-1)
[2021-09-09 20:44] LABS: TOT PROT 7.2 g/dl (6.4-8.2)
[2021-09-09 20:45] LABS: ALK PHOS 223 U/L (45-117)
[2021-09-09] MEDS ORDERED: SODIUM CHLORIDE 250 ML IV PRN (22:04)
[2021-09-10] MEDS ORDERED: ONDANSETRON 4 MG/2 ML VIAL IVPUSH ONE (00:29)
[2021-09-10] MEDS ORDERED: ONDANSETRON 4 MG/2 ML VIAL IVPUSH PRN (04:00)
[2021-09-10] MEDS: levETIRAcetam 500 MG TABLET (FP) PO SCH ×2 (04:03→12:10)
[2021-09-10] MEDS ORDERED: EPOETIN ALFA-EPBX 20,000 UNIT/ML VIAL IVPUSH ONE (08:15)
[2021-09-10 09:13] LABS: HEMATOCRIT 22.6 % (32.4-45.2); HEMOGLOBIN 7.1 GM/dL (10.7-15.3); MCH 25.7 pg (25.7-33.7); MCHC 31.4 g/dl (32.0-36.0); MEAN CELL VOLUME 81.7 fl (80-96); MEAN PLT VOLUME 9.2 fl (7.5-11.1); PLATELET COUNT 264 10^3/uL (134-434); RBC 2.77 M/mm3 (3.60-5.2); RDW 19.9 % (11.6-15.6); WHITE BLOOD COUNT 9.4 K/mm3 (4.0-10.0)
[2021-09-10 09:29] LABS: CALCIUM 8.2 mg/dL (8.5-10.1)
[2021-09-10 09:30] LABS: BLOOD UREA NITROGEN 69.4 mg/dL (7-18)
[2021-09-10 09:33] LABS: CREATININE 6.8 mg/dL (0.55-1.3); PHOSPHOROUS 6.7 mg/dL (2.5-4.9)
[2021-09-10] MEDS ORDERED: BUDESONIDE/FORMETEROL FUMARATE 160/4.5 mcg INHALER IH SCH (10:00)
[2021-09-10] MEDS ORDERED: VITAMIN B COMP W-C 1 EA TABLET (NEPHRO-VITE) PO SCH (10:00)
[2021-09-10] MEDS ORDERED: amLODIPine BESYLATE 10 MG TABLET (FP) PO SCH (10:00)
[2021-09-10] MEDS ORDERED: TORSEMIDE 20 MG TABLET (FP) PO SCH (10:00)
[2021-09-10] MEDS ORDERED: hydrALAZINE HCL 50 MG TABLET (FP) PO SCH (10:00)
[2021-09-10 10:42] VITALS: BP 133/80; PULSE 89; TEMP 97.6
[2021-09-10] MEDS ORDERED: ACETAMINOPHEN WITH CODEINE 300MG/30MG TABLET PO PRN (11:05)
[2021-09-10] MEDS ORDERED: ACETAMINOPHEN 325 MG TABLET (FP) ONE (11:56)
[2021-09-10] MEDS ORDERED: amLODIPine BESYLATE 5 MG TABLET (FP) ONE (11:56)
[2021-09-10] MEDS ORDERED: levETIRAcetam 500 MG TABLET (FP) PO ONE (11:57)
[2021-09-10] MEDS ORDERED: PT OWN MED DRAWER 7, Y5N ONE (11:57)
[2021-09-10] MEDS ORDERED: hydrALAZINE HCL 25 MG TABLET (FP) ONE (11:57)
[2021-09-10] MEDS ORDERED: ROSUVASTATIN CA 5 MG TABLET (FP) PO SCH (22:00)
== END 2021-09-10 16:27 | disposition left against medical advice (07) | DRG 682 ==
LOC: JER 14:57 → JERBED 18:53 → OBSVTOIN 23:14
PROVIDERS: ATTEND Internal Medicine
PROC: 5A1D70Z Performance of Urinary Filtration, Intermittent, Less than 6 Hours Per Day (ICD-10-PCS; principal; 2021-09-10)
PROC: 30233N1 Transfusion of Nonautologous Red Blood Cells into Peripheral Vein, Percutaneous Approach (ICD-10-PCS; 2021-09-10)
DX: I12.0 Hypertensive chronic kidney disease with stage 5 chronic kidney disease or end stage renal disease (principal); N18.6 End stage renal disease; E10.22 Type 1 diabetes mellitus with diabetic chronic kidney disease; J44.9 Chronic obstructive pulmonary disease, unspecified; Z99.2 Dependence on renal dialysis; D63.1 Anemia in chronic kidney disease
CPT/HCPCS: 36415; 36430; 71045-TC-FY; 80048; 80053; 82272; 82550; 84100; 84484; 85025; 85027; 85610; 85730; 86803; 86850; 86900; 86901; 86922; 87340; 93005; 93010; 99285-25; C9803; G0378; P9058; U0003; U0005

== ENCOUNTER 2021-10-06 13:52 | Emergency (ER) | payer OTHER ==
[2021-10-06 14:30] VITALS: TEMP 97; BMI 27.1
[2021-10-06] MEDS ORDERED: LIDOCAINE HCL 2% (20ML MULTI-DOSE VIAL) ONE (16:51)
[2021-10-06 18:10] VITALS: BP 138/62; PULSE 71
== END 2021-10-06 18:13 | disposition home or self-care (01) ==
LOC: JER 13:52
DX: M79.89 Other specified soft tissue disorders (principal); S60.445A External constriction of left ring finger, initial encounter; W49.04XA Ring or other jewelry causing external constriction, initial encounter
CPT/HCPCS: 99282-25

== ENCOUNTER 2022-04-07 14:00 | Inpatient (IN) | payer OTHER ==
[2022-04-07 14:23] VITALS: BMI 25.3
[2022-04-07 15:22] LABS: CHLORIDE 104 mmol/L (98-107); SODIUM 142 mmol/L (136-145)
[2022-04-07 15:23] LABS: EOS % 1.8 % (0-4.5); HEMATOCRIT 23.3 % (32.4-45.2); HEMOGLOBIN 7.5 GM/dL (10.7-15.3); LYMPH % 29.4 % (8-40); MCH 26.7 pg (25.7-33.7); MCHC 32.2 g/dl (32.0-36.0); MEAN CELL VOLUME 82.8 fl (80-96); MEAN PLT VOLUME 10.2 fl (7.5-11.1); MONO % 7.7 % (3.8-10.2); NEUT % 60.1 % (42.8-82.8); PLATELET COUNT 282 10^3/uL (134-434); RBC 2.81 M/mm3 (3.60-5.2); RDW 16.4 % (11.6-15.6); WHITE BLOOD COUNT 9.8 K/mm3 (4.0-10.0)
[2022-04-07 15:24] LABS: CALCIUM 8.3 mg/dL (8.5-10.1); GLUCOSE,RANDOM 194 mg/dL (74-106)
[2022-04-07 15:25] LABS: ALBUMIN 3.6 g/dl (3.4-5.0); ANION GAP 14 MMOL/L (8-16); BLOOD UREA NITROGEN 78.3 mg/dL (7-18); CO2 23 mmol/L (21-32); MAGNESIUM 2.3 mg/dL (1.8-2.4)
[2022-04-07 15:27] LABS: SGPT/ALT 18 U/L (13-61)
[2022-04-07 15:28] LABS: SGOT/AST 15 U/L (15-37)
[2022-04-07 15:29] LABS: BILIRUBIN,TOTAL 0.3 mg/dL (0.2-1); TOT PROT 7.2 g/dl (6.4-8.2)
[2022-04-07 15:31] LABS: ALK PHOS 190 U/L (45-117)
[2022-04-07 15:39] LABS: CREATININE 9.5 mg/dL (0.55-1.3)
[2022-04-07] MEDS ORDERED: SODIUM CHLORIDE 250 ML IV PRN (16:49)
[2022-04-07] MEDS ORDERED: EPOETIN ALFA-EPBX 20,000 UNIT/ML VIAL IVPUSH ONE (19:00)
[2022-04-07] MEDS ORDERED: POLYETHYLENE GLYCOL (HEALTHYLAX) 3350 17 GM PACKET PO PRN (19:29)
[2022-04-07] MEDS ORDERED: ACETAMINOPHEN 325 MG TABLET (FP) PO PRN (19:29)
[2022-04-07 20:33] VITALS: BP 152/67; PULSE 72; TEMP 97.9
== END 2022-04-07 21:08 | disposition left against medical advice (07) | DRG 811 ==
LOC: JER 14:00 → JERBED 17:04
PROVIDERS: ADMIT Internal Medicine; ATTEND Internal Medicine
PROC: 30233N1 Transfusion of Nonautologous Red Blood Cells into Peripheral Vein, Percutaneous Approach (ICD-10-PCS; principal; 2022-04-07)
DX: D64.9 Anemia, unspecified (principal); N18.6 End stage renal disease; I12.0 Hypertensive chronic kidney disease with stage 5 chronic kidney disease or end stage renal disease; E11.22 Type 2 diabetes mellitus with diabetic chronic kidney disease; E78.5 Hyperlipidemia, unspecified; Z99.2 Dependence on renal dialysis; Z85.118 Personal history of other malignant neoplasm of bronchus and lung
CPT/HCPCS: 36415; 36430; 71045-TC-FY; 80053; 83735; 85025; 86803; 86850; 86900; 86901; 86922; 87340; 93005; 93010; 99285-25; C9803-CS; P9058; U0003; U0005

== ENCOUNTER 2022-11-07 04:22 | Day surgery (SDC) | payer OTHER ==
[2022-11-04 09:11] VITALS: BMI 27.3
[2022-11-07] MEDS ORDERED: POVIDONE-IODINE OINTMENT 10% - 28.4 GM TUBE ONE (15:46)
[2022-11-07] MEDS ORDERED: HEPARIN NA (PORCINE) 5,000 UNITS/ML 1ML VIAL ONE (15:47)
[2022-11-07] MEDS ORDERED: PAPAVERINE HCL 30 MG/1 ML 10 ML VIAL NR ONE (15:47)
[2022-11-07] MEDS ORDERED: LIDOCAINE HCL 1%, 10 MG/ML (20ML VIAL) ONE (16:09)
[2022-11-07] MEDS ORDERED: MIDAZOLAM HCL 2 MG/2 ML SINGLE DOSE VIAL ONE (16:17)
[2022-11-07] MEDS ORDERED: PROPOFOL 20 ML ONE (16:17)
[2022-11-07] MEDS ORDERED: LIDOCAINE HCL/PF 2% SDV 5ML VIAL ONE (16:23)
[2022-11-07] MEDS ORDERED: PROMETHAZINE HCL 25 MG/1 ML VIAL IVPB PRN (16:27)
[2022-11-07] MEDS ORDERED: ONDANSETRON 4 MG/2 ML VIAL IVPUSH PRN (16:27)
[2022-11-07] MEDS ORDERED: SODIUM CHLORIDE 1,000 ML IV SCH (16:30)
[2022-11-07] MEDS ORDERED: LIDOCAINE HCL 1%, 10 MG/ML (20ML VIAL) NR ONE (16:46)
[2022-11-07] MEDS ORDERED: ceFAZolin SODIUM 1 GM VIAL IVPB ONE (16:48)
[2022-11-07] MEDS ORDERED: ceFAZolin SODIUM 1 GM VIAL ONE (16:48)
[2022-11-07] MEDS ORDERED: SODIUM CHLORIDE 0.9% P/F 10 ML VIAL IJ ONE (16:48)
[2022-11-07] MEDS ORDERED: ONDANSETRON 4 MG/2 ML VIAL ONE (16:58)
[2022-11-07] MEDS ORDERED: ePHEDrine SULFATE 50 MG/1 ML AMPULE ONE ×2 (17:07→17:08)
[2022-11-07] MEDS ORDERED: HEPARIN NA (PORCINE) 5,000 UNITS/ML 1ML VIAL SQ ONE ×2 (17:07→17:25)
[2022-11-07] MEDS ORDERED: POVIDONE-IODINE OINTMENT 10% - 28.4 GM TUBE TP ONE ×2 (17:43→18:25)
[2022-11-07] MEDS ORDERED: oxyCODONE HCL 5 MG TABLET PO ONE (19:23)
[2022-11-07] MEDS ORDERED: oxyCODONE HCL 5 MG TABLET ONE (19:24)
[2022-11-07 20:18] VITALS: BP 102/35; PULSE 85; RESP 20; TEMP 97.2
== END 2022-11-07 20:00 | disposition home or self-care (01) ==
LOC: JASU-SURG 04:22
PROVIDERS: ATTEND Surgery
PROC: 03150JD Bypass Right Axillary Artery to Upper Arm Vein with Synthetic Substitute, Open Approach (ICD-10-PCS; principal; 2022-11-07 15:30)
DX: I12.0 Hypertensive chronic kidney disease with stage 5 chronic kidney disease or end stage renal disease (principal); E11.22 Type 2 diabetes mellitus with diabetic chronic kidney disease; N18.6 End stage renal disease; Z99.2 Dependence on renal dialysis
CPT/HCPCS: 82962; 94760; C1768; J1644

== ENCOUNTER 2022-11-14 12:57 | Observation (INO) | payer OTHER ==
[2022-11-14 13:03] VITALS: BMI 27.1
[2022-11-14 15:51] LABS: HEMATOCRIT 22.4 % (32.4-45.2); HEMOGLOBIN 7.1 GM/dL (10.7-15.3); MCH 26.4 pg (25.7-33.7); MCHC 31.6 g/dl (32.0-36.0); MEAN CELL VOLUME 83.6 fl (80-96); MEAN PLT VOLUME 10.5 fl (7.5-11.1); PLATELET COUNT 264 10^3/uL (134-434); RBC 2.68 M/mm3 (3.60-5.2); RDW 18.9 % (11.6-15.6); WHITE BLOOD COUNT 10.3 K/mm3 (4.0-10.0)
[2022-11-14 15:55] LABS: INR 1.09 (0.83-1.09); PROTHROMBIN TIME (PATIENT) 12.6 SEC (9.7-13.0)
[2022-11-14 15:57] LABS: ACTIVATED PTT 31.4 SECONDS (25.2-36.5)
[2022-11-14 16:08] LABS: CHLORIDE 102 mmol/L (98-107); SODIUM 137 mmol/L (136-145)
[2022-11-14 16:09] LABS: GLUCOSE,RANDOM 150 mg/dL (74-106)
[2022-11-14 16:11] LABS: ALBUMIN 3.4 g/dl (3.4-5.0); ANION GAP 14 MMOL/L (8-16); BLOOD UREA NITROGEN 63.1 mg/dL (7-18); CALCIUM 8.9 mg/dL (8.5-10.1); CO2 21 mmol/L (21-32)
[2022-11-14 16:14] LABS: SGPT/ALT 9 U/L (13-61)
[2022-11-14 16:15] LABS: SGOT/AST 12 U/L (15-37)
[2022-11-14 16:16] LABS: BILIRUBIN,TOTAL 0.7 mg/dL (0.2-1); TOT PROT 7.6 g/dl (6.4-8.2)
[2022-11-14 16:17] LABS: ALK PHOS 156 U/L (45-117)
[2022-11-14 16:19] LABS: ANISOCYTOSIS 2+; MACROCYTOSIS 0; OVALOCYTE 1+; TARGET CELLS 1+; TEAR DROP CELLS 1+
[2022-11-14] MEDS ORDERED: SODIUM CHLORIDE 250 ML IV PRN (16:34)
[2022-11-14 16:44] LABS: CREATININE 8.7 mg/dL (0.55-1.3)
[2022-11-14] MEDS ORDERED: EPOETIN ALFA-EPBX 20,000 UNIT/ML VIAL IVPUSH ONE (17:00)
[2022-11-14 17:48] VITALS: RESP 18
[2022-11-14] MEDS ORDERED: ROSUVASTATIN CA 5 MG TABLET PO SCH (22:00)
[2022-11-14] MEDS: ACETAMINOPHEN WITH CODEINE 300MG/30MG TABLET PO PRN (22:38)
[2022-11-14] MEDS: levETIRAcetam 500 MG TABLET (FP) PO SCH (23:18)
[2022-11-15] MEDS: BUDESONIDE/FORMETEROL FUMARATE 160/4.5 mcg INHALER IH SCH ×2 (00:51→09:49)
[2022-11-15 09:20] VITALS: BP 153/59; PULSE 77; TEMP 97.8
[2022-11-15] MEDS: levETIRAcetam 500 MG TABLET (FP) PO SCH (09:48)
[2022-11-15] MEDS ORDERED: VITAMIN B COMP W-C 1 EA TABLET (NEPHRO-VITE) PO SCH (10:00)
[2022-11-15] MEDS ORDERED: TORSEMIDE 20 MG TABLET (FP) PO SCH (10:00)
[2022-11-15] MEDS ORDERED: amLODIPine BESYLATE 10 MG TABLET (FP) PO SCH (10:00)
[2022-11-15] MEDS ORDERED: hydrALAZINE HCL 50 MG TABLET (FP) PO SCH (10:00)
[2022-11-15] MEDS: ACETAMINOPHEN WITH CODEINE 300MG/30MG TABLET PO PRN (12:38)
[2022-11-15 14:04] LABS: HEMOGLOBIN 9.2 GM/dL (10.7-15.3); MCH 26.6 pg (25.7-33.7); MEAN CELL VOLUME 80.7 fl (80-96); MEAN PLT VOLUME 9.9 fl (7.5-11.1); PLATELET COUNT 255 10^3/uL (134-434); RBC 3.47 M/mm3 (3.60-5.2); RDW 17.9 % (11.6-15.6); WHITE BLOOD COUNT 12.3 K/mm3 (4.0-10.0)
== END 2022-11-15 15:58 | disposition home or self-care (01) ==
LOC: JER 12:57 → JERBED 15:59 → J4W 21:18
PROVIDERS: ADMIT Internal Medicine; ATTEND Internal Medicine
PROC: 3E033GC Introduction of Other Therapeutic Substance into Peripheral Vein, Percutaneous Approach (ICD-10-PCS; principal; 2022-11-14)
PROC: 30233N1 Transfusion of Nonautologous Red Blood Cells into Peripheral Vein, Percutaneous Approach (ICD-10-PCS; 2022-11-14)
DX: D64.9 Anemia, unspecified (principal); E11.22 Type 2 diabetes mellitus with diabetic chronic kidney disease; I13.11 Hypertensive heart and chronic kidney disease without heart failure, with stage 5 chronic kidney disease, or end stage renal disease; Z99.2 Dependence on renal dialysis; E78.5 Hyperlipidemia, unspecified; Z85.118 Personal history of other malignant neoplasm of bronchus and lung; R79.89 Other specified abnormal findings of blood chemistry; Z87.891 Personal history of nicotine dependence
CPT/HCPCS: 36415; 36430; 71045-TC-FY; 80053; 85025; 85027; 85610; 85730; 86803; 86850; 86900; 86901; 86922; 87340; 93005; 93010; 96374; 99285-25; C9803-CS; G0378; P9058; U0003; U0005

== ENCOUNTER 2022-12-29 10:19 | Inpatient (IN) | payer OTHER ==
[2022-12-29] MEDS ORDERED: methylPREDNISolone NA SUCC 125 MG/2 ML VIAL IVPB ONE (11:34)
[2022-12-29] MEDS ORDERED: ALBUTEROL SO4 2.5/IPRATROPIUM 0.5 INH SOL 3 ML VIAL.NEB. NEB ONE ×2 (11:34→11:43)
[2022-12-29] MEDS ORDERED: methylPREDNISolone NA SUCC 125 MG/2 ML VIAL ONE (11:43)
[2022-12-29] MEDS ORDERED: AZITHROMYCIN IVPB 500 MG in DEXTROSE 5%-WATER - 250 ML IVPB ONE (11:44)
[2022-12-29] MEDS ORDERED: CEFTRIAXONE 1,000 MG in DEXTROSE 5%-WATER - 50 ML IVPB ONE (12:22)
[2022-12-29 12:29] LABS: HEMATOCRIT 25.1 % (32.4-45.2); MCH 25.8 pg (25.7-33.7); MCHC 31.7 g/dl (32.0-36.0); MEAN CELL VOLUME 81.6 fl (80-96); MEAN PLT VOLUME 8.7 fl (7.5-11.1); PLATELET COUNT 274 10^3/uL (134-434); RBC 3.08 M/mm3 (3.60-5.2); RDW 21.2 % (11.6-15.6); WHITE BLOOD COUNT 13.4 K/mm3 (4.0-10.0)
[2022-12-29 12:37] LABS: INR 1.04 (0.83-1.09); PROTHROMBIN TIME (PATIENT) 12.1 SEC (9.7-13.0)
[2022-12-29] MEDS ORDERED: CEFTRIAXONE 1 GM/50 ML BAG ONE (12:37)
[2022-12-29] MEDS ORDERED: AZITHROMYCIN IVPB 500 MG/250 ML BAG IVPB ONE (12:37)
[2022-12-29 12:40] LABS: ACTIVATED PTT 21.3 SECONDS (25.2-36.5)
[2022-12-29 12:49] LABS: CHLORIDE 106 mmol/L (98-107); SODIUM 139 mmol/L (136-145)
[2022-12-29 12:52] LABS: CALCIUM 8.1 mg/dL (8.5-10.1)
[2022-12-29 12:53] LABS: ALBUMIN 3.7 g/dl (3.4-5.0); GLUCOSE,RANDOM 159 mg/dL (74-106)
[2022-12-29 12:55] LABS: BLOOD UREA NITROGEN 76.9 mg/dL (7-18); CO2 23 mmol/L (21-32)
[2022-12-29 12:56] LABS: SGOT/AST 34 U/L (15-37); SGPT/ALT 16 U/L (13-61)
[2022-12-29 12:57] LABS: BILIRUBIN,TOTAL 0.7 mg/dL (0.2-1)
[2022-12-29 12:59] LABS: ALK PHOS 179 U/L (45-117); TOT PROT 8.2 g/dl (6.4-8.2)
[2022-12-29 13:00] LABS: ANION GAP 10 MMOL/L (8-16); CREATININE 9.4 mg/dL (0.55-1.3)
[2022-12-29] MEDS ORDERED: AZITHROMYCIN 250 MG TABLET PO ONE (13:15)
[2022-12-29] MEDS ORDERED: predniSONE 20 MG TABLET (UD) PO ONE (13:17)
[2022-12-29] MEDS ORDERED: BACITRACIN ZINC 15 GM TUBE TOPICAL OINTMENT TP ONE (13:17)
[2022-12-29] MEDS ORDERED: ALBUTEROL SO4 0.083% IH SOL 2.5 MG/3 ML VIAL.NEB. NEB ONE ×2 (13:18→13:55)
[2022-12-29 13:22] LABS: ANISOCYTOSIS 2+; MACROCYTOSIS 0; OVALOCYTE 1+; TEAR DROP CELLS 1+
[2022-12-29] MEDS ORDERED: AZITHROMYCIN 250 MG TABLET ONE (13:55)
[2022-12-29] MEDS ORDERED: predniSONE 20 MG TABLET (UD) ONE (13:55)
[2022-12-29 15:03] LABS: CHLORIDE 106 mmol/L (98-107); SODIUM 139 mmol/L (136-145)
[2022-12-29 15:04] LABS: ANION GAP 11 MMOL/L (8-16); CALCIUM 8.3 mg/dL (8.5-10.1); CO2 22 mmol/L (21-32); GLUCOSE,RANDOM 142 mg/dL (74-106)
[2022-12-29 15:05] LABS: BLOOD UREA NITROGEN 79.4 mg/dL (7-18)
[2022-12-29 15:10] LABS: CREATININE 9.4 mg/dL (0.55-1.3)
[2022-12-29] MEDS ORDERED: CEFPODOXIME PROXETIL 200 MG TABLET [NF] PO ONE (15:30)
[2022-12-29] MEDS ORDERED: SODIUM CHLORIDE 250 ML IV PRN (15:48)
[2022-12-29] MEDS ORDERED: ACETAMINOPHEN 325 MG TABLET (FP) PO PRN (16:09)
[2022-12-29] MEDS ORDERED: ALBUTEROL SO4 0.083% IH SOL 2.5 MG/3 ML VIAL.NEB. NEB PRN (16:09)
[2022-12-29] MEDS ORDERED: EPOETIN ALFA-EPBX 10,000 UNIT/ML VIAL IVPUSH ONE (17:00)
[2022-12-29 20:38] VITALS: BMI 26.6
[2022-12-29] MEDS: levETIRAcetam 500 MG TABLET (FP) PO SCH (22:17)
[2022-12-29] MEDS: BUDESONIDE/FORMETEROL FUMARATE 160/4.5 mcg INHALER IH SCH (23:08)
[2022-12-30] MEDS: methylPREDNISolone NA SUCC 125 MG/2 ML VIAL IVPB SCH ×4 (02:45→18:13)
[2022-12-30] MEDS: ROSUVASTATIN CA 5 MG TABLET PO SCH (09:32)
[2022-12-30] MEDS: PANTOPRAZOLE 20 MG TABLET PO SCH (09:32)
[2022-12-30] MEDS: amLODIPine BESYLATE 10 MG TABLET (FP) PO SCH (09:32)
[2022-12-30] MEDS: VITAMIN B COMP W-C 1 EA TABLET (NEPHRO-VITE) PO SCH (09:32)
[2022-12-30] MEDS: hydrALAZINE HCL 50 MG TABLET (FP) PO SCH (09:32)
[2022-12-30] MEDS: levETIRAcetam 500 MG TABLET (FP) PO SCH ×2 (09:33→22:45)
[2022-12-30] MEDS: TORSEMIDE 20 MG TABLET (FP) PO SCH (09:33)
[2022-12-30] MEDS: ENOXAPARIN NA (PORCINE) 40 MG/0.4 ML DISP.SYRIN SQ SCH ×2 (09:33→09:38)
[2022-12-30] MEDS: AZITHROMYCIN IVPB 500 MG/250 ML BAG IVPB SCH (09:33)
[2022-12-30] MEDS: BUDESONIDE/FORMETEROL FUMARATE 160/4.5 mcg INHALER IH SCH ×2 (09:34→22:46)
[2022-12-30 09:47] VITALS: RESP 18
[2022-12-30] MEDS ORDERED: ALBUTEROL SO4 0.042% IH SOL 1.25 MG/3 ML VIAL.NEB NEB SCH ×2 (15:00→15:04)
[2022-12-30] MEDS: ALBUTEROL SO4 0.042% IH SOL 1.25 MG/3 ML VIAL.NEB NEB SCH ×2 (15:15→20:05)
[2022-12-31] MEDS: methylPREDNISolone NA SUCC 125 MG/2 ML VIAL IVPB SCH ×2 (02:18→13:50)
[2022-12-31] MEDS: ALBUTEROL SO4 0.042% IH SOL 1.25 MG/3 ML VIAL.NEB NEB SCH ×4 (08:37→20:20)
[2022-12-31] MEDS ORDERED: SODIUM CHLORIDE 250 ML IV PRN (09:08)
[2022-12-31] MEDS ORDERED: EPOETIN ALFA-EPBX 10,000 UNIT/ML VIAL IVPUSH ONE (10:00)
[2022-12-31 10:10] LABS: HEMATOCRIT 22.2 % (32.4-45.2); HEMOGLOBIN 7.3 GM/dL (10.7-15.3); MCH 26.6 pg (25.7-33.7); MCHC 32.7 g/dl (32.0-36.0); MEAN CELL VOLUME 81.4 fl (80-96); MEAN PLT VOLUME 9.4 fl (7.5-11.1); PLATELET COUNT 256 10^3/uL (134-434); RBC 2.72 M/mm3 (3.60-5.2); RDW 21.2 % (11.6-15.6); WHITE BLOOD COUNT 10.7 K/mm3 (4.0-10.0)
[2022-12-31 10:29] LABS: ALBUMIN 3.2 g/dl (3.4-5.0); BLOOD UREA NITROGEN 69.9 mg/dL (7-18); PHOSPHOROUS 7.9 mg/dL (2.5-4.9)
[2022-12-31 10:30] LABS: TOT PROT 7.2 g/dl (6.4-8.2)
[2022-12-31 10:31] LABS: BILIRUBIN,TOTAL 0.6 mg/dL (0.2-1)
[2022-12-31 10:32] LABS: CALCIUM 8.2 mg/dL (8.5-10.1); CREATININE 7.3 mg/dL (0.55-1.3)
[2022-12-31] MEDS: ENOXAPARIN NA (PORCINE) 40 MG/0.4 ML DISP.SYRIN SQ SCH ×2 (13:51→14:58)
[2022-12-31] MEDS: TORSEMIDE 20 MG TABLET (FP) PO SCH (13:52)
[2022-12-31] MEDS: ROSUVASTATIN CA 5 MG TABLET PO SCH (13:52)
[2022-12-31] MEDS: VITAMIN B COMP W-C 1 EA TABLET (NEPHRO-VITE) PO SCH (13:52)
[2022-12-31] MEDS: amLODIPine BESYLATE 10 MG TABLET (FP) PO SCH (13:52)
[2022-12-31] MEDS: levETIRAcetam 500 MG TABLET (FP) PO SCH ×2 (13:53→21:26)
[2022-12-31] MEDS: hydrALAZINE HCL 50 MG TABLET (FP) PO SCH (13:53)
[2022-12-31] MEDS: PANTOPRAZOLE 20 MG TABLET PO SCH (13:53)
[2022-12-31] MEDS: BUDESONIDE/FORMETEROL FUMARATE 160/4.5 mcg INHALER IH SCH ×2 (13:54→21:26)
[2022-12-31] MEDS: AZITHROMYCIN IVPB 500 MG/250 ML BAG IVPB SCH (13:55)
[2022-12-31] MEDS: methylPREDNISolone NA SUCC 40 MG/1 ML VIAL IVPB SCH (17:19)
[2022-12-31] MEDS ORDERED: INSULIN (NOVOLOG) ASPART 100 UNITS/ML 10ML VIAL ONE (21:24)
[2023-01-01] MEDS: methylPREDNISolone NA SUCC 40 MG/1 ML VIAL IVPB SCH ×3 (01:19→17:41)
[2023-01-01] MEDS: ALBUTEROL SO4 0.042% IH SOL 1.25 MG/3 ML VIAL.NEB NEB SCH ×3 (07:35→15:56)
[2023-01-01] MEDS: AZITHROMYCIN IVPB 500 MG/250 ML BAG IVPB SCH (10:57)
[2023-01-01] MEDS: ENOXAPARIN NA (PORCINE) 40 MG/0.4 ML DISP.SYRIN SQ SCH (10:58)
[2023-01-01] MEDS: hydrALAZINE HCL 50 MG TABLET (FP) PO SCH (10:58)
[2023-01-01] MEDS: PANTOPRAZOLE 20 MG TABLET PO SCH (10:58)
[2023-01-01] MEDS: ROSUVASTATIN CA 5 MG TABLET PO SCH (10:58)
[2023-01-01] MEDS: levETIRAcetam 500 MG TABLET (FP) PO SCH (10:58)
[2023-01-01] MEDS: amLODIPine BESYLATE 10 MG TABLET (FP) PO SCH (10:58)
[2023-01-01] MEDS: TORSEMIDE 20 MG TABLET (FP) PO SCH (10:58)
[2023-01-01] MEDS: VITAMIN B COMP W-C 1 EA TABLET (NEPHRO-VITE) PO SCH (10:58)
[2023-01-01] MEDS: BUDESONIDE/FORMETEROL FUMARATE 160/4.5 mcg INHALER IH SCH (10:59)
[2023-01-01 13:37] VITALS: BP 130/55; PULSE 99; TEMP 98.5
== END 2023-01-01 18:45 | disposition home or self-care (01) | DRG 682 ==
LOC: JER 10:19 → JERBED 14:03 → J7W 18:51
PROVIDERS: ADMIT Internal Medicine; ATTEND Internal Medicine
PROC: 5A1D70Z Performance of Urinary Filtration, Intermittent, Less than 6 Hours Per Day (ICD-10-PCS; principal; 2022-12-29)
PROC: 5A1D70Z Performance of Urinary Filtration, Intermittent, Less than 6 Hours Per Day (ICD-10-PCS; 2022-12-31)
DX: I12.0 Hypertensive chronic kidney disease with stage 5 chronic kidney disease or end stage renal disease (principal); N18.6 End stage renal disease; J44.1 Chronic obstructive pulmonary disease with (acute) exacerbation; J44.9 Chronic obstructive pulmonary disease, unspecified; E11.22 Type 2 diabetes mellitus with diabetic chronic kidney disease; E78.5 Hyperlipidemia, unspecified; E66.9 Obesity, unspecified; D63.1 Anemia in chronic kidney disease; Z85.118 Personal history of other malignant neoplasm of bronchus and lung; Z99.2 Dependence on renal dialysis; Z68.26 Body mass index [BMI] 26.0-26.9, adult
CPT/HCPCS: 0241U-QW; 36415; 71045-TC-FY; 80048; 80053; 82962; 84100; 84484; 85025; 85027; 85610; 85730; 86803; 87340; 93005; 93010; 94640; 94761; 97116-GP; 97161-GP; 99285-25; Q5106

== ENCOUNTER 2023-01-16 10:26 | Observation (INO) | payer OTHER ==
[2023-01-16 11:55] LABS: VENOUS BASE EXCESS -2.5 mmol/L (-2-2); VENOUS O2 SATURATION 54.3 % (70-80); VENOUS PH 7.319 (7.310-7.410)
[2023-01-16 11:57] LABS: MEAN PLT VOLUME 9.6 fl (7.5-11.1)
[2023-01-16 12:01] LABS: BASO % 0.6 % (0-2.0); EOS % 1.1 % (0-4.5); HEMATOCRIT 23.3 % (32.4-45.2); HEMOGLOBIN 7.3 GM/dL (10.7-15.3); LYMPH % 18.9 % (8-40); MCHC 31.2 g/dl (32.0-36.0); MEAN CELL VOLUME 83.4 fl (80-96); NEUT % 71.4 % (42.8-82.8); PLATELET COUNT 187 10^3/uL (134-434); RDW 23.9 % (11.6-15.6); WHITE BLOOD COUNT 8.8 K/mm3 (4.0-10.0)
[2023-01-16 12:12] LABS: ALBUMIN 3.1 g/dl (3.4-5.0); BLOOD UREA NITROGEN 39.4 mg/dL (7-18); CALCIUM 8.7 mg/dL (8.5-10.1)
[2023-01-16 12:14] LABS: CREATININE 7.2 mg/dL (0.55-1.3)
[2023-01-16 12:15] LABS: BILIRUBIN,TOTAL 0.8 mg/dL (0.2-1); TOT PROT 6.5 g/dl (6.4-8.2)
[2023-01-16] MEDS ORDERED: SODIUM CHLORIDE 250 ML IV PRN (14:11)
[2023-01-16] MEDS ORDERED: ALBUTEROL SO4 0.083% IH SOL 2.5 MG/3 ML VIAL.NEB. NEB PRN (14:29)
[2023-01-16] MEDS ORDERED: ACETAMINOPHEN 325 MG TABLET (FP) PO PRN (14:31)
[2023-01-16] MEDS ORDERED: EPOETIN ALFA-EPBX 10,000 UNIT/ML VIAL SQ ONE (15:00)
[2023-01-16] MEDS ORDERED: EPOETIN ALFA-EPBX 10,000 UNIT, EPOETIN ALFA-EPBX 3,000 UNIT, EPOETIN ALFA-EPBX 2,000 UNIT IVPUSH ONE (15:00)
[2023-01-16 15:17] LABS: INR 1.13 (0.83-1.09); PROTHROMBIN TIME (PATIENT) 13.1 SEC (9.7-13.0)
[2023-01-16 15:20] LABS: ACTIVATED PTT 30.8 SECONDS (25.2-36.5)
[2023-01-16 17:42] VITALS: RESP 18
[2023-01-16 20:04] VITALS: BMI 26.0
[2023-01-16] MEDS: BUDESONIDE/FORMETEROL FUMARATE 160/4.5 mcg INHALER IH SCH ×2 (21:53→23:40)
[2023-01-16] MEDS: AZITHROMYCIN IVPB 500 MG/250 ML BAG IVPB SCH (21:54)
[2023-01-16] MEDS: levETIRAcetam 500 MG TABLET (FP) PO SCH (22:22)
[2023-01-16] MEDS ORDERED: TRIMETHOBENZAMIDE HCL 200MG/2ML INJ IM PRN (23:16)
[2023-01-16] MEDS ORDERED: levETIRAcetam 500 MG/5 ML INJECTION VIAL IVPB ONE (23:16)
[2023-01-17] MEDS: BUDESONIDE/FORMETEROL FUMARATE 160/4.5 mcg INHALER IH SCH ×2 (03:27→15:39)
[2023-01-17] MEDS ORDERED: MELATONIN 5 MG TABLETS PO PRN (04:30)
[2023-01-17 08:45] LABS: BASO % 0.6 % (0-2.0); EOS % 0.1 % (0-4.5); HEMATOCRIT 26.3 % (32.4-45.2); HEMOGLOBIN 8.9 GM/dL (10.7-15.3); LYMPH % 12.7 % (8-40); MCH 26.5 pg (25.7-33.7); MCHC 33.6 g/dl (32.0-36.0); MEAN CELL VOLUME 78.8 fl (80-96); MEAN PLT VOLUME 10.4 fl (7.5-11.1); MONO % 6.2 % (3.8-10.2); NEUT % 80.4 % (42.8-82.8); PLATELET COUNT 210 10^3/uL (134-434); RBC 3.34 M/mm3 (3.60-5.2); WHITE BLOOD COUNT 9.1 K/mm3 (4.0-10.0)
[2023-01-17] MEDS: VITAMIN B COMP W-C 1 EA TABLET (NEPHRO-VITE) PO SCH (10:36)
[2023-01-17] MEDS: TORSEMIDE 20 MG TABLET (FP) PO SCH (10:36)
[2023-01-17] MEDS: amLODIPine BESYLATE 10 MG TABLET (FP) PO SCH (10:36)
[2023-01-17] MEDS: PANTOPRAZOLE 20 MG TABLET PO SCH (10:36)
[2023-01-17] MEDS: hydrALAZINE HCL 50 MG TABLET (FP) PO SCH (10:36)
[2023-01-17] MEDS: levETIRAcetam 500 MG TABLET (FP) PO SCH ×2 (10:36→21:37)
[2023-01-17] MEDS: AZITHROMYCIN IVPB 500 MG/250 ML BAG IVPB SCH (10:36)
[2023-01-17] MEDS: ROSUVASTATIN CA 5 MG TABLET PO SCH (10:36)
[2023-01-18] MEDS: BUDESONIDE/FORMETEROL FUMARATE 160/4.5 mcg INHALER IH SCH ×2 (03:00→14:25)
[2023-01-18] MEDS: ROSUVASTATIN CA 5 MG TABLET PO SCH (09:42)
[2023-01-18] MEDS: AZITHROMYCIN IVPB 500 MG/250 ML BAG IVPB SCH (09:42)
[2023-01-18] MEDS: amLODIPine BESYLATE 10 MG TABLET (FP) PO SCH (09:42)
[2023-01-18] MEDS: TORSEMIDE 20 MG TABLET (FP) PO SCH (09:42)
[2023-01-18] MEDS: PANTOPRAZOLE 20 MG TABLET PO SCH (09:42)
[2023-01-18] MEDS: VITAMIN B COMP W-C 1 EA TABLET (NEPHRO-VITE) PO SCH (09:42)
[2023-01-18] MEDS: levETIRAcetam 500 MG TABLET (FP) PO SCH ×2 (09:42→22:54)
[2023-01-18] MEDS: hydrALAZINE HCL 50 MG TABLET (FP) PO SCH (09:42)
[2023-01-19] MEDS: BUDESONIDE/FORMETEROL FUMARATE 160/4.5 mcg INHALER IH SCH ×2 (03:22→13:35)
[2023-01-19] MEDS ORDERED: SODIUM CHLORIDE 250 ML IV PRN (08:30)
[2023-01-19 10:36] LABS: HEMATOCRIT 24.7 % (32.4-45.2); HEMOGLOBIN 8.3 GM/dL (10.7-15.3); MCH 26.8 pg (25.7-33.7); MCHC 33.4 g/dl (32.0-36.0); MEAN CELL VOLUME 80.3 fl (80-96); MEAN PLT VOLUME 10.2 fl (7.5-11.1); PLATELET COUNT 178 10^3/uL (134-434); RBC 3.08 M/mm3 (3.60-5.2); WHITE BLOOD COUNT 8.2 K/mm3 (4.0-10.0)
[2023-01-19 10:44] LABS: CHLORIDE 97 mmol/L (98-107); SODIUM 134 mmol/L (136-145)
[2023-01-19 10:46] LABS: CALCIUM 8.5 mg/dL (8.5-10.1)
[2023-01-19 10:47] LABS: ANION GAP 10 MMOL/L (8-16); BLOOD UREA NITROGEN 54.2 mg/dL (7-18); CO2 26 mmol/L (21-32); GLUCOSE,RANDOM 197 mg/dL (74-106)
[2023-01-19 10:52] LABS: CREATININE 8.4 mg/dL (0.55-1.3)
[2023-01-19] MEDS ORDERED: EPOETIN ALFA-EPBX 10,000 UNIT, EPOETIN ALFA-EPBX 3,000 UNIT, EPOETIN ALFA-EPBX 2,000 UNIT IVPUSH ONE (11:00)
[2023-01-19 11:25] VITALS: PULSE 73
[2023-01-19 12:13] VITALS: BP 120/53; TEMP 98.2
[2023-01-19] MEDS: AZITHROMYCIN IVPB 500 MG/250 ML BAG IVPB SCH (12:54)
[2023-01-19] MEDS: amLODIPine BESYLATE 10 MG TABLET (FP) PO SCH (12:55)
[2023-01-19] MEDS: TORSEMIDE 20 MG TABLET (FP) PO SCH (12:55)
[2023-01-19] MEDS: PANTOPRAZOLE 20 MG TABLET PO SCH (12:55)
[2023-01-19] MEDS: hydrALAZINE HCL 50 MG TABLET (FP) PO SCH (12:55)
[2023-01-19] MEDS: VITAMIN B COMP W-C 1 EA TABLET (NEPHRO-VITE) PO SCH (12:55)
[2023-01-19] MEDS: ROSUVASTATIN CA 5 MG TABLET PO SCH (12:55)
[2023-01-19] MEDS: levETIRAcetam 500 MG TABLET (FP) PO SCH (12:55)
== END 2023-01-19 16:21 | disposition home or self-care (01) ==
LOC: JER 10:26 → JERBED 13:25 → J5S 18:08
PROVIDERS: ADMIT Internal Medicine; ATTEND Internal Medicine
PROC: 3E03329 Introduction of Other Anti-infective into Peripheral Vein, Percutaneous Approach (ICD-10-PCS; principal; 2023-01-16)
PROC: 3E033GC Introduction of Other Therapeutic Substance into Peripheral Vein, Percutaneous Approach (ICD-10-PCS; 2023-01-16)
PROC: 3E023GC Introduction of Other Therapeutic Substance into Muscle, Percutaneous Approach (ICD-10-PCS; 2023-01-16)
PROC: 30233N1 Transfusion of Nonautologous Red Blood Cells into Peripheral Vein, Percutaneous Approach (ICD-10-PCS; 2023-01-16)
DX: D64.89 Other specified anemias (principal); I13.11 Hypertensive heart and chronic kidney disease without heart failure, with stage 5 chronic kidney disease, or end stage renal disease; E11.22 Type 2 diabetes mellitus with diabetic chronic kidney disease; J18.9 Pneumonia, unspecified organism; Z99.2 Dependence on renal dialysis; E78.5 Hyperlipidemia, unspecified; R56.9 Unspecified convulsions; Z85.118 Personal history of other malignant neoplasm of bronchus and lung; Z87.891 Personal history of nicotine dependence; Z88.8 Allergy status to other drugs, medicaments and biological substances
CPT/HCPCS: 36415; 36430; 71045-TC-FY; 80048; 80053; 82272; 82728; 82803; 83540; 83550; 85025; 85027; 85610; 85730; 86803; 86922; 87340; 93005; 93010; 96365; 96372; 96375; 96376; 99285-25; C9803-CS; G0378; P9058; Q5106; U0003; U0005

== ENCOUNTER 2023-02-13 08:18 | Observation (INO) | payer OTHER ==
[2023-02-13 08:42] VITALS: BMI 26.0
[2023-02-13 09:31] LABS: BASO % 0.8 % (0-2.0); HEMATOCRIT 24.8 % (32.4-45.2); HEMOGLOBIN 7.8 GM/dL (10.7-15.3); LYMPH % 8.9 % (8-40); MCH 25.4 pg (25.7-33.7); MCHC 31.5 g/dl (32.0-36.0); MEAN CELL VOLUME 80.6 fl (80-96); MEAN PLT VOLUME 9.5 fl (7.5-11.1); MONO % 2.9 % (3.8-10.2); NEUT % 87.4 % (42.8-82.8); PLATELET COUNT 212 10^3/uL (134-434); RBC 3.08 M/mm3 (3.60-5.2); RDW 22.7 % (11.6-15.6); VENOUS BASE EXCESS -1.4 mmol/L (-2-2); VENOUS O2 SATURATION 76.8 % (70-80); VENOUS PCO2 44.4 mmHg (38-52); VENOUS PH 7.354 (7.310-7.410); WHITE BLOOD COUNT 8.5 K/mm3 (4.0-10.0)
[2023-02-13 09:40] LABS: INR 1.03 (0.83-1.09); PROTHROMBIN TIME (PATIENT) 11.9 SEC (9.7-13.0)
[2023-02-13 09:42] LABS: ACTIVATED PTT 34.6 SECONDS (25.2-36.5)
[2023-02-13 09:51] LABS: POTASSIUM 4.4 mmol/L (3.5-5.1)
[2023-02-13 09:55] LABS: CALCIUM 8.7 mg/dL (8.5-10.1)
[2023-02-13 09:56] LABS: ALBUMIN 3.4 g/dl (3.4-5.0); BLOOD UREA NITROGEN 52.9 mg/dL (7-18)
[2023-02-13 09:59] LABS: CREATININE 6.3 mg/dL (0.55-1.3); TOT PROT 6.9 g/dl (6.4-8.2)
[2023-02-13 10:00] LABS: BILIRUBIN,TOTAL 0.7 mg/dL (0.2-1)
[2023-02-13 10:04] LABS: PLATELET ESTIMATE ADEQUATE
[2023-02-13 10:05] LABS: ANISOCYTOSIS 2+; MACROCYTOSIS 1+
[2023-02-13 10:30] LABS: N-TERMINAL BNP 50261.8 pg/ml (5-450)
[2023-02-13] MEDS ORDERED: ALBUTEROL SO4 0.083% IH SOL 2.5 MG/3 ML VIAL.NEB. NEB PRN (10:57)
[2023-02-13] MEDS ORDERED: ACETAMINOPHEN 325 MG TABLET (FP) PO PRN (10:59)
[2023-02-13] MEDS: BUDESONIDE/FORMETEROL FUMARATE 160/4.5 mcg INHALER IH SCH ×2 (11:21→22:24)
[2023-02-13] MEDS ORDERED: EPOETIN ALFA-EPBX 20,000 UNIT/ML VIAL IVPUSH ONE (14:00)
[2023-02-13] MEDS ORDERED: SODIUM CHLORIDE 250 ML IV PRN (14:00)
[2023-02-13] MEDS ORDERED: ROSUVASTATIN CA 10 MG TABLET PO SCH (22:00)
[2023-02-13] MEDS: HEPARIN NA (PORCINE) 5,000 UNITS/ML 1ML VIAL SQ SCH (22:22)
[2023-02-13] MEDS: levETIRAcetam 500 MG TABLET (FP) PO SCH (22:23)
[2023-02-14] MEDS ORDERED: amLODIPine BESYLATE 10 MG TABLET (FP) PO SCH (10:00)
[2023-02-14] MEDS ORDERED: VITAMIN B COMP W-C 1 EA TABLET (NEPHRO-VITE) PO SCH (10:00)
[2023-02-14] MEDS ORDERED: PANTOPRAZOLE 20 MG TABLET PO SCH (10:00)
[2023-02-14] MEDS ORDERED: hydrALAZINE HCL 50 MG TABLET (FP) PO SCH (10:00)
[2023-02-14] MEDS ORDERED: TORSEMIDE 20 MG TABLET (FP) PO SCH (10:00)
[2023-02-14] MEDS: HEPARIN NA (PORCINE) 5,000 UNITS/ML 1ML VIAL SQ SCH ×2 (10:21→10:28)
[2023-02-14] MEDS: levETIRAcetam 500 MG TABLET (FP) PO SCH (10:21)
[2023-02-14 12:21] VITALS: BP 136/57; PULSE 85; RESP 19; TEMP 98.1
[2023-02-14] MEDS: BUDESONIDE/FORMETEROL FUMARATE 160/4.5 mcg INHALER IH SCH (13:20)
== END 2023-02-14 14:31 | disposition home or self-care (01) ==
LOC: JER 08:18 → JERBED 10:15 → J4S 16:38
PROVIDERS: ADMIT Internal Medicine; ATTEND Internal Medicine
PROC: 3E033GC Introduction of Other Therapeutic Substance into Peripheral Vein, Percutaneous Approach (ICD-10-PCS; principal; 2023-02-13)
DX: N18.6 End stage renal disease (principal); J90 Pleural effusion, not elsewhere classified; E86.1 Hypovolemia; J44.9 Chronic obstructive pulmonary disease, unspecified; E87.70 Fluid overload, unspecified; D64.9 Anemia, unspecified; E11.9 Type 2 diabetes mellitus without complications; R06.02 Shortness of breath; Z88.0 Allergy status to penicillin; Z87.891 Personal history of nicotine dependence; Z88.8 Allergy status to other drugs, medicaments and biological substances
CPT/HCPCS: 0241U-QW; 36415; 71045-TC-FY; 76604; 80053; 82375; 82803; 82962; 83880; 84484; 85025; 85610; 85730; 86850; 86900; 86901; 93005; 93010; 93306-TC; 93308; 96374; 99285-25; G0378; J1644

== ENCOUNTER 2023-02-20 11:19 | Observation (INO) | payer OTHER ==
[2023-02-20 13:10] LABS: BASO % 0.7 % (0-2.0); EOS % 0.8 % (0-4.5); HEMATOCRIT 22.1 % (32.4-45.2); LYMPH % 26.7 % (8-40); MCH 25.1 pg (25.7-33.7); MCHC 31.3 g/dl (32.0-36.0); MEAN CELL VOLUME 80.2 fl (80-96); MEAN PLT VOLUME 9.2 fl (7.5-11.1); MONO % 7.8 % (3.8-10.2); PLATELET COUNT 314 10^3/uL (134-434); RBC 2.75 M/mm3 (3.60-5.2); RDW 24.3 % (11.6-15.6)
[2023-02-20 13:13] LABS: HEMOGLOBIN 6.9 GM/dL (10.7-15.3)
[2023-02-20 13:17] LABS: INR 1.06 (0.83-1.09); PROTHROMBIN TIME (PATIENT) 12.3 SEC (9.7-13.0)
[2023-02-20 13:20] LABS: ACTIVATED PTT 31.3 SECONDS (25.2-36.5)
[2023-02-20 13:44] LABS: POTASSIUM 3.7 mmol/L (3.5-5.1)
[2023-02-20 13:46] LABS: CALCIUM 8.8 mg/dL (8.5-10.1)
[2023-02-20 13:47] LABS: ALBUMIN 3.6 g/dl (3.4-5.0); BLOOD UREA NITROGEN 51.2 mg/dL (7-18); MAGNESIUM 2.1 mg/dL (1.8-2.4)
[2023-02-20 13:50] LABS: CREATININE 6.5 mg/dL (0.55-1.3); PHOSPHOROUS 5.6 mg/dL (2.5-4.9)
[2023-02-20 13:51] LABS: BILIRUBIN,TOTAL 0.5 mg/dL (0.2-1); TOT PROT 7.1 g/dl (6.4-8.2)
[2023-02-20 14:14] LABS: ANISOCYTOSIS 3+; MACROCYTOSIS 0; OVALOCYTE 2+; TARGET CELLS 2+
[2023-02-20] MEDS ORDERED: ALBUTEROL SO4 0.083% IH SOL 2.5 MG/3 ML VIAL.NEB. NEB PRN (15:59)
[2023-02-20] MEDS ORDERED: SODIUM CHLORIDE 250 ML IV PRN (16:17)
[2023-02-20] MEDS ORDERED: EPOETIN ALFA-EPBX 20,000 UNIT/ML VIAL SQ ONE (17:00)
[2023-02-20] MEDS: BUDESONIDE/FORMETEROL FUMARATE 160/4.5 mcg INHALER IH SCH (21:16)
[2023-02-20] MEDS: HEPARIN NA (PORCINE) 5,000 UNITS/ML 1ML VIAL SQ SCH (21:17)
[2023-02-20] MEDS: levETIRAcetam 500 MG TABLET (FP) PO SCH (21:17)
[2023-02-20] MEDS ORDERED: MONTELUKAST NA 10 MG TABLET PO SCH (22:00)
[2023-02-20 23:17] VITALS: BMI 25.1
[2023-02-21] MEDS ORDERED: hydrALAZINE HCL 50 MG TABLET (FP) PO SCH (10:00)
[2023-02-21] MEDS ORDERED: VITAMIN B COMP W-C 1 EA TABLET (NEPHRO-VITE) PO SCH (10:00)
[2023-02-21] MEDS ORDERED: TORSEMIDE 20 MG TABLET (FP) PO SCH (10:00)
[2023-02-21] MEDS ORDERED: amLODIPine BESYLATE 10 MG TABLET (FP) PO SCH (10:00)
[2023-02-21] MEDS ORDERED: PANTOPRAZOLE 20 MG TABLET PO SCH (10:00)
[2023-02-21 10:15] LABS: BASO % 1.2 % (0-2.0); EOS % 1.1 % (0-4.5); HEMATOCRIT 25.8 % (32.4-45.2); HEMOGLOBIN 8.7 GM/dL (10.7-15.3); MCH 25.8 pg (25.7-33.7); MCHC 33.6 g/dl (32.0-36.0); MEAN CELL VOLUME 76.8 fl (80-96); MEAN PLT VOLUME 9.1 fl (7.5-11.1); MONO % 10.1 % (3.8-10.2); NEUT % 65.6 % (42.8-82.8); PLATELET COUNT 256 10^3/uL (134-434); RBC 3.36 M/mm3 (3.60-5.2); RDW 24.6 % (11.6-15.6); WHITE BLOOD COUNT 9.2 K/mm3 (4.0-10.0)
[2023-02-21] MEDS: levETIRAcetam 500 MG TABLET (FP) PO SCH (10:15)
[2023-02-21] MEDS: HEPARIN NA (PORCINE) 5,000 UNITS/ML 1ML VIAL SQ SCH (10:17)
[2023-02-21 10:22] VITALS: BP 120/56; PULSE 88; RESP 18; TEMP 98.9
[2023-02-21] MEDS: BUDESONIDE/FORMETEROL FUMARATE 160/4.5 mcg INHALER IH SCH (11:50)
[2023-02-21] MEDS ORDERED: ROSUVASTATIN CA 5 MG TABLET PO SCH (22:00)
== END 2023-02-21 14:29 | disposition home or self-care (01) ==
LOC: JER 11:19 → INTOOBSV 15:16 → JERBED 15:16 → UNDOADMOB 15:16 → JERBED 16:02 → J5S 19:52
PROVIDERS: ADMIT Internal Medicine; ATTEND Internal Medicine
PROC: 3E023GC Introduction of Other Therapeutic Substance into Muscle, Percutaneous Approach (ICD-10-PCS; principal; 2023-02-20)
PROC: 30233N1 Transfusion of Nonautologous Red Blood Cells into Peripheral Vein, Percutaneous Approach (ICD-10-PCS; 2023-02-20)
DX: D64.9 Anemia, unspecified (principal); I12.0 Hypertensive chronic kidney disease with stage 5 chronic kidney disease or end stage renal disease; N18.6 End stage renal disease; Z99.2 Dependence on renal dialysis; C34.90 Malignant neoplasm of unspecified part of unspecified bronchus or lung; N18.9 Chronic kidney disease, unspecified; G40.909 Epilepsy, unspecified, not intractable, without status epilepticus; Z88.8 Allergy status to other drugs, medicaments and biological substances; Z87.891 Personal history of nicotine dependence; J44.9 Chronic obstructive pulmonary disease, unspecified
CPT/HCPCS: 0241U-QW; 36415; 36430; 80053; 83735; 84100; 85025; 85610; 85730; 86850; 86900; 86901; 86922; 93005; 93010; 96372; 99285-25; G0378; P9058

== ENCOUNTER 2023-05-18 15:41 | Observation (INO) | payer OTHER ==
[2023-05-18 15:55] VITALS: BMI 26.2
[2023-05-18 17:47] LABS: BASO % 0.9 % (0-2.0); EOS % 1.8 % (0-4.5); HEMATOCRIT 23.8 % (32.4-45.2); HEMOGLOBIN 7.6 GM/dL (10.7-15.3); LYMPH % 19.3 % (8-40); MCHC 31.9 g/dl (32.0-36.0); MEAN CELL VOLUME 78.6 fl (80-96); MEAN PLT VOLUME 9.8 fl (7.5-11.1); MONO % 7.8 % (3.8-10.2); NEUT % 70.2 % (42.8-82.8); PLATELET COUNT 219 10^3/uL (134-434); RBC 3.04 M/mm3 (3.60-5.2); RDW 26.7 % (11.6-15.6); WHITE BLOOD COUNT 7.9 K/mm3 (4.0-10.0)
[2023-05-18 18:07] LABS: POTASSIUM 3.8 mmol/L (3.5-5.1)
[2023-05-18 18:09] LABS: ALBUMIN 3.5 g/dl (3.4-5.0); CALCIUM 8.8 mg/dL (8.5-10.1)
[2023-05-18 18:12] LABS: CREATININE 4.5 mg/dL (0.55-1.3)
[2023-05-18 18:14] LABS: BILIRUBIN,TOTAL 0.5 mg/dL (0.2-1); TOT PROT 7.4 g/dl (6.4-8.2)
[2023-05-18 19:10] LABS: ANISOCYTOSIS 2+; MACROCYTOSIS 0; OVALOCYTE 1+
[2023-05-18] MEDS ORDERED: METHYL SALICYLATE/MENTHOL OINT 30 GM TUBE TP PRN (20:55)
[2023-05-18] MEDS ORDERED: ALBUTEROL SO4 0.083% IH SOL 2.5 MG/3 ML VIAL.NEB. NEB PRN (21:09)
[2023-05-18] MEDS ORDERED: BUDESONIDE/FORMETEROL FUMARATE 160/4.5 mcg INHALER IH SCH (22:00)
[2023-05-18] MEDS ORDERED: MONTELUKAST NA 10 MG TABLET PO SCH (22:00)
[2023-05-18] MEDS ORDERED: levETIRAcetam 500 MG TABLET (FP) PO ONE (22:31)
[2023-05-18] MEDS: levETIRAcetam 500 MG TABLET (FP) PO SCH (22:34)
[2023-05-19] MEDS ORDERED: TORSEMIDE 20 MG TABLET (FP) PO SCH (10:00)
[2023-05-19] MEDS ORDERED: amLODIPine BESYLATE 10 MG TABLET (FP) PO SCH (10:00)
[2023-05-19] MEDS ORDERED: VITAMIN B COMP W-C 1 EA TABLET (NEPHRO-VITE) PO SCH (10:00)
[2023-05-19] MEDS ORDERED: PANTOPRAZOLE 20 MG TABLET PO SCH (10:00)
[2023-05-19] MEDS ORDERED: hydrALAZINE HCL 50 MG TABLET (FP) PO SCH (10:00)
[2023-05-19] MEDS: levETIRAcetam 500 MG TABLET (FP) PO SCH (10:31)
[2023-05-19 13:14] VITALS: BP 128/56; PULSE 72; RESP 18; TEMP 98.2
[2023-05-19 13:23] LABS: BASO % 0.9 % (0-2.0); EOS % 2.1 % (0-4.5); HEMATOCRIT 28.3 % (32.4-45.2); HEMOGLOBIN 9.1 GM/dL (10.7-15.3); LYMPH % 20.5 % (8-40); MCH 25.9 pg (25.7-33.7); MEAN CELL VOLUME 80.9 fl (80-96); MEAN PLT VOLUME 9.7 fl (7.5-11.1); MONO % 8.3 % (3.8-10.2); NEUT % 68.2 % (42.8-82.8); PLATELET COUNT 206 10^3/uL (134-434); RDW 23.1 % (11.6-15.6)
[2023-05-19] MEDS ORDERED: ROSUVASTATIN CA 5 MG TABLET PO SCH (22:00)
== END 2023-05-19 12:41 | disposition home or self-care (01) ==
LOC: JER 15:41 → JERBED 19:47 → J5S 05-19 00:51
PROVIDERS: ADMIT Student in an Organized Health Care Education/Training Program; ATTEND Internal Medicine
PROC: 30233N1 Transfusion of Nonautologous Red Blood Cells into Peripheral Vein, Percutaneous Approach (ICD-10-PCS; principal; 2023-05-18)
DX: R77.8 Other specified abnormalities of plasma proteins (principal); D64.9 Anemia, unspecified; I12.0 Hypertensive chronic kidney disease with stage 5 chronic kidney disease or end stage renal disease; N18.6 End stage renal disease; Z99.2 Dependence on renal dialysis; J44.9 Chronic obstructive pulmonary disease, unspecified; Z85.118 Personal history of other malignant neoplasm of bronchus and lung; E78.5 Hyperlipidemia, unspecified; E11.9 Type 2 diabetes mellitus without complications; Z87.891 Personal history of nicotine dependence
CPT/HCPCS: 36415; 36430; 80053; 82962; 83735; 85025; 86850; 86900; 86901; 86922; 93005; 93010; 99285-25; G0378; P9058

== ENCOUNTER 2023-08-25 14:06 | Emergency (ER) | payer OTHER ==
[2023-08-25 14:15] VITALS: BP 98/56; PULSE 90; RESP 16; TEMP 98.3; BMI 26.0
[2023-08-25] MEDS ORDERED: ACETAMINOPHEN 325 MG TABLET (FP) PO ONE (15:37)
[2023-08-25] MEDS ORDERED: ACETAMINOPHEN 325 MG TABLET (FP) ONE (15:42)
[2023-08-25] MEDS ORDERED: BACITRACIN 0.9 GM PACKET TP ONE (15:49)
[2023-08-25] MEDS ORDERED: BACITRACIN 0.9 GM PACKET ONE (15:50)
[2023-08-25] MEDS ORDERED: BACITRACIN ZINC 15 GM TUBE TOPICAL OINTMENT ONE (15:51)
== END 2023-08-25 16:30 | disposition home or self-care (01) ==
LOC: JER 14:06
DX: M21.611 Bunion of right foot (principal); S91.301A Unspecified open wound, right foot, initial encounter; M79.671 Pain in right foot
CPT/HCPCS: 99283-25

== ENCOUNTER 2023-09-10 08:56 | Inpatient (IN) | payer OTHER ==
[2023-09-10] MEDS ORDERED: ACETAMINOPHEN 1000 MG/100 ML BAG IVPB ONE (10:08)
[2023-09-10] MEDS ORDERED: ACETAMINOPHEN INJECTION 100 ML IVPB ONE (10:45)
[2023-09-10] MEDS ORDERED: PIPERACILLIN/TAZOB 4.5 GM 4.5 GM in DEXTROSE 5%-WATER 100 ML IVPB ONE (12:15)
[2023-09-10] MEDS ORDERED: VANCOMYCIN 1,000 MG in DEXTROSE 5%-WATER - 250 ML IVPB ONE (12:15)
[2023-09-10 12:27] LABS: BASO % 1.2 % (0-2.0); EOS % 0.8 % (0-4.5); HEMATOCRIT 20.6 % (32.4-45.2); LYMPH % 16.2 % (8-40); MCH 24.6 pg (25.7-33.7); MCHC 31.4 g/dl (32.0-36.0); MEAN CELL VOLUME 78.3 fl (80-96); MEAN PLT VOLUME 9.6 fl (7.5-11.1); MONO % 6.4 % (3.8-10.2); NEUT % 75.4 % (42.8-82.8); PLATELET COUNT 331 10^3/uL (134-434); RBC 2.63 M/mm3 (3.60-5.2); RDW 26.8 % (11.6-15.6); WHITE BLOOD COUNT 13.3 K/mm3 (4.0-10.0)
[2023-09-10 12:31] LABS: HEMOGLOBIN 6.5 GM/dL (10.7-15.3)
[2023-09-10 12:34] LABS: INR 1.18 (0.83-1.09); PROTHROMBIN TIME (PATIENT) 13.7 SEC (9.7-13.0)
[2023-09-10 12:37] LABS: ACTIVATED PTT 31.2 SECONDS (25.2-36.5)
[2023-09-10 12:54] LABS: ANISOCYTOSIS 3+; MACROCYTOSIS 0; OVALOCYTE 1+; TARGET CELLS 2+
[2023-09-10 12:56] LABS: POTASSIUM 4.8 mmol/L (3.5-5.1)
[2023-09-10 12:58] LABS: ALBUMIN 2.6 g/dl (3.4-5.0)
[2023-09-10 12:59] LABS: BLOOD UREA NITROGEN 29.5 mg/dL (7-18)
[2023-09-10 13:02] LABS: CREATININE 5.7 mg/dL (0.55-1.3)
[2023-09-10 13:03] LABS: BILIRUBIN,TOTAL 0.6 mg/dL (0.2-1); TOT PROT 7.8 g/dl (6.4-8.2)
[2023-09-10] MEDS ORDERED: VANCOMYCIN 1 GRAM (PRE-DOCKED) 1,000 MG/250 ML BAG IVPB ONE (13:04)
[2023-09-10] MEDS ORDERED: PIPERACILLIN/TAZOB 4.5 GM 4.5 GM/100 ML BAG IVPB ONE (13:05)
[2023-09-10 13:22] LABS: ERYTHROCYTE SEDIMENTATION RATE 111 mm/hr (0-30)
[2023-09-10] MEDS ORDERED: ACETAMINOPHEN 325 MG TABLET (FP) PO ONE (19:57)
[2023-09-10] MEDS ORDERED: ACETAMINOPHEN 1000 MG/100 ML BAG IVPB PRN (20:19)
[2023-09-10] MEDS: PIPERACILLIN/TAZOB 2.25 GM 2.25 GM in DEXTROSE 5%-WATER - 50 ML IVPB SCH (21:30)
[2023-09-10] MEDS ORDERED: PANTOPRAZOLE 20 MG TABLET PO SCH (22:00)
[2023-09-10] MEDS: ROSUVASTATIN CA 5 MG TABLET PO SCH (23:08)
[2023-09-10] MEDS: levETIRAcetam 500 MG TABLET (FP) PO SCH (23:08)
[2023-09-10] MEDS: hydrALAZINE HCL 50 MG TABLET (FP) PO SCH (23:08)
[2023-09-10] MEDS: amLODIPine BESYLATE 10 MG TABLET (FP) PO SCH (23:08)
[2023-09-10] MEDS: BUDESONIDE/FORMETEROL FUMARATE 160/4.5 mcg INHALER IH SCH (23:08)
[2023-09-10] MEDS: TORSEMIDE 20 MG TABLET (FP) PO SCH (23:08)
[2023-09-10] MEDS: MONTELUKAST NA 10 MG TABLET PO SCH (23:08)
[2023-09-10] MEDS: MUPIROCIN 2% TOPICAL OINTMENT 22 GM TUBE TP SCH (23:08)
[2023-09-11] MEDS ORDERED: PIPERACILLIN/TAZOBACTAM 2.25 GM VIAL IVPB ONE (10:08)
[2023-09-11] MEDS: MUPIROCIN 2% TOPICAL OINTMENT 22 GM TUBE TP SCH ×2 (10:24→21:26)
[2023-09-11] MEDS: PIPERACILLIN/TAZOB 2.25 GM 2.25 GM in DEXTROSE 5%-WATER - 50 ML IVPB SCH ×2 (10:24→16:52)
[2023-09-11] MEDS: BUDESONIDE/FORMETEROL FUMARATE 160/4.5 mcg INHALER IH SCH ×2 (10:25→21:26)
[2023-09-11] MEDS ORDERED: SODIUM CHLORIDE 250 ML IV PRN (12:27)
[2023-09-11] MEDS ORDERED: EPOETIN ALFA-EPBX 10,000 UNIT/ML VIAL SQ ONE (12:30)
[2023-09-11] MEDS ORDERED: PIPERACILLIN/TAZOB 2.25 GM 2.25 GM in DEXTROSE 5%-WATER - 50 ML IVPB SCH ×2 (16:45→22:00)
[2023-09-11 17:58] LABS: CHLORIDE 99 mmol/L (98-107); POTASSIUM 3.9 mmol/L (3.5-5.1); SODIUM 134 mmol/L (136-145)
[2023-09-11 17:59] LABS: CALCIUM 8.6 mg/dL (8.5-10.1)
[2023-09-11 18:00] LABS: ANION GAP 12 mmol/L (4-13); BLOOD UREA NITROGEN 44.9 mg/dL (7-18); CO2 22 mmol/L (21-32); GAMMA GLUTAMYL TRANSPEPTIDASE 80 U/L (5-85); GLUCOSE,RANDOM 152 mg/dL (74-106); HEMATOCRIT 23.9 % (32.4-45.2); HEMOGLOBIN 7.4 GM/dL (10.7-15.3); MCH 24.4 pg (25.7-33.7); MCHC 31.2 g/dl (32.0-36.0); MEAN CELL VOLUME 78.2 fl (80-96); MEAN PLT VOLUME 9.8 fl (7.5-11.1); PLATELET COUNT 322 10^3/uL (134-434); RBC 3.05 M/mm3 (3.60-5.2); RDW 23.9 % (11.6-15.6)
[2023-09-11 18:09] LABS: CREATININE 7.8 mg/dL (0.55-1.3)
[2023-09-11] MEDS: amLODIPine BESYLATE 10 MG TABLET (FP) PO SCH (21:24)
[2023-09-11] MEDS: MONTELUKAST NA 10 MG TABLET PO SCH (21:24)
[2023-09-11] MEDS: hydrALAZINE HCL 50 MG TABLET (FP) PO SCH (21:24)
[2023-09-11] MEDS: ROSUVASTATIN CA 5 MG TABLET PO SCH (21:24)
[2023-09-11] MEDS: levETIRAcetam 500 MG TABLET (FP) PO SCH (21:24)
[2023-09-11] MEDS: TORSEMIDE 20 MG TABLET (FP) PO SCH (21:24)
[2023-09-11] MEDS ORDERED: ACETAMINOPHEN 1000 MG/100 ML BAG IVPB ONE (21:43)
[2023-09-12] MEDS: PIPERACILLIN/TAZOB 2.25 GM 2.25 GM in DEXTROSE 5%-WATER - 50 ML IVPB SCH ×3 (02:00→17:26)
[2023-09-12] MEDS ORDERED: ACETAMINOPHEN 1000 MG/100 ML BAG IVPB PRN ×2 (08:42→09:36)
[2023-09-12] MEDS: PANTOPRAZOLE 40 MG TABLET PO SCH (09:03)
[2023-09-12] MEDS: BUDESONIDE/FORMETEROL FUMARATE 160/4.5 mcg INHALER IH SCH ×2 (09:04→22:04)
[2023-09-12] MEDS: MUPIROCIN 2% TOPICAL OINTMENT 22 GM TUBE TP SCH ×2 (09:06→22:35)
[2023-09-12] MEDS: oxyCODONE HCL 5 MG TABLET PO PRN (15:35)
[2023-09-12] MEDS: levETIRAcetam 500 MG TABLET (FP) PO SCH (22:04)
[2023-09-12] MEDS: MONTELUKAST NA 10 MG TABLET PO SCH (22:04)
[2023-09-12] MEDS: ROSUVASTATIN CA 5 MG TABLET PO SCH (22:04)
[2023-09-12] MEDS: hydrALAZINE HCL 50 MG TABLET (FP) PO SCH (22:35)
[2023-09-12] MEDS: amLODIPine BESYLATE 10 MG TABLET (FP) PO SCH (22:35)
[2023-09-12] MEDS: TORSEMIDE 20 MG TABLET (FP) PO SCH (22:35)
[2023-09-13] MEDS: PIPERACILLIN/TAZOB 2.25 GM 2.25 GM in DEXTROSE 5%-WATER - 50 ML IVPB SCH ×3 (01:08→18:38)
[2023-09-13 08:31] LABS: HEMATOCRIT 25.8 % (32.4-45.2); HEMOGLOBIN 7.9 GM/dL (10.7-15.3); MCH 24.4 pg (25.7-33.7); MCHC 30.5 g/dl (32.0-36.0); MEAN CELL VOLUME 80.1 fl (80-96); MEAN PLT VOLUME 9.2 fl (7.5-11.1); PLATELET COUNT 308 10^3/uL (134-434); RBC 3.22 M/mm3 (3.60-5.2); RDW 24.7 % (11.6-15.6); WHITE BLOOD COUNT 15.5 K/mm3 (4.0-10.0)
[2023-09-13] MEDS: BUDESONIDE/FORMETEROL FUMARATE 160/4.5 mcg INHALER IH SCH ×2 (09:59→22:18)
[2023-09-13] MEDS: MUPIROCIN 2% TOPICAL OINTMENT 22 GM TUBE TP SCH ×2 (09:59→22:11)
[2023-09-13] MEDS: PANTOPRAZOLE 40 MG TABLET PO SCH (10:13)
[2023-09-13] MEDS ORDERED: ACETAMINOPHEN INJECTION 100 ML IVPB ONE (10:45)
[2023-09-13] MEDS ORDERED: ACETAMINOPHEN 1000 MG/100 ML BAG IVPB ONE (11:00)
[2023-09-13] MEDS: oxyCODONE HCL 5 MG TABLET PO PRN (12:08)
[2023-09-13] MEDS: MONTELUKAST NA 10 MG TABLET PO SCH (22:11)
[2023-09-13] MEDS: ROSUVASTATIN CA 5 MG TABLET PO SCH (22:11)
[2023-09-13] MEDS: levETIRAcetam 500 MG TABLET (FP) PO SCH (22:11)
[2023-09-13] MEDS: amLODIPine BESYLATE 10 MG TABLET (FP) PO SCH (22:12)
[2023-09-13] MEDS: TORSEMIDE 20 MG TABLET (FP) PO SCH (22:12)
[2023-09-13] MEDS: hydrALAZINE HCL 50 MG TABLET (FP) PO SCH (22:12)
[2023-09-14] MEDS: PIPERACILLIN/TAZOB 2.25 GM 2.25 GM in DEXTROSE 5%-WATER - 50 ML IVPB SCH ×3 (01:23→17:52)
[2023-09-14] MEDS: oxyCODONE HCL 5 MG TABLET PO PRN ×2 (01:23→14:40)
[2023-09-14 09:30] LABS: INR 1.32 (0.83-1.09); PROTHROMBIN TIME (PATIENT) 15.3 SEC (9.7-13.0)
[2023-09-14 09:33] LABS: BASO % 0.5 % (0-2.0); EOS % 0.5 % (0-4.5); HEMATOCRIT 24.2 % (32.4-45.2); HEMOGLOBIN 7.7 GM/dL (10.7-15.3); LYMPH % 11.2 % (8-40); MCHC 31.7 g/dl (32.0-36.0); MEAN PLT VOLUME 9.4 fl (7.5-11.1); MONO % 8.6 % (3.8-10.2); NEUT % 79.2 % (42.8-82.8); PLATELET COUNT 321 10^3/uL (134-434); RBC 3.06 M/mm3 (3.60-5.2); RDW 24.5 % (11.6-15.6); WHITE BLOOD COUNT 16.1 K/mm3 (4.0-10.0)
[2023-09-14 09:52] LABS: CHLORIDE 97 mmol/L (98-107); POTASSIUM 3.9 mmol/L (3.5-5.1); SODIUM 132 mmol/L (136-145)
[2023-09-14 09:54] LABS: ALBUMIN 2.4 g/dl (3.4-5.0); ANION GAP 12 mmol/L (4-13); CALCIUM 8.5 mg/dL (8.5-10.1); CO2 24 mmol/L (21-32)
[2023-09-14 09:56] LABS: BLOOD UREA NITROGEN 58.9 mg/dL (7-18); GLUCOSE,RANDOM 115 mg/dL (74-106)
[2023-09-14 09:57] LABS: SGPT/ALT 16 U/L (13-61)
[2023-09-14 09:58] LABS: SGOT/AST 15 U/L (15-37)
[2023-09-14 09:59] LABS: BILIRUBIN,TOTAL 0.8 mg/dL (0.2-1); TOT PROT 7.2 g/dl (6.4-8.2)
[2023-09-14] MEDS: PANTOPRAZOLE 40 MG TABLET PO SCH (10:00)
[2023-09-14] MEDS: MUPIROCIN 2% TOPICAL OINTMENT 22 GM TUBE TP SCH ×2 (10:02→22:03)
[2023-09-14] MEDS: BUDESONIDE/FORMETEROL FUMARATE 160/4.5 mcg INHALER IH SCH ×2 (10:02→22:03)
[2023-09-14 10:03] LABS: ALK PHOS 142 U/L (45-117); CREATININE 10.3 mg/dL (0.55-1.3)
[2023-09-14 12:57] LABS: ANISOCYTOSIS 2+; MACROCYTOSIS 2+; OVALOCYTE 2+; TEAR DROP CELLS 2+
[2023-09-14] MEDS ORDERED: BISACODYL 5 MG TABLET.DR (FP) PO ONE (16:00)
[2023-09-14] MEDS ORDERED: PEG 3350/NA SULF BICARB CL/KCL 4000 ML SOLN.RECON PO ONE (17:00)
[2023-09-14] MEDS: hydrALAZINE HCL 50 MG TABLET (FP) PO SCH (22:01)
[2023-09-14] MEDS: MONTELUKAST NA 10 MG TABLET PO SCH (22:01)
[2023-09-14] MEDS: ROSUVASTATIN CA 5 MG TABLET PO SCH (22:01)
[2023-09-14] MEDS: levETIRAcetam 500 MG TABLET (FP) PO SCH (22:01)
[2023-09-14] MEDS: amLODIPine BESYLATE 10 MG TABLET (FP) PO SCH (22:02)
[2023-09-14] MEDS: TORSEMIDE 20 MG TABLET (FP) PO SCH (22:02)
[2023-09-15] MEDS: PIPERACILLIN/TAZOB 2.25 GM 2.25 GM in DEXTROSE 5%-WATER - 50 ML IVPB SCH ×3 (01:18→17:58)
[2023-09-15] MEDS: oxyCODONE HCL 5 MG TABLET PO PRN (04:51)
[2023-09-15] MEDS ORDERED: SODIUM CHLORIDE 250 ML IV PRN (07:58)
[2023-09-15] MEDS ORDERED: EPOETIN ALFA-EPBX 10,000 UNIT/ML VIAL SQ ONE (09:00)
[2023-09-15] MEDS ORDERED: PIPERACILLIN/TAZOBACTAM 2.25 GM VIAL IVPB ONE (11:17)
[2023-09-15] MEDS: PANTOPRAZOLE 40 MG TABLET PO SCH (11:25)
[2023-09-15] MEDS: MUPIROCIN 2% TOPICAL OINTMENT 22 GM TUBE TP SCH ×2 (11:26→22:37)
[2023-09-15] MEDS: BUDESONIDE/FORMETEROL FUMARATE 160/4.5 mcg INHALER IH SCH ×2 (11:26→22:31)
[2023-09-15] MEDS: ACETAMINOPHEN 325 MG TABLET (FP) PO PRN (17:58)
[2023-09-15] MEDS: ROSUVASTATIN CA 5 MG TABLET PO SCH (22:28)
[2023-09-15] MEDS: levETIRAcetam 500 MG TABLET (FP) PO SCH (22:28)
[2023-09-15] MEDS: MONTELUKAST NA 10 MG TABLET PO SCH (22:28)
[2023-09-15] MEDS: amLODIPine BESYLATE 10 MG TABLET (FP) PO SCH (22:37)
[2023-09-15] MEDS: TORSEMIDE 20 MG TABLET (FP) PO SCH (22:37)
[2023-09-15] MEDS: hydrALAZINE HCL 50 MG TABLET (FP) PO SCH (22:37)
[2023-09-16] MEDS: PIPERACILLIN/TAZOB 2.25 GM 2.25 GM in DEXTROSE 5%-WATER - 50 ML IVPB SCH ×3 (01:14→18:19)
[2023-09-16] MEDS ORDERED: SODIUM CHLORIDE 250 ML IV STA (02:06)
[2023-09-16] MEDS: PANTOPRAZOLE 40 MG TABLET PO SCH (10:15)
[2023-09-16] MEDS: BUDESONIDE/FORMETEROL FUMARATE 160/4.5 mcg INHALER IH SCH ×2 (10:17→22:18)
[2023-09-16] MEDS: MUPIROCIN 2% TOPICAL OINTMENT 22 GM TUBE TP SCH ×2 (10:17→22:17)
[2023-09-16] MEDS ORDERED: SODIUM CHLORIDE 250 ML IV PRN (12:03)
[2023-09-16] MEDS ORDERED: EPOETIN ALFA-EPBX 10,000 UNIT/ML VIAL IVPUSH ONE (14:00)
[2023-09-16 14:39] LABS: HEMATOCRIT 24.6 % (32.4-45.2); HEMOGLOBIN 7.7 GM/dL (10.7-15.3); MCH 24.8 pg (25.7-33.7); MCHC 31.5 g/dl (32.0-36.0); MEAN CELL VOLUME 78.9 fl (80-96); MEAN PLT VOLUME 9.4 fl (7.5-11.1); PLATELET COUNT 281 10^3/uL (134-434); RBC 3.11 M/mm3 (3.60-5.2); RDW 24.2 % (11.6-15.6); WHITE BLOOD COUNT 11.9 K/mm3 (4.0-10.0)
[2023-09-16 14:58] LABS: POTASSIUM 3.3 mmol/L (3.5-5.1)
[2023-09-16 15:00] LABS: ALBUMIN 2.3 g/dl (3.4-5.0); CALCIUM 8.7 mg/dL (8.5-10.1)
[2023-09-16 15:03] LABS: CREATININE 2.8 mg/dL (0.55-1.3)
[2023-09-16 15:05] LABS: BILIRUBIN,TOTAL 0.8 mg/dL (0.2-1); TOT PROT 7.2 g/dl (6.4-8.2)
[2023-09-16 15:13] LABS: BLOOD UREA NITROGEN 11.7 mg/dL (7-18)
[2023-09-16] MEDS: ACETAMINOPHEN 325 MG TABLET (FP) PO PRN (16:41)
[2023-09-16] MEDS: levETIRAcetam 500 MG TABLET (FP) PO SCH (22:16)
[2023-09-16] MEDS: MONTELUKAST NA 10 MG TABLET PO SCH (22:16)
[2023-09-16] MEDS: amLODIPine BESYLATE 10 MG TABLET (FP) PO SCH (22:17)
[2023-09-16] MEDS: hydrALAZINE HCL 50 MG TABLET (FP) PO SCH (22:17)
[2023-09-16] MEDS: ROSUVASTATIN CA 5 MG TABLET PO SCH (22:17)
[2023-09-16] MEDS: TORSEMIDE 20 MG TABLET (FP) PO SCH (22:17)
[2023-09-17] MEDS: PIPERACILLIN/TAZOB 2.25 GM 2.25 GM in DEXTROSE 5%-WATER - 50 ML IVPB SCH ×3 (01:57→18:25)
[2023-09-17] MEDS: ACETAMINOPHEN 325 MG TABLET (FP) PO PRN ×2 (02:49→15:30)
[2023-09-17 08:18] LABS: BASO % 1.1 % (0-2.0); EOS % 1.2 % (0-4.5); HEMATOCRIT 26.1 % (32.4-45.2); HEMOGLOBIN 8.2 GM/dL (10.7-15.3); LYMPH % 16.6 % (8-40); MCH 24.9 pg (25.7-33.7); MCHC 31.2 g/dl (32.0-36.0); MEAN CELL VOLUME 79.8 fl (80-96); MONO % 9.1 % (3.8-10.2); PLATELET COUNT 252 10^3/uL (134-434); RBC 3.27 M/mm3 (3.60-5.2); RDW 24.8 % (11.6-15.6); WHITE BLOOD COUNT 11.7 K/mm3 (4.0-10.0)
[2023-09-17] MEDS: BUDESONIDE/FORMETEROL FUMARATE 160/4.5 mcg INHALER IH SCH ×2 (09:50→21:58)
[2023-09-17] MEDS: PANTOPRAZOLE 40 MG TABLET PO SCH (09:50)
[2023-09-17] MEDS: MUPIROCIN 2% TOPICAL OINTMENT 22 GM TUBE TP SCH (09:50)
[2023-09-17] MEDS ORDERED: LIDOCAINE HCL 1%, 10 MG/ML (20ML VIAL) ONE (14:13)
[2023-09-17] MEDS ORDERED: HEPARIN NA (PORCINE) 5,000 UNITS/ML 1ML VIAL ONE ×2 (14:14→18:28)
[2023-09-17] MEDS ORDERED: ceFAZolin SODIUM 1 GM VIAL ONE (16:09)
[2023-09-17] MEDS ORDERED: PROPOFOL 20 ML ONE ×3 (16:09→17:58)
[2023-09-17] MEDS ORDERED: LIDOCAINE HCL/PF 2% SDV 5ML VIAL ONE (16:09)
[2023-09-17] MEDS ORDERED: SODIUM CHLORIDE 0.9% P/F 10 ML VIAL IJ ONE (16:10)
[2023-09-17] MEDS ORDERED: MIDAZOLAM HCL 2 MG/2 ML SINGLE DOSE VIAL ONE ×2 (16:10→17:58)
[2023-09-17] MEDS ORDERED: ONDANSETRON 4 MG/2 ML VIAL ONE (16:36)
[2023-09-17] MEDS ORDERED: LIDOCAINE HCL 1%, 10 MG/ML (20ML VIAL) NR ONE (16:46)
[2023-09-17] MEDS ORDERED: PROTAMINE SULFATE 50 MG/5 ML VIAL ONE (18:27)
[2023-09-17] MEDS ORDERED: ACETAMINOPHEN 1000 MG/100 ML BAG IVPB PRN (18:46)
[2023-09-17] MEDS ORDERED: ONDANSETRON 4 MG/2 ML VIAL IVPUSH PRN (18:46)
[2023-09-17] MEDS ORDERED: ACETAMINOPHEN 325 MG TABLET (FP) PO PRN ×2 (18:54→19:42)
[2023-09-17] MEDS ORDERED: SODIUM CHLORIDE 1,000 ML IV SCH (19:00)
[2023-09-17] MEDS ORDERED: CLOPIDOGREL BISULFATE 75 MG TABLET (FP) ONE (20:30)
[2023-09-17] MEDS: CLOPIDOGREL BISULFATE 75 MG TABLET (FP) PO SCH (20:55)
[2023-09-17] MEDS: MONTELUKAST NA 10 MG TABLET PO SCH (21:57)
[2023-09-17] MEDS: levETIRAcetam 500 MG TABLET (FP) PO SCH (21:57)
[2023-09-17] MEDS: hydrALAZINE HCL 50 MG TABLET (FP) PO SCH (21:57)
[2023-09-17] MEDS: amLODIPine BESYLATE 10 MG TABLET (FP) PO SCH (21:57)
[2023-09-17] MEDS: ROSUVASTATIN CA 5 MG TABLET PO SCH (21:58)
[2023-09-17] MEDS: TORSEMIDE 20 MG TABLET (FP) PO SCH (21:58)
[2023-09-17] MEDS ORDERED: MUPIROCIN 2% TOPICAL OINTMENT 22 GM TUBE TP SCH (22:00)
[2023-09-18] MEDS: PIPERACILLIN/TAZOB 2.25 GM 2.25 GM in DEXTROSE 5%-WATER - 50 ML IVPB SCH ×4 (01:52→18:43)
[2023-09-18] MEDS: oxyCODONE HCL 5 MG TABLET PO PRN (01:52)
[2023-09-18] MEDS ORDERED: SODIUM CHLORIDE 250 ML IV PRN ×2 (09:09→16:22)
[2023-09-18] MEDS ORDERED: EPOETIN ALFA-EPBX 10,000 UNIT/ML VIAL SQ ONE ×2 (09:15→16:22)
[2023-09-18] MEDS: PANTOPRAZOLE 40 MG TABLET PO SCH (09:26)
[2023-09-18] MEDS: CLOPIDOGREL BISULFATE 75 MG TABLET (FP) PO SCH (09:26)
[2023-09-18] MEDS: BUDESONIDE/FORMETEROL FUMARATE 160/4.5 mcg INHALER IH SCH ×3 (09:28→23:17)
[2023-09-18 22:52] VITALS: BMI 25.8
[2023-09-18] MEDS: ROSUVASTATIN CA 5 MG TABLET PO SCH (23:17)
[2023-09-18] MEDS: MONTELUKAST NA 10 MG TABLET PO SCH (23:17)
[2023-09-18] MEDS: levETIRAcetam 500 MG TABLET (FP) PO SCH (23:17)
[2023-09-18] MEDS: TORSEMIDE 20 MG TABLET (FP) PO SCH (23:17)
[2023-09-18] MEDS: amLODIPine BESYLATE 10 MG TABLET (FP) PO SCH (23:27)
[2023-09-18] MEDS: hydrALAZINE HCL 50 MG TABLET (FP) PO SCH (23:30)
[2023-09-19] MEDS: PIPERACILLIN/TAZOB 2.25 GM 2.25 GM in DEXTROSE 5%-WATER - 50 ML IVPB SCH ×3 (01:57→17:11)
[2023-09-19] MEDS: CLOPIDOGREL BISULFATE 75 MG TABLET (FP) PO SCH (09:24)
[2023-09-19] MEDS: BUDESONIDE/FORMETEROL FUMARATE 160/4.5 mcg INHALER IH SCH ×2 (09:24→21:31)
[2023-09-19] MEDS: PANTOPRAZOLE 40 MG TABLET PO SCH (09:24)
[2023-09-19] MEDS: oxyCODONE HCL 5 MG TABLET PO PRN ×2 (12:56→18:55)
[2023-09-19] MEDS: MONTELUKAST NA 10 MG TABLET PO SCH (21:18)
[2023-09-19] MEDS: levETIRAcetam 500 MG TABLET (FP) PO SCH (21:18)
[2023-09-19] MEDS: ROSUVASTATIN CA 5 MG TABLET PO SCH (21:18)
[2023-09-19] MEDS: TORSEMIDE 20 MG TABLET (FP) PO SCH (21:18)
[2023-09-19] MEDS: amLODIPine BESYLATE 10 MG TABLET (FP) PO SCH (21:28)
[2023-09-19] MEDS: hydrALAZINE HCL 50 MG TABLET (FP) PO SCH (21:28)
[2023-09-20] MEDS: PIPERACILLIN/TAZOB 2.25 GM 2.25 GM in DEXTROSE 5%-WATER - 50 ML IVPB SCH ×3 (02:20→19:15)
[2023-09-20] MEDS: CLOPIDOGREL BISULFATE 75 MG TABLET (FP) PO SCH (09:09)
[2023-09-20] MEDS: PANTOPRAZOLE 40 MG TABLET PO SCH (09:09)
[2023-09-20] MEDS: BUDESONIDE/FORMETEROL FUMARATE 160/4.5 mcg INHALER IH SCH ×2 (09:10→21:41)
[2023-09-20] MEDS: oxyCODONE HCL 5 MG TABLET PO PRN (11:05)
[2023-09-20] MEDS ORDERED: SODIUM CHLORIDE 250 ML IV PRN (17:46)
[2023-09-20] MEDS: ROSUVASTATIN CA 5 MG TABLET PO SCH (21:40)
[2023-09-20] MEDS: levETIRAcetam 500 MG TABLET (FP) PO SCH (21:40)
[2023-09-20] MEDS: amLODIPine BESYLATE 10 MG TABLET (FP) PO SCH (21:40)
[2023-09-20] MEDS: MONTELUKAST NA 10 MG TABLET PO SCH (21:40)
[2023-09-20] MEDS: TORSEMIDE 20 MG TABLET (FP) PO SCH (21:40)
[2023-09-20] MEDS: hydrALAZINE HCL 50 MG TABLET (FP) PO SCH (21:40)
[2023-09-21] MEDS: PIPERACILLIN/TAZOB 2.25 GM 2.25 GM in DEXTROSE 5%-WATER - 50 ML IVPB SCH ×3 (02:40→18:26)
[2023-09-21] MEDS: PANTOPRAZOLE 40 MG TABLET PO SCH (09:19)
[2023-09-21] MEDS: CLOPIDOGREL BISULFATE 75 MG TABLET (FP) PO SCH (09:19)
[2023-09-21] MEDS: BUDESONIDE/FORMETEROL FUMARATE 160/4.5 mcg INHALER IH SCH ×2 (09:54→21:37)
[2023-09-21] MEDS: MONTELUKAST NA 10 MG TABLET PO SCH (21:36)
[2023-09-21] MEDS: hydrALAZINE HCL 50 MG TABLET (FP) PO SCH (21:36)
[2023-09-21] MEDS: amLODIPine BESYLATE 10 MG TABLET (FP) PO SCH (21:36)
[2023-09-21] MEDS: ROSUVASTATIN CA 5 MG TABLET PO SCH (21:36)
[2023-09-21] MEDS: TORSEMIDE 20 MG TABLET (FP) PO SCH (21:36)
[2023-09-21] MEDS: levETIRAcetam 500 MG TABLET (FP) PO SCH (21:36)
[2023-09-22] MEDS: PIPERACILLIN/TAZOB 2.25 GM 2.25 GM in DEXTROSE 5%-WATER - 50 ML IVPB SCH ×3 (01:21→17:25)
[2023-09-22] MEDS: CLOPIDOGREL BISULFATE 75 MG TABLET (FP) PO SCH (09:19)
[2023-09-22] MEDS: PANTOPRAZOLE 40 MG TABLET PO SCH (09:19)
[2023-09-22] MEDS: BUDESONIDE/FORMETEROL FUMARATE 160/4.5 mcg INHALER IH SCH ×2 (09:21→22:38)
[2023-09-22 10:29] LABS: HEMATOCRIT 24.9 % (32.4-45.2); HEMOGLOBIN 7.8 GM/dL (10.7-15.3); MCH 25.3 pg (25.7-33.7); MCHC 31.2 g/dl (32.0-36.0); MEAN CELL VOLUME 81.1 fl (80-96); MEAN PLT VOLUME 9.2 fl (7.5-11.1); PLATELET COUNT 215 10^3/uL (134-434); RBC 3.07 M/mm3 (3.60-5.2); RDW 25.5 % (11.6-15.6); WHITE BLOOD COUNT 9.8 K/mm3 (4.0-10.0)
[2023-09-22 10:52] LABS: POTASSIUM 3.7 mmol/L (3.5-5.1)
[2023-09-22 11:27] LABS: BLOOD UREA NITROGEN 20.9 mg/dL (7-18); CALCIUM 9.3 mg/dL (8.5-10.1)
[2023-09-22 11:28] LABS: ALBUMIN 2.2 g/dl (3.4-5.0)
[2023-09-22 11:31] LABS: CREATININE 5.5 mg/dL (0.55-1.3)
[2023-09-22 11:32] LABS: BILIRUBIN,TOTAL 0.6 mg/dL (0.2-1)
[2023-09-22] MEDS ORDERED: SODIUM CHLORIDE 250 ML IV PRN (13:24)
[2023-09-22] MEDS: TORSEMIDE 20 MG TABLET (FP) PO SCH (22:38)
[2023-09-22] MEDS: ROSUVASTATIN CA 5 MG TABLET PO SCH (22:38)
[2023-09-22] MEDS: levETIRAcetam 500 MG TABLET (FP) PO SCH (22:38)
[2023-09-22] MEDS: MONTELUKAST NA 10 MG TABLET PO SCH (22:38)
[2023-09-22] MEDS: amLODIPine BESYLATE 10 MG TABLET (FP) PO SCH (22:39)
[2023-09-22] MEDS: hydrALAZINE HCL 50 MG TABLET (FP) PO SCH (22:39)
[2023-09-23] MEDS: PIPERACILLIN/TAZOB 2.25 GM 2.25 GM in DEXTROSE 5%-WATER - 50 ML IVPB SCH ×3 (01:51→17:53)
[2023-09-23] MEDS ORDERED: LIDOCAINE HCL 1%, 10 MG/ML (20ML VIAL) ONE (07:24)
[2023-09-23] MEDS ORDERED: PAPAVERINE HCL 30 MG/1 ML 10 ML VIAL NR ONE (07:24)
[2023-09-23] MEDS ORDERED: PROPOFOL 20 ML ONE ×2 (07:31→11:44)
[2023-09-23] MEDS ORDERED: MIDAZOLAM HCL 2 MG/2 ML SINGLE DOSE VIAL ONE (07:31)
[2023-09-23] MEDS ORDERED: ROCURONIUM BROMIDE 50 MG/5 ML SYRINGE ONE (07:31)
[2023-09-23] MEDS ORDERED: PIPERACILLIN/TAZOBACTAM 2.25 GM VIAL IVPB ONE ×2 (08:37→08:40)
[2023-09-23] MEDS ORDERED: HEPARIN NA (PORCINE) 5,000 UNITS/ML 1ML VIAL SQ ONE (08:39)
[2023-09-23] MEDS ORDERED: POVIDONE-IODINE OINTMENT 10% - 28.4 GM TUBE ONE (12:48)
[2023-09-23] MEDS ORDERED: EPOETIN ALFA-EPBX 10,000 UNIT/ML VIAL IVPUSH ONE (13:24)
[2023-09-23] MEDS ORDERED: ONDANSETRON 4 MG/2 ML VIAL IVPUSH PRN ×2 (14:03→15:52)
[2023-09-23] MEDS ORDERED: VASOPRESSIN 40 UNITS/100 ML BAG IV SCH ×2 (14:15→15:52)
[2023-09-23] MEDS ORDERED: SODIUM CHLORIDE 1,000 ML IV SCH (14:15)
[2023-09-23] MEDS ORDERED: NOREPINEPHRINE 0.9 % NACL 8 MG/250 ML BAG IVPB SCH (14:15)
[2023-09-23] MEDS: NOREPINEPHRINE 0.9 % NACL 8 MG/250 ML BAG IVPB SCH (14:20)
[2023-09-23 14:27] LABS: ARTERIAL BLD GAS O2 SATURATION 98.1 % (95-98); ARTERIAL BLOOD GAS BASE EXCESS -3.6 mmol/L (-2-2); ARTERIAL BLOOD GAS PO2 112.9 mmHg (80-100); ARTERIAL BLOOD GAS pH 7.385 (7.350-7.450)
[2023-09-23 14:34] LABS: BASO % 0.3 % (0-2.0); EOS % 0.8 % (0-4.5); HEMATOCRIT 24.7 % (32.4-45.2); HEMOGLOBIN 7.7 GM/dL (10.7-15.3); LYMPH % 10.2 % (8-40); MCHC 31.1 g/dl (32.0-36.0); MEAN CELL VOLUME 83.4 fl (80-96); MEAN PLT VOLUME 9.2 fl (7.5-11.1); MONO % 8.5 % (3.8-10.2); NEUT % 80.2 % (42.8-82.8); PLATELET COUNT 198 10^3/uL (134-434); RBC 2.96 M/mm3 (3.60-5.2); WHITE BLOOD COUNT 14.2 K/mm3 (4.0-10.0)
[2023-09-23 14:58] LABS: POTASSIUM 3.8 mmol/L (3.5-5.1)
[2023-09-23 15:05] LABS: CREATININE 7.1 mg/dL (0.55-1.3)
[2023-09-23 15:07] LABS: BILIRUBIN,TOTAL 1.2 mg/dL (0.2-1); TOT PROT 5.6 g/dl (6.4-8.2)
[2023-09-23 15:11] LABS: ALBUMIN 1.8 g/dl (3.4-5.0); CALCIUM 7.9 mg/dL (8.5-10.1)
[2023-09-23] MEDS: SODIUM CHLORIDE 1,000 ML IV SCH ×2 (15:15→17:44)
[2023-09-23 15:30] LABS: ANISOCYTOSIS 2+; MACROCYTOSIS 1+; OVALOCYTE 1+; TARGET CELLS 1+
[2023-09-23] MEDS ORDERED: ACETAMINOPHEN 325 MG TABLET (FP) PO PRN (15:52)
[2023-09-23] MEDS ORDERED: ACETAMINOPHEN 1000 MG/100 ML BAG IVPB PRN (15:52)
[2023-09-23] MEDS: ASPIRIN 81 MG CHEWABLE TABLETS PO SCH (17:52)
[2023-09-23] MEDS: CLOPIDOGREL BISULFATE 75 MG TABLET (FP) PO SCH (17:52)
[2023-09-23] MEDS: PANTOPRAZOLE 40 MG TABLET PO SCH (17:53)
[2023-09-23] MEDS: BUDESONIDE/FORMETEROL FUMARATE 160/4.5 mcg INHALER IH SCH ×2 (17:53→22:00)
[2023-09-23] MEDS ORDERED: dilTIAZem HCL 50 MG/10 ML - 10 ML VIAL IVPUSH ONE (18:55)
[2023-09-23] MEDS ORDERED: ALBUMIN HUMAN 25% 12.5 GM/50 ML VIAL IV ONE (19:10)
[2023-09-23] MEDS: hydrALAZINE HCL 50 MG TABLET (FP) PO SCH (21:15)
[2023-09-23] MEDS: amLODIPine BESYLATE 10 MG TABLET (FP) PO SCH (21:16)
[2023-09-23] MEDS: TORSEMIDE 20 MG TABLET (FP) PO SCH (21:16)
[2023-09-23] MEDS: levETIRAcetam 500 MG TABLET (FP) PO SCH (21:16)
[2023-09-23] MEDS: MONTELUKAST NA 10 MG TABLET PO SCH (21:16)
[2023-09-23] MEDS: ROSUVASTATIN CA 5 MG TABLET PO SCH (21:59)
[2023-09-23] MEDS: CHLORHEXIDINE GLUCONATE 4% CLEANSER FOR DECOLONIZATION TP SCH (21:59)
[2023-09-23] MEDS ORDERED: MUPIROCIN 2% TOPICAL OINTMENT FOR DECOLONIZATION NS SCH (22:00)
[2023-09-23] MEDS ORDERED: CHLORHEXIDINE GLUCONATE 4% CLEANSER FOR DECOLONIZATION TP SCH (22:00)
[2023-09-23] MEDS: INSULIN ASPART SLIDING SCALE (NOVOLOG) 1 VIAL SQ SCH (22:08)
[2023-09-23] MEDS: MUPIROCIN 2% TOPICAL OINTMENT FOR DECOLONIZATION NS SCH (22:13)
[2023-09-24] MEDS: PIPERACILLIN/TAZOB 2.25 GM 2.25 GM in DEXTROSE 5%-WATER - 50 ML IVPB SCH ×3 (01:24→17:41)
[2023-09-24] MEDS ORDERED: ACETAMINOPHEN 1000 MG/100 ML BAG IVPB ONE (03:45)
[2023-09-24] MEDS ORDERED: HYDROmorphone HCl 2 MG/ML VIAL IVPUSH ONE (06:45)
[2023-09-24] MEDS: INSULIN ASPART SLIDING SCALE (NOVOLOG) 1 VIAL SQ SCH ×4 (07:00→21:39)
[2023-09-24] MEDS: VASOPRESSIN 40 UNITS/100 ML BAG IV SCH ×2 (07:02→17:28)
[2023-09-24 07:25] LABS: HEMATOCRIT 21.2 % (32.4-45.2); MCH 26.1 pg (25.7-33.7); MCHC 31.6 g/dl (32.0-36.0); MEAN CELL VOLUME 82.4 fl (80-96); MEAN PLT VOLUME 9.7 fl (7.5-11.1); PLATELET COUNT 183 10^3/uL (134-434); RBC 2.57 M/mm3 (3.60-5.2); RDW 21.8 % (11.6-15.6); WHITE BLOOD COUNT 13.7 K/mm3 (4.0-10.0)
[2023-09-24 07:28] LABS: HEMOGLOBIN 6.7 GM/dL (10.7-15.3)
[2023-09-24 07:50] LABS: CHLORIDE 104 mmol/L (98-107); POTASSIUM 4.5 mmol/L (3.5-5.1); SODIUM 137 mmol/L (136-145)
[2023-09-24 08:21] LABS: CALCIUM 8.2 mg/dL (8.5-10.1)
[2023-09-24 08:22] LABS: BLOOD UREA NITROGEN 43.1 mg/dL (7-18)
[2023-09-24 08:24] LABS: ALBUMIN 1.9 g/dl (3.4-5.0); ANION GAP 13 mmol/L (4-13); CO2 20 mmol/L (21-32); GLUCOSE,RANDOM 218 mg/dL (74-106)
[2023-09-24 08:26] LABS: MAGNESIUM 2.2 mg/dL (1.8-2.4)
[2023-09-24 08:27] LABS: PHOSPHOROUS 7.4 mg/dL (2.5-4.9); SGPT/ALT 14 U/L (13-61)
[2023-09-24 08:28] LABS: SGOT/AST 13 U/L (15-37)
[2023-09-24 08:29] LABS: BILIRUBIN,TOTAL 0.8 mg/dL (0.2-1); TOT PROT 5.8 g/dl (6.4-8.2)
[2023-09-24 08:30] LABS: ALK PHOS 90 U/L (45-117)
[2023-09-24 08:37] LABS: CREATININE 7.7 mg/dL (0.55-1.3)
[2023-09-24] MEDS ORDERED: APIXABAN 5 MG TABLET PO SCH (10:00)
[2023-09-24] MEDS: MUPIROCIN 2% TOPICAL OINTMENT FOR DECOLONIZATION NS SCH ×2 (11:01→21:33)
[2023-09-24] MEDS: ASPIRIN 81 MG CHEWABLE TABLETS PO SCH ×2 (11:01→11:10)
[2023-09-24] MEDS: APIXABAN 2.5 MG TABLET PO SCH ×2 (11:01→21:29)
[2023-09-24] MEDS: CLOPIDOGREL BISULFATE 75 MG TABLET (FP) PO SCH (11:01)
[2023-09-24] MEDS: PANTOPRAZOLE 40 MG TABLET PO SCH (11:01)
[2023-09-24] MEDS: BUDESONIDE/FORMETEROL FUMARATE 160/4.5 mcg INHALER IH SCH ×2 (11:02→21:32)
[2023-09-24] MEDS ORDERED: SODIUM CHLORIDE 250 ML IV PRN (14:00)
[2023-09-24] MEDS ORDERED: EPOETIN ALFA-EPBX 10,000 UNIT/ML VIAL IVPUSH ONE (14:00)
[2023-09-24] MEDS: NOREPINEPHRINE 0.9 % NACL 8 MG/250 ML BAG IVPB SCH (15:10)
[2023-09-24] MEDS ORDERED: VANCOMYCIN/WATER FOR INJ (PEG) 1,000 MG/200 ML BAG IVPB ONE (17:13)
[2023-09-24] MEDS: SODIUM CHLORIDE 1,000 ML IV SCH (17:25)
[2023-09-24] MEDS: hydrALAZINE HCL 50 MG TABLET (FP) PO SCH (21:28)
[2023-09-24] MEDS: MONTELUKAST NA 10 MG TABLET PO SCH (21:29)
[2023-09-24] MEDS: ROSUVASTATIN CA 5 MG TABLET PO SCH (21:29)
[2023-09-24] MEDS: TORSEMIDE 20 MG TABLET (FP) PO SCH (21:30)
[2023-09-24] MEDS: amLODIPine BESYLATE 10 MG TABLET (FP) PO SCH (21:30)
[2023-09-24] MEDS: levETIRAcetam 500 MG TABLET (FP) PO SCH (21:30)
[2023-09-24] MEDS: CHLORHEXIDINE GLUCONATE 4% CLEANSER FOR DECOLONIZATION TP SCH (21:30)
[2023-09-25] MEDS: ACETAMINOPHEN 325 MG TABLET (FP) PO PRN ×2 (00:39→21:03)
[2023-09-25] MEDS: PIPERACILLIN/TAZOB 2.25 GM 2.25 GM in DEXTROSE 5%-WATER - 50 ML IVPB SCH ×3 (01:19→17:52)
[2023-09-25] MEDS: VASOPRESSIN 40 UNITS/100 ML BAG IV SCH ×2 (05:54→20:41)
[2023-09-25] MEDS ORDERED: INSULIN (NOVOLOG) ASPART 100 UNITS/ML 10ML VIAL ONE ×2 (05:58→10:05)
[2023-09-25] MEDS: INSULIN ASPART SLIDING SCALE (NOVOLOG) 1 VIAL SQ SCH ×4 (05:59→21:18)
[2023-09-25 07:22] LABS: BASO % 0.3 % (0-2.0); EOS % 0.3 % (0-4.5); HEMATOCRIT 28.8 % (32.4-45.2); HEMOGLOBIN 9.6 GM/dL (10.7-15.3); MCHC 33.3 g/dl (32.0-36.0); MEAN CELL VOLUME 84.1 fl (80-96); MEAN PLT VOLUME 9.7 fl (7.5-11.1); MONO % 7.5 % (3.8-10.2); NEUT % 82.9 % (42.8-82.8); PLATELET COUNT 168 10^3/uL (134-434); RBC 3.43 M/mm3 (3.60-5.2); WHITE BLOOD COUNT 14.8 K/mm3 (4.0-10.0)
[2023-09-25 07:41] LABS: POTASSIUM 3.7 mmol/L (3.5-5.1)
[2023-09-25 07:45] LABS: BLOOD UREA NITROGEN 22.4 mg/dL (7-18); CALCIUM 8.7 mg/dL (8.5-10.1)
[2023-09-25 07:48] LABS: CREATININE 4.4 mg/dL (0.55-1.3); PHOSPHOROUS 4.9 mg/dL (2.5-4.9)
[2023-09-25 07:49] LABS: TOT PROT 6.4 g/dl (6.4-8.2)
[2023-09-25 07:50] LABS: BILIRUBIN,TOTAL 0.7 mg/dL (0.2-1)
[2023-09-25] MEDS ORDERED: ALBUTEROL SO4 2.5/IPRATROPIUM 0.5 INH SOL 3 ML VIAL.NEB. NEB PRN (07:52)
[2023-09-25] MEDS ORDERED: ALBUTEROL SO4 2.5/IPRATROPIUM 0.5 INH SOL 3 ML VIAL.NEB. NEB SCH ×2 (08:00→14:00)
[2023-09-25] MEDS: APIXABAN 2.5 MG TABLET PO SCH ×2 (10:10→21:03)
[2023-09-25] MEDS: MUPIROCIN 2% TOPICAL OINTMENT FOR DECOLONIZATION NS SCH ×2 (10:10→21:02)
[2023-09-25] MEDS: PANTOPRAZOLE 40 MG TABLET PO SCH (10:10)
[2023-09-25] MEDS: CLOPIDOGREL BISULFATE 75 MG TABLET (FP) PO SCH (10:10)
[2023-09-25] MEDS: BUDESONIDE/FORMETEROL FUMARATE 160/4.5 mcg INHALER IH SCH ×2 (10:11→21:14)
[2023-09-25] MEDS ORDERED: LEVALBUTEROL HCL 0.31 MG/3 ML VIAL.NEB IH ONE (11:49)
[2023-09-25] MEDS ORDERED: methylPREDNISolone NA SUCC 125 MG/2 ML VIAL IVPUSH ONE (12:08)
[2023-09-25] MEDS ORDERED: ALBUTEROL SO4 2.5/IPRATROPIUM 0.5 INH SOL 3 ML VIAL.NEB. NEB ONE (12:09)
[2023-09-25] MEDS ORDERED: methylPREDNISolone NA SUCC 40 MG/1 ML VIAL IVPUSH SCH (12:30)
[2023-09-25] MEDS: LACTATED RINGERS SOLUTION 1,000 ML/1,000 ML INFUS.BAG IV SCH (12:49)
[2023-09-25] MEDS ORDERED: LEVALBUTEROL HCL 0.31 MG/3 ML VIAL.NEB IH SCH (14:00)
[2023-09-25] MEDS: LEVALBUTEROL HCL 0.31 MG/3 ML VIAL.NEB IH SCH ×2 (14:17→20:57)
[2023-09-25] MEDS: hydrOXYzine HCL 10 MG/5 ML LIQUID BULK BOTTLE PO PRN (15:14)
[2023-09-25] MEDS: IPRATROPIUM BR 0.02% 0.5 MG/2.5 ML VIAL.NEB. NEB SCH ×2 (15:57→21:10)
[2023-09-25] MEDS ORDERED: SODIUM CHLORIDE 250 ML IV PRN (17:07)
[2023-09-25] MEDS: hydrALAZINE HCL 50 MG TABLET (FP) PO SCH (21:02)
[2023-09-25] MEDS: MONTELUKAST NA 10 MG TABLET PO SCH (21:03)
[2023-09-25] MEDS: amLODIPine BESYLATE 10 MG TABLET (FP) PO SCH (21:03)
[2023-09-25] MEDS: TORSEMIDE 20 MG TABLET (FP) PO SCH (21:03)
[2023-09-25] MEDS: levETIRAcetam 500 MG TABLET (FP) PO SCH (21:03)
[2023-09-25] MEDS: CHLORHEXIDINE GLUCONATE 4% CLEANSER FOR DECOLONIZATION TP SCH (21:03)
[2023-09-25] MEDS: ROSUVASTATIN CA 5 MG TABLET PO SCH (21:06)
[2023-09-25] MEDS: DEXMEDETOMIDINE PREMIX 400 MCG/100 ML BAG IVPB SCH (22:00)
[2023-09-26] MEDS: PIPERACILLIN/TAZOB 2.25 GM 2.25 GM in DEXTROSE 5%-WATER - 50 ML IVPB SCH ×3 (01:35→17:20)
[2023-09-26] MEDS: NOREPINEPHRINE 0.9 % NACL 8 MG/250 ML BAG IVPB SCH ×2 (01:37→16:24)
[2023-09-26] MEDS: INSULIN ASPART SLIDING SCALE (NOVOLOG) 1 VIAL SQ SCH ×4 (06:15→21:44)
[2023-09-26 07:15] LABS: HEMATOCRIT 26.6 % (32.4-45.2); HEMOGLOBIN 8.7 GM/dL (10.7-15.3); MCHC 32.7 g/dl (32.0-36.0); MEAN CELL VOLUME 85.5 fl (80-96); MEAN PLT VOLUME 9.7 fl (7.5-11.1); PLATELET COUNT 150 10^3/uL (134-434); RBC 3.11 M/mm3 (3.60-5.2); RDW 18.2 % (11.6-15.6); WHITE BLOOD COUNT 11.8 K/mm3 (4.0-10.0)
[2023-09-26 07:19] LABS: POTASSIUM 4.1 mmol/L (3.5-5.1)
[2023-09-26 07:30] LABS: BLOOD UREA NITROGEN 38.6 mg/dL (7-18); MAGNESIUM 2.2 mg/dL (1.8-2.4); PHOSPHOROUS 6.9 mg/dL (2.5-4.9)
[2023-09-26 07:33] LABS: ALBUMIN 1.9 g/dl (3.4-5.0)
[2023-09-26 07:36] LABS: CREATININE 5.6 mg/dL (0.55-1.3)
[2023-09-26] MEDS: IPRATROPIUM BR 0.02% 0.5 MG/2.5 ML VIAL.NEB. NEB SCH ×4 (07:40→20:57)
[2023-09-26] MEDS: LEVALBUTEROL HCL 0.31 MG/3 ML VIAL.NEB IH SCH ×3 (07:40→20:58)
[2023-09-26 07:41] LABS: BILIRUBIN,TOTAL 0.5 mg/dL (0.2-1)
[2023-09-26] MEDS ORDERED: EPOETIN ALFA-EPBX 10,000 UNIT/ML VIAL SQ ONE (09:00)
[2023-09-26] MEDS: VASOPRESSIN 40 UNITS/100 ML BAG IV SCH ×2 (09:26→21:44)
[2023-09-26 10:06] LABS: ANISOCYTOSIS 1+; MACROCYTOSIS 0; OVALOCYTE 1+
[2023-09-26] MEDS: MUPIROCIN 2% TOPICAL OINTMENT FOR DECOLONIZATION NS SCH ×2 (10:32→21:42)
[2023-09-26] MEDS: BUDESONIDE/FORMETEROL FUMARATE 160/4.5 mcg INHALER IH SCH ×2 (10:34→22:49)
[2023-09-26] MEDS: LACTATED RINGERS SOLUTION 1,000 ML/1,000 ML INFUS.BAG IV SCH (10:38)
[2023-09-26] MEDS: PANTOPRAZOLE 40 MG TABLET PO SCH (10:52)
[2023-09-26] MEDS: CLOPIDOGREL BISULFATE 75 MG TABLET (FP) PO SCH (10:52)
[2023-09-26] MEDS: APIXABAN 2.5 MG TABLET PO SCH ×2 (10:52→21:43)
[2023-09-26] MEDS: methylPREDNISolone NA SUCC 40 MG/1 ML VIAL IVPUSH SCH (17:20)
[2023-09-26] MEDS: DEXMEDETOMIDINE PREMIX 400 MCG/100 ML BAG IVPB SCH ×2 (20:22→21:41)
[2023-09-26] MEDS: TORSEMIDE 20 MG TABLET (FP) PO SCH (21:43)
[2023-09-26] MEDS: ROSUVASTATIN CA 5 MG TABLET PO SCH (21:43)
[2023-09-26] MEDS: levETIRAcetam 500 MG TABLET (FP) PO SCH (21:43)
[2023-09-26] MEDS: MONTELUKAST NA 10 MG TABLET PO SCH (21:43)
[2023-09-26] MEDS: CHLORHEXIDINE GLUCONATE 4% CLEANSER FOR DECOLONIZATION TP SCH (21:44)
[2023-09-27] MEDS: methylPREDNISolone NA SUCC 40 MG/1 ML VIAL IVPUSH SCH ×3 (01:00→22:00)
[2023-09-27] MEDS: PIPERACILLIN/TAZOB 2.25 GM 2.25 GM in DEXTROSE 5%-WATER - 50 ML IVPB SCH ×3 (01:00→17:18)
[2023-09-27] MEDS: VASOPRESSIN 40 UNITS/100 ML BAG IV SCH ×2 (02:30→13:19)
[2023-09-27] MEDS: INSULIN ASPART SLIDING SCALE (NOVOLOG) 1 VIAL SQ SCH ×3 (06:08→16:32)
[2023-09-27 07:31] LABS: HEMOGLOBIN 8.4 GM/dL (10.7-15.3); MCH 27.6 pg (25.7-33.7); MCHC 32.4 g/dl (32.0-36.0); MEAN CELL VOLUME 85.2 fl (80-96); MEAN PLT VOLUME 9.7 fl (7.5-11.1); PLATELET COUNT 157 10^3/uL (134-434); RBC 3.06 M/mm3 (3.60-5.2); RDW 18.7 % (11.6-15.6); WHITE BLOOD COUNT 11.4 K/mm3 (4.0-10.0)
[2023-09-27 07:46] LABS: POTASSIUM 3.7 mmol/L (3.5-5.1)
[2023-09-27 07:52] LABS: CREATININE 4.2 mg/dL (0.55-1.3)
[2023-09-27 07:54] LABS: BLOOD UREA NITROGEN 33.6 mg/dL (7-18); CALCIUM 8.7 mg/dL (8.5-10.1); PHOSPHOROUS 5.1 mg/dL (2.5-4.9)
[2023-09-27 07:55] LABS: MAGNESIUM 1.9 mg/dL (1.8-2.4)
[2023-09-27 07:56] LABS: TOT PROT 6.4 g/dl (6.4-8.2)
[2023-09-27 08:15] LABS: ALBUMIN 2.3 g/dl (3.4-5.0); BILIRUBIN,TOTAL 0.8 mg/dL (0.2-1)
[2023-09-27] MEDS: LEVALBUTEROL HCL 0.31 MG/3 ML VIAL.NEB IH SCH ×4 (08:35→20:05)
[2023-09-27] MEDS: IPRATROPIUM BR 0.02% 0.5 MG/2.5 ML VIAL.NEB. NEB SCH ×4 (08:35→20:05)
[2023-09-27] MEDS ORDERED: QUEtiapine FUMARATE 25 MG TABLET PO ONE (08:48)
[2023-09-27] MEDS: PANTOPRAZOLE 40 MG TABLET PO SCH (09:32)
[2023-09-27] MEDS: CLOPIDOGREL BISULFATE 75 MG TABLET (FP) PO SCH (09:33)
[2023-09-27] MEDS: MUPIROCIN 2% TOPICAL OINTMENT FOR DECOLONIZATION NS SCH ×2 (09:33→22:00)
[2023-09-27] MEDS: APIXABAN 2.5 MG TABLET PO SCH ×2 (09:33→22:00)
[2023-09-27] MEDS: BUDESONIDE/FORMETEROL FUMARATE 160/4.5 mcg INHALER IH SCH ×2 (09:34→23:00)
[2023-09-27] MEDS: NOREPINEPHRINE 0.9 % NACL 8 MG/250 ML BAG IVPB SCH (16:33)
[2023-09-27] MEDS: DEXMEDETOMIDINE PREMIX 400 MCG/100 ML BAG IVPB SCH ×2 (17:18→23:15)
[2023-09-27] MEDS: levETIRAcetam 500 MG TABLET (FP) PO SCH (22:00)
[2023-09-27] MEDS: ROSUVASTATIN CA 5 MG TABLET PO SCH (22:00)
[2023-09-27] MEDS: QUEtiapine FUMARATE 50 MG TABLET PO SCH (22:00)
[2023-09-27] MEDS: MONTELUKAST NA 10 MG TABLET PO SCH (22:00)
[2023-09-27] MEDS: TORSEMIDE 20 MG TABLET (FP) PO SCH (22:00)
[2023-09-27] MEDS: CHLORHEXIDINE GLUCONATE 4% CLEANSER FOR DECOLONIZATION TP SCH (23:16)
[2023-09-27] MEDS: ACETAMINOPHEN 325 MG TABLET (FP) PO PRN (23:18)
[2023-09-28] MEDS ORDERED: INSULIN (NOVOLOG) ASPART 100 UNITS/ML 10ML VIAL ONE ×2 (00:20→22:03)
[2023-09-28] MEDS: INSULIN ASPART SLIDING SCALE (NOVOLOG) 1 VIAL SQ SCH ×5 (00:21→22:04)
[2023-09-28] MEDS: PIPERACILLIN/TAZOB 2.25 GM 2.25 GM in DEXTROSE 5%-WATER - 50 ML IVPB SCH ×3 (01:25→18:13)
[2023-09-28] MEDS: VASOPRESSIN 40 UNITS/100 ML BAG IV SCH (06:03)
[2023-09-28 07:00] LABS: HEMATOCRIT 24.3 % (32.4-45.2); HEMOGLOBIN 7.9 GM/dL (10.7-15.3); MCH 27.7 pg (25.7-33.7); MCHC 32.4 g/dl (32.0-36.0); MEAN CELL VOLUME 85.5 fl (80-96); MEAN PLT VOLUME 9.5 fl (7.5-11.1); PLATELET COUNT 153 10^3/uL (134-434); RBC 2.84 M/mm3 (3.60-5.2); RDW 18.8 % (11.6-15.6); WHITE BLOOD COUNT 12.4 K/mm3 (4.0-10.0)
[2023-09-28 07:16] LABS: POTASSIUM 3.5 mmol/L (3.5-5.1)
[2023-09-28 07:19] LABS: MAGNESIUM 2.1 mg/dL (1.8-2.4)
[2023-09-28 07:22] LABS: CREATININE 5.5 mg/dL (0.55-1.3); PHOSPHOROUS 6.4 mg/dL (2.5-4.9)
[2023-09-28 07:29] LABS: BLOOD UREA NITROGEN 60.2 mg/dL (7-18)
[2023-09-28] MEDS: IPRATROPIUM BR 0.02% 0.5 MG/2.5 ML VIAL.NEB. NEB SCH ×4 (08:26→20:59)
[2023-09-28] MEDS: LEVALBUTEROL HCL 0.31 MG/3 ML VIAL.NEB IH SCH ×3 (08:26→20:59)
[2023-09-28] MEDS: methylPREDNISolone NA SUCC 40 MG/1 ML VIAL IVPUSH SCH ×2 (09:19→21:21)
[2023-09-28] MEDS: CLOPIDOGREL BISULFATE 75 MG TABLET (FP) PO SCH (09:19)
[2023-09-28] MEDS: APIXABAN 2.5 MG TABLET PO SCH ×2 (09:19→21:22)
[2023-09-28] MEDS: PANTOPRAZOLE 40 MG TABLET PO SCH (09:20)
[2023-09-28] MEDS: MUPIROCIN 2% TOPICAL OINTMENT FOR DECOLONIZATION NS SCH (09:20)
[2023-09-28] MEDS: BUDESONIDE/FORMETEROL FUMARATE 160/4.5 mcg INHALER IH SCH ×2 (09:21→21:22)
[2023-09-28] MEDS: DEXMEDETOMIDINE PREMIX 400 MCG/100 ML BAG IVPB SCH (09:53)
[2023-09-28] MEDS ORDERED: SODIUM CHLORIDE 250 ML IV PRN (15:30)
[2023-09-28] MEDS ORDERED: EPOETIN ALFA-EPBX 10,000 UNIT/ML VIAL SQ ONE (16:00)
[2023-09-28] MEDS: ALBUMIN HUMAN 25% 12.5 GM/50 ML VIAL IV SCH ×2 (17:18→18:15)
[2023-09-28] MEDS: NOREPINEPHRINE 0.9 % NACL 8 MG/250 ML BAG IVPB SCH (18:13)
[2023-09-28] MEDS: levETIRAcetam 500 MG TABLET (FP) PO SCH (21:22)
[2023-09-28] MEDS: TORSEMIDE 20 MG TABLET (FP) PO SCH (21:22)
[2023-09-28] MEDS: CHLORHEXIDINE GLUCONATE 4% CLEANSER FOR DECOLONIZATION TP SCH (21:22)
[2023-09-28] MEDS: QUEtiapine FUMARATE 50 MG TABLET PO SCH (21:22)
[2023-09-28] MEDS: MONTELUKAST NA 10 MG TABLET PO SCH (21:22)
[2023-09-28] MEDS: ROSUVASTATIN CA 5 MG TABLET PO SCH (21:59)
[2023-09-29] MEDS: DEXMEDETOMIDINE PREMIX 400 MCG/100 ML BAG IVPB SCH (01:44)
[2023-09-29] MEDS: PIPERACILLIN/TAZOB 2.25 GM 2.25 GM in DEXTROSE 5%-WATER - 50 ML IVPB SCH ×3 (01:44→17:57)
[2023-09-29] MEDS ORDERED: QUEtiapine FUMARATE 50 MG TABLET PO SCH (06:33)
[2023-09-29] MEDS: INSULIN ASPART SLIDING SCALE (NOVOLOG) 1 VIAL SQ SCH ×4 (07:08→21:01)
[2023-09-29] MEDS: LEVALBUTEROL HCL 0.31 MG/3 ML VIAL.NEB IH SCH ×2 (08:30→20:50)
[2023-09-29] MEDS: IPRATROPIUM BR 0.02% 0.5 MG/2.5 ML VIAL.NEB. NEB SCH ×2 (08:30→20:50)
[2023-09-29] MEDS: APIXABAN 2.5 MG TABLET PO SCH ×2 (09:00→21:02)
[2023-09-29] MEDS: BUDESONIDE/FORMETEROL FUMARATE 160/4.5 mcg INHALER IH SCH ×2 (09:00→21:03)
[2023-09-29] MEDS: PANTOPRAZOLE 40 MG TABLET PO SCH (09:00)
[2023-09-29] MEDS: CLOPIDOGREL BISULFATE 75 MG TABLET (FP) PO SCH (09:00)
[2023-09-29] MEDS ORDERED: SODIUM CHLORIDE 250 ML IV PRN (16:30)
[2023-09-29] MEDS ORDERED: INSULIN (NOVOLOG) ASPART 100 UNITS/ML 10ML VIAL ONE (20:53)
[2023-09-29] MEDS: TORSEMIDE 20 MG TABLET (FP) PO SCH (21:02)
[2023-09-29] MEDS: MONTELUKAST NA 10 MG TABLET PO SCH (21:02)
[2023-09-29] MEDS: ROSUVASTATIN CA 5 MG TABLET PO SCH (21:02)
[2023-09-29] MEDS: levETIRAcetam 500 MG TABLET (FP) PO SCH (21:02)
[2023-09-29] MEDS: hydrOXYzine HCL 10 MG/5 ML LIQUID BULK BOTTLE PO PRN (21:02)
[2023-09-29] MEDS: ACETAMINOPHEN 325 MG TABLET (FP) PO PRN (21:02)
[2023-09-29] MEDS: CHLORHEXIDINE GLUCONATE 4% CLEANSER FOR DECOLONIZATION TP SCH (21:03)
[2023-09-30] MEDS: PIPERACILLIN/TAZOB 2.25 GM 2.25 GM in DEXTROSE 5%-WATER - 50 ML IVPB SCH ×2 (02:32→09:18)
[2023-09-30] MEDS: LEVALBUTEROL HCL 0.31 MG/3 ML VIAL.NEB IH SCH ×2 (06:01→08:15)
[2023-09-30] MEDS: IPRATROPIUM BR 0.02% 0.5 MG/2.5 ML VIAL.NEB. NEB SCH ×5 (06:01→20:05)
[2023-09-30] MEDS: INSULIN ASPART SLIDING SCALE (NOVOLOG) 1 VIAL SQ SCH ×4 (06:06→21:48)
[2023-09-30 06:25] LABS: HEMATOCRIT 24.7 % (32.4-45.2); HEMOGLOBIN 8.1 GM/dL (10.7-15.3); MCHC 32.7 g/dl (32.0-36.0); MEAN CELL VOLUME 85.7 fl (80-96); MEAN PLT VOLUME 9.3 fl (7.5-11.1); PLATELET COUNT 182 10^3/uL (134-434); RBC 2.88 M/mm3 (3.60-5.2); WHITE BLOOD COUNT 18.9 K/mm3 (4.0-10.0)
[2023-09-30 06:41] LABS: POTASSIUM 3.4 mmol/L (3.5-5.1)
[2023-09-30 06:44] LABS: CALCIUM 8.9 mg/dL (8.5-10.1)
[2023-09-30 06:45] LABS: ALBUMIN 2.2 g/dl (3.4-5.0); BLOOD UREA NITROGEN 59.8 mg/dL (7-18)
[2023-09-30 06:48] LABS: CREATININE 5.3 mg/dL (0.55-1.3)
[2023-09-30 06:50] LABS: BILIRUBIN,TOTAL 0.7 mg/dL (0.2-1); TOT PROT 5.9 g/dl (6.4-8.2)
[2023-09-30] MEDS: ACETAMINOPHEN 325 MG TABLET (FP) PO PRN (08:00)
[2023-09-30 08:51] LABS: ANISOCYTOSIS 2+; MACROCYTOSIS 0; OVALOCYTE 1+; TARGET CELLS 1+
[2023-09-30] MEDS: PANTOPRAZOLE 40 MG TABLET PO SCH (09:17)
[2023-09-30] MEDS: APIXABAN 2.5 MG TABLET PO SCH ×2 (09:17→21:29)
[2023-09-30] MEDS: CLOPIDOGREL BISULFATE 75 MG TABLET (FP) PO SCH (09:18)
[2023-09-30] MEDS: BUDESONIDE/FORMETEROL FUMARATE 160/4.5 mcg INHALER IH SCH ×2 (11:46→22:53)
[2023-09-30] MEDS ORDERED: INSULIN (NOVOLOG) ASPART 100 UNITS/ML 10ML VIAL ONE (11:49)
[2023-09-30] MEDS ORDERED: EPOETIN ALFA-EPBX 10,000 UNIT, EPOETIN ALFA-EPBX 3,000 UNIT, EPOETIN ALFA-EPBX 2,000 UNIT IVPUSH ONE (15:00)
[2023-09-30] MEDS ORDERED: EPOETIN ALFA-EPBX 10,000 UNIT/ML VIAL SQ ONE (16:30)
[2023-09-30] MEDS ORDERED: hydrOXYzine HCL 10 MG/5 ML LIQUID BULK BOTTLE PO PRN (18:09)
[2023-09-30] MEDS: ROSUVASTATIN CA 5 MG TABLET PO SCH (21:29)
[2023-09-30] MEDS: levETIRAcetam 500 MG TABLET (FP) PO SCH (21:30)
[2023-09-30] MEDS: MONTELUKAST NA 10 MG TABLET PO SCH (21:30)
[2023-09-30] MEDS: QUEtiapine FUMARATE 100 MG TABLET (FP) PO SCH (21:30)
[2023-09-30] MEDS: TORSEMIDE 20 MG TABLET (FP) PO SCH (21:48)
[2023-10-01] MEDS: ACETAMINOPHEN 325 MG TABLET (FP) PO PRN (05:20)
[2023-10-01] MEDS ORDERED: ONDANSETRON 4 MG/2 ML VIAL IVPUSH ONE (06:12)
[2023-10-01] MEDS ORDERED: SODIUM CHLORIDE 500 ML IV STA (06:18)
[2023-10-01] MEDS: INSULIN ASPART SLIDING SCALE (NOVOLOG) 1 VIAL SQ SCH ×4 (06:35→23:30)
[2023-10-01] MEDS: IPRATROPIUM BR 0.02% 0.5 MG/2.5 ML VIAL.NEB. NEB SCH ×4 (07:15→20:05)
[2023-10-01] MEDS: CLOPIDOGREL BISULFATE 75 MG TABLET (FP) PO SCH (09:27)
[2023-10-01] MEDS: APIXABAN 2.5 MG TABLET PO SCH ×2 (09:27→23:06)
[2023-10-01] MEDS: PANTOPRAZOLE 40 MG TABLET PO SCH (09:28)
[2023-10-01] MEDS: BUDESONIDE/FORMETEROL FUMARATE 160/4.5 mcg INHALER IH SCH ×2 (09:28→23:55)
[2023-10-01 09:38] LABS: BASO % 0.2 % (0-2.0); EOS % 0.2 % (0-4.5); HEMATOCRIT 24.7 % (32.4-45.2); HEMOGLOBIN 7.7 GM/dL (10.7-15.3); LYMPH % 7.1 % (8-40); MCH 27.4 pg (25.7-33.7); MEAN CELL VOLUME 88.4 fl (80-96); MEAN PLT VOLUME 9.4 fl (7.5-11.1); MONO % 4.9 % (3.8-10.2); NEUT % 87.6 % (42.8-82.8); PLATELET COUNT 200 10^3/uL (134-434); RDW 19.8 % (11.6-15.6); WHITE BLOOD COUNT 18.7 K/mm3 (4.0-10.0)
[2023-10-01 10:28] LABS: POTASSIUM 3.8 mmol/L (3.5-5.1)
[2023-10-01 10:31] LABS: ALBUMIN 2.3 g/dl (3.4-5.0); CALCIUM 9.3 mg/dL (8.5-10.1)
[2023-10-01 10:34] LABS: CREATININE 3.8 mg/dL (0.55-1.3)
[2023-10-01 10:35] LABS: BILIRUBIN,TOTAL 0.6 mg/dL (0.2-1); TOT PROT 6.1 g/dl (6.4-8.2)
[2023-10-01 10:42] LABS: BLOOD UREA NITROGEN 32.6 mg/dL (7-18)
[2023-10-01] MEDS: levETIRAcetam 500 MG TABLET (FP) PO SCH (23:05)
[2023-10-01] MEDS: ROSUVASTATIN CA 5 MG TABLET PO SCH (23:06)
[2023-10-01] MEDS: MONTELUKAST NA 10 MG TABLET PO SCH (23:07)
[2023-10-01] MEDS: QUEtiapine FUMARATE 100 MG TABLET (FP) PO SCH (23:07)
[2023-10-01] MEDS: TORSEMIDE 20 MG TABLET (FP) PO SCH (23:56)
[2023-10-02] MEDS: INSULIN ASPART SLIDING SCALE (NOVOLOG) 1 VIAL SQ SCH ×4 (06:30→21:34)
[2023-10-02] MEDS: IPRATROPIUM BR 0.02% 0.5 MG/2.5 ML VIAL.NEB. NEB SCH ×4 (08:39→19:54)
[2023-10-02] MEDS: APIXABAN 2.5 MG TABLET PO SCH ×2 (10:45→21:35)
[2023-10-02] MEDS: PANTOPRAZOLE 40 MG TABLET PO SCH (10:45)
[2023-10-02] MEDS: BUDESONIDE/FORMETEROL FUMARATE 160/4.5 mcg INHALER IH SCH ×2 (10:45→22:19)
[2023-10-02] MEDS: CLOPIDOGREL BISULFATE 75 MG TABLET (FP) PO SCH (10:45)
[2023-10-02 10:53] LABS: HEMATOCRIT 21.1 % (32.4-45.2); MCH 27.3 pg (25.7-33.7); MCHC 31.4 g/dl (32.0-36.0); MEAN CELL VOLUME 86.8 fl (80-96); MEAN PLT VOLUME 9.3 fl (7.5-11.1); PLATELET COUNT 176 10^3/uL (134-434); RBC 2.43 M/mm3 (3.60-5.2); RDW 19.8 % (11.6-15.6); WHITE BLOOD COUNT 13.7 K/mm3 (4.0-10.0)
[2023-10-02 11:03] LABS: HEMOGLOBIN 6.6 GM/dL (10.7-15.3)
[2023-10-02 11:18] LABS: POTASSIUM 3.6 mmol/L (3.5-5.1)
[2023-10-02 11:23] LABS: ALBUMIN 2.2 g/dl (3.4-5.0); CALCIUM 8.6 mg/dL (8.5-10.1)
[2023-10-02 11:26] LABS: CREATININE 5.4 mg/dL (0.55-1.3)
[2023-10-02 11:27] LABS: BILIRUBIN,TOTAL 0.5 mg/dL (0.2-1); TOT PROT 5.6 g/dl (6.4-8.2)
[2023-10-02] MEDS ORDERED: SODIUM CHLORIDE 250 ML IV PRN (12:00)
[2023-10-02] MEDS ORDERED: EPOETIN ALFA-EPBX 20,000 UNIT/ML VIAL SQ ONE (12:00)
[2023-10-02] MEDS: ACETAMINOPHEN 325 MG TABLET (FP) PO PRN (16:27)
[2023-10-02] MEDS: MONTELUKAST NA 10 MG TABLET PO SCH (21:35)
[2023-10-02] MEDS: TORSEMIDE 20 MG TABLET (FP) PO SCH (21:35)
[2023-10-02] MEDS: levETIRAcetam 500 MG TABLET (FP) PO SCH (21:35)
[2023-10-02] MEDS: ROSUVASTATIN CA 5 MG TABLET PO SCH (21:36)
[2023-10-02] MEDS: QUEtiapine FUMARATE 100 MG TABLET (FP) PO SCH (21:36)
[2023-10-03] MEDS: INSULIN ASPART SLIDING SCALE (NOVOLOG) 1 VIAL SQ SCH ×4 (06:20→22:34)
[2023-10-03] MEDS: IPRATROPIUM BR 0.02% 0.5 MG/2.5 ML VIAL.NEB. NEB SCH ×4 (07:40→20:10)
[2023-10-03] MEDS: CLOPIDOGREL BISULFATE 75 MG TABLET (FP) PO SCH (09:34)
[2023-10-03] MEDS: APIXABAN 2.5 MG TABLET PO SCH ×2 (09:34→22:24)
[2023-10-03] MEDS: PANTOPRAZOLE 40 MG TABLET PO SCH (09:34)
[2023-10-03] MEDS: BUDESONIDE/FORMETEROL FUMARATE 160/4.5 mcg INHALER IH SCH ×2 (09:43→22:26)
[2023-10-03] MEDS: QUEtiapine FUMARATE 100 MG TABLET (FP) PO SCH (22:24)
[2023-10-03] MEDS: levETIRAcetam 500 MG TABLET (FP) PO SCH (22:24)
[2023-10-03] MEDS: TORSEMIDE 20 MG TABLET (FP) PO SCH (22:24)
[2023-10-03] MEDS: MONTELUKAST NA 10 MG TABLET PO SCH (22:24)
[2023-10-03] MEDS: ROSUVASTATIN CA 5 MG TABLET PO SCH (22:24)
[2023-10-04] MEDS: INSULIN ASPART SLIDING SCALE (NOVOLOG) 1 VIAL SQ SCH ×4 (06:17→21:50)
[2023-10-04] MEDS: IPRATROPIUM BR 0.02% 0.5 MG/2.5 ML VIAL.NEB. NEB SCH ×4 (07:27→20:17)
[2023-10-04] MEDS: CLOPIDOGREL BISULFATE 75 MG TABLET (FP) PO SCH (09:04)
[2023-10-04] MEDS: APIXABAN 2.5 MG TABLET PO SCH ×2 (09:04→21:33)
[2023-10-04] MEDS: PANTOPRAZOLE 40 MG TABLET PO SCH (09:05)
[2023-10-04] MEDS: BUDESONIDE/FORMETEROL FUMARATE 160/4.5 mcg INHALER IH SCH ×2 (09:05→21:35)
[2023-10-04] MEDS ORDERED: EPOETIN ALFA-EPBX 10,000 UNIT/ML VIAL SQ ONE (18:44)
[2023-10-04] MEDS: QUEtiapine FUMARATE 100 MG TABLET (FP) PO SCH (21:33)
[2023-10-04] MEDS: ROSUVASTATIN CA 5 MG TABLET PO SCH (21:33)
[2023-10-04] MEDS: TORSEMIDE 20 MG TABLET (FP) PO SCH (21:33)
[2023-10-04] MEDS: MONTELUKAST NA 10 MG TABLET PO SCH (21:33)
[2023-10-04] MEDS: levETIRAcetam 500 MG TABLET (FP) PO SCH (21:33)
[2023-10-05] MEDS: INSULIN ASPART SLIDING SCALE (NOVOLOG) 1 VIAL SQ SCH ×4 (06:10→22:07)
[2023-10-05] MEDS: IPRATROPIUM BR 0.02% 0.5 MG/2.5 ML VIAL.NEB. NEB SCH ×3 (07:25→15:01)
[2023-10-05] MEDS ORDERED: SODIUM CHLORIDE 250 ML IV PRN (08:13)
[2023-10-05] MEDS ORDERED: EPOETIN ALFA-EPBX 10,000 UNIT, EPOETIN ALFA-EPBX 3,000 UNIT, EPOETIN ALFA-EPBX 2,000 UNIT SQ ONE (08:45)
[2023-10-05] MEDS: PANTOPRAZOLE 40 MG TABLET PO SCH (12:20)
[2023-10-05] MEDS: APIXABAN 2.5 MG TABLET PO SCH ×2 (12:20→22:08)
[2023-10-05] MEDS: CLOPIDOGREL BISULFATE 75 MG TABLET (FP) PO SCH (12:20)
[2023-10-05] MEDS: BUDESONIDE/FORMETEROL FUMARATE 160/4.5 mcg INHALER IH SCH ×2 (12:22→22:09)
[2023-10-05] MEDS: QUEtiapine FUMARATE 100 MG TABLET (FP) PO SCH (22:08)
[2023-10-05] MEDS: MONTELUKAST NA 10 MG TABLET PO SCH (22:08)
[2023-10-05] MEDS: TORSEMIDE 20 MG TABLET (FP) PO SCH (22:08)
[2023-10-05] MEDS: ROSUVASTATIN CA 5 MG TABLET PO SCH (22:08)
[2023-10-05] MEDS: levETIRAcetam 500 MG TABLET (FP) PO SCH (22:08)
[2023-10-06] MEDS: INSULIN ASPART SLIDING SCALE (NOVOLOG) 1 VIAL SQ SCH ×4 (06:05→23:17)
[2023-10-06] MEDS: APIXABAN 2.5 MG TABLET PO SCH ×2 (10:10→22:07)
[2023-10-06] MEDS: PANTOPRAZOLE 40 MG TABLET PO SCH (10:10)
[2023-10-06] MEDS: CLOPIDOGREL BISULFATE 75 MG TABLET (FP) PO SCH (10:10)
[2023-10-06] MEDS: BUDESONIDE/FORMETEROL FUMARATE 160/4.5 mcg INHALER IH SCH ×2 (10:12→23:17)
[2023-10-06 11:32] LABS: BASO % 0.7 % (0-2.0); EOS % 0.5 % (0-4.5); HEMATOCRIT 27.9 % (32.4-45.2); HEMOGLOBIN 8.7 GM/dL (10.7-15.3); LYMPH % 12.2 % (8-40); MCH 27.8 pg (25.7-33.7); MEAN CELL VOLUME 89.4 fl (80-96); MEAN PLT VOLUME 9.4 fl (7.5-11.1); MONO % 7.5 % (3.8-10.2); NEUT % 79.1 % (42.8-82.8); PLATELET COUNT 182 10^3/uL (134-434); RBC 3.12 M/mm3 (3.60-5.2); RDW 19.1 % (11.6-15.6); WHITE BLOOD COUNT 13.9 K/mm3 (4.0-10.0)
[2023-10-06 11:56] LABS: POTASSIUM 3.9 mmol/L (3.5-5.1)
[2023-10-06 12:13] LABS: ALBUMIN 2.3 g/dl (3.4-5.0); CALCIUM 8.7 mg/dL (8.5-10.1)
[2023-10-06 12:14] LABS: BLOOD UREA NITROGEN 23.6 mg/dL (7-18)
[2023-10-06 12:51] LABS: CREATININE 4.8 mg/dL (0.55-1.3)
[2023-10-06 12:53] LABS: BILIRUBIN,TOTAL 0.8 mg/dL (0.2-1); TOT PROT 6.3 g/dl (6.4-8.2)
[2023-10-06] MEDS: ROSUVASTATIN CA 5 MG TABLET PO SCH (22:06)
[2023-10-06] MEDS: levETIRAcetam 500 MG TABLET (FP) PO SCH (22:07)
[2023-10-06] MEDS: TORSEMIDE 20 MG TABLET (FP) PO SCH (22:07)
[2023-10-06] MEDS: MONTELUKAST NA 10 MG TABLET PO SCH (22:07)
[2023-10-06] MEDS: QUEtiapine FUMARATE 100 MG TABLET (FP) PO SCH (22:07)
[2023-10-07] MEDS: INSULIN ASPART SLIDING SCALE (NOVOLOG) 1 VIAL SQ SCH ×4 (07:20→22:36)
[2023-10-07] MEDS: APIXABAN 2.5 MG TABLET PO SCH ×2 (09:43→23:00)
[2023-10-07] MEDS: PANTOPRAZOLE 40 MG TABLET PO SCH (09:43)
[2023-10-07] MEDS: CLOPIDOGREL BISULFATE 75 MG TABLET (FP) PO SCH (09:43)
[2023-10-07] MEDS: BUDESONIDE/FORMETEROL FUMARATE 160/4.5 mcg INHALER IH SCH ×2 (09:47→23:13)
[2023-10-07] MEDS ORDERED: SODIUM CHLORIDE 250 ML IV PRN (10:34)
[2023-10-07 11:13] LABS: HEMATOCRIT 22.5 % (32.4-45.2); MCH 27.4 pg (25.7-33.7); MCHC 31.1 g/dl (32.0-36.0); MEAN CELL VOLUME 88.2 fl (80-96); MEAN PLT VOLUME 9.6 fl (7.5-11.1); PLATELET COUNT 161 10^3/uL (134-434); RBC 2.55 M/mm3 (3.60-5.2); RDW 19.2 % (11.6-15.6); WHITE BLOOD COUNT 11.1 K/mm3 (4.0-10.0)
[2023-10-07 11:25] LABS: POTASSIUM 3.2 mmol/L (3.5-5.1)
[2023-10-07 11:26] LABS: CALCIUM 8.4 mg/dL (8.5-10.1)
[2023-10-07 11:27] LABS: BLOOD UREA NITROGEN 28.6 mg/dL (7-18)
[2023-10-07 11:31] LABS: CREATININE 5.6 mg/dL (0.55-1.3)
[2023-10-07 11:32] LABS: BILIRUBIN,TOTAL 0.7 mg/dL (0.2-1); TOT PROT 5.2 g/dl (6.4-8.2)
[2023-10-07] MEDS ORDERED: EPOETIN ALFA-EPBX 10,000 UNIT, EPOETIN ALFA-EPBX 3,000 UNIT, EPOETIN ALFA-EPBX 2,000 UNIT IVPUSH ONE (11:50)
[2023-10-07] MEDS ORDERED: POTASSIUM CHLORIDE ORAL LIQUID 20 MEQ/15 ML PO ONE (12:56)
[2023-10-07] MEDS ORDERED: EPOETIN ALFA-EPBX 10,000 UNIT/ML VIAL SQ ONE (16:44)
[2023-10-07] MEDS: TORSEMIDE 20 MG TABLET (FP) PO SCH (22:41)
[2023-10-07] MEDS: ROSUVASTATIN CA 5 MG TABLET PO SCH (23:00)
[2023-10-07] MEDS: QUEtiapine FUMARATE 100 MG TABLET (FP) PO SCH (23:00)
[2023-10-07] MEDS: levETIRAcetam 500 MG TABLET (FP) PO SCH (23:00)
[2023-10-07] MEDS: MONTELUKAST NA 10 MG TABLET PO SCH (23:00)
[2023-10-08] MEDS: INSULIN ASPART SLIDING SCALE (NOVOLOG) 1 VIAL SQ SCH ×4 (06:47→21:50)
[2023-10-08] MEDS: CLOPIDOGREL BISULFATE 75 MG TABLET (FP) PO SCH (10:04)
[2023-10-08] MEDS: APIXABAN 2.5 MG TABLET PO SCH ×2 (10:04→21:39)
[2023-10-08] MEDS: PANTOPRAZOLE 40 MG TABLET PO SCH (10:04)
[2023-10-08] MEDS: BUDESONIDE/FORMETEROL FUMARATE 160/4.5 mcg INHALER IH SCH ×2 (10:08→21:41)
[2023-10-08] MEDS: ROSUVASTATIN CA 5 MG TABLET PO SCH (21:39)
[2023-10-08] MEDS: QUEtiapine FUMARATE 100 MG TABLET (FP) PO SCH (21:39)
[2023-10-08] MEDS: levETIRAcetam 500 MG TABLET (FP) PO SCH (21:39)
[2023-10-08] MEDS: MONTELUKAST NA 10 MG TABLET PO SCH (21:39)
[2023-10-08] MEDS: TORSEMIDE 20 MG TABLET (FP) PO SCH (21:40)
[2023-10-09] MEDS: INSULIN ASPART SLIDING SCALE (NOVOLOG) 1 VIAL SQ SCH ×4 (06:19→22:03)
[2023-10-09] MEDS ORDERED: SODIUM CHLORIDE 250 ML IV PRN (10:17)
[2023-10-09 10:28] LABS: HEMATOCRIT 23.1 % (32.4-45.2); HEMOGLOBIN 7.2 GM/dL (10.7-15.3); MCH 27.8 pg (25.7-33.7); MCHC 31.2 g/dl (32.0-36.0); MEAN PLT VOLUME 9.5 fl (7.5-11.1); PLATELET COUNT 160 10^3/uL (134-434); RBC 2.59 M/mm3 (3.60-5.2); RDW 19.6 % (11.6-15.6); WHITE BLOOD COUNT 10.9 K/mm3 (4.0-10.0)
[2023-10-09] MEDS ORDERED: EPOETIN ALFA-EPBX 20,000 UNIT/ML VIAL SQ ONE (10:30)
[2023-10-09 10:43] LABS: ALBUMIN 2.1 g/dl (3.4-5.0); BLOOD UREA NITROGEN 26.9 mg/dL (7-18); CALCIUM 8.3 mg/dL (8.5-10.1)
[2023-10-09 10:46] LABS: CREATININE 5.6 mg/dL (0.55-1.3)
[2023-10-09 10:47] LABS: PHOSPHOROUS 3.6 mg/dL (2.5-4.9)
[2023-10-09 10:48] LABS: BILIRUBIN,TOTAL 0.6 mg/dL (0.2-1); TOT PROT 5.6 g/dl (6.4-8.2)
[2023-10-09] MEDS: APIXABAN 2.5 MG TABLET PO SCH ×2 (13:51→21:49)
[2023-10-09] MEDS: CLOPIDOGREL BISULFATE 75 MG TABLET (FP) PO SCH (13:51)
[2023-10-09] MEDS: PANTOPRAZOLE 40 MG TABLET PO SCH (13:51)
[2023-10-09] MEDS: BUDESONIDE/FORMETEROL FUMARATE 160/4.5 mcg INHALER IH SCH ×2 (13:52→21:51)
[2023-10-09] MEDS: ROSUVASTATIN CA 5 MG TABLET PO SCH (21:49)
[2023-10-09] MEDS: TORSEMIDE 20 MG TABLET (FP) PO SCH (21:49)
[2023-10-09] MEDS: MONTELUKAST NA 10 MG TABLET PO SCH (21:49)
[2023-10-09] MEDS: levETIRAcetam 500 MG TABLET (FP) PO SCH (21:49)
[2023-10-09] MEDS: QUEtiapine FUMARATE 100 MG TABLET (FP) PO SCH (21:49)
[2023-10-10] MEDS: INSULIN ASPART SLIDING SCALE (NOVOLOG) 1 VIAL SQ SCH ×4 (06:19→22:19)
[2023-10-10] MEDS: CLOPIDOGREL BISULFATE 75 MG TABLET (FP) PO SCH (10:16)
[2023-10-10] MEDS: BUDESONIDE/FORMETEROL FUMARATE 160/4.5 mcg INHALER IH SCH ×2 (10:16→22:21)
[2023-10-10] MEDS: APIXABAN 2.5 MG TABLET PO SCH ×2 (10:16→22:11)
[2023-10-10] MEDS: PANTOPRAZOLE 40 MG TABLET PO SCH (10:16)
[2023-10-10] MEDS: MONTELUKAST NA 10 MG TABLET PO SCH (22:10)
[2023-10-10] MEDS: ROSUVASTATIN CA 5 MG TABLET PO SCH (22:11)
[2023-10-10] MEDS: QUEtiapine FUMARATE 100 MG TABLET (FP) PO SCH (22:11)
[2023-10-10] MEDS: levETIRAcetam 500 MG TABLET (FP) PO SCH (22:11)
[2023-10-10] MEDS: TORSEMIDE 20 MG TABLET (FP) PO SCH (22:19)
[2023-10-11] MEDS: INSULIN ASPART SLIDING SCALE (NOVOLOG) 1 VIAL SQ SCH ×3 (06:32→17:04)
[2023-10-11] MEDS: APIXABAN 2.5 MG TABLET PO SCH ×2 (09:33→21:07)
[2023-10-11] MEDS: PANTOPRAZOLE 40 MG TABLET PO SCH (09:33)
[2023-10-11] MEDS: CLOPIDOGREL BISULFATE 75 MG TABLET (FP) PO SCH (09:33)
[2023-10-11] MEDS: BUDESONIDE/FORMETEROL FUMARATE 160/4.5 mcg INHALER IH SCH ×2 (09:35→21:08)
[2023-10-11] MEDS: levETIRAcetam 500 MG TABLET (FP) PO SCH (21:07)
[2023-10-11] MEDS: ROSUVASTATIN CA 5 MG TABLET PO SCH (21:07)
[2023-10-11] MEDS: MONTELUKAST NA 10 MG TABLET PO SCH (21:07)
[2023-10-11] MEDS: QUEtiapine FUMARATE 100 MG TABLET (FP) PO SCH (21:07)
[2023-10-12] MEDS: TORSEMIDE 20 MG TABLET (FP) PO SCH ×2 (01:11→21:52)
[2023-10-12] MEDS: INSULIN ASPART SLIDING SCALE (NOVOLOG) 1 VIAL SQ SCH ×5 (02:03→21:53)
[2023-10-12] MEDS ORDERED: SODIUM CHLORIDE 250 ML IV PRN (08:17)
[2023-10-12] MEDS ORDERED: EPOETIN ALFA-EPBX 20,000 UNIT/ML VIAL SQ ONE (08:30)
[2023-10-12 11:20] LABS: HEMATOCRIT 28.1 % (32.4-45.2); HEMOGLOBIN 9.1 GM/dL (10.7-15.3); MCH 28.6 pg (25.7-33.7); MCHC 32.5 g/dl (32.0-36.0); MEAN PLT VOLUME 9.9 fl (7.5-11.1); PLATELET COUNT 144 10^3/uL (134-434); RBC 3.19 M/mm3 (3.60-5.2); RDW 17.7 % (11.6-15.6); WHITE BLOOD COUNT 6.4 K/mm3 (4.0-10.0)
[2023-10-12 11:23] LABS: POTASSIUM 3.8 mmol/L (3.5-5.1)
[2023-10-12 11:26] LABS: BLOOD UREA NITROGEN 29.1 mg/dL (7-18); CALCIUM 8.3 mg/dL (8.5-10.1)
[2023-10-12 11:27] LABS: ALBUMIN 2.1 g/dl (3.4-5.0)
[2023-10-12 11:29] LABS: CREATININE 5.9 mg/dL (0.55-1.3)
[2023-10-12 11:31] LABS: BILIRUBIN,TOTAL 0.6 mg/dL (0.2-1); TOT PROT 5.8 g/dl (6.4-8.2)
[2023-10-12] MEDS: PANTOPRAZOLE 40 MG TABLET PO SCH (13:34)
[2023-10-12] MEDS: CLOPIDOGREL BISULFATE 75 MG TABLET (FP) PO SCH (13:35)
[2023-10-12] MEDS: VITAMIN B COMP W-C 1 EA TABLET (NEPHRO-VITE) PO SCH (13:35)
[2023-10-12] MEDS: APIXABAN 2.5 MG TABLET PO SCH ×2 (13:35→21:52)
[2023-10-12] MEDS: BUDESONIDE/FORMETEROL FUMARATE 160/4.5 mcg INHALER IH SCH ×2 (13:39→21:53)
[2023-10-12] MEDS: MONTELUKAST NA 10 MG TABLET PO SCH (21:52)
[2023-10-12] MEDS: QUEtiapine FUMARATE 100 MG TABLET (FP) PO SCH (21:52)
[2023-10-12] MEDS: levETIRAcetam 500 MG TABLET (FP) PO SCH (21:52)
[2023-10-12] MEDS: ROSUVASTATIN CA 5 MG TABLET PO SCH (21:52)
[2023-10-13 09:10] VITALS: BP 112/58; PULSE 90; RESP 17; TEMP 97.7
[2023-10-13] MEDS: APIXABAN 2.5 MG TABLET PO SCH (09:51)
[2023-10-13] MEDS: PANTOPRAZOLE 40 MG TABLET PO SCH (09:52)
[2023-10-13] MEDS: BUDESONIDE/FORMETEROL FUMARATE 160/4.5 mcg INHALER IH SCH (09:52)
[2023-10-13] MEDS: CLOPIDOGREL BISULFATE 75 MG TABLET (FP) PO SCH (09:52)
[2023-10-13] MEDS: VITAMIN B COMP W-C 1 EA TABLET (NEPHRO-VITE) PO SCH (09:52)
[2023-10-13] MEDS: INSULIN ASPART SLIDING SCALE (NOVOLOG) 1 VIAL SQ SCH (11:58)
== END 2023-10-13 12:49 | DRG 270 ==
LOC: JER 08:56 → JERBED 15:22 → J6S 16:48 → JICU 09-23 14:32 → J5S 09-30 18:20
PROVIDERS: ADMIT Internal Medicine; ATTEND Internal Medicine
PROC: 30233N1 Transfusion of Nonautologous Red Blood Cells into Peripheral Vein, Percutaneous Approach (ICD-10-PCS; 2023-09-11)
PROC: 5A1D70Z Performance of Urinary Filtration, Intermittent, Less than 6 Hours Per Day (ICD-10-PCS; 2023-09-11)
PROC: 0DB68ZX Excision of Stomach, Via Natural or Artificial Opening Endoscopic, Diagnostic (ICD-10-PCS; 2023-09-14)
PROC: 041K4JL Bypass Right Femoral Artery to Popliteal Artery with Synthetic Substitute, Percutaneous Endoscopic Approach (ICD-10-PCS; 2023-09-15)
PROC: 0DJD8ZZ Inspection of Lower Intestinal Tract, Via Natural or Artificial Opening Endoscopic (ICD-10-PCS; 2023-09-15)
PROC: 047K3ZZ Dilation of Right Femoral Artery, Percutaneous Approach (ICD-10-PCS; 2023-09-17)
PROC: 047C3DZ Dilation of Right Common Iliac Artery with Intraluminal Device, Percutaneous Approach (ICD-10-PCS; 2023-09-17)
PROC: B40GYZZ Plain Radiography of Left Lower Extremity Arteries using Other Contrast (ICD-10-PCS; 2023-09-17)
PROC: B40FYZZ Plain Radiography of Right Lower Extremity Arteries using Other Contrast (ICD-10-PCS; 2023-09-17)
PROC: 047L3ZZ Dilation of Left Femoral Artery, Percutaneous Approach (ICD-10-PCS; principal; 2023-09-17 16:30)
PROC: 04CK3ZZ Extirpation of Matter from Right Femoral Artery, Percutaneous Approach (ICD-10-PCS; 2023-09-23)
PROC: 04CM3ZZ Extirpation of Matter from Right Popliteal Artery, Percutaneous Approach (ICD-10-PCS; 2023-09-23)
PROC: 05HM33Z Insertion of Infusion Device into Right Internal Jugular Vein, Percutaneous Approach (ICD-10-PCS; 2023-09-23)
PROC: 5A1D70Z Performance of Urinary Filtration, Intermittent, Less than 6 Hours Per Day (ICD-10-PCS; 2023-10-07)
PROC: 5A1D70Z Performance of Urinary Filtration, Intermittent, Less than 6 Hours Per Day (ICD-10-PCS; 2023-10-09)
PROC: 5A1D70Z Performance of Urinary Filtration, Intermittent, Less than 6 Hours Per Day (ICD-10-PCS; 2023-10-12)
DX: E11.52 Type 2 diabetes mellitus with diabetic peripheral angiopathy with gangrene (principal); N18.6 End stage renal disease; R57.1 Hypovolemic shock; I13.2 Hypertensive heart and chronic kidney disease with heart failure and with stage 5 chronic kidney disease, or end stage renal disease; I70.268 Atherosclerosis of native arteries of extremities with gangrene, other extremity; J44.1 Chronic obstructive pulmonary disease with (acute) exacerbation; D62 Acute posthemorrhagic anemia; I50.32 Chronic diastolic (congestive) heart failure; I74.5 Embolism and thrombosis of iliac artery; I48.91 Unspecified atrial fibrillation; K29.70 Gastritis, unspecified, without bleeding; I70.0 Atherosclerosis of aorta; K57.30 Diverticulosis of large intestine without perforation or abscess without bleeding; G40.909 Epilepsy, unspecified, not intractable, without status epilepticus; E78.5 Hyperlipidemia, unspecified; K44.9 Diaphragmatic hernia without obstruction or gangrene; D63.1 Anemia in chronic kidney disease; E11.22 Type 2 diabetes mellitus with diabetic chronic kidney disease; Z99.2 Dependence on renal dialysis; Z85.118 Personal history of other malignant neoplasm of bronchus and lung
CPT/HCPCS: 36415; 36430; 36600; 71045-TC-FY; 73610-TC-RT-FY; 73630-TC-RT-FY; 75635-TC; 76000-TC-FY; 76705-TC; 80048; 80053; 82272; 82550; 82728; 82803; 82962; 82977; 83540; 83550; 83735; 84100; 84466; 85025; 85027; 85610; 85651; 85730; 86140; 86704; 86803; 86850; 86900; 86901; 86922; 87040; 87340; 87517; 87635; 88305-TC; 93005; 93010; 93306-TC; 93926-TC; 94640; 94760; 97116-GP; 97161-GP; 99285-25; C1725; C1757; C1768; C1874; G0463-25; J1644; J3490; P9038; P9058; Q5106; Q9967

== ENCOUNTER 2023-10-14 15:25 | Inpatient (IN) | payer OTHER ==
[2023-10-14 17:52] LABS: VENOUS BASE EXCESS 0.4 mmol/L (-2-2); VENOUS O2 SATURATION 24.9 % (70-80); VENOUS PCO2 54.5 mmHg (38-52); VENOUS PH 7.315 (7.310-7.410)
[2023-10-14 18:00] LABS: EOS % 1.6 % (0-4.5); HEMATOCRIT 30.1 % (32.4-45.2); HEMOGLOBIN 9.5 GM/dL (10.7-15.3); LYMPH % 18.2 % (8-40); MCH 28.4 pg (25.7-33.7); MCHC 31.7 g/dl (32.0-36.0); MEAN CELL VOLUME 89.4 fl (80-96); MEAN PLT VOLUME 9.5 fl (7.5-11.1); MONO % 7.7 % (3.8-10.2); NEUT % 71.5 % (42.8-82.8); PLATELET COUNT 150 10^3/uL (134-434); RBC 3.36 M/mm3 (3.60-5.2); RDW 18.3 % (11.6-15.6); WHITE BLOOD COUNT 6.6 K/mm3 (4.0-10.0)
[2023-10-14 18:04] LABS: INR 1.47 (0.83-1.09)
[2023-10-14 18:06] LABS: ACTIVATED PTT 32.7 SECONDS (25.2-36.5)
[2023-10-14 18:12] LABS: POTASSIUM 3.7 mmol/L (3.5-5.1)
[2023-10-14 18:13] LABS: CALCIUM 8.8 mg/dL (8.5-10.1)
[2023-10-14 18:14] LABS: BLOOD UREA NITROGEN 18.7 mg/dL (7-18); MAGNESIUM 1.7 mg/dL (1.8-2.4)
[2023-10-14 18:17] LABS: CREATININE 4.9 mg/dL (0.55-1.3); PHOSPHOROUS 2.3 mg/dL (2.5-4.9)
[2023-10-14 18:19] LABS: TOT PROT 6.8 g/dl (6.4-8.2)
[2023-10-14 18:48] LABS: ALBUMIN 2.8 g/dl (3.4-5.0); LACTIC ACID 3.1 mmol/L (0.4-2.0)
[2023-10-15] MEDS ORDERED: BUDESONIDE/FORMETEROL FUMARATE 160/4.5 mcg INHALER IH SCH (08:15)
[2023-10-15] MEDS ORDERED: FOLIC ACID 1 MG TABLET (FP) ONE (10:31)
[2023-10-15] MEDS: FOLIC ACID 1 MG TABLET (FP) PO SCH (10:42)
[2023-10-15] MEDS: VITAMIN B COMP W-C 1 EA TABLET (NEPHRO-VITE) PO SCH (10:42)
[2023-10-15 11:16] LABS: BASO % 1.5 % (0-2.0); EOS % 1.3 % (0-4.5); HEMATOCRIT 28.7 % (32.4-45.2); HEMOGLOBIN 9.4 GM/dL (10.7-15.3); LYMPH % 18.9 % (8-40); MCH 28.7 pg (25.7-33.7); MCHC 32.7 g/dl (32.0-36.0); MEAN CELL VOLUME 87.8 fl (80-96); MEAN PLT VOLUME 9.9 fl (7.5-11.1); MONO % 7.4 % (3.8-10.2); NEUT % 70.9 % (42.8-82.8); PLATELET COUNT 174 10^3/uL (134-434); RBC 3.27 M/mm3 (3.60-5.2); RDW 18.2 % (11.6-15.6); WHITE BLOOD COUNT 6.8 K/mm3 (4.0-10.0)
[2023-10-15 11:32] LABS: POTASSIUM 4.5 mmol/L (3.5-5.1)
[2023-10-15 11:42] LABS: CALCIUM 9.1 mg/dL (8.5-10.1)
[2023-10-15 11:43] LABS: BLOOD UREA NITROGEN 23.3 mg/dL (7-18); MAGNESIUM 1.6 mg/dL (1.8-2.4)
[2023-10-15 11:46] LABS: CREATININE 5.9 mg/dL (0.55-1.3)
[2023-10-15] MEDS ORDERED: SODIUM CHLORIDE 500 ML IV STA (13:46)
[2023-10-15] MEDS: BUDESONIDE/FORMETEROL FUMARATE 160/4.5 mcg INHALER IH SCH ×2 (15:17→21:47)
[2023-10-15] MEDS ORDERED: ROSUVASTATIN CA 5 MG TABLET ONE (21:27)
[2023-10-15] MEDS ORDERED: PANTOPRAZOLE 40 MG TABLET PO ONE (21:27)
[2023-10-15] MEDS ORDERED: levETIRAcetam 500 MG TABLET (FP) PO ONE (21:27)
[2023-10-15] MEDS ORDERED: QUEtiapine FUMARATE 100 MG TABLET (FP) ONE (21:28)
[2023-10-15] MEDS ORDERED: MONTELUKAST NA 10 MG TABLET ONE (21:28)
[2023-10-15] MEDS ORDERED: levETIRAcetam 500 MG/5 ML INJECTION VIAL IVPB ONE ×2 (21:45→22:42)
[2023-10-15] MEDS: ROSUVASTATIN CA 5 MG TABLET PO SCH (21:46)
[2023-10-15] MEDS: QUEtiapine FUMARATE 100 MG TABLET (FP) PO SCH (21:46)
[2023-10-15] MEDS: PANTOPRAZOLE 20 MG TABLET PO SCH (21:46)
[2023-10-15] MEDS: MONTELUKAST NA 10 MG TABLET PO SCH (21:46)
[2023-10-15] MEDS: TORSEMIDE 20 MG TABLET (FP) PO SCH (21:46)
[2023-10-15] MEDS: levETIRAcetam 500 MG TABLET (FP) PO SCH (21:46)
[2023-10-16 10:09] LABS: HEMATOCRIT 24.8 % (32.4-45.2); HEMOGLOBIN 8.2 GM/dL (10.7-15.3); MEAN CELL VOLUME 87.8 fl (80-96); MEAN PLT VOLUME 9.7 fl (7.5-11.1); PLATELET COUNT 166 10^3/uL (134-434); RBC 2.82 M/mm3 (3.60-5.2); WHITE BLOOD COUNT 6.3 K/mm3 (4.0-10.0)
[2023-10-16] MEDS ORDERED: SODIUM CHLORIDE 250 ML IV PRN (10:28)
[2023-10-16 10:29] LABS: POTASSIUM 3.9 mmol/L (3.5-5.1)
[2023-10-16 10:32] LABS: ALBUMIN 2.6 g/dl (3.4-5.0); BLOOD UREA NITROGEN 29.9 mg/dL (7-18)
[2023-10-16 10:35] LABS: CREATININE 6.9 mg/dL (0.55-1.3)
[2023-10-16 10:36] LABS: TOT PROT 6.4 g/dl (6.4-8.2)
[2023-10-16 10:40] LABS: BILIRUBIN,TOTAL 0.8 mg/dL (0.2-1)
[2023-10-16] MEDS ORDERED: EPOETIN ALFA-EPBX 10,000 UNIT/ML VIAL SQ ONE (11:15)
[2023-10-16] MEDS: BUDESONIDE/FORMETEROL FUMARATE 160/4.5 mcg INHALER IH SCH ×2 (13:30→22:32)
[2023-10-16] MEDS: FOLIC ACID 1 MG TABLET (FP) PO SCH (18:52)
[2023-10-16] MEDS: VITAMIN B COMP W-C 1 EA TABLET (NEPHRO-VITE) PO SCH (18:52)
[2023-10-16] MEDS: ROSUVASTATIN CA 5 MG TABLET PO SCH (22:31)
[2023-10-16] MEDS: TORSEMIDE 20 MG TABLET (FP) PO SCH (22:31)
[2023-10-16] MEDS: levETIRAcetam 500 MG TABLET (FP) PO SCH (22:31)
[2023-10-16] MEDS: MONTELUKAST NA 10 MG TABLET PO SCH (22:31)
[2023-10-16] MEDS: QUEtiapine FUMARATE 100 MG TABLET (FP) PO SCH (22:31)
[2023-10-16] MEDS: PANTOPRAZOLE 20 MG TABLET PO SCH (22:31)
[2023-10-17] MEDS: VITAMIN B COMP W-C 1 EA TABLET (NEPHRO-VITE) PO SCH (10:18)
[2023-10-17] MEDS: FOLIC ACID 1 MG TABLET (FP) PO SCH (10:18)
[2023-10-17] MEDS: BUDESONIDE/FORMETEROL FUMARATE 160/4.5 mcg INHALER IH SCH ×2 (14:26→21:11)
[2023-10-17] MEDS: MONTELUKAST NA 10 MG TABLET PO SCH (21:02)
[2023-10-17] MEDS: levETIRAcetam 500 MG TABLET (FP) PO SCH (21:03)
[2023-10-17] MEDS: PANTOPRAZOLE 20 MG TABLET PO SCH (21:03)
[2023-10-17] MEDS: ROSUVASTATIN CA 5 MG TABLET PO SCH (21:03)
[2023-10-17] MEDS: TORSEMIDE 20 MG TABLET (FP) PO SCH (21:03)
[2023-10-17] MEDS: QUEtiapine FUMARATE 100 MG TABLET (FP) PO SCH (21:03)
[2023-10-17] MEDS: METOPROLOL TARTRATE 25 MG TABLET (FP) PO SCH (21:06)
[2023-10-18] MEDS: METOPROLOL TARTRATE 25 MG TABLET (FP) PO SCH ×2 (10:21→21:44)
[2023-10-18] MEDS: BUDESONIDE/FORMETEROL FUMARATE 160/4.5 mcg INHALER IH SCH ×2 (10:28→21:56)
[2023-10-18] MEDS: FOLIC ACID 1 MG TABLET (FP) PO SCH (10:28)
[2023-10-18] MEDS: VITAMIN B COMP W-C 1 EA TABLET (NEPHRO-VITE) PO SCH (10:28)
[2023-10-18] MEDS ORDERED: SODIUM CHLORIDE 250 ML IV PRN (19:47)
[2023-10-18] MEDS: QUEtiapine FUMARATE 100 MG TABLET (FP) PO SCH (21:44)
[2023-10-18] MEDS: ROSUVASTATIN CA 5 MG TABLET PO SCH (21:44)
[2023-10-18] MEDS: levETIRAcetam 500 MG TABLET (FP) PO SCH (21:44)
[2023-10-18] MEDS: TORSEMIDE 20 MG TABLET (FP) PO SCH (21:44)
[2023-10-18] MEDS: MONTELUKAST NA 10 MG TABLET PO SCH (21:44)
[2023-10-18] MEDS: PANTOPRAZOLE 20 MG TABLET PO SCH (21:45)
[2023-10-19] MEDS: METOPROLOL TARTRATE 25 MG TABLET (FP) PO SCH ×2 (09:59→21:12)
[2023-10-19] MEDS: FOLIC ACID 1 MG TABLET (FP) PO SCH (09:59)
[2023-10-19] MEDS: VITAMIN B COMP W-C 1 EA TABLET (NEPHRO-VITE) PO SCH (09:59)
[2023-10-19] MEDS: BUDESONIDE/FORMETEROL FUMARATE 160/4.5 mcg INHALER IH SCH ×2 (10:00→21:15)
[2023-10-19] MEDS: TORSEMIDE 20 MG TABLET (FP) PO SCH (21:12)
[2023-10-19] MEDS: MONTELUKAST NA 10 MG TABLET PO SCH (21:12)
[2023-10-19] MEDS: PANTOPRAZOLE 20 MG TABLET PO SCH (21:13)
[2023-10-19] MEDS: QUEtiapine FUMARATE 100 MG TABLET (FP) PO SCH (21:13)
[2023-10-19] MEDS: levETIRAcetam 500 MG TABLET (FP) PO SCH (21:13)
[2023-10-19] MEDS: ROSUVASTATIN CA 5 MG TABLET PO SCH (21:16)
[2023-10-20] MEDS: METOPROLOL TARTRATE 25 MG TABLET (FP) PO SCH ×2 (10:08→21:45)
[2023-10-20] MEDS: FOLIC ACID 1 MG TABLET (FP) PO SCH (10:08)
[2023-10-20] MEDS: VITAMIN B COMP W-C 1 EA TABLET (NEPHRO-VITE) PO SCH (10:08)
[2023-10-20] MEDS: BUDESONIDE/FORMETEROL FUMARATE 160/4.5 mcg INHALER IH SCH ×2 (10:53→21:50)
[2023-10-20] MEDS: MONTELUKAST NA 10 MG TABLET PO SCH (21:45)
[2023-10-20] MEDS: PANTOPRAZOLE 20 MG TABLET PO SCH (21:45)
[2023-10-20] MEDS: QUEtiapine FUMARATE 100 MG TABLET (FP) PO SCH (21:45)
[2023-10-20] MEDS: levETIRAcetam 500 MG TABLET (FP) PO SCH (21:45)
[2023-10-20] MEDS: TORSEMIDE 20 MG TABLET (FP) PO SCH (21:46)
[2023-10-20] MEDS: ROSUVASTATIN CA 5 MG TABLET PO SCH (22:25)
[2023-10-21] MEDS ORDERED: SODIUM CHLORIDE 250 ML IV PRN (09:10)
[2023-10-21] MEDS ORDERED: EPOETIN ALFA-EPBX 20,000 UNIT/ML VIAL SQ ONE (09:15)
[2023-10-21] MEDS: METOPROLOL TARTRATE 25 MG TABLET (FP) PO SCH ×2 (10:00→21:30)
[2023-10-21 10:30] LABS: HEMATOCRIT 25.9 % (32.4-45.2); HEMOGLOBIN 8.4 GM/dL (10.7-15.3); MCH 28.1 pg (25.7-33.7); MCHC 32.3 g/dl (32.0-36.0); MEAN CELL VOLUME 87.1 fl (80-96); MEAN PLT VOLUME 9.9 fl (7.5-11.1); PLATELET COUNT 172 10^3/uL (134-434); RBC 2.97 M/mm3 (3.60-5.2); RDW 17.6 % (11.6-15.6); WHITE BLOOD COUNT 9.2 K/mm3 (4.0-10.0)
[2023-10-21] MEDS: BUDESONIDE/FORMETEROL FUMARATE 160/4.5 mcg INHALER IH SCH ×2 (12:45→21:31)
[2023-10-21] MEDS: FOLIC ACID 1 MG TABLET (FP) PO SCH (12:45)
[2023-10-21] MEDS: VITAMIN B COMP W-C 1 EA TABLET (NEPHRO-VITE) PO SCH (12:45)
[2023-10-21] MEDS: ROSUVASTATIN CA 5 MG TABLET PO SCH (21:29)
[2023-10-21] MEDS: MONTELUKAST NA 10 MG TABLET PO SCH (21:30)
[2023-10-21] MEDS: PANTOPRAZOLE 20 MG TABLET PO SCH (21:30)
[2023-10-21] MEDS: TORSEMIDE 20 MG TABLET (FP) PO SCH (21:31)
[2023-10-21] MEDS: levETIRAcetam 500 MG TABLET (FP) PO SCH (21:31)
[2023-10-21] MEDS: QUEtiapine FUMARATE 100 MG TABLET (FP) PO SCH (21:31)
[2023-10-22] MEDS: FOLIC ACID 1 MG TABLET (FP) PO SCH (10:47)
[2023-10-22] MEDS: VITAMIN B COMP W-C 1 EA TABLET (NEPHRO-VITE) PO SCH (10:47)
[2023-10-22] MEDS: METOPROLOL TARTRATE 25 MG TABLET (FP) PO SCH ×2 (10:47→21:47)
[2023-10-22] MEDS: BUDESONIDE/FORMETEROL FUMARATE 160/4.5 mcg INHALER IH SCH ×2 (12:36→21:47)
[2023-10-22 15:27] VITALS: BMI 21.6
[2023-10-22] MEDS: PANTOPRAZOLE 20 MG TABLET PO SCH (21:37)
[2023-10-22] MEDS: levETIRAcetam 500 MG TABLET (FP) PO SCH (21:39)
[2023-10-22] MEDS: TORSEMIDE 20 MG TABLET (FP) PO SCH (21:39)
[2023-10-22] MEDS: MONTELUKAST NA 10 MG TABLET PO SCH (21:39)
[2023-10-22] MEDS: ROSUVASTATIN CA 5 MG TABLET PO SCH (21:39)
[2023-10-22] MEDS: QUEtiapine FUMARATE 100 MG TABLET (FP) PO SCH (21:39)
[2023-10-23] MEDS ORDERED: SODIUM CHLORIDE 250 ML IV PRN (09:14)
[2023-10-23] MEDS ORDERED: EPOETIN ALFA-EPBX 20,000 UNIT/ML VIAL IVPUSH ONE (09:30)
[2023-10-23 10:00] LABS: HEMATOCRIT 25.2 % (32.4-45.2); HEMOGLOBIN 7.9 GM/dL (10.7-15.3); MCH 27.4 pg (25.7-33.7); MCHC 31.3 g/dl (32.0-36.0); MEAN CELL VOLUME 87.4 fl (80-96); MEAN PLT VOLUME 10.3 fl (7.5-11.1); PLATELET COUNT 152 10^3/uL (134-434); RBC 2.88 M/mm3 (3.60-5.2); RDW 18.2 % (11.6-15.6); WHITE BLOOD COUNT 10.1 K/mm3 (4.0-10.0)
[2023-10-23 10:29] LABS: POTASSIUM 3.9 mmol/L (3.5-5.1)
[2023-10-23 10:31] LABS: ALBUMIN 2.6 g/dl (3.4-5.0); BLOOD UREA NITROGEN 28.8 mg/dL (7-18); CALCIUM 8.7 mg/dL (8.5-10.1)
[2023-10-23 10:35] LABS: CREATININE 6.7 mg/dL (0.55-1.3)
[2023-10-23 10:36] LABS: BILIRUBIN,TOTAL 0.6 mg/dL (0.2-1); TOT PROT 6.6 g/dl (6.4-8.2)
[2023-10-23] MEDS: BUDESONIDE/FORMETEROL FUMARATE 160/4.5 mcg INHALER IH SCH ×2 (12:55→21:17)
[2023-10-23] MEDS: FOLIC ACID 1 MG TABLET (FP) PO SCH (12:55)
[2023-10-23] MEDS: METOPROLOL TARTRATE 25 MG TABLET (FP) PO SCH ×2 (12:55→21:16)
[2023-10-23] MEDS: VITAMIN B COMP W-C 1 EA TABLET (NEPHRO-VITE) PO SCH (12:55)
[2023-10-23] MEDS ORDERED: SODIUM CHLORIDE 250 ML IV STA (16:05)
[2023-10-23] MEDS: QUEtiapine FUMARATE 100 MG TABLET (FP) PO SCH (21:15)
[2023-10-23] MEDS: TORSEMIDE 20 MG TABLET (FP) PO SCH (21:15)
[2023-10-23] MEDS: PANTOPRAZOLE 20 MG TABLET PO SCH (21:16)
[2023-10-23] MEDS: MONTELUKAST NA 10 MG TABLET PO SCH (21:17)
[2023-10-23] MEDS: ROSUVASTATIN CA 5 MG TABLET PO SCH (21:17)
[2023-10-23] MEDS: levETIRAcetam 500 MG TABLET (FP) PO SCH (21:17)
[2023-10-24] MEDS: VITAMIN B COMP W-C 1 EA TABLET (NEPHRO-VITE) PO SCH (10:04)
[2023-10-24] MEDS: METOPROLOL TARTRATE 25 MG TABLET (FP) PO SCH ×2 (10:04→21:48)
[2023-10-24] MEDS: FOLIC ACID 1 MG TABLET (FP) PO SCH (10:04)
[2023-10-24] MEDS: BUDESONIDE/FORMETEROL FUMARATE 160/4.5 mcg INHALER IH SCH ×2 (10:04→21:51)
[2023-10-24] MEDS ORDERED: ONDANSETRON *ODT* 4 MG TABLET SL PRN (10:12)
[2023-10-24] MEDS: TORSEMIDE 20 MG TABLET (FP) PO SCH (21:49)
[2023-10-24] MEDS: MONTELUKAST NA 10 MG TABLET PO SCH (21:50)
[2023-10-24] MEDS: levETIRAcetam 500 MG TABLET (FP) PO SCH (21:50)
[2023-10-24] MEDS: PANTOPRAZOLE 20 MG TABLET PO SCH (21:50)
[2023-10-24] MEDS: QUEtiapine FUMARATE 100 MG TABLET (FP) PO SCH (21:50)
[2023-10-24] MEDS: ROSUVASTATIN CA 5 MG TABLET PO SCH (23:12)
[2023-10-25] MEDS: BUDESONIDE/FORMETEROL FUMARATE 160/4.5 mcg INHALER IH SCH ×2 (11:18→21:52)
[2023-10-25] MEDS: FOLIC ACID 1 MG TABLET (FP) PO SCH (11:18)
[2023-10-25] MEDS: METOPROLOL TARTRATE 25 MG TABLET (FP) PO SCH ×2 (11:18→21:52)
[2023-10-25] MEDS: VITAMIN B COMP W-C 1 EA TABLET (NEPHRO-VITE) PO SCH (11:18)
[2023-10-25] MEDS: PANTOPRAZOLE 20 MG TABLET PO SCH (21:50)
[2023-10-25] MEDS: TORSEMIDE 20 MG TABLET (FP) PO SCH (21:51)
[2023-10-25] MEDS: levETIRAcetam 500 MG TABLET (FP) PO SCH (21:51)
[2023-10-25] MEDS: MONTELUKAST NA 10 MG TABLET PO SCH (21:51)
[2023-10-25] MEDS: QUEtiapine FUMARATE 100 MG TABLET (FP) PO SCH (21:51)
[2023-10-25] MEDS: ROSUVASTATIN CA 5 MG TABLET PO SCH (21:52)
[2023-10-26] MEDS ORDERED: SODIUM CHLORIDE 250 ML IV PRN (07:51)
[2023-10-26 09:26] VITALS: RESP 18
[2023-10-26] MEDS ORDERED: EPOETIN ALFA-EPBX 3,000 UNIT/ML VIAL SQ ONE (10:00)
[2023-10-26] MEDS: VITAMIN B COMP W-C 1 EA TABLET (NEPHRO-VITE) PO SCH (12:10)
[2023-10-26] MEDS: BUDESONIDE/FORMETEROL FUMARATE 160/4.5 mcg INHALER IH SCH ×2 (12:10→21:46)
[2023-10-26] MEDS: METOPROLOL TARTRATE 25 MG TABLET (FP) PO SCH ×2 (12:11→21:45)
[2023-10-26] MEDS: FOLIC ACID 1 MG TABLET (FP) PO SCH (12:11)
[2023-10-26] MEDS: ROSUVASTATIN CA 5 MG TABLET PO SCH (21:44)
[2023-10-26] MEDS: TORSEMIDE 20 MG TABLET (FP) PO SCH (21:45)
[2023-10-26] MEDS: levETIRAcetam 500 MG TABLET (FP) PO SCH (21:45)
[2023-10-26] MEDS: PANTOPRAZOLE 20 MG TABLET PO SCH (21:45)
[2023-10-26] MEDS: MONTELUKAST NA 10 MG TABLET PO SCH (21:46)
[2023-10-26] MEDS: QUEtiapine FUMARATE 100 MG TABLET (FP) PO SCH (21:46)
[2023-10-27] MEDS: METOPROLOL TARTRATE 25 MG TABLET (FP) PO SCH (10:53)
[2023-10-27] MEDS: FOLIC ACID 1 MG TABLET (FP) PO SCH (10:53)
[2023-10-27] MEDS: VITAMIN B COMP W-C 1 EA TABLET (NEPHRO-VITE) PO SCH (10:53)
[2023-10-27] MEDS: BUDESONIDE/FORMETEROL FUMARATE 160/4.5 mcg INHALER IH SCH (10:54)
[2023-10-27] MEDS ORDERED: SODIUM CHLORIDE 250 ML IV PRN (13:57)
[2023-10-27 15:27] VITALS: BP 121/43; PULSE 97; TEMP 98.5
[2023-10-28] MEDS ORDERED: EPOETIN ALFA-EPBX 10,000 UNIT/ML VIAL IVPUSH ONE (13:57)
== END 2023-10-27 17:26 | DRG 314 ==
LOC: JER 15:25 → JERBED 18:28 → J4S 10-15 23:52 → OBSVTOIN 10-16 11:26
PROVIDERS: ADMIT Internal Medicine; ATTEND Internal Medicine
PROC: 5A1D70Z Performance of Urinary Filtration, Intermittent, Less than 6 Hours Per Day (ICD-10-PCS; principal; 2023-10-16)
PROC: 5A1D70Z Performance of Urinary Filtration, Intermittent, Less than 6 Hours Per Day (ICD-10-PCS; 2023-10-19)
PROC: 5A1D70Z Performance of Urinary Filtration, Intermittent, Less than 6 Hours Per Day (ICD-10-PCS; 2023-10-21)
PROC: 5A1D70Z Performance of Urinary Filtration, Intermittent, Less than 6 Hours Per Day (ICD-10-PCS; 2023-10-23)
PROC: 5A1D70Z Performance of Urinary Filtration, Intermittent, Less than 6 Hours Per Day (ICD-10-PCS; 2023-10-26)
DX: T82.898A Other specified complication of vascular prosthetic devices, implants and grafts, initial encounter (principal); N18.6 End stage renal disease; R53.2 Functional quadriplegia; I13.2 Hypertensive heart and chronic kidney disease with heart failure and with stage 5 chronic kidney disease, or end stage renal disease; I50.32 Chronic diastolic (congestive) heart failure; J44.9 Chronic obstructive pulmonary disease, unspecified; E11.22 Type 2 diabetes mellitus with diabetic chronic kidney disease; K44.9 Diaphragmatic hernia without obstruction or gangrene; I25.10 Atherosclerotic heart disease of native coronary artery without angina pectoris; K57.90 Diverticulosis of intestine, part unspecified, without perforation or abscess without bleeding; D63.1 Anemia in chronic kidney disease; Y83.8 Other surgical procedures as the cause of abnormal reaction of the patient, or of later complication, without mention of misadventure at the time of the procedure; E11.51 Type 2 diabetes mellitus with diabetic peripheral angiopathy without gangrene; E83.39 Other disorders of phosphorus metabolism; I48.91 Unspecified atrial fibrillation; R41.82 Altered mental status, unspecified; E83.42 Hypomagnesemia; Z99.2 Dependence on renal dialysis; Z85.118 Personal history of other malignant neoplasm of bronchus and lung
CPT/HCPCS: 0241U-QW; 36415; 70450-TC; 71045-TC-FY; 80048; 80053; 82803; 82962; 83605; 83735; 84100; 84443; 84484; 85025; 85027; 85610; 85730; 86704; 86803; 86850; 86900; 86901; 87340; 87517; 87635; 93005; 93010; 93990-TC; 97162-GP; 99285-25; G0378; Q0162; Q5106

== ENCOUNTER 2023-11-14 02:46 | Emergency (ER) | payer OTHER ==
[2023-11-14] MEDS ORDERED: NOREPINEPHRINE BITARTRATE 16,000 MCG in SODIUM CHLORIDE 484 ML IV SCH (03:00)
[2023-11-14] MEDS: PANTOPRAZOLE SODIUM 40 MG VIAL IVPUSH ONE (03:00)
[2023-11-14] MEDS ORDERED: PANTOPRAZOLE SODIUM 40 MG VIAL ONE (03:06)
[2023-11-14] MEDS ORDERED: LACTATED RINGERS SOLUTION 1000 ML INFUS.BAG IV ONE (03:09)
[2023-11-14] MEDS ORDERED: NOREPINEPHRINE BITARTRATE 4 MG/4 ML ML IV ONE (03:17)
[2023-11-14 03:34] VITALS: PULSE 91; RESP 15
[2023-11-14] MEDS ORDERED: EPINEPHrine 1:10,000 (P-F SYR) 1 MG/10 ML DISP.SYRIN ONE (03:42)
[2023-11-14] MEDS ORDERED: CALCIUM CHLORIDE 1 GM/10 ML *DISP.SYRIN ONE (03:42)
[2023-11-14 03:45] LABS: HEMATOCRIT 13.8 % (32.4-45.2); MCH 28.1 pg (25.7-33.7); MCHC 26.8 g/dl (32.0-36.0); MEAN CELL VOLUME 104.6 fl (80-96); MEAN PLT VOLUME 11.2 fl (7.5-11.1); PLATELET COUNT 267 10^3/uL (134-434); RBC 1.32 M/mm3 (3.60-5.2); RDW 26.2 % (11.6-15.6); WHITE BLOOD COUNT 24.7 K/mm3 (4.0-10.0)
[2023-11-14 03:51] VITALS: BP 90/17; TEMP 94.6; BMI 22.1
[2023-11-14 03:52] LABS: HEMOGLOBIN 3.7 GM/dL (10.7-15.3); PROTHROMBIN TIME (PATIENT) 67.7 SEC (9.7-13.0)
[2023-11-14 03:55] LABS: VENOUS BASE EXCESS -23.3 mmol/L (-2-2); VENOUS O2 SATURATION 28.2 % (70-80); VENOUS PCO2 48.2 mmHg (38-52)
[2023-11-14 03:56] LABS: VENOUS PH 6.808 (7.310-7.410)
[2023-11-14 04:13] LABS: LACTIC ACID 12.5 mmol/L (0.4-2.0)
[2023-11-14 04:32] LABS: POTASSIUM 4.5 mmol/L (3.5-5.1)
[2023-11-14 04:34] LABS: CALCIUM 11.9 mg/dL (8.5-10.1)
[2023-11-14 04:35] LABS: ALBUMIN 1.9 g/dl (3.4-5.0); BLOOD UREA NITROGEN 55.5 mg/dL (7-18)
[2023-11-14 04:38] LABS: CREATININE 3.7 mg/dL (0.55-1.3)
[2023-11-14 04:39] LABS: TOT PROT 4.7 g/dl (6.4-8.2)
[2023-11-14 04:40] LABS: BILIRUBIN,TOTAL 1.2 mg/dL (0.2-1)
[2023-11-14 05:20] LABS: INR 5.94 (0.83-1.09)
[2023-11-14 07:07] LABS: PLATELET ESTIMATE 371
== END 2023-11-14 05:21 | disposition expired ==
LOC: JER 02:46
PROC: 3E033GC Introduction of Other Therapeutic Substance into Peripheral Vein, Percutaneous Approach (ICD-10-PCS; principal; 2023-11-14)
DX: R06.03 Acute respiratory distress (principal); Z20.822 Contact with and (suspected) exposure to COVID-19
CPT/HCPCS: 0241U-QW; 36415; 80053; 82803; 82962; 83605; 84484; 85025; 85610; 86850; 86900; 86901; 99284-25